=== PATIENT | male | born 1955 | race Caucasian/White ===

== ENCOUNTER → 2020-09-16 13:56 | Outpatient (BNVA) | payer OTHER, SELFPAY | PROVIDERS: PCP Nurse Practitioner Family; Referring Provider Nurse Practitioner Family; Visit Provider Internal Medicine | DX: J44.9 Chronic obstructive pulmonary disease, unspecified (principal); R91.1 Solitary pulmonary nodule; F17.200 Nicotine dependence, unspecified, uncomplicated; Z79.899 Other long term (current) drug therapy | CPT/HCPCS: 99212 ==

== ENCOUNTER → 2020-10-02 13:56 | Outpatient (BNVA) | payer OTHER, SELFPAY | PROVIDERS: PCP Nurse Practitioner Family; Referring Provider Nurse Practitioner Family; Visit Provider Orthopaedic Surgery | DX: M70.61 Trochanteric bursitis, right hip (principal); M70.62 Trochanteric bursitis, left hip | CPT/HCPCS: 20610; 99202; J1100 ==

== ENCOUNTER 2020-10-20 16:17 | Outpatient (REF) | payer OTHER, SELFPAY ==
--- NOTE | 2020-10-20 16:19 | CT_ITS ---
EXAMINATION: CT CHEST SCREENING CLINICAL INFORMATION: Current smoker, followup bilateral pulmonary nodules. COMPARISON: CT chest 07/29/2020 TECHNIQUE: Multidetector volumetric CT imaging of the chest is performed without contrast using low dose technique. Additional 2D coronal and sagittal reformatted images and axial 3D maximum intensity projection (MIP) images are generated on the CT workstation. This CT examination was performed using dose optimization techniques as appropriate, variously including the following: *Automated exposure control *Adjustment of mA and/or kV according to patient size (this includes techniques or standardized protocols for targeted exams where dose is matched to indication/reason for exam; i.e. extremities or head) *Use of iterative reconstruction technique DLP: 45 mGy-cm FINDINGS: LUNGS: Previously seen 8 mm partially cystic and solid lesion left lung apex is smaller and measures 4 mm. There is a 6 mm nodule right upper lobe axial image 14/4. Previously, it measured 7 mm. There is a calcified nodule left lower lobe superior segment image 214/6. No additional pulmonary nodules visualized. Focal atelectatic changes are seen in the right upper lobe anterior segment and lingula. Minimal dependent atelectasis seen in the right lung base. MEDIASTINUM: The thyroid lobes are symmetrical and normal. The central trachea and the bronchi are widely patent. Heart size and the great vessels are normal caliber. There is minimal atherosclerotic calcification of thoracic arch and left coronary artery. No pericardial effusion seen. No abnormal size mediastinal mass or lymph node seen. PLEURA: There is no pleural effusion. No pleural mass or thickening. AXILLA: No lymphadenopathy. UPPER ABDOMEN: Visualized liver, spleen, pancreas, and bilateral adrenal glands are unremarkable. OSSEOUS STRUCTURES: No lytic or sclerotic process seen. There is mild ventral spondylosis mid and lower dorsal spine. CT/CT lung screen follow up IMPRESSION: Improved bilateral pulmonary nodules, as described above. ASSESSMENT: Lung-RADS category 2: Benign. RECOMMENDATION: Low-dose annual CT chest.
== END 2020-10-20 16:18 | disposition home or self-care (01) ==
LOC: HO.CT 16:17
PROVIDERS: Visit Provider Physician Assistant Medical
DX: R91.8 Other nonspecific abnormal finding of lung field (principal); F17.210 Nicotine dependence, cigarettes, uncomplicated
CPT/HCPCS: 71250

== ENCOUNTER 2020-11-21 10:17 | Outpatient (REF) | payer OTHER, SELFPAY ==
[2020-11-21 11:34] LABS: Anion Gap 13 (12-20); Blood Urea Nitrogen 15 mg/dL (9-16); Carbon Dioxide 27 mmol/L (22-29); Chloride 104 mmol/L (96-108); Cholesterol 150 mg/dL; Estimated Glomerular Filt Rate > 60; Glucose Random 98 mg/dL (60-115); HDL Cholesterol 45 mg/dL; LDL Cholesterol Calculated 90 mg/dl; Potassium 4.5 mmol/l (3.3-5.1); Sodium 139 mmol/L (135-145); Triglycerides 78 mg/dL
[2020-11-21 12:00] LABS: TSH reflex Free T4 0.88 mIU/mL (0.32-4.0)
[2020-11-21 12:29] LABS: Prostate Specific Antigen Scr 0.55 ng/mL (<0.05-4.0)
== END 2020-11-21 10:18 | disposition home or self-care (01) ==
LOC: HO.HMGCLDS 10:17
PROVIDERS: PCP Nurse Practitioner Family; Visit Provider Nurse Practitioner Family
DX: R91.1 Solitary pulmonary nodule (principal); F17.210 Nicotine dependence, cigarettes, uncomplicated; Z00.00 Encounter for general adult medical examination without abnormal findings; Z12.5 Encounter for screening for malignant neoplasm of prostate
CPT/HCPCS: 36415; 80048; 80061; 84153; 84443; 99204

== ENCOUNTER → 2021-01-27 13:51 | Outpatient (BNVA) | payer OTHER, SELFPAY | PROVIDERS: PCP Nurse Practitioner Family; Visit Provider Internal Medicine | DX: J44.9 Chronic obstructive pulmonary disease, unspecified (principal); R91.1 Solitary pulmonary nodule; F17.200 Nicotine dependence, unspecified, uncomplicated; Z71.6 Tobacco abuse counseling; Z79.51 Long term (current) use of inhaled steroids | CPT/HCPCS: 99212 ==

== ENCOUNTER → 2021-06-01 14:16 | Outpatient (BNVA) | payer OTHER, SELFPAY | PROVIDERS: PCP Nurse Practitioner Family; Visit Provider Internal Medicine | DX: J44.9 Chronic obstructive pulmonary disease, unspecified (principal); R91.1 Solitary pulmonary nodule; F17.200 Nicotine dependence, unspecified, uncomplicated | CPT/HCPCS: 99212 ==

== ENCOUNTER 2021-06-22 10:16 | Emergency (ER) | payer OTHER, SELFPAY ==
[2021-06-22 10:20] VITALS: BP 134/69; PULSE 72; RESP 18; TEMP 36.9; O2SAT 96; BMI 23.6
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
[2021-06-22] MEDS: Tetracaine HCl/PF 0.5% Oph Sol 4 ML DROPS 3 DROP EYE-LEFT (10:43)
[2021-06-22] MEDS: Fluorescein Sodium STRIP 1 STRIP EYE-LEFT (10:43)
[2021-06-22] MEDS: Diphth,Pertus(ACell),Tet Adult 0.5 ML SYRINGE IM (11:07)
== END 2021-06-22 11:17 | disposition home or self-care (01) ==
PROVIDERS: Emergency Provider Emergency Medicine; PCP Nurse Practitioner Family
DX: T15.02XA Foreign body in cornea, left eye, initial encounter (principal); H57.12 Ocular pain, left eye; J44.9 Chronic obstructive pulmonary disease, unspecified; Y28.9XXA Contact with unspecified sharp object, undetermined intent, initial encounter; Y93.9 Activity, unspecified; Y92.9 Unspecified place or not applicable; Y99.9 Unspecified external cause status; Z79.899 Other long term (current) drug therapy
CPT/HCPCS: 65220; 90471; 90715; 99284

== ENCOUNTER → 2021-09-29 14:15 | Outpatient (BNVA) | payer MEDICARE, SELFPAY | PROVIDERS: PCP Nurse Practitioner Family; Visit Provider Internal Medicine | DX: J44.9 Chronic obstructive pulmonary disease, unspecified (principal); R91.1 Solitary pulmonary nodule; F17.200 Nicotine dependence, unspecified, uncomplicated | CPT/HCPCS: 99212 ==

== ENCOUNTER 2021-10-06 08:43 | Outpatient (REF) | payer MEDICARE, MEDICAID, SELFPAY ==
[2021-10-06 11:51] LABS: Appearance Urine HAZY; Color Urine YELLOW; Glucose Urine UA NEG (NEG); Leukocyte Esterase Urine NEG (NEG); Nitrite Urine NEG (NEG); Urine Blood NEG (NEG); Urine Ketones NEG (NEG); Urine Protein NEG (NEG-TRACE)
[2021-10-06 12:14] LABS: Alanine Aminotransferase 43 U/L (0-40); Albumin Level 4.3 g/dL (3.5-5.0); Alkaline Phosphatase 142 U/L (39-117); Anion Gap 15 (12-20); Aspartate Amino Transferase 23 U/L (5-37); Bilirubin Total 0.2 mg/dL (0.0-1.0); Blood Urea Nitrogen 13 mg/dL (9-16); Calcium 9.3 mg/dL (8.4-10.2); Carbon Dioxide 25 mmol/L (22-29); Chloride 106 mmol/L (96-108); Cholesterol 143 mg/dL; Estimated Glomerular Filt Rate > 60; Glucose Fasting 97 mg/dL (60-99); HDL Cholesterol 36 mg/dL; LDL Cholesterol Calculated 88 mg/dl; Potassium 4.5 mmol/L (3.3-5.1); Sodium 141 mmol/L (135-145); Total Protein 7.1 g/dL (6.5-8.0); Triglycerides 96 mg/dL
[2021-10-06 12:20] LABS: TSH reflex Free T4 0.81 uIU/mL (0.32-4.0)
[2021-10-06 13:03] LABS: Prostate Specific Antigen Scr 24.66 ng/mL (<0.05-4.0)
== END 2021-10-06 08:44 | disposition home or self-care (01) ==
LOC: HO.HMGCLDS 08:43
PROVIDERS: PCP Nurse Practitioner Family; Visit Provider Nurse Practitioner Family
DX: Z12.5 Encounter for screening for malignant neoplasm of prostate (principal); I10 Essential (primary) hypertension
CPT/HCPCS: 36415; 80053; 80061; 81003; 84153; 84443

== ENCOUNTER 2021-10-07 08:35 | Outpatient (REF) | payer MEDICARE, MEDICAID, SELFPAY ==
[2021-10-07 11:43] LABS: Alanine Aminotransferase 33 U/L (0-40); Albumin Level 4.1 g/dL (3.5-5.0); Alkaline Phosphatase 142 U/L (39-117); Aspartate Amino Transferase 17 U/L (5-37); Bilirubin Direct 0.2 mg/dL (0.0-0.5); Bilirubin Total 0.3 mg/dL (0.0-1.0); Gamma Glutamyl Transpeptidase 184 U/L (11-51); Total Protein 6.7 g/dL (6.5-8.0)
[2021-10-08 10:09] LABS: HBc Num1 0.09 S/CO (0.00-0.79); Hepatitis B Core Antibody Nonreactive (Nonreactive); ~HepC Num1 0.07 S/CO (0.00-0.79); ~Hepatitis B Surface Antibody NONREACTIVE (Nonreactive); ~Hepatitis C Antibody Nonreactive (Nonreactive)
[2021-10-08 10:29] LABS: Hepatitis B Surface Antigen Negative (Negative)
[2021-10-08 12:24] LABS: Hepatitis A Antibody IgM 0.14 Index (0-0.79); ~Hepatitis A Antibody IgM Nonreactive (Nonreactive)
[2021-10-12 11:56] LABS: Free Prostate Spec Ag 2.1 ng/mL; Percent Free Prostate Spec Ag NOT CALCULATED % (calc) (>25); Prostate Specific Ag Total 20.8 ng/mL (< OR = 4.0)
== END 2021-10-07 08:36 | disposition home or self-care (01) ==
LOC: HO.HMGCLDS 08:35
PROVIDERS: Absent Provider Physician Assistant Surgical; Visit Provider Nurse Practitioner Family
DX: R74.8 Abnormal levels of other serum enzymes (principal); R97.20 Elevated prostate specific antigen [PSA]; Z12.5 Encounter for screening for malignant neoplasm of prostate
CPT/HCPCS: 36415; 80076; 82977; 84154; 86704; 86706; 86709; 86803; 87340

== ENCOUNTER 2021-10-15 16:21 | Outpatient (REF) | payer MEDICARE, MEDICAID, SELFPAY ==
--- NOTE | ~2021-10-15 | CT_ITS ---
EXAMINATION: CT CHEST SCREENING CLINICAL INFORMATION: Nicotine dependence, cigarettes. COMPARISON: None. TECHNIQUE: Multidetector volumetric CT imaging of the chest is performed without contrast using low dose technique. Additional 2-D coronal and sagittal reformatted images and axial 3-D maximum intensity projection (MIP) images are generated on the CT workstation. This CT examination was performed using dose optimization techniques as appropriate, variously including the following: *Automated exposure control *Adjustment of mA and/or kV according to patient size (this includes techniques or standardized protocols for targeted exams where dose is matched to indication/reason for exam; i.e. extremities or head) *Use of iterative reconstruction technique DLP: 59 mGy-cm FINDINGS: LUNGS: The lungs are hyperinflated but clear of acute pneumonic process. There is a 3 mm nodule centrally in the right lower lobe adjacent to major fissure axial image 233/6, 3 mm nodule right lower lobe posteriorly image 236/6 and 6 mm nodule left lower lobe axial image 155/6. No additional pulmonary nodules seen. Focal atelectatic changes in the lingula, right lung base. MEDIASTINUM: The thyroid lobes are symmetric and normal. The central trachea and the bronchi are widely patent. Heart size and the great vessels are normal caliber. No pericardial effusion seen. There are trace coronary artery calcifications present. PLEURA: There is no pleural effusion. No pleural mass or thickening. AXILLA: There are small shotty lymph nodes in the axilla. UPPER ABDOMEN: Visualized liver, spleen, pancreas, and adrenal glands are unremarkable. OSSEOUS STRUCTURES: No lytic or sclerotic process seen. There is mild spondylosis of the dorsal spine. CT/CT lung screening IMPRESSION: Hyperinflated lungs without acute process. There are small pulmonary nodules measuring 3 mm and the largest measuring 6 mm in left lower lobe. ASSESSMENT: Lung-RADS category 3: Probably Benign. RECOMMENDATION: Low-dose CT chest in 6 months as per Fleischner guidelines.
== END 2021-10-15 16:22 | disposition home or self-care (01) ==
LOC: HO.CT 16:21
PROVIDERS: PCP Nurse Practitioner Family; Visit Provider Physician Assistant Medical
DX: Z12.2 Encounter for screening for malignant neoplasm of respiratory organs (principal); F17.210 Nicotine dependence, cigarettes, uncomplicated
CPT/HCPCS: 71271

== ENCOUNTER 2021-10-22 08:48 | Outpatient (REF) | payer MEDICARE, MEDICAID, SELFPAY ==
--- NOTE | ~2021-10-22 | US_ITS ---
EXAMINATION: US ABDOMEN COMPLETE CLINICAL INFORMATION: Abnormal levels of other serum enzymes. COMPARISON: Ultrasound abdomen 08/07/2010. TECHNIQUE: Real-time imaging of the abdominal viscera. FINDINGS: PANCREAS: Normal. ABDOMINAL AORTA: There are mild atherosclerotic changes of the abdominal aorta without aneurysmal dilatation. INFERIOR VENA CAVA: Visualized portions are normal. LIVER: The liver is normal in size. The liver contour is normal. There is slight increased liver echogenicity. No focal hepatic lesion. There is no intrahepatic biliary duct dilatation seen. GALLBLADDER: There is echogenic floating debris. The gallbladder is physiologically distended without evidence of stones, sludge, polyps, wall thickening or pericholecystic fluid. COMMON BILE DUCT: Normal in caliber measuring 0.2 cm in diameter. RIGHT KIDNEY: Normal. No hydronephrosis. No renal calculi or focal parenchymal lesions. The kidney measures 10.0 cm in maximum dimension. LEFT KIDNEY: Normal. No hydronephrosis. No renal calculi or focal parenchymal lesions. The kidney measures 10.7 cm in maximum dimension. SPLEEN: Normal. The spleen measures 10.1 cm in maximum dimension. FREE FLUID: None. US/US abdomen complete IMPRESSION: Mild hepatic steatosis without focal lesion or intrahepatic ductal dilatation. Floating echogenic debris but no echogenic stones, sludge or wall thickening. The rest of the abdominal ultrasound is unremarkable.
== END 2021-10-22 08:49 | disposition home or self-care (01) ==
LOC: HO.HMGCX 08:48
PROVIDERS: PCP Nurse Practitioner Family; Visit Provider Nurse Practitioner Family
DX: R74.8 Abnormal levels of other serum enzymes (principal)
CPT/HCPCS: 76700

== ENCOUNTER 2021-12-18 15:40 | Inpatient (IN) | payer MEDICARE, MEDICAID, SELFPAY ==
[2021-12-18] VITALS (8 sets, daily range): BP systolic 138–199; BP diastolic 72–88; PULSE 66–94; RESP 16–24; TEMP 36.6–37.2; O2SAT 92–99; BMI 23.6
--- NOTE | ~2021-12-18 | XR_ITS ---
EXAMINATION: XR CHEST CLINICAL INFORMATION: Dyspnea COMPARISON: Multiple previous chest imaging studies with the chest CT of 10/15/2021 and chest x-ray of 01/04/2018 TECHNIQUE: 2 views of the chest were obtained. FINDINGS: The lungs are hyperinflated. No focal consolidation, pleural effusions, pulmonary edema or pneumothorax are noted. The lungs essentially appear clear. Cardiomediastinal silhouette is stable and normal. Multiple right rib healed fractures are again noted. Multilevel degenerative changes in the spine. Visualized upper abdomen is unremarkable. XR/XR chest 2V IMPRESSION: Hyperinflated lungs. No acute pulmonary process.
--- NOTE | ~2021-12-18 | CT_ITS ---
EXAMINATION: CT CHEST WITHOUT CONTRAST CLINICAL INFORMATION: Cough, shortness of breath COMPARISON: Chest x-ray 12/18/2021. CT lung screening study 10/15/2021 TECHNIQUE: Multidetector volumetric CT imaging of the chest was done. Axial MIP volume rendering provided. Sagittal and coronal reformatted images were obtained. This CT examination was performed using dose optimization techniques as appropriate, variously including the following: *Automated exposure control *Adjustment of mA and/or kV according to patient size (this includes techniques or standardized protocols for targeted exams where dose is matched to indication/reason for exam; i.e. extremities or head) *Use of iterative reconstruction technique DLP: 201 mGy-cm FINDINGS: LUNGS: There is diffuse mild bronchial wall thickening but no bronchiectasis. Bronchial wall thickening is new since CT of 10/15/2021. There are faint reticular nodular and small alveolar opacities scattered in the right lower lobe which are new since prior 10/15/2021 exam. These may be inflammatory or infectious in etiology. No dense consolidation. There is hyperinflation of lungs. Lung nodules: 1. Stable 6 mm nodule left upper lobe posteriorly axial image 146/554 series 6. 2. Stable 3 mm nodule posterior right upper lobe axial image 226/554 series 6. 3. Stable 4 mm nodule right middle lobe adjacent to the regulo axial image 221/554 series 6. No new lung nodules. MEDIASTINUM: No mediastinal mass or significant lymphadenopathy. Heart size is normal. No pericardial effusion. Moderate volume of coronary artery calcification. No aneurysm of aorta. There are vascular wall calcifications of thoracic aorta. PLEURA: There is no pleural effusion. No pleural mass or thickening. AXILLA: No lymphadenopathy. UPPER ABDOMEN: Unremarkable. OSSEOUS STRUCTURES: Multilevel degenerative spondylosis of dorsal spine. CT/CT chest wo con IMPRESSION: 1. Diffuse mild bronchial wall thickening. Bronchial wall thickening is an CT 10/15/2021 suggesting a mild bronchitis. 2. Faint reticular nodular and small alveolar opacities scattered in the right lower lobe new since prior CT 10/15/2021. These may be inflammatory or infectious in etiology. No dense consolidation. 3. Stable previously noted lung nodules. Largest is 6 mm in left upper lobe As per the Lung-RADS guidelines on the CT chest 10/22/2021 follow-up CAT scan in 6 months recommended. Fleischner guidelines were followed.
--- NOTE | 2021-12-18 16:08 | ED_ITS ---
HPI - SOB/Dyspnea General Chief Complaint: Dyspnea Stated Complaint: diff breathing Time Seen by Provider: 12/18/21 16:08 Source: patient Mode of arrival: ambulatory Limitations: no limitations History of Present Illness HPI Narrative: This is a 66-year-old male past medical history significant for COPD, hypertensi on presenting to the emergency department with 3 days of productive cough of thick sputum, shortness of breath worse with exertion, and chest discomfort all of which are progressively worsening. Patient tells me he has no cardiac history. He tells me that the discomfort is substernal, nonradiating, and intermittent in nature. Patient also mentions to me that he has been sleeping in a recliner at night because he is so short of breath. He tells me that his significant other is also sick with similar symptoms. Patient is vaccinated with Pfizer x3. Denies nausea, vomiting, abdominal pain, weakness, vision changes, headache, dizziness. The patient is a current daily smoker he smokes 1 pack per day. MD elicited complaint: shortness of breath Pertinent past history: COPD Onset (ago): day(s) (3) Timing: constant Severity: moderate Exacerbating factors: nothing Relieving factors: nothing Known history of: COPD Associated symptoms: denies other symptoms Treatment prior to arrival: none Related Data Home Medications Medication Instructions Recorded Confirmed tamsulosin 0.4 mg capsule 0.4 mg PO BEDTIME 08/25/20 12/18/21 atorvastatin 40 mg tablet 40 mg PO BEDTIME 12/18/21 12/18/21 diltiazem HCl 120 mg tablet 120 mg PO DAILY 12/18/21 12/18/21 Previous Rx's Medication Instructions Recorded mometasone (Asmanex Twisthaler) 1 inh INHALATION DAILY #1 ea 03/11/21 cholecalciferol (vitamin D3) 50 50 mcg PO DAILY 90 Days #90 tab 06/01/21 mcg (2,000 unit) tablet ProAir HFA 90 mcg/actuation 2 puff PO Q4-6H PRN #8.5 g NS 09/21/21 aerosol inhaler (albuterol sulfate) omeprazole 20 mg capsule,delayed 20 mg PO DAILY #30 cap 10/05/21 release tiotropium bromide 18 mcg capsule 1 cap INHALATION DAILY 30 Days 12/07/21 #30 with inhalation device (Spiriva inh with HandiHaler) Allergies Allergy/AdvReac Type Severity Reaction Status Date / Time No Known Allergies Allergy Verified 10/05/21 17:10 Review of Systems Verdana 4l Review of Systems: Verdana 4d Verdana 4d Constitutional : No Weight loss, No Fever, No Chills, No Fatigue, No Malaise ENT/Mouth : No sore throat, No Rhinorrhea Eyes: No Eye Pain, No Swelling, No Redness Cardiovascular : No Chest Pain, + SOB, No Dyspnea on Exertion, No OrthopneaOrthopnea, No Edema, No Palpitations Respiratory : No Cough, No Sputum, No Wheezing Gastrointestinal : No Nausea, No Vomiting, No Diarrhea, No Constipation, No abdominal Pain, No Hematochezia, No Melena Genitourinary : No Dysuria, No Urinary Frequency, No Hematuria, Musculoskeletal : No joint pain, No Myalgias, No Joint Swelling Skin : No Skin Lesions, No rash Neuro : No Weakness, No Numbness, No Dizziness, No Headache All other systems reviewed and are negative Yes all other systems are reviewed and are negative PMFSH Past Medical History Attestation statement: The following information was validated with the patient. Source: old records reviewed and nursing notes reviewed Medical History Chronic right hip pain COPD (chronic obstructive pulmonary disease) History of osteomyelitis Nicotine dependence, cigarettes, uncomplicated Onychomycosis Personal history of nicotine dependence Pulmonary nodule Smoker Surgical History History of cataract surgery (~2015) History of femur fracture History of fracture of clavicle (~2010) Status post reconstruction procedure (~1977) Thumb fracture Thumb laceration Family History Family History Father Lung cancer Smoker Mother Myocardial infarction CVD (cardiovascular disease) Maternal Grandfather No problems noted. Maternal Grandmother No problems noted. Paternal Grandfather No problems noted. Paternal Grandmother No problems noted. Brother HTN (hypertension) Sister No problems noted. 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 Oriented X3.? No acute distress.? Head: Normocephalic, atraumatic, no step-offs or deformities Eyes: Pupils equal, round and reactive to light.? ENT: Pharynx normal.? Neck: Normal inspection.? Neck supple.? CVS: Normal heart rate and rhythm.? Pulses normal.? Respiratory: No respiratory distress.? + ronchi throughout, faint crackles in b/l lower lobes. Abdomen: Soft and nontender.? Skin: Skin warm and dry.? Normal skin color.? Normal skin turgor.? Extremities: No lower extremity edema.? No calf ttp. 5/5 strength to bilateral upper and lower extremities Back: No midline tenderness, no C-spine tenderness, full range of motion, no CVA tenderness bilaterally Neuro: Oriented X 3.? No motor deficit.? No sensory deficit. Course Reevaluation(s) Reevaluation #1: Slight leukocytosis, no acute electrolyte abnormalities, troponin slightly elevated will repeat in 3 hours. However, EKG is nonischemic, unlikely that this is ACS however will verify. Patient's history and physical examination not consistent with pulmonary embolism negative Delma sign bilaterally patient's vital signs are stable, no tachypnea or hypoxia. Patient is noted to be COVID negative. Time: 18:20 Reevaluation #2: Patient telling me symptoms have been worsening. His cough has been more persistent. O2 sat 92% on RA. Slight improvement after duoneb. Decadron ordered and morphine. Dimer negative no need for CTA unlikle PE. Time: 19:07 Reevaluation #3: Patient just informed me his girlfriend is here in the emergency department tested positive for RSV at this time I will obtain a flu/COVID/RSV swab. Time: 20:06 Additional Reevaluation(s): 2115 CT with bronchial wall thickening concerning for bronchitis patient 96% on 2L feeling better after decadrona and morphine and guaifenesin and codeine. FLU/COVID/RSV pending Will be admited to Dr. Sanford. MDM - SOB/Dyspnea MDM Narrative Medical decision making narrative: 1610 66 m pmhx HTN, COPD presents w/ complaints of SOB w/ a/c chest discomfort and productive cough of thick sputum X3 days. Daily smoker 1 ppd. PE significant for some crackles in b/l lower lobes and roncherous throughout. Plan labs, lactic, cultures, xray Medical Records Attestation: I reviewed the patient's medical records. Lab Data Attestation: I reviewed the patient's lab results. Result diagrams: 12/18/21 16:40 12/18/21 16:40 Labs: Lab Results 12/18/21 12/18/21 12/18/21 Range/Units 15:52 16:40 16:40 WBC 12.1 H (4.8-10.8) X10*3/uL RBC 5.06 (4.60-5.80) X10*6/uL Hgb 16.2 (14.0-18.0) g/dl Hct 45.9 (42.0-52.0) % MCV 90.7 (80.0-98.0) fL MCH 32.0 (27.0-33.0) pg MCHC 35.3 (31.0-36.0) g/dl RDW 13.7 (11.0-16.0) % Plt Count 212 (160-400) X10*3/uL MPV 8.7 L (9.4-12.4) fL Immature Gran % (Auto) 0.3 (0.0-0.4) % Neut % (Auto) 76.7 H (45-73) % Lymph % (Auto) 12.3 L (20-40) % Treasure % (Auto) 10.4 (2-11) % Eos % (Auto) 0.1 (0-4) % Baso % (Auto) 0.2 (0-2) % Lymph # (Auto) 1.5 (1.2-4.9) X10*3/uL Treasure # (Auto) 1.3 H (0.1-1.2) X10*3/uL Eos # (Auto) 0.0 (0.0-0.4) X10*3/uL Baso # (Auto) 0.0 (0.0-0.2) X10*3/uL Abs Immat Gran (auto) 0.04 H (0.00-0.03) X10*3/uL Absolute Neuts (auto) 9.3 H (2.0-8.3) x10*3/uL Absolute Nucleated RBC 0.000 (0.0-0.012) X10*3/uL Nucleated RBC % (auto) 0.0 (0.0-0.2) /100WBC D-Dimer High Sensitivty NG/ML Sodium 136 (135-145) mmol/L Potassium 4.4 (3.3-5.1) mmol/L Chloride 102 (96-108) mmol/L Carbon Dioxide 24 (22-29) mmol/L Anion Gap 14 (12-20) BUN 20 H (9-16) mg/dL Creatinine 1.09 (0.5-1.4) mg/dL Estim Creat Clear Calc 69.7 Estimated GFR > 60 Random Glucose 122 H (60-115) mg/dL Lactic Acid (0.5-2.0) mmol/L Calcium 9.8 (8.4-10.2) mg/dL Magnesium 1.8 (1.6-2.6) mg/dL Total Bilirubin 0.7 (0.0-1.0) mg/dL AST 21 (5-37) U/L ALT 18 (0-40) U/L Alkaline Phosphatase 94 D (39-117) U/L Troponin I High Sens (<3.5-35.0) ng/L B-Natriuretic Peptide (<100) pg/mL Total Protein 7.4 (6.5-8.0) g/dL Albumin 4.5 (3.5-5.0) g/dL Urine Color Urine Appearance Urine pH (5.0-8.0) Ur Specific [place] (1.005-1.025) Urine Protein (NEG-TRACE) MG/DL Urine Glucose (UA) (NEG) MG/DL Urine Ketones (NEG) MG/DL Urine Blood (NEG) Urine Nitrite (NEG) Ur Leukocyte Esterase (NEG) Urine RBC (0) /HPF Urine WBC (0-4) /HPF Ur Squamous Epith Cells /LPF Calcium Oxalate Crystal /LPF Urine Bacteria /LPF Granular Casts /LPF Urine Mucus /LPF COVID-19 (ANDREW) Negative (Negative) COVID-19 Clin Com See Note 12/18/21 12/18/21 12/18/21 Range/Units 16:40 16:40 17:41 WBC (4.8-10.8) X10*3/uL RBC (4.60-5.80) X10*6/uL Hgb (14.0-18.0) g/dl Hct (42.0-52.0) % MCV (80.0-98.0) fL MCH (27.0-33.0) pg MCHC (31.0-36.0) g/dl RDW (11.0-16.0) % Plt Count (160-400) X10*3/uL MPV (9.4-12.4) fL Immature Gran % (Auto) (0.0-0.4) % Neut % (Auto) (45-73) % Lymph % (Auto) (20-40) % Treasure % (Auto) (2-11) % Eos % (Auto) (0-4) % Baso % (Auto) (0-2) % Lymph # (Auto) (1.2-4.9) X10*3/uL Treasure # (Auto) (0.1-1.2) X10*3/uL Eos # (Auto) (0.0-0.4) X10*3/uL Baso # (Auto) (0.0-0.2) X10*3/uL Abs Immat Gran (auto) (0.00-0.03) X10*3/uL Absolute Neuts (auto) (2.0-8.3) x10*3/uL Absolute Nucleated RBC (0.0-0.012) X10*3/uL Nucleated RBC % (auto) (0.0-0.2) /100WBC D-Dimer High Sensitivty NG/ML Sodium (135-145) mmol/L Potassium (3.3-5.1) mmol/L Chloride (96-108) mmol/L Carbon Dioxide (22-29) mmol/L Anion Gap (12-20) BUN (9-16) mg/dL Creatinine (0.5-1.4) mg/dL Estim Creat Clear Calc Estimated GFR Random Glucose (60-115) mg/dL Lactic Acid 1.6 (0.5-2.0) mmol/L Calcium (8.4-10.2) mg/dL Magnesium (1.6-2.6) mg/dL Total Bilirubin (0.0-1.0) mg/dL AST (5-37) U/L ALT (0-40) U/L Alkaline Phosphatase (39-117) U/L Troponin I High Sens 12.1 (<3.5-35.0) ng/L B-Natriuretic Peptide < 10 (<100) pg/mL Total Protein (6.5-8.0) g/dL Albumin (3.5-5.0) g/dL Urine Color DK YELLOW Urine Appearance CLEAR Urine pH 5.5 (5.0-8.0) Ur Specific [place] >= 1.030 H (1.005-1.025) Urine Protein 2+ H (NEG-TRACE) MG/DL Urine Glucose (UA) NEG (NEG) MG/DL Urine Ketones 5 (NEG) MG/DL Urine Blood NEG (NEG) Urine Nitrite NEG (NEG) Ur Leukocyte Esterase NEG (NEG) Urine RBC 0-2 (0) /HPF Urine WBC 0 (0-4) /HPF Ur Squamous Epith Cells TRACE /LPF Calcium Oxalate Crystal TRACE /LPF Urine Bacteria NONE /LPF Granular Casts 0-2 /LPF Urine Mucus 4+ /LPF COVID-19 (ANDREW) (Negative) COVID-19 Clin Com 12/18/21 Range/Units 17:49 WBC (4.8-10.8) X10*3/uL RBC (4.60-5.80) X10*6/uL Hgb (14.0-18.0) g/dl Hct (42.0-52.0) % MCV (80.0-98.0) fL MCH (27.0-33.0) pg MCHC (31.0-36.0) g/dl RDW (11.0-16.0) % Plt Count (160-400) X10*3/uL MPV (9.4-12.4) fL Immature Gran % (Auto) (0.0-0.4) % Neut % (Auto) (45-73) % Lymph % (Auto) (20-40) % Treasure % (Auto) (2-11) % Eos % (Auto) (0-4) % Baso % (Auto) (0-2) % Lymph # (Auto) (1.2-4.9) X10*3/uL Treasure # (Auto) (0.1-1.2) X10*3/uL Eos # (Auto) (0.0-0.4) X10*3/uL Baso # (Auto) (0.0-0.2) X10*3/uL Abs Immat Gran (auto) (0.00-0.03) X10*3/uL Absolute Neuts (auto) (2.0-8.3) x10*3/uL Absolute Nucleated RBC (0.0-0.012) X10*3/uL Nucleated RBC % (auto) (0.0-0.2) /100WBC D-Dimer High Sensitivty 187 NG/ML Sodium (135-145) mmol/L Potassium (3.3-5.1) mmol/L Chloride (96-108) mmol/L Carbon Dioxide (22-29) mmol/L Anion Gap (12-20) BUN (9-16) mg/dL Creatinine (0.5-1.4) mg/dL Estim Creat Clear Calc Estimated GFR Random Glucose (60-115) mg/dL Lactic Acid (0.5-2.0) mmol/L Calcium (8.4-10.2) mg/dL Magnesium (1.6-2.6) mg/dL Total Bilirubin (0.0-1.0) mg/dL AST (5-37) U/L ALT (0-40) U/L Alkaline Phosphatase (39-117) U/L Troponin I High Sens (<3.5-35.0) ng/L B-Natriuretic Peptide (<100) pg/mL Total Protein (6.5-8.0) g/dL Albumin (3.5-5.0) g/dL Urine Color Urine Appearance Urine pH (5.0-8.0) Ur Specific [place] (1.005-1.025) Urine Protein (NEG-TRACE) MG/DL Urine Glucose (UA) (NEG) MG/DL Urine Ketones (NEG) MG/DL Urine Blood (NEG) Urine Nitrite (NEG) Ur Leukocyte Esterase (NEG) Urine RBC (0) /HPF Urine WBC (0-4) /HPF Ur Squamous Epith Cells /LPF Calcium Oxalate Crystal /LPF Urine Bacteria /LPF Granular Casts /LPF Urine Mucus /LPF COVID-19 (ANDREW) (Negative) COVID-19 Clin Com Imaging Data CT scan - chest: Attestation: I personally reviewed and interpreted this imaging study as follows: Radiologist's impression: CT/CT chest wo con IMPRESSION: ? 1. Diffuse mild bronchial wall thickening. Bronchial wall thickening is an CT 10/15/2021 suggesting a mild bronchitis. 2. Faint reticular nodular and small alveolar opacities scattered in the right lower lobe new since prior CT 10/15/2021. These may be inflammatory or infectious in etiology. No dense consolidation. 3. Stable previously noted lung nodules. Largest is 6 mm in left upper lobe As per the Lung-RADS guidelines on the CT chest 10/22/2021 follow-up CAT scan in 6 months recommended.? ? Fleischner guidelines were followed. Chest x-ray: Attestation: I personally reviewed and interpreted this imaging study as follows: Radiologist's impression: FINDINGS: The lungs are hyperinflated. No focal consolidation, pleural effusions, pulmonary edema or pneumothorax are noted. The lungs essentially appear clear. Cardiomediastinal silhouette is stable and normal. Multiple right rib healed fractures are again noted. Multilevel degenerative changes in the spine. Visualized upper abdomen is unremarkable. XR/XR chest 2V IMPRESSION: Hyperinflated lungs. No acute pulmonary process. ECG Data Attestation: I personally reviewed and interpreted this ECG as follows: ECG interpretation date: 12/18/21 ECG interpretation time: 16:47 Prior ECG tracings: available for review Interpretation: Ventricular rate of 85, DE normal, QRS normal QT/QTC normal. EKG shows normal sinus rhythm, no ST elevations or inversions concerning for ischemia. No significant changes when compared to EKG from January 04, 2018. Critical Care Time Critical Care Time Critical Care Time: No Discharge Plan Discharge Clinical Impression: COPD exacerbation, Bronchitis Patient Disposition: Admitted As Inpatient
[2021-12-18 16:34] LABS: COVID-19 Test Negative (Negative)
--- NOTE | 2021-12-18 16:34 | ECG_ITS ---
Test Reason : SHORTNESS OF BREATH Blood Pressure : / mmHG Vent. Rate : 085 BPM Atrial Rate : 085 BPM P-R Int : 144 ms QRS Dur : 076 ms QT Int : 336 ms P-R-T Axes : 081 072 055 degrees QTc Int : 399 ms Normal sinus rhythm Septal infarct (cited on or before 18-DEC-2021) Abnormal ECG When compared with ECG of 04-JAN-2018 16:58, Premature atrial complexes are no longer Present Referred By: Buddy Bernabe Electronically Signed By:SHADI ISLAS
[2021-12-18 16:47] LABS: Basophils Percent Auto 0.2 % (0-2); Eosinophils Percent Auto 0.1 % (0-4); Hematocrit 45.9 % (42.0-52.0); Hemoglobin 16.2 g/dl (14.0-18.0); Imm Gran Abs Auto 0.04 X10*3/uL (0.00-0.03); Imm Gran Pct Auto 0.3 % (0.0-0.4); Lymphocytes Absolute Auto 1.5 X10*3/uL (1.2-4.9); Lymphocytes Percent Auto 12.3 % (20-40); MANUAL DIFF FLAG NO; Mean Corpuscular HGB Conc 35.3 g/dl (31.0-36.0); Mean Corpuscular Volume 90.7 fL (80.0-98.0); Mean Platelet Volume 8.7 fL (9.4-12.4); Monocytes Absolute Auto 1.3 X10*3/uL (0.1-1.2); Monocytes Percent Auto 10.4 % (2-11); Neutrophils Absolute Auto 9.3 x10*3/uL (2.0-8.3); Neutrophils Percent Auto 76.7 % (45-73); Platelet Count 212 X10*3/uL (160-400); Red Blood Count 5.06 X10*6/uL (4.60-5.80); Red Cell Distribution Width 13.7 % (11.0-16.0); White Blood Count 12.1 X10*3/uL (4.8-10.8)
[2021-12-18 17:02] LABS: Lactic Acid 1.6 mmol/L (0.5-2.0)
[2021-12-18 17:07] LABS: Alanine Aminotransferase 18 U/L (0-40); Albumin Level 4.5 g/dL (3.5-5.0); Alkaline Phosphatase 94 U/L (39-117); Anion Gap 14 (12-20); Aspartate Amino Transferase 21 U/L (5-37); Bilirubin Total 0.7 mg/dL (0.0-1.0); Blood Urea Nitrogen 20 mg/dL (9-16); Calcium 9.8 mg/dL (8.4-10.2); Carbon Dioxide 24 mmol/L (22-29); Chloride 102 mmol/L (96-108); Creatinine Clr Calc Pharmacy 69.7; Estimated Glomerular Filt Rate > 60; Glucose Random 122 mg/dL (60-115); Magnesium 1.8 mg/dL (1.6-2.6); Potassium 4.4 mmol/L (3.3-5.1); Sodium 136 mmol/L (135-145); Total Protein 7.4 g/dL (6.5-8.0)
[2021-12-18 17:14] LABS: B Type Natriuretic Peptide < 10 pg/mL (<100); Troponin-I High Sensitivity 12.1 ng/L (<3.5-35.0)
[2021-12-18] MEDS: Acetaminophen 325 MG TABLET 650 MG PO (17:19)
[2021-12-18] MEDS: cefTRIAXone sodium 1 GM in 0.9 % Sodium Chloride 50 ML IV (17:47)
[2021-12-18] MEDS: Albuterol/Iprat 2.5/0.5MG 3 ML AMPUL.NEB INHALE (17:51)
[2021-12-18 17:54] LABS: Appearance Urine CLEAR; Color Urine DK YELLOW; Glucose Urine UA NEG (NEG); Leukocyte Esterase Urine NEG (NEG); Nitrite Urine NEG (NEG); PH 5.5 (5.0-8.0); Specific Gravity - Urine >= 1.030 (1.005-1.025); UACC Culture Trigger NO; Urine Blood NEG (NEG); Urine Ketones 5 MG/DL (NEG); Urine Protein 2+ MG/DL (NEG-TRACE)
[2021-12-18] MEDS: 0.9 % Sodium Chloride 1,000 ML 999 ML IV (18:01)
[2021-12-18 18:03] LABS: Calcium Oxalate Crystals Urine TRACE /LPF; Granular Casts Urine 0-2 /LPF; Mucus Urine 4+ /LPF; RBC Urine 0-2 /HPF (0); Squamous Epithelial Cell Urine TRACE /LPF; WBC Urine 0 /HPF (0-4)
[2021-12-18 18:05] LABS: D Dimer High Sensitivity 187 NG/ML
--- NOTE | 2021-12-18 19:43 | P.HPHOSP_ITS ---
History of Present Illness Date of Service: 12/18/21 Chief Complaint: SOB 66-year-old male with a past medical history of hypertension, Hyperlipidemia, BPH, GERD, COPD, tobacco dependence, chronic hip pain, history of osteomyelitis, pulmonary nodule present to the hospital with a chief complaint of shortness of breath for 3 days. patient reported that her the past 3 days he has been having cough and shortness of breath. Mentions that he has been producing thick sputum. Also complains of posttussive chest discomfort. Denies any nausea vomiting or diarrhea. Denies any recent travel or sick contacts. Mentions that as the symptoms were worsening decided to come to the ER for further evaluation. Denies any numbness tingling or focal weakness. Denies any urinary symptoms. Patient reports he has been in contact with his girlfriend who has tested positive for RSV. Review of all other systems is negative except mentioned above ER course: Per ER team patient on presentation noted to be in mild respiratory distress, tachypneic, noted bilateral wheezing, concern for COPD exacerbation, mildly hypoxic to 91%; placed on supplemental oxygen. Given nebulizations and steroids. D-dimer was negative. COVID-19 was negative. Admitted to the hospital with impression of COPD exacerbation PMFSH Medical History Chronic right hip pain COPD (chronic obstructive pulmonary disease) History of osteomyelitis Nicotine dependence, cigarettes, uncomplicated Onychomycosis Personal history of nicotine dependence Pulmonary nodule Smoker Family History Father Lung cancer Smoker Mother Myocardial infarction CVD (cardiovascular disease) Maternal Grandfather No problems noted. Maternal Grandmother No problems noted. Paternal Grandfather No problems noted. Paternal Grandmother No problems noted. Brother HTN (hypertension) Sister No problems noted. 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 Allergies Allergy/AdvReac Type Severity Reaction Status Date / Time No Known Allergies Allergy Verified 10/05/21 17:10 Active Medications: Current Medications Acetaminophen (Acetaminophen 325 Mg Tablet) 650 mg PO Q6H PRN PRN Reason: Pain, Mild (Pain Scale 1-3) Azithromycin (Azithromycin 500 Mg Tablet) 500 mg PO Q24H SCOTT Enoxaparin Sodium (Enoxaparin Sodium 40 Mg/0.4 Ml Syringe) 40 mg SUBCUT Q24H SCOTT Melatonin (Melatonin 3 Mg Tablet) 6 mg PO BEDTIME PRN PRN Reason: Insomnia Morphine Sulfate (Morphine Sulfate 4 Mg/Ml Cartridge) 1 mg IVPUSH Q4H PRN; Protocol PRN Reason: Pain, SOB Senna (Sennosides 8.6 Mg Tablet) 17.2 mg PO BEDTIME PRN PRN Reason: Constipation Sodium Chloride (0.9 % Sodium Chloride Flush 3 Ml Syringe) 3 ml IVFLUSH QSHIFT SCOTT Home Medications Medication Instructions Recorded Confirmed Last Taken Type tamsulosin 0.4 mg 0.4 mg PO 08/25/20 12/18/21 12/17/21 History capsule BEDTIME atorvastatin 40 40 mg PO BEDTIME 12/18/21 12/18/21 12/17/21 History mg tablet diltiazem HCl 120 120 mg PO DAILY 12/18/21 12/18/21 12/18/21 History mg tablet Physical Exam Verdana 4l Vital Signs and Narrative: Verdana 4d Verdana 4d Vital Signs: Verdana 4d Verdana 4Bd Last Vital Signs Verdana 4d Cement Rubber New 4d Cement Rubber New 4d Temp 98.3 F 12/18/21 18:18 Cement Rubber New 4d Pulse 90 12/18/21 19:25 Cement Rubber New 4d Resp 21 H 12/18/21 18:18 BP 138/72 12/18/21 18:18 Pulse Ox 92 12/18/21 19:25 BMI result Body Mass Index 23.6 Gen: Appears be in no acute distress. Upon supplemental oxygen. Speaking in full sentences. HEENT: NCAT, Moist mucosa. Pulmonary: Bilateral wheezing noted CVS: Normal S1-S2 Abdomen: BS+, Soft, Nontender Extremities: Warm well perfused Neuro: Alert and awake. Results Labs CBC and Chem 7: 02/22 16:40 12/18/21 16:40 Labs: Laboratory Results - last 24 hr 12/18/21 12/18/21 12/18/21 15:52 16:40 16:40 MCV 90.7 MCH 32.0 MCHC 35.3 RDW 13.7 Plt Count 212 MPV 8.7 L Immature Gran % (Auto) 0.3 Neut % (Auto) 76.7 H Lymph % (Auto) 12.3 L [place] % (Auto) 10.4 Eos % (Auto) 0.1 Baso % (Auto) 0.2 Lymph # (Auto) 1.5 Edgar # (Auto) 1.3 H Eos # (Auto) 0.0 Baso # (Auto) 0.0 Abs Immat Gran (auto) 0.04 H Absolute Neuts (auto) 9.3 H Absolute Nucleated RBC 0.000 Nucleated RBC % (auto) 0.0 D-Dimer High Sensitivty Anion Gap 14 Estim Creat Clear Calc 69.7 Estimated GFR > 60 Random Glucose 122 H Lactic Acid Calcium 9.8 Magnesium 1.8 Total Bilirubin 0.7 AST 21 ALT 18 Alkaline Phosphatase 94 D B-Natriuretic Peptide Total Protein 7.4 Albumin 4.5 Urine Color Urine Appearance Urine pH Ur Specific [place] Urine Protein Urine Glucose (UA) Urine Ketones Urine Blood Urine Nitrite Ur Leukocyte Esterase Urine RBC Urine WBC Ur Squamous Epith Cells Calcium Oxalate Crystal Urine Bacteria Granular Casts Urine Mucus COVID-19 (ANDREW) Negative COVID-19 Clin Com See Note 12/18/21 12/18/21 12/18/21 16:40 16:40 17:41 MCV MCH MCHC RDW Plt Count MPV Immature Gran % (Auto) Neut % (Auto) Lymph % (Auto) Edgar % (Auto) Eos % (Auto) Baso % (Auto) Lymph # (Auto) Edgar # (Auto) Eos # (Auto) Baso # (Auto) Abs Immat Gran (auto) Absolute Neuts (auto) Absolute Nucleated RBC Nucleated RBC % (auto) D-Dimer High Sensitivty Anion Gap Estim Creat Clear Calc Estimated GFR Random Glucose Lactic Acid 1.6 Calcium Magnesium Total Bilirubin AST ALT Alkaline Phosphatase B-Natriuretic Peptide < 10 Total Protein Albumin Urine Color DK YELLOW Urine Appearance CLEAR Urine pH 5.5 Ur Specific [place] >= 1.030 H Urine Protein 2+ H Urine Glucose (UA) NEG Urine Ketones 5 Urine Blood NEG Urine Nitrite NEG Ur Leukocyte Esterase NEG Urine RBC 0-2 Urine WBC 0 Ur Squamous Epith Cells TRACE Calcium Oxalate Crystal TRACE Urine Bacteria NONE Granular Casts 0-2 Urine Mucus 4+ COVID-19 (ANDREW) COVID-19 Clin Com 12/18/21 17:49 MCV MCH MCHC RDW Plt Count MPV Immature Gran % (Auto) Neut % (Auto) Lymph % (Auto) [place] % (Auto) Eos % (Auto) Baso % (Auto) Lymph # (Auto) [place] # (Auto) Eos # (Auto) Baso # (Auto) Abs Immat Gran (auto) Absolute Neuts (auto) Absolute Nucleated RBC Nucleated RBC % (auto) D-Dimer High Sensitivty 187 Anion Gap Estim Creat Clear Calc Estimated GFR Random Glucose Lactic Acid Calcium Magnesium Total Bilirubin AST ALT Alkaline Phosphatase B-Natriuretic Peptide Total Protein Albumin Urine Color Urine Appearance Urine pH Ur Specific [place] Urine Protein Urine Glucose (UA) Urine Ketones Urine Blood Urine Nitrite Ur Leukocyte Esterase Urine RBC Urine WBC Ur Squamous Epith Cells Calcium Oxalate Crystal Urine Bacteria Granular Casts Urine Mucus COVID-19 (ANDREW) COVID-19 Clin Com Imaging Radiologist's Impressions: Impressions Chest X-Ray 12/18/21 16:17 IMPRESSION: Hyperinflated lungs. No acute pulmonary process. Assessment and Plan (1) COPD exacerbation: Status: Acute (2) HTN (hypertension): Status: Acute Plan 66-year-old male with a past medical history of hypertension, Hyperlipidemia, BPH, GERD, COPD, tobacco dependence, chronic hip pain, history of osteomyelitis, pulmonary nodule present to the hospital with a chief complaint of shortness of breath for 3 days; noted to be in acute COPD exacerbation. Admitted for further management. Acute COPD exacerbation: Supplemental oxygen p.r.n. with goal oxygen saturation 93% Continue DuoNebs standing and p.r.n. Continue Solu-Medrol 40 mg IV q.i.d. Azithromycin Cough suppressants COVID-19 negative. D-dimer negative. RSV positive: Patient has sick contact with his girlfriend who is admitted to the hospital currently. Supportive care. hypertension /hyperlipidemia: Continue home medications. DVT prophylaxis: Lovenox Code status: Full code Quality Stroke Does the patient have a stroke diagnosis?: No VTE Prior VTE?: No VTE Risk Level:: Medical - moderate - high VTE Device Contraindication: Treatment Not Indicated VTE Drug Contraindication: N/A - Med Ordered
[2021-12-18] MEDS: Azithromycin 500 MG TABLET PO (20:05)
[2021-12-18] MEDS: Famotidine 20 MG TABLET PO (20:05)
[2021-12-18] MEDS: dexAMETHasone sod phosphate 10 MG/ML VIAL IVPUSH (20:05)
[2021-12-18] MEDS: Morphine Sulfate 4 MG/ML CARTRIDGE IVPUSH (20:05)
[2021-12-18] MEDS: guaiFEN/Codeine SF 200/20/10ML 10 ML LIQUID 5 ML PO (20:05)
[2021-12-18 20:07] LABS: Troponin-I High Sensitivity 13.3 ng/L (<3.5-35.0)
--- NOTE | 2021-12-18 20:33 | PHA.MEDREC ---
Pharmacy Consult ? Medication Reconciliation Pharmacy has completed the medication reconciliation.
[2021-12-18 21:09] LABS: Influenza A PCR NEGATIVE (Negative); Influenza B PCR NEGATIVE (Negative); Resp Syncy Virus RNA Qual PCR POSITIVE (Negative); SARS COV2 PCR INHOUSE NEGATIVE (Negative)
[2021-12-18] MEDS: Enoxaparin Sodium 40 MG/0.4 ML SYRINGE SUBCUT (23:15)
[2021-12-18] MEDS: 0.9 % Sodium Chloride Flush 3 ML SYRINGE IVFLUSH (23:16)
[2021-12-19] VITALS (12 sets, daily range): BP systolic 128–160; BP diastolic 62–86; PULSE 62–98; RESP 12–22; TEMP 36.2–36.9; O2SAT 94–100
--- NOTE | 2021-12-19 01:42 | PC.NURSE ---
PT woke up from sleep with returned cough and reports of chest tightness. PT requesting breathing treatment and reporting difficulty breathing. RT contacted to provide nebulizer treatment.
[2021-12-19] MEDS: Benzonatate 100 MG CAPSULE PO ×3 (01:58→20:54)
[2021-12-19] MEDS: methylPREDNISolone Sod Succ 40 MG/ML VIAL IVPUSH ×4 (01:58→20:54)
[2021-12-19] MEDS: Morphine Sulfate 4 MG/ML CARTRIDGE 1 MG IVPUSH (03:03)
--- NOTE | 2021-12-19 03:04 | PC.NURSE ---
pt mediated for pain per Jan. Notified ALVERTO massey . Will continue to monitor.
[2021-12-19 06:51] LABS: MANUAL DIFF FLAG NO
[2021-12-19 06:55] LABS: Basophils Percent Auto 0.2 % (0-2); Hematocrit 42.6 % (42.0-52.0); Hemoglobin 14.6 g/dl (14.0-18.0); Imm Gran Abs Auto 0.02 X10*3/uL (0.00-0.03); Imm Gran Pct Auto 0.3 % (0.0-0.4); Lymphocytes Absolute Auto 0.7 X10*3/uL (1.2-4.9); Lymphocytes Percent Auto 11.2 % (20-40); Mean Corpuscular HGB Conc 34.3 g/dl (31.0-36.0); Mean Corpuscular Hemoglobin 31.7 pg (27.0-33.0); Mean Corpuscular Volume 92.6 fL (80.0-98.0); Monocytes Absolute Auto 0.1 X10*3/uL (0.1-1.2); Monocytes Percent Auto 1.3 % (2-11); Neutrophils Absolute Auto 5.2 x10*3/uL (2.0-8.3); Platelet Count 198 X10*3/uL (160-400); Red Cell Distribution Width 13.7 % (11.0-16.0)
[2021-12-19 07:09] LABS: Anion Gap 15 (12-20); Blood Urea Nitrogen 18 mg/dL (9-16); Carbon Dioxide 24 mmol/L (22-29); Chloride 103 mmol/L (96-108); Creatinine Clr Calc Pharmacy 88.4; Estimated Glomerular Filt Rate > 60; Glucose Random 172 mg/dL (60-115); Potassium 4.5 mmol/L (3.3-5.1); Sodium 137 mmol/L (135-145)
[2021-12-19] MEDS: dilTIAZem HCL 60 MG TABLET 120 MG PO (08:32)
[2021-12-19] MEDS: Cholecalciferol (Vitamin D3) 25 MCG TABLET 50 MCG PO (08:32)
[2021-12-19] MEDS: Famotidine 20 MG TABLET PO ×2 (08:33→20:53)
[2021-12-19] MEDS: Omeprazole 20 MG CAPSULE.DR PO (08:33)
[2021-12-19] MEDS: Albuterol/Iprat 2.5/0.5MG 3 ML AMPUL.NEB INHALE ×4 (09:00→20:33)
--- NOTE | 2021-12-19 09:26 | P.PNIM_ITS ---
Subjective Subjective Date of Service: 12/19/21 Interval History: c/o cough, chest congestion and shortness of breath, complaining of chest pain with coughing denies fever chills no nausea no vomiting tolerating diet get coughing episodes with deep breathing. Physical Exam Verdana 4l Vital Signs: Verdana 4d Verdana 4d Vital Signs: Verdana 4d Verdana 4Bd Last Vital Signs Verdana 4d Hot [place] Man New 4d Hot [place] Man New 4d Temp 97.7 F 12/19/21 08:03 Hot [place] Man New 4d Pulse 73 12/19/21 08:03 Hot [place] Man New 4d Resp 18 12/19/21 08:03 BP 160/80 H 12/19/21 08:03 Pulse Ox 98 12/19/21 08:03 BMI result Body Mass Index 23.6 Const: Other: General awake alert ,coughing, in no acute distress. Neck supple no JVD. CVS regular rate rhythm, Respiratory lungs bilateral rhonchi,no respiratory distress, Gastrointestinal abdomen soft, nontender, bowel sounds audible, Extremities no edema. Neuro nonfocal Skin no rash psych appropriate affect Objective Data Active Medications Acetaminophen (Acetaminophen 325 Mg Tablet) 650 mg PO Q6H PRN PRN Reason: Pain, Mild (Pain Scale 1-3) Albuterol Sulfate (Albuterol Sulfate (0.083%) 2.5 Mg/3 Ml Vial.Neb) 2.5 mg INHALE Q2H PRN PRN Reason: Shortness of Breath/Wheezing Albuterol/Ipratropium (Albuterol/Iprat 2.5/0.5mg 3 Ml Ampul.Neb) 3 ml INHALE RQ4H WHILE AWAKE [facility] Last Admin: 12/19/21 09:00 Dose: 3 ml Documented by: EL Atorvastatin Calcium (Atorvastatin Calcium 40 Mg Tablet) 40 mg PO BEDTIME [facility] Azithromycin (Azithromycin 500 Mg Tablet) 500 mg PO Q24H [facility] Last Admin: 12/18/21 20:05 Dose: 500 mg Documented by: TANA Benzonatate (Benzonatate 100 Mg Capsule) 100 mg PO TID PRN PRN Reason: Cough Last Admin: 12/19/21 08:33 Dose: 100 mg Documented by: MARITZA Diltiazem HCl (Diltiazem Hcl 60 Mg Tablet) 120 mg PO DAILY [facility]; Protocol Last Admin: 12/19/21 08:32 Dose: 120 mg Documented by: MARITZA Enoxaparin Sodium (Enoxaparin Sodium 40 Mg/0.4 Ml Syringe) 40 mg SUBCUT Q24H [facility] Last Admin: 12/18/21 23:15 Dose: 40 mg Documented by: TANA Famotidine (Famotidine 20 Mg Tablet) 20 mg PO BID [facility] Last Admin: 12/19/21 08:33 Dose: 20 mg Documented by: MARITZA Melatonin (Melatonin 3 Mg Tablet) 6 mg PO BEDTIME PRN PRN Reason: Insomnia Methylprednisolone Sodium Succinate (Methylprednisolone Sod Succ 40 Mg/Ml Vial) 40 mg IVPUSH Q6H [facility] Last Admin: 12/19/21 08:32 Dose: 40 mg Documented by: MARITZA Morphine Sulfate (Morphine Sulfate 4 Mg/Ml Cartridge) 1 mg IVPUSH Q4H PRN; Protocol PRN Reason: Pain, SOB Last Admin: 12/19/21 03:03 Dose: 1 mg Documented by: NELSON Omeprazole (Omeprazole 20 Mg Capsule.Dr) 20 mg PO DAILY [facility] Last Admin: 12/19/21 08:33 Dose: 20 mg Documented by: MARITZA Senna (Sennosides 8.6 Mg Tablet) 17.2 mg PO BEDTIME PRN PRN Reason: Constipation Sodium Chloride (0.9 % Sodium Chloride Flush 3 Ml Syringe) 3 ml IVFLUSH QSHIFT [facility] Last Admin: 12/19/21 08:33 Dose: Not Given Documented by: MARITZA Non-Admin Reason: Previously Administered Tamsulosin HCl (Tamsulosin Hcl 0.4 Mg Capsule) 0.4 mg PO BEDTIME [facility] Tiotropium Peck (Tiotropium [place] 18 Mcg Cap.W.Dev) 1 puff INHALE DAILY [facility] Last Admin: 12/19/21 09:00 Dose: Not Given Documented by: EL Non-Admin Reason: Med Not Available Vitamin D (Cholecalciferol (Vitamin D3) 25 Mcg Tablet) 50 mcg PO DAILY [facility] Last Admin: 12/19/21 08:32 Dose: 50 mcg Documented by: MARITZA Labs CBC & Chem 7: 12/19/21 06:37 12/19/21 06:37 Labs: Laboratory Results - last 24 hr 0212/18/21 12/18/21 15:52 16:40 16:40 MCV 90.7 MCH 32.0 MCHC 35.3 RDW 13.7 Plt Count 212 MPV 8.7 L Immature Gran % (Auto) 0.3 Neut % (Auto) 76.7 H Lymph % (Auto) 12.3 L [place] % (Auto) 10.4 Eos % (Auto) 0.1 Baso % (Auto) 0.2 Lymph # (Auto) 1.5 [place] # (Auto) 1.3 H Eos # (Auto) 0.0 Baso # (Auto) 0.0 Abs Immat Gran (auto) 0.04 H Absolute Neuts (auto) 9.3 H Absolute Nucleated RBC 0.000 Nucleated RBC % (auto) 0.0 D-Dimer High Sensitivty Anion Gap 14 Estim Creat Clear Calc 69.7 Estimated GFR > 60 Random Glucose 122 H Lactic Acid Calcium 9.8 Magnesium 1.8 Total Bilirubin 0.7 AST 21 ALT 18 Alkaline Phosphatase 94 D B-Natriuretic Peptide Total Protein 7.4 Albumin 4.5 Urine Color Urine Appearance Urine pH Ur Specific [place] Urine Protein Urine Glucose (UA) Urine Ketones Urine Blood Urine Nitrite Ur Leukocyte Esterase Urine RBC Urine WBC Ur Squamous Epith Cells Calcium Oxalate Crystal Urine Bacteria Granular Casts Urine Mucus COVID-19 (ANDREW) Negative COVID-19 Clin Com See Note Influenza Type A (PCR) Influenza Type B (PCR) RSV RNA Qual (PCR) SARS-CoV-2 RNA (RT-PCR) 12/18/21 12/18/21 12/18/21 16:40 16:40 17:41 MCV MCH MCHC RDW Plt Count MPV Immature Gran % (Auto) Neut % (Auto) Lymph % (Auto) [place] % (Auto) Eos % (Auto) Baso % (Auto) Lymph # (Auto) [place] # (Auto) Eos # (Auto) Baso # (Auto) Abs Immat Gran (auto) Absolute Neuts (auto) Absolute Nucleated RBC Nucleated RBC % (auto) D-Dimer High Sensitivty Anion Gap Estim Creat Clear Calc Estimated GFR Random Glucose Lactic Acid 1.6 Calcium Magnesium Total Bilirubin AST ALT Alkaline Phosphatase B-Natriuretic Peptide < 10 Total Protein Albumin Urine Color DK YELLOW Urine Appearance CLEAR Urine pH 5.5 Ur Specific [place] >= 1.030 H Urine Protein 2+ H Urine Glucose (UA) NEG Urine Ketones 5 Urine Blood NEG Urine Nitrite NEG Ur Leukocyte Esterase NEG Urine RBC 0-2 Urine WBC 0 Ur Squamous Epith Cells TRACE Calcium Oxalate Crystal TRACE Urine Bacteria NONE Granular Casts 0-2 Urine Mucus 4+ COVID-19 (ANDREW) COVID-19 Clin Com Influenza Type A (PCR) Influenza Type B (PCR) RSV RNA Qual (PCR) SARS-CoV-2 RNA (RT-PCR) 12/18/21 12/18/21 12/19/21 17:49 20:26 06:37 MCV 92.6 MCH 31.7 MCHC 34.3 RDW 13.7 Plt Count 198 MPV 9.0 L Immature Gran % (Auto) 0.3 Neut % (Auto) 87.0 H Lymph % (Auto) 11.2 L [place] % (Auto) 1.3 L Eos % (Auto) 0.0 Baso % (Auto) 0.2 Lymph # (Auto) 0.7 L [place] # (Auto) 0.1 Eos # (Auto) 0.0 Baso # (Auto) 0.0 Abs Immat Gran (auto) 0.02 Absolute Neuts (auto) 5.2 Absolute Nucleated RBC 0.000 Nucleated RBC % (auto) 0.0 D-Dimer High Sensitivty 187 Anion Gap Estim Creat Clear Calc Estimated GFR Random Glucose Lactic Acid Calcium Magnesium Total Bilirubin AST ALT Alkaline Phosphatase B-Natriuretic Peptide Total Protein Albumin Urine Color Urine Appearance Urine pH Ur Specific [place] Urine Protein Urine Glucose (UA) Urine Ketones Urine Blood Urine Nitrite Ur Leukocyte Esterase Urine RBC Urine WBC Ur Squamous Epith Cells Calcium Oxalate Crystal Urine Bacteria Granular Casts Urine Mucus COVID-19 (ANDREW) COVID-19 Clin Com Influenza Type A (PCR) NEGATIVE Influenza Type B (PCR) NEGATIVE RSV RNA Qual (PCR) POSITIVE A SARS-CoV-2 RNA (RT-PCR) NEGATIVE 12/19/21 06:37 MCV MCH MCHC RDW Plt Count MPV Immature Gran % (Auto) Neut % (Auto) Lymph % (Auto) [place] % (Auto) Eos % (Auto) Baso % (Auto) Lymph # (Auto) [place] # (Auto) Eos # (Auto) Baso # (Auto) Abs Immat Gran (auto) Absolute Neuts (auto) Absolute Nucleated RBC Nucleated RBC % (auto) D-Dimer High Sensitivty Anion Gap 15 Estim Creat Clear Calc 88.4 Estimated GFR > 60 Random Glucose 172 H D Lactic Acid Calcium 9.0 D Magnesium Total Bilirubin AST ALT Alkaline Phosphatase B-Natriuretic Peptide Total Protein Albumin Urine Color Urine Appearance Urine pH Ur Specific [place] Urine Protein Urine Glucose (UA) Urine Ketones Urine Blood Urine Nitrite Ur Leukocyte Esterase Urine RBC Urine WBC Ur Squamous Epith Cells Calcium Oxalate Crystal Urine Bacteria Granular Casts Urine Mucus COVID-19 (ANDREW) COVID-19 Clin Com Influenza Type A (PCR) Influenza Type B (PCR) RSV RNA Qual (PCR) SARS-CoV-2 RNA (RT-PCR) Assessment and Plan (1) Respiratory syncytial virus (RSV): Status: Acute (2) COPD exacerbation: Status: Acute (3) HTN (hypertension): Status: Acute Plan 66-year-old male with a past medical history of hypertension,? Hyperlipidemia, BPH, GERD, COPD, tobacco dependence, chronic hip pain, history of osteomyelitis, pulmonary nodule present to the hospital with a chief complaint of shortness of breath for 3 days; noted to be in acute COPD exacerbation.? Admitted for further management.? Acute COPD exacerbation due to respiratory sensitive all wires persistent shortness of breath cough and rhonchi: Continue Solu-Medrol 40 mg IV q.i.d., continue IV azithromycin day 1 COVID-19 negative.? D-dimer negative. continue Pepcid for GI prophylaxis tobacco use disorder strongly recommended to abstain from smoking pulmonary nodule seen on chest CT recommend 6 months follow-up hypertension elevated blood pressure continue Cardizem follow BP closely hyperlipidemia: Continue lipitor DVT prophylaxis:? Lovenox Code status: Full code Quality Stroke Does the patient have a stroke diagnosis?: No VTE Prior VTE?: No VTE Risk Level:: Medical - moderate - high VTE Device Contraindication: Treatment Not Indicated VTE Drug Contraindication: N/A - Med Ordered
[2021-12-19] MEDS: guaiFENesin DM 200/20/10 ML 10 ML SYRUP PO ×3 (10:33→20:54)
[2021-12-19] MEDS: oxyCODONE HCl Immed Release 5 MG TABLET PO ×2 (10:33→20:53)
[2021-12-19] MEDS: 0.9 % Sodium Chloride Flush 3 ML SYRINGE IVFLUSH (16:05)
--- NOTE | 2021-12-19 19:09 | PC.NURSE ---
pt transferred to overflow at this time
--- NOTE | 2021-12-19 19:52 | PC.NURSE ---
Pt arrived from main ED at shift change. Pt in NAD, vitals as charted, resps non-labored on O2. Awaiting inpatient bed assignment
[2021-12-19] MEDS: Melatonin 3 MG TABLET 6 MG PO (20:51)
[2021-12-19] MEDS: Atorvastatin Calcium 40 MG TABLET PO (20:53)
[2021-12-19] MEDS: Tamsulosin HCL 0.4 MG CAPSULE PO (20:53)
[2021-12-19] MEDS: Azithromycin 500 MG TABLET PO (20:53)
[2021-12-19] MEDS: Enoxaparin Sodium 40 MG/0.4 ML SYRINGE SUBCUT (20:54)
[2021-12-20] VITALS (9 sets, daily range): BP systolic 116–175; BP diastolic 61–78; PULSE 65–87; RESP 16–29; TEMP 36; O2SAT 93–98
[2021-12-20] MEDS: methylPREDNISolone Sod Succ 40 MG/ML VIAL IVPUSH ×4 (02:57→21:01)
[2021-12-20] MEDS: guaiFENesin DM 200/20/10 ML 10 ML SYRUP PO ×4 (02:57→21:10)
[2021-12-20] MEDS: Albuterol/Iprat 2.5/0.5MG 3 ML AMPUL.NEB INHALE ×4 (08:47→20:31)
[2021-12-20] MEDS: dilTIAZem HCL 60 MG TABLET 120 MG PO (09:00)
[2021-12-20] MEDS: Omeprazole 20 MG CAPSULE.DR PO (09:00)
[2021-12-20] MEDS: Cholecalciferol (Vitamin D3) 25 MCG TABLET 50 MCG PO (09:00)
[2021-12-20] MEDS: Famotidine 20 MG TABLET PO ×2 (09:00→21:02)
[2021-12-20] MEDS: 0.9 % Sodium Chloride Flush 3 ML SYRINGE IVFLUSH ×2 (09:01→15:19)
[2021-12-20] MEDS: oxyCODONE HCl Immed Release 5 MG TABLET PO ×2 (09:04→21:11)
--- NOTE | 2021-12-20 11:10 | P.PNIM_ITS ---
Subjective Subjective Date of Service: 12/20/21 Interval History: complaining of chest tightness, persistent shortness of breath, and cough, denies fever chills no lightheadedness, no dizziness, no other acute issues overnight. Review of Systems Review of Systems: Yes all other systems are reviewed and are negative Physical Exam Verdana 4l Vital Signs: Verdana 4d Verdana 4d Vital Signs: Verdana 4d Verdana 4Bd Last Vital Signs Verdana 4d Metall[employer] Or Materials Technician New 4d Metallurgical Or Materials Technician New 4d Temp 97.2 F 12/19/21 19:32 Metallurgical Or Materials Technician New 4d Pulse 87 12/20/21 08:48 Metallurgical Or Materials Technician New 4d Resp 18 12/20/21 08:48 BP 137/72 12/20/21 03:02 Pulse Ox 97 12/20/21 06:43 BMI result Body Mass Index 23.6 Const: Other: General awake aler t ,coughing, in no acute distress.? Neck? supple no JV D. CVS? regular ra te rhythm, Respira tory lungs? bilate ral rhonchi,no res piratory distress, Gastrointestinal abdomen soft, nont michelle, bowel sound s audible, Extremi ties no? edema. Ne uro nonfocal Skin no rash psych appr opriate affect Objective Data Active Medications Acetaminophen (Acetaminophen 325 Mg Tablet) 650 mg PO Q6H PRN PRN Reason: Pain, Mild (Pain Scale 1-3) Albuterol Sulfate (Albuterol Sulfate (0.083%) 2.5 Mg/3 Ml Vial.Neb) 2.5 mg INHALE Q2H PRN PRN Reason: Shortness of Breath/Wheezing Albuterol/Ipratropium (Albuterol/Iprat 2.5/0.5mg 3 Ml Ampul.Neb) 3 ml INHALE RQ4H WHILE AWAKE [facility] Last Admin: 12/20/21 08:47 Dose: 3 ml Documented by: EL Atorvastatin Calcium (Atorvastatin Calcium 40 Mg Tablet) 40 mg PO BEDTIME [facility] Last Admin: 12/19/21 20:53 Dose: 40 mg Documented by: TODD Azithromycin (Azithromycin 500 Mg Tablet) 500 mg PO Q24H [facility] Last Admin: 12/19/21 20:53 Dose: 500 mg Documented by: TODD Benzonatate (Benzonatate 100 Mg Capsule) 100 mg PO TID PRN PRN Reason: Cough Last Admin: 12/19/21 20:54 Dose: 100 mg Documented by: TODD Diltiazem HCl (Diltiazem Hcl 60 Mg Tablet) 120 mg PO DAILY [facility]; Protocol Last Admin: 12/20/21 09:00 Dose: 120 mg Documented by: MARITZA Enoxaparin Sodium (Enoxaparin Sodium 40 Mg/0.4 Ml Syringe) 40 mg SUBCUT Q24H [facility] Last Admin: 12/19/21 20:54 Dose: 40 mg Documented by: TODD Famotidine (Famotidine 20 Mg Tablet) 20 mg PO BID [facility] Last Admin: 12/20/21 09:00 Dose: 20 mg Documented by: MARITZA Guaifenesin/Dextromethorphan (Guaifenesin Dm 200/20/10 Ml 10 Ml Syrup) 10 ml PO Q6H [facility] Last Admin: 12/20/21 09:00 Dose: 10 ml Documented by: MARITZA Melatonin (Melatonin 3 Mg Tablet) 6 mg PO BEDTIME PRN PRN Reason: Insomnia Last Admin: 12/19/21 20:51 Dose: 6 mg Documented by: TODD Methylprednisolone Sodium Succinate (Methylprednisolone Sod Succ 40 Mg/Ml Vial) 40 mg IVPUSH Q6H [facility] Last Admin: 12/20/21 09:00 Dose: 40 mg Documented by: MARITZA Morphine Sulfate (Morphine Sulfate 2 Mg/Ml Cartridge) 1 mg IVPUSH Q4H PRN; Protocol PRN Reason: Pain, SOB Omeprazole (Omeprazole 20 Mg Capsule.Dr) 20 mg PO DAILY [facility] Last Admin: 12/20/21 09:00 Dose: 20 mg Documented by: MARITZA Oxycodone HCl (Oxycodone Hcl Immed Release 5 Mg Tablet) 5 mg PO Q6H PRN PRN Reason: Pain, Severe (Pain Scale 7-10) Last Admin: 12/20/21 09:04 Dose: 5 mg Documented by: MARITZA Senna (Sennosides 8.6 Mg Tablet) 17.2 mg PO BEDTIME PRN PRN Reason: Constipation Sodium Chloride (0.9 % Sodium Chloride Flush 3 Ml Syringe) 3 ml IVFLUSH QSHIFT [facility] Last Admin: 12/20/21 09:01 Dose: 3 ml Documented by: MARITZA Tamsulosin HCl (Tamsulosin Hcl 0.4 Mg Capsule) 0.4 mg PO BEDTIME [facility] Last Admin: 12/19/21 20:53 Dose: 0.4 mg Documented by: TODD Tiotropium [place] (Tiotropium [place] 18 Mcg Cap.W.Dev) 1 puff INHALE DAILY [facility] Last Admin: 12/19/21 12:18 Dose: 1 puff Documented by: Vitamin D (Cholecalciferol (Vitamin D3) 25 Mcg Tablet) 50 mcg PO DAILY [facility] Last Admin: 12/20/21 09:00 Dose: 50 mcg Documented by: MARITZA Labs CBC & Chem 7: 12/19/21 06:37 12/19/21 06:37 Microbiology Microbiology Results: Microbiology 12/18/21 16:41 Blood Culture - Preliminary Blood - Venous No growth after 24 hours. 12/18/21 16:40 Blood Culture - Preliminary Blood - Venous No growth after 24 hours. Assessment and Plan (1) Respiratory syncytial virus (RSV): Status: Acute (2) COPD exacerbation: Status: Acute (3) HTN (hypertension): Status: Acute Plan 66-year-old male with a past medical history of hypertension,? Hyperlipidemia, BPH, GERD, COPD, tobacco dependence, chronic hip pain, history of osteomyelitis, pulmonary nodule present to the hospital with a chief complaint of shortness of breath for 3 days; noted to be in acute COPD exacerbation.? Admitted for further management.? Acute COPD exacerbation due to RSV persistent shortness of breath, chest tightness, cough and rhonchi: Continue Solu-Medrol 40 mg IV q.i.d., continue azithromycin day 2 schedule cough medication COVID-19 negative.? D-dimer negative. continue Pepcid for GI prophylaxis tobacco use disorder strongly recommended to abstain from smoking pulmonary nodule seen on chest CT recommend 6 months follow-up hypertension blood pressure stable,continue Cardizem follow BP closely hyperlipidemia: Continue lipitor DVT prophylaxis:? Lovenox Code status: Full code Quality Stroke Does the patient have a stroke diagnosis?: No VTE Prior VTE?: No VTE Risk Level:: Medical - moderate - high VTE Device Contraindication: Treatment Not Indicated VTE Drug Contraindication: N/A - Med Ordered
--- NOTE | 2021-12-20 21:00 | PC.NURSE ---
Assumed care of pt Pt resting on stretcher NAD Pt medicated per JAN Pt tolerated well Will continue to monitor
[2021-12-20] MEDS: Benzonatate 100 MG CAPSULE PO (21:01)
[2021-12-20] MEDS: Azithromycin 500 MG TABLET PO (21:01)
[2021-12-20] MEDS: Melatonin 3 MG TABLET 6 MG PO (21:01)
[2021-12-20] MEDS: Tamsulosin HCL 0.4 MG CAPSULE PO (21:01)
[2021-12-20] MEDS: Atorvastatin Calcium 40 MG TABLET PO (21:01)
[2021-12-20] MEDS: Enoxaparin Sodium 40 MG/0.4 ML SYRINGE SUBCUT (21:11)
[2021-12-21] VITALS (10 sets, daily range): BP systolic 133–148; BP diastolic 66–95; PULSE 68–101; RESP 13–20; TEMP 36.3–37.1; O2SAT 92–97; BMI 22.6
[2021-12-21] MEDS: 0.9 % Sodium Chloride Flush 3 ML SYRINGE IVFLUSH ×2 (02:48→21:22)
[2021-12-21] MEDS: methylPREDNISolone Sod Succ 40 MG/ML VIAL IVPUSH ×4 (02:48→20:04)
--- NOTE | 2021-12-21 06:10 | PC.NURSE ---
Pt tolerating room air with O2 sat at 94-96% Will continue to monitor
[2021-12-21] MEDS: Albuterol/Iprat 2.5/0.5MG 3 ML AMPUL.NEB INHALE ×4 (08:49→21:52)
[2021-12-21] MEDS: guaiFENesin DM 200/20/10 ML 10 ML SYRUP PO ×3 (09:55→20:03)
[2021-12-21] MEDS: Famotidine 20 MG TABLET PO ×2 (09:55→20:03)
[2021-12-21] MEDS: Omeprazole 20 MG CAPSULE.DR PO (09:55)
[2021-12-21] MEDS: Cholecalciferol (Vitamin D3) 25 MCG TABLET 50 MCG PO (09:55)
[2021-12-21] MEDS: dilTIAZem HCL 60 MG TABLET 120 MG PO (09:55)
--- NOTE | 2021-12-21 10:05 | PC.NURSE ---
[facility]: Pt AOX4 and offers mild c/o mid reproducible CP tavon with coughing. NSR noted and lungs diminished and exp wheeze noted. Pt abd soft and non-tender. Pt remains offer O2 at this time and O2 saturation mid to low 90's.
[2021-12-21] MEDS: oxyCODONE HCl Immed Release 5 MG TABLET PO (10:11)
--- NOTE | 2021-12-21 10:29 | P.PNIM_ITS ---
Subjective Subjective Date of Service: 12/21/21 Interval History: complaining of persistent cough, shortness of breath, denies fever chills,tachycardia with coughing, no other acute events overnight. Chest pain with coughing. Review of Systems Review of Systems: Yes all other systems are reviewed and are negative Physical Exam Verdana 4l Vital Signs: Verdana 4d Verdana 4d Vital Signs: Verdana 4d Verdana 4Bd Last Vital Signs Verdana 4d Database Reporting Consultant New 4d Database Reporting Consultant New 4d Temp 97.4 F 12/21/21 08:23 Database Reporting Consultant New 4d Pulse 101 H 12/21/21 08:52 Database Reporting Consultant New 4d Resp 14 12/21/21 08:52 BP 148/70 H 12/21/21 08:23 Pulse Ox 95 12/21/21 08:23 BMI result Body Mass Index 23.6 Const: Other: General awake alert ,coughing, in no acute distress.? Neck? supple no JVD. CVS? regular rate rhythm, Respiratory lungs? bilateral rhonchi,no respiratory distress, Gastrointestinal abdomen soft, nontender, bowel sounds audible, Extremities no? edema. Neuro nonfocal Skin no rash psych appropriate affect Objective Data Active Medications Acetaminophen (Acetaminophen 325 Mg Tablet) 650 mg PO Q6H PRN PRN Reason: Pain, Mild (Pain Scale 1-3) Albuterol Sulfate (Albuterol Sulfate (0.083%) 2.5 Mg/3 Ml Vial.Neb) 2.5 mg INHALE Q2H PRN PRN Reason: Shortness of Breath/Wheezing Albuterol/Ipratropium (Albuterol/Iprat 2.5/0.5mg 3 Ml Ampul.Neb) 3 ml INHALE RQ4H WHILE AWAKE [facility] Last Admin: 12/21/21 08:49 Dose: 3 ml Documented by: LYNN Atorvastatin Calcium (Atorvastatin Calcium 40 Mg Tablet) 40 mg PO BEDTIME [facility] Last Admin: 12/20/21 21:01 Dose: 40 mg Documented by: PADILLA Azithromycin (Azithromycin 500 Mg Tablet) 500 mg PO Q24H [facility] Last Admin: 12/20/21 21:01 Dose: 500 mg Documented by: PADILLA Benzonatate (Benzonatate 100 Mg Capsule) 100 mg PO TID PRN PRN Reason: Cough Last Admin: 12/20/21 21:01 Dose: 100 mg Documented by: PADILLA Diltiazem HCl (Diltiazem Hcl 60 Mg Tablet) 120 mg PO DAILY [facility]; Protocol Last Admin: 12/21/21 09:55 Dose: 120 mg Documented by: PAULINA Enoxaparin Sodium (Enoxaparin Sodium 40 Mg/0.4 Ml Syringe) 40 mg SUBCUT Q24H [facility] Last Admin: 12/20/21 21:11 Dose: 40 mg Documented by: PADILLA Famotidine (Famotidine 20 Mg Tablet) 20 mg PO BID [facility] Last Admin: 12/21/21 09:55 Dose: 20 mg Documented by: PAULINA Guaifenesin/Dextromethorphan (Guaifenesin Dm 200/20/10 Ml 10 Ml Syrup) 10 ml PO Q6H [facility] Last Admin: 12/21/21 09:55 Dose: 10 ml Documented by: PAULINA Melatonin (Melatonin 3 Mg Tablet) 6 mg PO BEDTIME PRN PRN Reason: Insomnia Last Admin: 12/20/21 21:01 Dose: 6 mg Documented by: PADILLA Methylprednisolone Sodium Succinate (Methylprednisolone Sod Succ 40 Mg/Ml Vial) 40 mg IVPUSH Q6H [facility] Last Admin: 12/21/21 09:55 Dose: 40 mg Documented by: PAULINA Morphine Sulfate (Morphine Sulfate 2 Mg/Ml Cartridge) 1 mg IVPUSH Q4H PRN; Protocol PRN Reason: Pain, SOB Omeprazole (Omeprazole 20 Mg Capsule.Dr) 20 mg PO DAILY [facility] Last Admin: 12/21/21 09:55 Dose: 20 mg Documented by: PAULINA Oxycodone HCl (Oxycodone Hcl Immed Release 5 Mg Tablet) 5 mg PO Q6H PRN PRN Reason: Pain, Severe (Pain Scale 7-10) Last Admin: 12/21/21 10:11 Dose: 5 mg Documented by: PAULINA Senna (Sennosides 8.6 Mg Tablet) 17.2 mg PO BEDTIME PRN PRN Reason: Constipation Sodium Chloride (0.9 % Sodium Chloride Flush 3 Ml Syringe) 3 ml IVFLUSH QSHIFT [facility] Last Admin: 12/21/21 08:44 Dose: Not Given Documented by: PAULIAN Non-Admin Reason: Med Not Available Tamsulosin HCl (Tamsulosin Hcl 0.4 Mg Capsule) 0.4 mg PO BEDTIME [facility] Last Admin: 12/20/21 21:01 Dose: 0.4 mg Documented by: PADILLA Tiotropium [place] (Tiotropium [place] 18 Mcg Cap.W.Dev) 1 puff INHALE DAILY [facility] Last Admin: 12/21/21 08:49 Dose: 1 puff Documented by: LYNN Vitamin D (Cholecalciferol (Vitamin D3) 25 Mcg Tablet) 50 mcg PO DAILY [facility] Last Admin: 12/21/21 09:55 Dose: 50 mcg Documented by: PAULINA Labs CBC & Chem 7: 12/19/21 06:37 12/19/21 06:37 Microbiology Microbiology Results: Microbiology 12/18/21 16:41 Blood Culture - Preliminary Blood - Venous No growth after 48 hours. 12/18/21 16:40 Blood Culture - Preliminary Blood - Venous No growth after 48 hours. Assessment and Plan (1) Respiratory syncytial virus (RSV): Status: Acute (2) COPD exacerbation: Status: Acute (3) HTN (hypertension): Status: Acute Plan 66-year-old male with a past medical history of hypertension,? Hyperlipidemia, BPH, GERD, COPD, tobacco dependence, chronic hip pain, history of osteomyelitis, pulmonary nodule present to the hospital with a chief complaint of shortness of breath for 3 days; noted to be in acute COPD exacerbation.? Admitted for further management.? Acute COPD exacerbation due to RSV persistent shortness of breath, chest tightness, cough and rhonchi: Continue Solu-Medrol 40 mg IV q.i.d., continue azithromycin day 3/5 schedule cough medication,analgesics COVID-19 negative.? D-dimer negative. continue Pepcid for GI prophylaxis spoke with respiratory therapist will add Accupella tobacco use disorder strongly recommended to abstain from smoking will add Nicorette gums as needed pulmonary nodule seen on chest CT recommend 6 months follow-up hypertension blood pressure stable,continue Cardizem follow BP closely hyperlipidemia: Continue lipitor DVT prophylaxis:? Lovenox Code status: Full code Quality Stroke Does the patient have a stroke diagnosis?: No VTE Prior VTE?: No VTE Risk Level:: Medical - moderate - high VTE Device Contraindication: Treatment Not Indicated VTE Drug Contraindication: N/A - Med Ordered
--- NOTE | 2021-12-21 12:21 | MHC.CM.PN ---
PT ADMITTED WITH RSV. CM ATTEMPTED TO CONTACT PT VIA T/C ([phone]). VM PICKED UP, MESSAGE LEFT REQUESTING RETURN CALL AND EXPLAINING PTS MEDICARE RIGHTS. CM ALSO ATTEMPTED TO CONTACT PTS SIGNIFICANT OTHER/PRIMARY CONTACT, [place] ([phone]) A VM MESSAGE WAS ALSO LEFT FOR HER. PER EMR, PT LIVES WITH HIS S/O AND IS INDEPENDENT WITH SELF CARE PT DOES NOT HAVE A HCP ON FILE PCP IS KATHE BETTS. CURRENT DC PLAN IS HOME WITH NO SERVICES TRANSPORTATION UNKNOWN AT THIS TIME
--- NOTE | 2021-12-21 16:27 | PC.NURSE ---
As discussed with MD Lopes, pt moved from bed to chair today with mild complaints of pleuretic CP due to coughing. Pt tolerating chair throughout the day.
--- NOTE | 2021-12-21 19:57 | PC.NURSE ---
report given to IMC. pt to IMC in stretcher with monitor with pct. Pt left ED in NAD at this time.
[2021-12-21] MEDS: Tamsulosin HCL 0.4 MG CAPSULE PO (20:03)
[2021-12-21] MEDS: Azithromycin 500 MG TABLET PO (20:03)
[2021-12-21] MEDS: Atorvastatin Calcium 40 MG TABLET PO (20:03)
[2021-12-21] MEDS: Morphine Sulfate 2 MG/ML CARTRIDGE 1 MG IVPUSH (20:12)
[2021-12-21] MEDS: Enoxaparin Sodium 40 MG/0.4 ML SYRINGE SUBCUT (21:21)
[2021-12-22] VITALS (9 sets, daily range): BP systolic 133–163; BP diastolic 63–87; PULSE 73–97; RESP 15–22; TEMP 36.6–37; O2SAT 92–98
[2021-12-22] MEDS: methylPREDNISolone Sod Succ 40 MG/ML VIAL IVPUSH ×4 (02:50→21:00)
[2021-12-22] MEDS: guaiFENesin DM 200/20/10 ML 10 ML SYRUP PO ×4 (02:50→21:00)
[2021-12-22] MEDS: Albuterol/Iprat 2.5/0.5MG 3 ML AMPUL.NEB INHALE ×3 (07:50→20:43)
[2021-12-22] MEDS: 0.9 % Sodium Chloride Flush 3 ML SYRINGE IVFLUSH ×2 (08:14→14:58)
[2021-12-22] MEDS: dilTIAZem HCL 60 MG TABLET 120 MG PO (08:14)
[2021-12-22] MEDS: Cholecalciferol (Vitamin D3) 25 MCG TABLET 50 MCG PO (08:15)
[2021-12-22] MEDS: Famotidine 20 MG TABLET PO ×2 (08:15→21:00)
[2021-12-22] MEDS: Omeprazole 20 MG CAPSULE.DR PO (08:16)
[2021-12-22] MEDS: oxyCODONE HCl Immed Release 5 MG TABLET PO ×2 (08:22→21:00)
--- NOTE | 2021-12-22 10:00 | MHC.CM.PN ---
met with pt who lives with s/o pt requesting to be seen by financial services needs assist with ss/medicare
--- NOTE | 2021-12-22 11:48 | P.PNIM_ITS ---
Subjective Subjective Date of Service: 12/22/21 Interval History: feeling better this morning, less coughing episode, improved chest tightness, able to bring up some phlegm, no other acute issues overnight. Review of Systems Review of Systems: Yes all other systems are reviewed and are negative Physical Exam Vital Signs: Vital Signs: Last Vital Signs Temp 98.1 F 12/22/21 11:16 Pulse 76 12/22/21 11:31 Resp 18 12/22/21 11:31 BP 134/63 12/22/21 11:16 Pulse Ox 92 12/22/21 11:16 BMI result Body Mass Index 22.6 Const: Other: General awake alert ,in no acute distress.? Neck? supple no JVD. CVS? regular rate rhythm, Respiratory lungs? persistent bilateral rhonchi,no respiratory distress, Gastrointestinal abdomen soft, nontender, bowel sounds audible, Extremities no? edema. Neuro nonfocal Skin no rash psych appropriate affect Objective Data Active Medications Acetaminophen (Acetaminophen 325 Mg Tablet) 650 mg PO Q6H PRN PRN Reason: Pain, Mild (Pain Scale 1-3) Albuterol Sulfate (Albuterol Sulfate (0.083%) 2.5 Mg/3 Ml Vial.Neb) 2.5 mg INHALE Q2H PRN PRN Reason: Shortness of Breath/Wheezing Albuterol/Ipratropium (Albuterol/Iprat 2.5/0.5mg 3 Ml Ampul.Neb) 3 ml INHALE RQ4H WHILE AWAKE [facility] Last Admin: 12/22/21 11:31 Dose: 3 ml Documented by: EL Atorvastatin Calcium (Atorvastatin Calcium 40 Mg Tablet) 40 mg PO BEDTIME [facility] Last Admin: 12/21/21 20:03 Dose: 40 mg Documented by: ALDA Azithromycin (Azithromycin 500 Mg Tablet) 500 mg PO Q24H [facility] Last Admin: 12/21/21 20:03 Dose: 500 mg Documented by: ALDA Benzonatate (Benzonatate 100 Mg Capsule) 100 mg PO TID PRN PRN Reason: Cough Last Admin: 12/20/21 21:01 Dose: 100 mg Documented by: PADILLA Diltiazem HCl (Diltiazem Hcl 60 Mg Tablet) 120 mg PO DAILY [facility]; Protocol Last Admin: 12/22/21 08:14 Dose: 120 mg Documented by: KAVON Enoxaparin Sodium (Enoxaparin Sodium 40 Mg/0.4 Ml Syringe) 40 mg SUBCUT Q24H [facility] Last Admin: 12/21/21 21:21 Dose: 40 mg Documented by: MARY Famotidine (Famotidine 20 Mg Tablet) 20 mg PO BID [facility] Last Admin: 12/22/21 08:15 Dose: 20 mg Documented by: KAVON Guaifenesin/Dextromethorphan (Guaifenesin Dm 200/20/10 Ml 10 Ml Syrup) 10 ml PO Q6H [facility] Last Admin: 12/22/21 08:16 Dose: 10 ml Documented by: KAVON Melatonin (Melatonin 3 Mg Tablet) 6 mg PO BEDTIME PRN PRN Reason: Insomnia Last Admin: 12/20/21 21:01 Dose: 6 mg Documented by: PADILLA Methylprednisolone Sodium Succinate (Methylprednisolone Sod Succ 40 Mg/Ml Vial) 40 mg IVPUSH Q6H [facility] Last Admin: 12/22/21 08:16 Dose: 40 mg Documented by: KAVON Morphine Sulfate (Morphine Sulfate 2 Mg/Ml Cartridge) 1 mg IVPUSH Q4H PRN; Protocol PRN Reason: Pain, SOB Last Admin: 12/21/21 20:12 Dose: 1 mg Documented by: ALDA Omeprazole (Omeprazole 20 Mg Capsule.) 20 mg PO DAILY [facility] Last Admin: 12/22/21 08:16 Dose: 20 mg Documented by: KAVON Oxycodone HCl (Oxycodone Hcl Immed Release 5 Mg Tablet) 5 mg PO Q6H PRN PRN Reason: Pain, Severe (Pain Scale 7-10) Last Admin: 12/22/21 08:22 Dose: 5 mg Documented by: KAVON Senna (Sennosides 8.6 Mg Tablet) 17.2 mg PO BEDTIME PRN PRN Reason: Constipation Sodium Chloride (0.9 % Sodium Chloride Flush 3 Ml Syringe) 3 ml IVFLUSH QSHIFT [facility] Last Admin: 12/22/21 08:14 Dose: 3 ml Documented by: KAVON Tamsulosin HCl (Tamsulosin Hcl 0.4 Mg Capsule) 0.4 mg PO BEDTIME [facility] Last Admin: 12/21/21 20:03 Dose: 0.4 mg Documented by: ALDA Tiotropium [place] (Tiotropium [place] 18 Mcg Cap.W.Dev) 1 puff INHALE DAILY [facility] Last Admin: 12/22/21 07:51 Dose: 1 puff Documented by: EL Vitamin D (Cholecalciferol (Vitamin D3) 25 Mcg Tablet) 50 mcg PO DAILY [facility] Last Admin: 12/22/21 08:15 Dose: 50 mcg Documented by: KAVON Labs CBC & Chem 7: 12/19/21 06:37 12/19/21 06:37 Assessment and Plan (1) Respiratory syncytial virus (RSV): Status: Acute (2) COPD exacerbation: Status: Acute (3) HTN (hypertension): Status: Acute Plan 66-year-old male with a past medical history of hypertension,? Hyperlipidemia, BPH, GERD, COPD, tobacco dependence, chronic hip pain, history of osteomyelitis, pulmonary nodule present to the hospital with a chief complaint of shortness of breath for 3 days; noted to be in acute COPD exacerbation.? Admitted for further management.? Acute COPD exacerbation due to RSV slowly improving,less shortness of breath,and cough Continue Solu-Medrol 40 mg IV q.i.d., continue azithromycin day 4/5 cont. schedule cough medication,analgesics COVID-19 negative.? D-dimer negative. continue Pepcid for GI prophylaxis encourage oob to chair and add IS tobacco use disorder strongly recommended to abstain from smoking,on Nicorette gums as needed pulmonary nodule seen on chest CT recommend 6 months follow-up, to be arranged by PCP hypertension blood pressure stable,continue Cardizem follow BP closely hyperlipidemia: Continue lipitor DVT prophylaxis:? Lovenox Code status: Full code Quality Stroke Does the patient have a stroke diagnosis?: No VTE Prior VTE?: No VTE Risk Level:: Medical - moderate - high VTE Device Contraindication: Treatment Not Indicated VTE Drug Contraindication: N/A - Med Ordered
[2021-12-22] MEDS: Enoxaparin Sodium 40 MG/0.4 ML SYRINGE SUBCUT (20:59)
[2021-12-22] MEDS: Atorvastatin Calcium 40 MG TABLET PO (21:00)
[2021-12-22] MEDS: Tamsulosin HCL 0.4 MG CAPSULE PO (21:00)
[2021-12-22] MEDS: Azithromycin 500 MG TABLET PO (21:00)
[2021-12-23] VITALS (11 sets, daily range): BP systolic 129–171; BP diastolic 75–86; PULSE 74–114; RESP 18–20; TEMP 36.6–36.9; O2SAT 91–95
[2021-12-23] MEDS: guaiFENesin DM 200/20/10 ML 10 ML SYRUP PO ×4 (03:04→21:31)
[2021-12-23] MEDS: methylPREDNISolone Sod Succ 40 MG/ML VIAL IVPUSH ×2 (03:04→08:06)
[2021-12-23] MEDS: Morphine Sulfate 2 MG/ML CARTRIDGE 1 MG IVPUSH ×2 (03:12→08:29)
[2021-12-23] MEDS: Albuterol/Iprat 2.5/0.5MG 3 ML AMPUL.NEB INHALE ×4 (07:37→19:32)
[2021-12-23] MEDS: dilTIAZem HCL 60 MG TABLET 120 MG PO (08:06)
[2021-12-23] MEDS: 0.9 % Sodium Chloride Flush 3 ML SYRINGE IVFLUSH ×3 (08:06→19:38)
[2021-12-23] MEDS: Cholecalciferol (Vitamin D3) 25 MCG TABLET 50 MCG PO (08:07)
[2021-12-23] MEDS: Famotidine 20 MG TABLET PO ×2 (08:07→19:40)
[2021-12-23] MEDS: Omeprazole 20 MG CAPSULE.DR PO (08:07)
--- NOTE | 2021-12-23 12:29 | P.PNIM_ITS ---
Subjective Subjective Date of Service: 12/23/21 Interval History: complaining of persistent shortness of breath and cough, unable to bring up phlegm, no fevers, no chills, oxygenation remains stable. Noted to have few high blood pressure readings, complain of chest pain only with coughing otherwise no chest discomfort, no palpitations. Review of Systems Review of Systems: Yes all other systems are reviewed and are negative Physical Exam Vital Signs: Vital Signs: Last Vital Signs Temp 98.2 F 12/23/21 11:24 Pulse 90 12/23/21 11:24 Resp 20 12/23/21 11:24 BP 171/78 H 12/23/21 11:24 Pulse Ox 93 12/23/21 11:24 BMI result Body Mass Index 22.6 Const: Other: General awake alert ,in no acute distress.? Neck? supple no JVD. CVS? regular rate rhythm, Respiratory lungs bilateral rhonchi, Coarse breath sound,no respiratory distress, Gastrointestinal abdomen soft, nontender, bowel sounds audible, Extremities no? edema. Neuro nonfocal Skin no rash psych appropriate affect Objective Data Active Medications Acetaminophen (Acetaminophen 325 Mg Tablet) 650 mg PO Q6H PRN PRN Reason: Pain, Mild (Pain Scale 1-3) Albuterol Sulfate (Albuterol Sulfate (0.083%) 2.5 Mg/3 Ml Vial.Neb) 2.5 mg INHALE Q2H PRN PRN Reason: Shortness of Breath/Wheezing Albuterol/Ipratropium (Albuterol/Iprat 2.5/0.5mg 3 Ml Ampul.Neb) 3 ml INHALE RQ4H WHILE AWAKE [facility] Last Admin: 12/23/21 11:03 Dose: 3 ml Documented by: JEANETH Atorvastatin Calcium (Atorvastatin Calcium 40 Mg Tablet) 40 mg PO BEDTIME [facility] Last Admin: 12/22/21 21:00 Dose: 40 mg Documented by: ARIAN Azithromycin (Azithromycin 500 Mg Tablet) 500 mg PO Q24H [facility] Last Admin: 12/22/21 21:00 Dose: 500 mg Documented by: ARIAN Benzonatate (Benzonatate 100 Mg Capsule) 100 mg PO TID PRN PRN Reason: Cough Last Admin: 12/20/21 21:01 Dose: 100 mg Documented by: PADILLA Diltiazem HCl (Diltiazem Hcl 60 Mg Tablet) 120 mg PO DAILY [facility]; Protocol Last Admin: 12/23/21 08:06 Dose: 120 mg Documented by: ELSA Enoxaparin Sodium (Enoxaparin Sodium 40 Mg/0.4 Ml Syringe) 40 mg SUBCUT Q24H [facility] Last Admin: 12/22/21 20:59 Dose: 40 mg Documented by: ARIAN Famotidine (Famotidine 20 Mg Tablet) 20 mg PO BID [facility] Last Admin: 12/23/21 08:07 Dose: 20 mg Documented by: ELSA Guaifenesin/Dextromethorphan (Guaifenesin Dm 200/20/10 Ml 10 Ml Syrup) 10 ml PO Q6H [facility] Last Admin: 12/23/21 08:06 Dose: 10 ml Documented by: ELSA Melatonin (Melatonin 3 Mg Tablet) 6 mg PO BEDTIME PRN PRN Reason: Insomnia Last Admin: 12/20/21 21:01 Dose: 6 mg Documented by: PADILLA Methylprednisolone Sodium Succinate (Methylprednisolone Sod Succ 40 Mg/Ml Vial) 40 mg IVPUSH Q6H [facility] Last Admin: 12/23/21 08:06 Dose: 40 mg Documented by: ELSA Morphine Sulfate (Morphine Sulfate 2 Mg/Ml Cartridge) 1 mg IVPUSH Q4H PRN; Protocol PRN Reason: Pain, SOB Last Admin: 12/23/21 08:29 Dose: 1 mg Documented by: ELSA Omeprazole (Omeprazole 20 Mg Capsule.Dr) 20 mg PO DAILY [facility] Last Admin: 12/23/21 08:07 Dose: 20 mg Documented by: ELSA Oxycodone HCl (Oxycodone Hcl Immed Release 5 Mg Tablet) 5 mg PO Q6H PRN PRN Reason: Pain, Severe (Pain Scale 7-10) Last Admin: 12/22/21 21:00 Dose: 5 mg Documented by: ARIAN Senna (Sennosides 8.6 Mg Tablet) 17.2 mg PO BEDTIME PRN PRN Reason: Constipation Sodium Chloride (0.9 % Sodium Chloride Flush 3 Ml Syringe) 3 ml IVFLUSH QSHIFT [facility] Last Admin: 12/23/21 08:06 Dose: 3 ml Documented by: ELSA Tamsulosin HCl (Tamsulosin Hcl 0.4 Mg Capsule) 0.4 mg PO BEDTIME [facility] Last Admin: 12/22/21 21:00 Dose: 0.4 mg Documented by: ARIAN Tiotropium [place] (Tiotropium [place] 18 Mcg Cap.W.Dev) 1 puff INHALE DAILY [facility] Last Admin: 12/23/21 07:37 Dose: 1 puff Documented by: CHRISRICErik Vitamin D (Cholecalciferol (Vitamin D3) 25 Mcg Tablet) 50 mcg PO DAILY [facility] Last Admin: 12/23/21 08:07 Dose: 50 mcg Documented by: ELSA Labs CBC & Chem 7: 12/19/21 06:37 12/19/21 06:37 Assessment and Plan (1) Respiratory syncytial virus (RSV): Status: Acute (2) COPD exacerbation: Status: Acute (3) HTN (hypertension): Status: Acute Plan 66-year-old male with a past medical history of hypertension,? Hyperlipidemia, BPH, GERD, COPD, tobacco dependence, chronic hip pain, history of osteomyelitis, pulmonary nodule present to the hospital with a chief complaint of shortness of breath for 3 days; noted to be in acute COPD exacerbation.? Admitted for further management.? Acute COPD exacerbation due to RSV no hypoxia,slowly improving,less shortness of breath,and cough DC iv Solu-Medrol 40 mg q.i.d., transition to by mouth prednisone 20 mg b.i.d., continue azithromycin day 5 cont. schedule cough medication,analgesics COVID-19 negative.? D-dimer negative. continue Pepcid for GI prophylaxis encourage oob to chair and IS , recommend to ambulate will DC IV morphine and oxycodone tobacco use disorder strongly recommended to abstain from smoking,on Nicorette gums as needed pulmonary nodule seen on chest CT recommend 6 months follow-up, to be arranged by PCP hypertension few high blood pressure readings, question related to anxiety,continue Cardizem follow BP closely hyperlipidemia: Continue lipitor DVT prophylaxis:? Lovenox Code status: Full code Quality Stroke Does the patient have a stroke diagnosis?: No VTE Prior VTE?: No VTE Risk Level:: Medical - moderate - high VTE Device Contraindication: Treatment Not Indicated VTE Drug Contraindication: N/A - Med Ordered
[2021-12-23] MEDS: Albuterol Sulfate (0.083%) 2.5 MG/3 ML VIAL.NEB INHALE (15:26)
[2021-12-23] MEDS: predniSONE 20 MG TABLET PO (17:15)
[2021-12-23] MEDS: Azithromycin 500 MG TABLET PO (19:41)
[2021-12-23] MEDS: Tamsulosin HCL 0.4 MG CAPSULE PO (19:41)
[2021-12-23] MEDS: Atorvastatin Calcium 40 MG TABLET PO (19:41)
[2021-12-23] MEDS: Enoxaparin Sodium 40 MG/0.4 ML SYRINGE SUBCUT (21:31)
[2021-12-24 03:26] VITALS: BP 161/80; PULSE 79; RESP 19; TEMP 37.1; O2SAT 96
[2021-12-24] MEDS: guaiFENesin DM 200/20/10 ML 10 ML SYRUP PO ×2 (03:52→08:13)
[2021-12-24 07:25] VITALS: BP 162/88; PULSE 69; RESP 18; TEMP 36.8; O2SAT 94
[2021-12-24] MEDS: Albuterol/Iprat 2.5/0.5MG 3 ML AMPUL.NEB INHALE ×2 (07:35→11:10)
[2021-12-24 07:38] VITALS: PULSE 81; RESP 16; O2SAT 97
[2021-12-24] MEDS: predniSONE 20 MG TABLET PO (08:13)
[2021-12-24] MEDS: Cholecalciferol (Vitamin D3) 25 MCG TABLET 50 MCG PO (08:13)
[2021-12-24] MEDS: Omeprazole 20 MG CAPSULE.DR PO (08:13)
[2021-12-24] MEDS: 0.9 % Sodium Chloride Flush 3 ML SYRINGE IVFLUSH (08:13)
[2021-12-24] MEDS: dilTIAZem HCL 60 MG TABLET 120 MG PO (08:13)
[2021-12-24] MEDS: Famotidine 20 MG TABLET PO (08:13)
[2021-12-24 11:12] VITALS: PULSE 83; RESP 16; O2SAT 96
[2021-12-24 11:15] VITALS: BP 138/68; PULSE 83; RESP 18; TEMP 37.1; O2SAT 99
--- NOTE | 2021-12-24 11:48 | P.DS_ITS ---
DS: Providers Provider Date of Service: 12/24/21 Date of admission: 12/18/21 19:39 Primary care physician: Mata Pan [facility] DS: Diagnosis Discharge Diagnosis (1) Respiratory syncytial virus (RSV): Status: Acute (2) COPD exacerbation: Status: Acute (3) HTN (hypertension): Status: Acute DS: Summary Hospital Course Hospital Course: Chief Complaint: SOB 66-year-old male with a past medical history of hypertension,? Hyperlipidemia, BPH, GERD, COPD, tobacco dependence, chronic hip pain, history of osteomyelitis, pulmonary nodule present to the hospital with a chief complaint of shortness of breath for 3 days. ?patient reported that her the past 3 days he has been having cough and shortness of breath.? Mentions that he has been producing thick sputum.? Also complains of posttussive chest discomfort.? Denies any nausea vomiting or diarrhea.? Denies any recent travel or sick contacts.? Mentions that as the symptoms were worsening decided to come to the ER for further evaluation.? Denies any numbness tingling or focal weakness.? Denies any urinary symptoms.? ? Patient reports he has been in contact with his girlfriend who has tested positive for RSV. Review of all other systems is negative except mentioned above ER course: Per ER team patient on? presentation noted to be in mild respiratory distress, tachypneic, noted bilateral wheezing, concern for COPD exacerbation, mildly hypoxic to 91%; placed on supplemental oxygen.? Given nebulizations and steroids.? D-dimer was negative.? COVID-19 was negative.? Admitted to the hospital with impression of? COPD exacerbation 66-year-old male with a past medical history of hypertension,? Hyperlipidemia, BPH, GERD, COPD, tobacco dependence, chronic hip pain, history of osteomyelitis, pulmonary nodule present to the hospital with a chief complaint of shortness of breath for 3 days; noted to be in acute COPD exacerbation due to RSV, patient treated with IV steroids, updraft treatment, cough medication and azithromycin, patient responded well to above treatment did not require oxygen, patient is doing significantly better good air movement,does have persistent intermittent cough, will discharge him home today on by mouth prednisone, updraft treatment and cough medication have reassured patient that he will gradually improve and might have persistent Keflex for next few weeks, his COVID-19 and D-dimer test was negative, patient girlfriend also positive for RSV. tobacco use disorder strongly recommended to abstain from smoking . Patient has history pulmonary nodule seen on chest CT recommend 6 months follow-up, to be arranged by PCP hypertension?few high blood pressure readings, question related to anxiety, recommend to continue current dose of Cardizem with close outpatient BP monitoring. hyperlipidemia: Continue lipitor Time Spent with Patient Time attestation: Total time spent providing and/or coordinating discharge services: Discharge coordination time: Greater than 30 minutes Quality: Stroke Does the patient have a stroke diagnosis?: No Physical Exam Vital Signs: Vital Signs: Last Vital Signs Temp 98.7 F 12/24/21 11:15 Pulse 83 12/24/21 11:15 Resp 18 12/24/21 11:15 BP 138/68 12/24/21 11:15 Pulse Ox 99 12/24/21 11:15 BMI result Body Mass Index 22.6 Const: Other: General awake aler t ,in no acute dis tress.? Neck? supp le no JVD. CVS? re gular rate rhythm, Respiratory lungs Coarse breath marycruz nd,no respiratory distress, no wheez e Gastrointestinal abdomen soft, non tender, bowel soun ds audible, Extrem ities no? edema. N euro nonfocal Skin no rash psych osvaldo ropriate affect Discharge Plan Discharge Patient Disposition: Home, Self-Care Discharge Diagnosis: acute COPD exacerbation due to respiratory syncytial virus tobacco use disorder pulmonary nodule Referrals: Mata Pan, [employer] [Primary Care Provider] - 2 days Discharge Medications: New ipratropium-albuterol 0.5 mg-3 mg(2.5 mg base)/3 mL Solution For Nebulization 3 ml inhalation QID Qty: 100 0RF prednisone 20 mg tablet 20 mg PO DAILY Qty: 7 0RF Robitussin Cough-Chest Zenon DM 5-100 mg/5 mL liquid 10 ml PO Q4-8H PRN (Reason: cough) Qty: 237 0RF Continued Asmanex Twisthaler 220 mcg/ actuation (120) aerosol powdr breath activated 1 inh inhalation DAILY Qty: 1 3RF cholecalciferol (vitamin D3) 50 mcg (2,000 unit) tablet 50 mcg PO DAILY 90 Days Qty: 90 2RF albuterol sulfate [ProAir HFA] 90 mcg/actuation HFA aerosol inhaler 2 puff PO Q4-6H PRN (Reason: for wheezing) Qty: 8.5 2RF omeprazole 20 mg capsule,delayed release(DR/EC) 20 mg PO DAILY Qty: 30 5RF Spiriva with HandiHaler 18 mcg capsule, w/inhalation device 1 cap inhalation DAILY 30 Days Qty: 30 5RF Rx Instructions: puncture 1 cap using device; one dose = 2 inhalations diltiazem HCl 120 mg tablet 120 mg PO DAILY 0RF atorvastatin 40 mg tablet 40 mg PO BEDTIME 0RF tamsulosin 0.4 mg capsule 0.4 mg PO BEDTIME 0RF Discharge Orders: Discharge Order (Routine); Ordered 12/24/21 Ordered By: Eliazbeth Lopes Diet: advance to usual diet Activity on Discharge: As tolerated Stand Alone Forms: Patient Portal Discharge page, Work/School Release Care Plan Goals: pulmonary nodule need follow-up CT chest in 6 months/ COPD exacerbation due to respiratory syncytial virus take prednisone for 7 more days and use DuoNeb inhalers 4 times a day, take cough medication as needed use incentive spirometry , continue activity as tolerated Health Concerns: tobacco use disorder/ COPD Plan of Treatment: outpatient follow-up with PCP in 1 week, arrange for chest CT scan in 6 months with PCP follow-up on pulmonary nodule. Assessment: per discharge summary Patient Instructions: Chronic Bronchitis (ED)
--- NOTE | 2021-12-24 13:21 | MHC.CM.PN ---
PT WILL DC HOME TODAY WITH NO SERVICES PT EXPRESSED CONCERN THAT HIS S/O, WHO IS ALSO INPATIENT, HAS HIS HOUSE KEYS. CM CONFIRMED HIS S/O WILL ALSO BE DISCHARGED TODAY THIS PT WILL TRANSPORT THEM BOTH
== END 2021-12-24 15:45 | disposition home or self-care (01) | DRG 192 ==
LOC: HO.ED 17:35 → HO.EDOVER 19:56 → HO.IMC 12-21 18:39
PROVIDERS: Physician Assistant; Admitting Provider Hospitalist; Emergency Provider Emergency Medicine Emergency Medical Services; PCP Nurse Practitioner Family; Visit Provider Hospitalist
DX: J44.1 Chronic obstructive pulmonary disease with (acute) exacerbation (principal); I10 Essential (primary) hypertension; B97.4 Respiratory syncytial virus as the cause of diseases classified elsewhere; E78.5 Hyperlipidemia, unspecified; R91.8 Other nonspecific abnormal finding of lung field; N40.0 Benign prostatic hyperplasia without lower urinary tract symptoms; G89.29 Other chronic pain; F17.210 Nicotine dependence, cigarettes, uncomplicated; Z71.6 Tobacco abuse counseling; Z20.822 Contact with and (suspected) exposure to COVID-19; Z79.899 Other long term (current) drug therapy
CPT/HCPCS: 0241U; 36415; 71046; 71250; 80048; 80053; 81001; 83605; 83735; 83880; 84484; 85025; 85379; 87040; 87635; 93005; 94640; 96365; 96375; 99285; J0696; J1100; J1650; J2270; J2920

== ENCOUNTER → 2022-02-02 14:32 | Outpatient (BNVA) | payer MEDICARE, MEDICAID, SELFPAY | PROVIDERS: PCP Nurse Practitioner Family; Visit Provider Internal Medicine | DX: J44.9 Chronic obstructive pulmonary disease, unspecified (principal); R91.1 Solitary pulmonary nodule; F17.210 Nicotine dependence, cigarettes, uncomplicated | CPT/HCPCS: 99212 ==

== ENCOUNTER 2022-05-10 08:25 | Outpatient (REF) | payer MEDICARE, MEDICAID, SELFPAY ==
[2022-05-10 11:46] LABS: Appearance Urine CLEAR; Color Urine YELLOW; Glucose Urine UA NEG (NEG); Leukocyte Esterase Urine NEG (NEG); Nitrite Urine NEG (NEG); Urine Blood NEG (NEG); Urine Ketones NEG (NEG); Urine Protein NEG (NEG-TRACE)
[2022-05-10 12:24] LABS: Alanine Aminotransferase 24 U/L (0-40); Albumin Level 4.2 g/dL (3.5-5.0); Alkaline Phosphatase 86 U/L (39-117); Anion Gap 12 (12-20); Aspartate Amino Transferase 26 U/L (5-37); Bilirubin Total 0.4 mg/dL (0.0-1.0); Blood Urea Nitrogen 20 mg/dL (9-16); Carbon Dioxide 25 mmol/L (22-29); Chloride 107 mmol/L (96-108); Cholesterol 151 mg/dL; Estimated Glomerular Filt Rate > 60; Glucose Fasting 101 mg/dL (60-99); HDL Cholesterol 49 mg/dL; LDL Cholesterol Calculated 90 mg/dl; Potassium 4.6 mmol/L (3.3-5.1); Sodium 139 mmol/L (135-145); Total Protein 6.5 g/dL (6.5-8.0); Triglycerides 61 mg/dL
[2022-05-10 12:27] LABS: TSH reflex Free T4 0.84 uIU/mL (0.32-4.0)
== END 2022-05-10 08:26 | disposition home or self-care (01) ==
LOC: HO.HMGCLDS 08:25
PROVIDERS: Visit Provider Nurse Practitioner Family
DX: Z00.00 Encounter for general adult medical examination without abnormal findings (principal); J44.9 Chronic obstructive pulmonary disease, unspecified; F17.200 Nicotine dependence, unspecified, uncomplicated
CPT/HCPCS: 36415; 80053; 80061; 81003; 84443

== ENCOUNTER 2022-06-03 12:55 | Outpatient (REF) | payer MEDICARE, MEDICAID, SELFPAY ==
--- NOTE | ~2022-06-03 | CT_ITS ---
EXAMINATION: CT CHEST SCREENING CLINICAL INFORMATION: Current smoker. COMPARISON: CT chest 12/18/2021. TECHNIQUE: Multidetector volumetric CT imaging of the chest is performed without contrast using low dose technique. Additional 2D coronal and sagittal reformatted images and axial 3D maximum intensity projection (MIP) images are generated on the CT workstation. This CT examination was performed using dose optimization techniques as appropriate, variously including the following: *Automated exposure control *Adjustment of mA and/or kV according to patient size (this includes techniques or standardized protocols for targeted exams where dose is matched to indication/reason for exam; i.e. extremities or head) *Use of iterative reconstruction technique DLP: 174 mGy-cm FINDINGS: LUNGS: There is centrilobular emphysema without acute pneumonic process. Again visualized is a 6 mm nodule left upper lobe axial image 135/6, 4 mm pulmonary nodule right upper lobe centrally adjacent and posterior to the right hilum axial image 211/6, 4 mm nodule right upper lobe posteriorly axial image 218/6. Mild atelectatic changes are seen in the right middle lobe anteriorly. No additional nodules seen. There is mild bronchial wall thickening as well in both lower lobes. MEDIASTINUM: The thyroid lobes are symmetric and normal. The central trachea appears widely patent. No debris seen within the bronchi or the trachea. Heart size and the great vessels are normal caliber. No pericardial effusion. No abnormal sized mediastinal lymph nodes. PLEURA: There is no pleural effusion. No pleural mass or thickening. AXILLA: No lymphadenopathy. UPPER ABDOMEN: Visualized liver, spleen and pancreas are unremarkable. OSSEOUS STRUCTURES: No lytic or sclerotic process seen. There is mild ventral spondylosis. CT/CT lung screen follow up IMPRESSION: Diffuse centrilobular emphysema without acute process. Multiple bilateral pulmonary nodules are stable. No new pulmonary nodules seen. No abnormal lymphadenopathy. ASSESSMENT: Lung-RADS category 2: Benign RECOMMENDATION: Low-dose annual CT chest.
== END 2022-06-03 12:56 | disposition home or self-care (01) ==
LOC: HO.CT 12:55
PROVIDERS: PCP Nurse Practitioner Family; Visit Provider Physician Assistant Medical
DX: J44.9 Chronic obstructive pulmonary disease, unspecified (principal); R63.4 Abnormal weight loss; R63.0 Anorexia; Z72.0 Tobacco use
CPT/HCPCS: 71250

== ENCOUNTER → 2022-06-07 14:06 | Outpatient (BNVA) | payer MEDICARE, MEDICAID, SELFPAY | PROVIDERS: PCP Nurse Practitioner Family; Visit Provider Internal Medicine | DX: J44.9 Chronic obstructive pulmonary disease, unspecified (principal); R91.1 Solitary pulmonary nodule; F17.210 Nicotine dependence, cigarettes, uncomplicated | CPT/HCPCS: 99212 ==

== ENCOUNTER → 2022-06-11 09:56 | Outpatient (BNVA) | payer MEDICARE, MEDICAID, SELFPAY | PROVIDERS: PCP Nurse Practitioner Family; Visit Provider Surgery | DX: R91.1 Solitary pulmonary nodule (principal); F17.200 Nicotine dependence, unspecified, uncomplicated | CPT/HCPCS: 99212 ==

== ENCOUNTER 2022-08-26 14:28 | Outpatient (REF) | payer MEDICARE, MEDICAID, SELFPAY ==
[2022-08-26 16:52] LABS: MANUAL DIFF FLAG NO
[2022-08-26 16:57] LABS: Basophils Absolute Auto 0.1 X10*3/uL (0.0-0.2); Basophils Percent Auto 0.5 % (0-2); Eosinophils Absolute Auto 0.1 X10*3/uL (0.0-0.4); Eosinophils Percent Auto 1.2 % (0-4); Hematocrit 41.7 % (42.0-52.0); Hemoglobin 14.2 g/dl (14.0-18.0); Imm Gran Abs Auto 0.05 X10*3/uL (0.00-0.03); Imm Gran Pct Auto 0.5 % (0.0-0.4); Lymphocytes Absolute Auto 3.4 X10*3/uL (1.2-4.9); Lymphocytes Percent Auto 32.2 % (20-40); Mean Corpuscular HGB Conc 34.1 g/dl (31.0-36.0); Mean Corpuscular Hemoglobin 31.8 pg (27.0-33.0); Mean Corpuscular Volume 93.5 fL (80.0-98.0); Mean Platelet Volume 9.3 fL (9.4-12.4); Monocytes Absolute Auto 0.7 X10*3/uL (0.1-1.2); Monocytes Percent Auto 6.8 % (2-11); Neutrophils Absolute Auto 6.2 x10*3/uL (2.0-8.3); Neutrophils Percent Auto 58.8 % (45-73); Platelet Count 252 X10*3/uL (160-400); Red Blood Count 4.46 X10*6/uL (4.60-5.80); White Blood Count 10.5 X10*3/uL (4.8-10.8)
[2022-08-26 17:02] LABS: Appearance Urine Clear; Color Urine Dark Yellow; Glucose Urine UA Negative (Negative); Leukocyte Esterase Urine Trace (Negative); Nitrite Urine Negative (Negative); PH 5.5 (5.0-9.0); Specific Gravity - Urine 1.025 (1.005-1.025); UMIC TRIGGER UACC YES; Urine Blood Negative (Negative); Urine Ketones Trace mg/dL (Negative); Urine Protein Negative (Neg-Trace)
[2022-08-26 17:04] LABS: D Dimer High Sensitivity 181 NG/ML
[2022-08-26 17:07] LABS: Bacteria Urine None Seen (None Seen); Hyaline Casts Urine 0-2 /LPF (0-2); RBC Urine 0-2 /HPF (0-2); Squamous Epithelial Cell Urine 0-2 /HPF (0-2); WBC Urine 0-5 /HPF (0-5)
[2022-08-26 17:45] LABS: Alanine Aminotransferase 17 U/L (0-40); Albumin Level 4.2 g/dL (3.5-5.0); Alkaline Phosphatase 86 U/L (39-117); Anion Gap 16 (12-20); Aspartate Amino Transferase 19 U/L (5-37); Bilirubin Total 0.3 mg/dL (0.0-1.0); Blood Urea Nitrogen 13 mg/dL (9-16); Calcium 9.5 mg/dL (8.4-10.2); Carbon Dioxide 23 mmol/L (22-29); Chloride 106 mmol/L (96-108); Estimated Glomerular Filt Rate > 60; Glucose Random 76 mg/dL (60-115); Potassium 4.3 mmol/L (3.3-5.1); Sodium 141 mmol/L (135-145); Total Protein 6.5 g/dL (6.5-8.0)
[2022-08-26 18:07] LABS: TSH reflex Free T4 1.05 uIU/mL (0.32-4.0)
== END 2022-08-26 14:29 | disposition home or self-care (01) ==
LOC: HO.HMGCLDS 14:28
PROVIDERS: PCP Nurse Practitioner Family; Visit Provider Nurse Practitioner Family
DX: M79.669 Pain in unspecified lower leg (principal)
CPT/HCPCS: 36415; 80053; 81001; 81003; 84443; 85025; 85379

== ENCOUNTER → 2022-09-23 15:02 | Outpatient (BNVA) | payer MEDICARE, MEDICAID, SELFPAY | PROVIDERS: PCP Nurse Practitioner Family; Visit Provider Internal Medicine | DX: J44.9 Chronic obstructive pulmonary disease, unspecified (principal); R91.1 Solitary pulmonary nodule; F17.210 Nicotine dependence, cigarettes, uncomplicated | CPT/HCPCS: 99212 ==

== ENCOUNTER 2022-11-26 07:50 | Outpatient (REF) | payer MEDICARE, MEDICAID, SELFPAY ==
[2022-11-26 11:27] LABS: Appearance Urine Clear; Color Urine Yellow; Glucose Urine UA Negative (Negative); Leukocyte Esterase Urine Negative (Negative); Nitrite Urine Negative (Negative); PH 6.5 (5.0-9.0); Specific Gravity - Urine >= 1.030 (1.005-1.025); Urine Blood Negative (Negative); Urine Ketones Negative (Negative); Urine Protein Negative (Neg-Trace)
== END 2022-11-26 07:51 | disposition home or self-care (01) ==
LOC: HO.HMGCLDS 07:50
PROVIDERS: PCP Nurse Practitioner Family; Visit Provider Nurse Practitioner Family
DX: M79.669 Pain in unspecified lower leg (principal)
CPT/HCPCS: 81003

== ENCOUNTER → 2023-03-22 14:54 | Outpatient (BNVA) | payer MEDICARE, MEDICAID, SELFPAY | PROVIDERS: PCP Nurse Practitioner Family; Visit Provider Internal Medicine | DX: J44.9 Chronic obstructive pulmonary disease, unspecified (principal); R91.1 Solitary pulmonary nodule; F17.210 Nicotine dependence, cigarettes, uncomplicated | CPT/HCPCS: 99212 ==

== ENCOUNTER 2023-06-13 14:49 | Outpatient (AMB) | payer MEDICARE, SELFPAY ==
[2023-06-13 15:00] VITALS: BP 118/60; PULSE 63; O2SAT 98; BMI 21.6
--- NOTE | 2023-06-13 15:00 | A.OFFPC_ITS ---
Vital Signs 06/13/23 15:00 Height 5 ft 10 in Weight 150 lb 6 oz BMI 21.6 BP 118/60 Blood Pressure Location Rt brachial Position Sitting Pulse 63 Pulse Source Pulse Oximeter Pulse Oximetry (%) 98 Oxygen Delivery Method Room Air Intake Visit Reasons: Annual Physical Allergies No Known Allergies Allergy (Verified 06/13/23 15:04) Medication List - Last Reconciled 06/13/23 by WM Kingston-BC albuterol sulfate 90 mcg/actuation (Ventolin HFA) 2 puffs PO Q4-6H PRN aspirin (Adult Aspirin Regimen) 81 mg PO DAILY atorvastatin 40 mg PO BEDTIME 90 days cholecalciferol (vitamin D3) 50 mcg PO DAILY 90 days diltiazem HCl 120 mg PO DAILY 30 days ipratropium-albuterol 0.5 mg-3 mg(2.5 mg base)/3 mL 3 mL inhalation QID nebulizers (Sidestream misc) As directed omeprazole 20 mg PO DAILY Pulmicort Flexhaler 180 mcg/actuation (budesonide) 1 inh PO DAILY NS simethicone (Gas Relief (simethicone)) 80 mg PO BID-TID PRN 30 days tamsulosin 0.4 mg PO BEDTIME tiotropium bromide (Spiriva with HandiHaler) 1 cap inhalation DAILY Tobacco use date assessed: 06/13/23 Fall risk assessment: No Falls in past year Last assessed Fall Risk: 06/13/23 Dental Screening Dental Screen Date: 06/13/23 Did you have a dental visit in the last 12 months?: No Did you have a dental problem in the last 6 months where you did not have access to dental care?: No Was dental information given to patient?: Patient declined HPI Annual Physical HPI Details Pt is here for a PE. Will order labs. Pt has not had a colon screen. Will order cologuard (not interested with colonoscopy). Due for PSA, will order. Denies nocturia, reports intermittent dribbling and weak stream. Pt follows up with urology. Pt has yearly low-dose lung CTs. PFSH Medical History Chronic right hip pain COPD (chronic obstructive pulmonary disease) History of osteomyelitis HTN (hypertension) Nicotine dependence, cigarettes, uncomplicated Onychomycosis Personal history of nicotine dependence Pulmonary nodule Smoker Surgical History History of cataract surgery (~2015) History of femur fracture History of fracture of clavicle (~2010) Status post reconstruction procedure (~1977) Thumb fracture Thumb laceration Family History Father Lung cancer Smoker Mother Myocardial infarction CVD (cardiovascular disease) Maternal Grandfather No problems noted. Maternal Grandmother No problems noted. Paternal Grandfather No problems noted. Paternal Grandmother No problems noted. Brother HTN (hypertension) Sister No problems noted. 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 Jose Gauthier, Barbi Rubio, Cristofer Agudelo and colleagues, with an educational sujatha from [employer]. Review of Systems Const Denies chills and Denies fever(s) Eyes Denies blurry vision ENT Denies vertigo, Denies dizziness and Denies sore throat Card Denies chest pain at rest, Denies chest pain with activity, Denies diaphoresis, Denies dyspnea and Denies dyspnea on exertion Resp Denies cough, Denies dyspnea, Denies dyspnea on exertion and Denies wheezing GI Denies abdominal pain, Denies melena, Denies hematochezia, Denies constipation, Denies diarrhea and Denies loose stools Denies hematuria Musc Denies numbness and Denies tingling Skin/Breast Denies lesions Neuro Denies vertigo, Denies dizziness, Denies numbness and Denies tingling Psych Denies anxiety, Denies depression, Denies homicidal ideation, Denies suicidal ideation and Denies other (substance abuse) Aller/Immun Denies wheezing Physical exam (Primary Care) Vital Signs: Last Vital Signs Pulse 63 07/31/23 15:00 BP 118/60 06/13/23 15:00 Pulse Ox 98 06/13/23 15:00 Oxygen Delivery Method Room Air 06/13/23 15:00 BMI result Body Mass Index 21.6 Tobacco/Smoking Status: Tobacco use Status Tobacco use date assessed 06/13/23 06/13/23 15:05 Patient Tobacco Use Status Current everyday Tobacco 06/13/23 15:05 Tobacco use type Cigarette 06/13/23 15:05 e-Cigarette/Vaping Use Never Used 06/13/23 15:05 Thrive Assessment: Date of Thrive Assessment Date Thrive assessed 12/01/22 06/13/23 15:05 Const General: cooperative Nutritional Appearance: well nourished Orientation/consciousness: patient oriented x3 HENMT Head: Yes normal to inspection, Yes normocephalic and Yes atraumatic Ears: TM's normal bilaterally Eyes General: appearance normal, both eyes and all related structures Alignment and Position: alignment normal and position normal Neck Neck: Yes normal visual inspection and Yes no lymphadenopathy Thyroid: Thyroid normal Resp Other: lungs slightly coarse bilat, faint wheezes Effort & Inspection: normal respiratory effort Cardio Rate: regular rate Rhythm: regular rhythm Heart sounds: S1 normal heart sound present, S2 normal heart sound present and no murmurs GI Palpation (GI): Soft to palpation and nontender Auscultation: normal bowel sounds Male General Exam: Yes normal external exam Penis: normal penis Scrotum: scrotum normal, testes descended bilaterally and no inguinal hernias Testes: no testicular mass Skin Rashes: no rashes Neuro General: patient oriented x3, moves all extremities, no focal motor deficits and deep tendon reflexes 2+ bilaterally Romberg Test: Negative Psych Appearance: grossly normal Mental Status: mental status grossly normal Speech and movement: Normal speech and movement present Affect: normal affect Attitude: cooperative Thought process: Normal thought process present Thought content: Normal thought content present Insight: Good insight present (Psych) Judgement: Good judgement present (Psych) Assessment and Plan Assessment & Plan (1) Physical exam: Code(s): Z00.00 - Encounter for general adult medical examination without abnormal findings Plan: Labs ordered (2) Screening PSA (prostate specific antigen): Code(s): Z12.5 - Encounter for screening for malignant neoplasm of prostate Plan: PSA ordered Plan The patient agreed to the use of a medical customer service representative for this encounter. Scribed for KIM Quintanilla by Minerva Victor medical customer service representative, on 06/13/2023 at 15:20 EST. Orders: Orders Comprehensive [place]. Panel Fast Today Z00.00 - Encounter for general adult medical examination without abnormal findings Lipid Panel Today Z00.00 - Encounter for general adult medical examination without abnormal findings TSH reflex Free T4 Today Z00.00 - Encounter for general adult medical examinat ion without abnormal findings Complete Blood Count Auto Diff Today Z00.00 - Encounter for general adult medical examination without abnormal findings UA CC w/rflx Micro + Cult Today Z00.00 - Encounter for general adult medical examination without abnormal findings Prostate Specific Antigen Scr Today Z12.5 - Encounter for screening for malignant neoplasm of prostate Referrals Cologuard Test Z12.11 - Encounter for screening for malignant neoplasm of colon, Z12.12 - Encounter for screening for malignant neoplasm of rectum Coding Level of Care Code Est Pt Prev Care >65y(19756) Diagnoses Physical exam Z00.00 Screening PSA (prostate specific antigen) Z12.5
== END 2023-06-13 16:11 | disposition home or self-care (01) ==
PROVIDERS: Visit Provider Nurse Practitioner Family
DX: Z00.00 Encounter for general adult medical examination without abnormal findings (principal); Z12.5 Encounter for screening for malignant neoplasm of prostate
CPT/HCPCS: 99397

== ENCOUNTER 2023-06-14 07:36 | Outpatient (REF) | payer MEDICARE, MEDICAID, SELFPAY ==
[2023-06-14 11:28] LABS: MANUAL DIFF FLAG NO
[2023-06-14 11:39] LABS: Basophils Absolute Auto 0.1 X10*3/uL (0.0-0.2); Basophils Percent Auto 0.6 % (0-2); Eosinophils Absolute Auto 0.2 X10*3/uL (0.0-0.4); Hematocrit 43.3 % (42.0-52.0); Hemoglobin 14.6 g/dl (14.0-18.0); Imm Gran Abs Auto 0.05 X10*3/uL (0.00-0.03); Imm Gran Pct Auto 0.6 % (0.0-0.4); Lymphocytes Percent Auto 36.9 % (20-40); Mean Corpuscular HGB Conc 33.7 g/dl (31.0-36.0); Mean Corpuscular Hemoglobin 31.8 pg (27.0-33.0); Mean Corpuscular Volume 94.3 fL (80.0-98.0); Mean Platelet Volume 9.2 fL (9.4-12.4); Monocytes Absolute Auto 0.7 X10*3/uL (0.1-1.2); Monocytes Percent Auto 8.3 % (2-11); Neutrophils Absolute Auto 4.1 x10*3/uL (2.0-8.3); Neutrophils Percent Auto 51.6 % (45-73); Platelet Count 223 X10*3/uL (160-400); Red Blood Count 4.59 X10*6/uL (4.60-5.80)
[2023-06-14 11:53] LABS: Appearance Urine Clear; Color Urine Yellow; Glucose Urine UA Negative (Negative); Leukocyte Esterase Urine Negative (Negative); Nitrite Urine Negative (Negative); Urine Blood Negative (Negative); Urine Ketones Negative (Negative); Urine Protein Negative (Neg-Trace)
[2023-06-14 12:13] LABS: Prostate Specific Antigen Scr 0.51 ng/mL (<0.05-4.0)
[2023-06-14 12:34] LABS: Alanine Aminotransferase 24 U/L (0-40); Albumin Level 3.8 g/dL (3.5-5.0); Alkaline Phosphatase 82 U/L (39-117); Anion Gap 13 (12-20); Aspartate Amino Transferase 27 U/L (5-37); Bilirubin Total 0.3 mg/dL (0.0-1.0); Blood Urea Nitrogen 13 mg/dL (9-16); Calcium 9.7 mg/dL (8.4-10.2); Carbon Dioxide 24 mmol/L (22-29); Chloride 108 mmol/L (96-108); Cholesterol 137 mg/dL; Estimated Glomerular Filt Rate > 60; Glucose Fasting 98 mg/dL (60-99); HDL Cholesterol 44 mg/dL; LDL Cholesterol Calculated 80 mg/dl; Potassium 4.4 mmol/L (3.3-5.1); Sodium 141 mmol/L (135-145); TSH reflex Free T4 1.45 uIU/mL (0.32-4.0); Total Protein 6.2 g/dL (6.5-8.0); Triglycerides 67 mg/dL
== END 2023-06-14 07:37 | disposition home or self-care (01) ==
LOC: HO.HMGCLDS 07:36
PROVIDERS: PCP Nurse Practitioner Family; Visit Provider Nurse Practitioner Family
DX: Z00.00 Encounter for general adult medical examination without abnormal findings (principal); Z12.5 Encounter for screening for malignant neoplasm of prostate; J44.9 Chronic obstructive pulmonary disease, unspecified; F17.200 Nicotine dependence, unspecified, uncomplicated; R74.8 Abnormal levels of other serum enzymes
CPT/HCPCS: 36415; 80053; 80061; 81003; 84153; 84443; 85025

== ENCOUNTER 2023-09-27 15:03 | Outpatient (AMB) | payer MEDICARE, MEDICAID, SELFPAY ==
[2023-09-27 15:09] VITALS: BP 140/52; PULSE 78; O2SAT 98; BMI 22.0
--- NOTE | 2023-09-27 15:09 | A.OFFVIS_ITS ---
Intake Vital Signs 09/27/23 15:09 Height 5 ft 10 in Weight 153 lb BMI 22.0 BP 140/52 H Blood Pressure Location Lt brachial Position Sitting Pulse 78 Pulse Source Pulse Oximeter Pulse Oximetry (%) 98 Oxygen Delivery Method Room Air Intake Visit Reasons: COPD Intake Note: pt is here for follow up and states he feels that sometimes he has some more co ngestion, other than that he feels ok. Afternoon Babysitter Required: No Allergies No Known Allergies Allergy (Verified 09/27/23 15:47) Medication List - Last Reconciled 09/27/23 by Melanie Castellanos MD albuterol sulfate 90 mcg/actuation (Ventolin HFA) 2 puffs PO Q4-6H PRN aspirin (Adult Aspirin Regimen) 81 mg PO DAILY atorvastatin 40 mg PO BEDTIME 90 days cholecalciferol (vitamin D3) 50 mcg PO DAILY 90 days cilostazol 50 mg PO BID diltiazem HCl 120 mg PO DAILY 30 days ipratropium-albuterol 0.5 mg-3 mg(2.5 mg base)/3 mL 3 mL inhalation QID nebulizers (Sidestream misc) As directed omeprazole 20 mg PO DAILY Pulmicort Flexhaler 180 mcg/actuation (budesonide) 1 inh PO DAILY NS simethicone (Gas Relief (simethicone)) 80 mg PO BID-TID PRN 30 days tamsulosin 0.4 mg PO BEDTIME tiotropium bromide (Spiriva with HandiHaler) 1 cap inhalation DAILY Do you need a note to return to daycare/school/sports/work: No HPI COPD HPI Details 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 HE IS HERE FOR 6 MONTHS FOLLOW-UP. NORMALLY HAS BEEN DOING WELL AND STABLE, BUT IN THE LAST 1 WEEK HE FEELS MORE CONGESTED WITH INCREASED COUGH, AFTER HIS DAUGHTER AT HOME HAD SOME RESPIRATORY INFECTION. HE DENIES BRINGING UP ANY YELLOW PHLEGM AND DOES NOT HAVE ANY FEVER OR CHILLS. HE HAS NEEDED TO USE ALBUTEROL SOMEWHAT MORE OFTEN. [facility] Medical History Personal history of nicotine dependence History of osteomyelitis HTN (hypertension) Pulmonary nodule COPD (chronic obstructive pulmonary disease) Smoker Onychomycosis Chronic right hip pain Nicotine dependence, cigarettes, uncomplicated Surgical History History of cataract surgery (~2015) History of fracture of clavicle (~2010) Thumb laceration Thumb fracture History of femur fracture Status post reconstruction procedure (~1977) Family History Father Lung cancer Smoker Mother Myocardial infarction CVD (cardiovascular disease) Maternal Grandfather No problems noted. Maternal Grandmother No problems noted. Paternal Grandfather No problems noted. Paternal Grandmother No problems noted. Brother HTN (hypertension) Sister No problems noted. 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 Cognitive needs: No Hearing needs: No Vision needs: Yes Review of Systems Const All systems reviewed & are unremarkable except as noted in HPI and below Eyes Reports no additional complaints ENT Reports no additional complaints Card Denies chest pain, Denies irregular heart rhythm and Denies leg edema Resp Reports as per HPI GI Reports no additional complaints Reports no additional complaints Musc Reports myalgias (mild) Skin/Breast Reports system reviewed and no additional complaints, except as documented Neuro Reports no additional complaints Psych Reports no additional complaints Physical Exam Vital Signs: Last Vital Signs Pulse 78 09/27/23 15:09 BP 140/52 H 09/27/23 15:09 Pulse Ox 98 09/27/23 15:09 Oxygen Delivery Method Room Air 09/27/23 15:09 BMI result Body Mass Index 22.0 Const General: comfortable, no acute distress, alert and awake Orientation/consciousness: patient oriented x3 HEENT Head: Yes normal to inspection General nose exam: No nasal polyps present and No nasal discharge present Face and sinus: Yes sinuses nontender Mouth: oropharynx normal Throat: Yes posterior oropharynx normal Eyes General: appearance normal, both eyes and all related structures Neck Neck: Yes normal visual inspection, Yes no lymphadenopathy, Yes trachea midline and Yes no JVD Thyroid: Thyroid normal Chest Chest palpation & inspection: normal inspection of the chest, normal palpation of entire chest wall and no tenderness Resp Other: Percussion note is resonant, breath sounds distant with prolonged expiratory phase. HE has inspiratory crepitations over the right lower lobe area. No wheezes are heard. Cardio Palpation: normal PMI Rate: regular rate Rhythm: regular rhythm Heart sounds: no gallops and no murmurs GI Palpation (GI): Soft to palpation, nontender, No hepatosplenomegaly present and no masses Auscultation: normal bowel sounds Back/Spine/Pelvis Thoracic/Lumbar Spine: thoracic and lumbar spine normal to inspection and thoraco-lumbar ROM limited Skin General skin exam: no rashes or lesions noted and dry skin Neuro General: patient oriented x3 and no focal motor deficits Cranial nerves: Yes CN's II-XII intact bilaterally Extrem General: Yes normal to inspection, Yes no clubbing, cyanosis or edema and Yes no calf tenderness Psych Appearance: grossly normal Speech and movement: Normal speech and movement present Assessment & Plan Assessment & Plan (1) Smoker: Comment: CONTINUES TO SMOKE , 10 CIGARETTES A DAY . AGAIN COUNSELED THAT HE SHOULD QUIT SMOKING COMPLETELY. HE SAYS HE WILL TRY TO CUT DOWN , BUT HE IS NOT COMMITTED TO QUIT SMOKING COMPLETELY. Code(s): F17.200 - Nicotine dependence, unspecified, uncomplicated (2) COPD (chronic obstructive pulmonary disease): Comment: HE HAS MODERATELY ADVANCED CHRONIC OBSTRUCTIVE PULMONARY DISEASE WHICH IS REMAINING RELATIVELY STABLE WITH HIS CURRENT TREATMENT. TX: IPRATROPIUM-ALBUTEROL 0.5 MG-2.5 MG IN 3 ML Q I.D. PULMICORT FLEXHALER 180 MCG 1 INHALATION DAILY. SPIRIVA HANDIHALER 1 INHALATION DAILY VENTOLIN HFA 2 PUFFS Q 6 HOURS P.R.N. HE HAS CHEST CONGESTION , AND SOME CREPS OVER RT L.L. I WILL TREAT HIM WITH A COURSE OF Z-[place]OR[place] Code(s): J44.9 - Chronic obstructive pulmonary disease, unspecified (3) Pulmonary nodule: Comment: HE HAD A SEMI SOLID PULMONARY NODULE 4 X 8 MM IN LEFT UPPER LOBE. ON SHORT TERM REPEAT CT SCAN , IT DID DECREASE IN SIZE , SO HE IS NOW BACK ON YEARLY SCREENING . LAST CT . ON 06/03/22 , STABLE . Code(s): R91.1 - Solitary pulmonary nodule Coding Level of Care Code Est Pt Level 3 (80921) Diagnoses Smoker F17.200 COPD (chronic obstructive pulmonary disease) J44.9 Pulmonary nodule R91.1
== END 2023-09-27 15:51 | disposition home or self-care (01) ==
PROVIDERS: PCP Nurse Practitioner Family; Visit Provider Internal Medicine
DX: F17.200 Nicotine dependence, unspecified, uncomplicated (principal); J44.9 Chronic obstructive pulmonary disease, unspecified; R91.1 Solitary pulmonary nodule
CPT/HCPCS: 99213

== ENCOUNTER → 2023-09-27 15:03 | Outpatient (BNVA) | payer MEDICARE, MEDICAID, SELFPAY | PROVIDERS: PCP Nurse Practitioner Family; Visit Provider Internal Medicine | DX: J44.9 Chronic obstructive pulmonary disease, unspecified (principal); R91.1 Solitary pulmonary nodule; F17.210 Nicotine dependence, cigarettes, uncomplicated | CPT/HCPCS: 99212 ==

== ENCOUNTER 2023-11-03 16:25 | Outpatient (REF) | payer MEDICARE, MEDICAID, SELFPAY | END 2023-11-03 16:26 | disposition home or self-care (01) | LOC: HO.CT 16:25 | PROVIDERS: PCP Nurse Practitioner Family; Visit Provider Physician Assistant Medical | DX: Z12.2 Encounter for screening for malignant neoplasm of respiratory organs (principal); F17.210 Nicotine dependence, cigarettes, uncomplicated | CPT/HCPCS: 71271 ==

== ENCOUNTER 2023-11-23 13:27 | Outpatient (AMB) | payer MEDICARE, MEDICAID, SELFPAY ==
--- NOTE | 2023-11-23 13:37 | MHC.OFFWIV ---
Intake Vital Signs 11/23/23 13:39 Height 5 ft 10 in Weight 156 lb BMI 22.4 BP 146/78 H Blood Pressure Location Lt brachial Position Sitting Pulse 112 H Pulse Source Pulse Oximeter Temp 99.6 F Pulse Oximetry (%) 96 Oxygen Delivery Method Room Air Intake Visit Reasons: EP chills congestion cough masked in lobby Intake Note: Pt is here c/o body chills, congestion, fever and a bad cough started yesterday. Patient Tobacco Use Status: Current everyday Tobacco user Allergies No Known Allergies Allergy (Verified 09/27/23 15:47) HPI HPI Comments History of Present Illness Details Patient is a 68yo M with hx of tobacco use, COPD who presents with cough/fever He said yesterday he had an episode of dizziness (no room spinning) which was accompanied by sweats and chest discomfort Said chest discomfort lasted a few minutes and resolved on its own. No sharp pain and it has not occurred since. Occurred around 530pm He instantly got the chills and layed down which helped He was able to eat dinner last night but went to bed early. woke up this am feeling tired with intermittent dizziness/fever/congestion/L ear fullness No recurrent chest discomfort + chronic cough due to smoking and denies any worsening SOB from baseline He said fever of 101 at home but denies taking medicine for it + body aches and fatigue PFSH Medical History Personal history of nicotine dependence History of osteomyelitis HTN (hypertension) Pulmonary nodule COPD (chronic obstructive pulmonary disease) Smoker Onychomycosis Chronic right hip pain Nicotine dependence, cigarettes, uncomplicated Surgical History History of cataract surgery (~2015) History of fracture of clavicle (~2010) Thumb laceration Thumb fracture History of femur fracture Status post reconstruction procedure (~1977) Family History Father Lung cancer Smoker Mother Myocardial infarction CVD (cardiovascular disease) Maternal Grandfather No problems noted. Maternal Grandmother No problems noted. Paternal Grandfather No problems noted. Paternal Grandmother No problems noted. Brother HTN (hypertension) Sister No problems noted. 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 Cognitive needs: No Hearing needs: No Vision needs: Yes Review of Systems Const Reports body aches, Reports chills, Reports fatigue and Reports fever(s) Eyes Denies blurry vision and Denies change in vision ENT Reports dizziness, Reports otalgia (fullness L ear), Reports nasal congestion, Denies neck pain, Denies nose pain, Denies sinus pain and Denies sinus pressure Card Reports chest pain (one episode at 530pm yesterday), Denies syncope, Denies lightheadedness and Reports dyspnea (chronic; has not had to use nebulizer) Resp Reports cough (chronic) and Reports dyspnea (chronic; has not had to use nebulizer) GI Denies abdominal pain, Denies diarrhea, Denies nausea and Denies vomiting Musc Reports myalgias, Denies neck pain and Denies numbness Neuro Reports dizziness, Denies syncope, Denies lack of coordination, Denies focal weakness, Denies numbness and Denies paresthesias Endo Reports fatigue Physical Exam Vital Signs: Last Vital Signs Temp 99.6 F 11/23/23 13:39 Pulse 112 H 11/23/23 13:39 BP 146/78 H 11/23/23 13:39 Pulse Ox 96 11/23/23 13:39 Oxygen Delivery Method Room Air 11/23/23 13:39 BMI result Body Mass Index 22.4 General: Non-toxic, NAD. Speaking full sentences. Skin: Warm dry throughout Eye: EOMI, PERRL HENT: Airway patent. Uvula midline. No pharyngeal erythema or edema. No MARKETING PROPOSAL SPECIALIST. Slight cerumen in L canal but able to visualize TM. R canal clear. TMs slight erythematous without bulging. No TM perforation or hemotympanum noted. Respiratory: Rhonchi which cleared with cough. Now, CTA bilaterally. No wheezes, rales or rhonchi Cardiac: slight tahcycardia. No murmur MSK: Full ROM extremities. Neurology: A/O. No aphasia or facial droop. Gait without abnormality Psych: Good mood and affect Assessment & Plan Assessment & Plan (1) Chest pain: Code(s): R07.9 - Chest pain, unspecified Qualifiers: Chest pain type: unspecified Qualified Code(s): R07.9 - Chest pain, unspecified Plan: Patient seen and evaluated. Due to one episode of CP yesterday, will obtained EKG EKG: sinus tachycardia. No STEMI. Reviewed with attending Pt's symptoms today are congestion, body aches, fatigue fever, cough all consistent with viral URI Ordered and obtained a rsv/flu and covid swab and sent to lab Discussed in depth with patient that he needs to monitor symptoms. if he has any onset of dyspnea or CP he is to report immediately to the ED for evaluation and management. he is aware of plan and has no additional concerns at this time. Patient gave verbal understanding and had no additional questions or concerns at time of discharge All questions answered (2) Fever: Code(s): R50.9 - Fever, unspecified Qualifiers: Fever type: unspecified Qualified Code(s): R50.9 - Fever, unspecified Plan: He has low grade fever in office 400mg po ibuprofen given. Discussed alternating tylenol and motrin ever 4 hours Rest, increase fluids Will obtain COVID BINAX now; negative Lungs CTA No abdominal pain complaint Orders: Orders AMB EKG-In Office Today R07.9 - Chest pain, unspecified BinaxNOW Covid-19 Ag Today R50.9 - Fever, unspecified SARS-CoV2/FLU/RSV Today R50.9 - Fever, unspecified Coding Level of Care Code Est Pt Level 4 (35552) Diagnoses Chest pain, unspecified type R07.9 Chest pain type: unspecified Fever, unspecified fever cause R50.9 Fever type: unspecified
[2023-11-23 13:39] VITALS: BP 146/78; PULSE 112; TEMP 37.6; O2SAT 96; BMI 22.4
== END 2023-11-23 15:35 | disposition home or self-care (01) ==
PROVIDERS: PCP Nurse Practitioner Family; Visit Provider Physician Assistant
DX: R07.9 Chest pain, unspecified (principal); R50.9 Fever, unspecified
CPT/HCPCS: 93000; 99214

== ENCOUNTER 2023-11-23 14:22 | Outpatient (REF) | payer MEDICARE, MEDICAID, SELFPAY ==
[2023-11-23 14:59] LABS: Binax Internal Control QC Valid; Binax Now Covid-19 Ag Negative (Negative); Binax Performed by: PAULP
[2023-11-23 17:04] LABS: Influenza A PCR NEGATIVE (Negative); Influenza B PCR NEGATIVE (Negative); Resp Syncy Virus RNA Qual PCR NEGATIVE (Negative); SARS COV2 PCR INHOUSE POSITIVE (Negative)
== END 2023-11-23 14:23 | disposition home or self-care (01) ==
LOC: HO.HMGCLDS 14:22
PROVIDERS: Visit Provider Physician Assistant
DX: R50.9 Fever, unspecified (principal); Z11.52 Encounter for screening for COVID-19
CPT/HCPCS: 0241U; 87811

== ENCOUNTER 2023-12-20 10:28 | Outpatient (AMB) | payer MEDICARE, MEDICAID, SELFPAY ==
[2023-12-20 10:55] VITALS: BP 142/78; PULSE 73; O2SAT 97; BMI 21.8
--- NOTE | 2023-12-20 10:55 | MHC.PC.OV ---
Vital Signs 12/20/23 10:55 12/20/23 11:23 Height 5 ft 10 in Weight 152 lb 4 oz BMI 21.8 BP 142/78 H 142/76 H Blood Pressure Location Lt brachial Lt brachial Position Sitting Sitting Pulse 73 Pulse Source Pulse Oximeter Pulse Oximetry (%) 97 Oxygen Delivery Method Room Air Intake Visit Reasons: 6 month fu Allergies No Known Allergies Allergy (Verified 12/20/23 12:40) Medication List - Last Reconciled 12/20/23 by BEATA KingstonP- albuterol sulfate 90 mcg/actuation (Ventolin HFA) 2 puffs PO Q4-6H PRN aspirin (Adult Aspirin Regimen) 81 mg PO DAILY atorvastatin 40 mg PO BEDTIME 90 days cholecalciferol (vitamin D3) 50 mcg PO DAILY 90 days cilostazol 50 mg PO BID diltiazem HCl 120 mg PO DAILY 30 days doxycycline hyclate 100 mg PO BID 10 days ipratropium-albuterol 0.5 mg-3 mg(2.5 mg base)/3 mL 3 mL inhalation QID 30 days losartan 25 mg PO DAILY nebulizers (Sidestream misc) As directed omeprazole 20 mg PO DAILY Pulmicort Flexhaler 180 mcg/actuation (budesonide) 1 inh PO DAILY NS simethicone (Gas Relief (simethicone)) 80 mg PO BID-TID PRN 30 days tamsulosin 0.4 mg PO BEDTIME tiotropium bromide (Spiriva with HandiHaler) 1 cap inhalation DAILY Tobacco use date assessed: 12/20/23 Fall risk assessment: No Falls in past year Last assessed Fall Risk: 12/20/23 Dental Screening Dental Screen Date: 12/20/23 Did you have a dental visit in the last 12 months?: No Did you have a dental problem in the last 6 months where you did not have access to dental care?: No Was dental information given to patient?: No HPI 6 month fu HPI Details HTN: Blood pressure is managed with diltiazem 120mg. Blood pressure is elevated today. Will start losartan 25mg. Will have pt monitor his blood pressure at home and drop off readings. Denies chest pain, shortness of breath, headache, dizziness, and blurred vision. Will order labs. Pt is a smoker, educated on the dangers of smoking. [facility] Medical History (Updated 12/20/23 @ 11:23 by Mata Pan, [facility]) Personal history of nicotine dependence History of osteomyelitis HTN (hypertension) Pulmonary nodule COPD (chronic obstructive pulmonary disease) Smoker Onychomycosis Chronic right hip pain Nicotine dependence, cigarettes, uncomplicated Surgical History History of cataract surgery (~2015) Status post reconstruction procedure (~1977) History of fracture of clavicle (~2010) Thumb laceration Thumb fracture History of femur fracture Family History Father Lung cancer Smoker Mother Myocardial infarction CVD (cardiovascular disease) Maternal Grandfather No problems noted. Maternal Grandmother No problems noted. Paternal Grandfather No problems noted. Paternal Grandmother No problems noted. Brother HTN (hypertension) Sister No problems noted. 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 Jose Gauthier, Barbi Rubio, Cristofer Agudelo and colleagues, with an educational sujatha from [employer]. Review of Systems Const Reports as per HPI Physical exam (Primary Care) Vital Signs: Last Vital Signs Pulse 73 12/20/23 10:55 BP 142/76 H 12/20/23 11:23 Pulse Ox 97 12/20/23 10:55 Oxygen Delivery Method Room Air 12/20/23 10:55 BMI result Body Mass Index 21.8 Tobacco/Smoking Status: Tobacco use Status Tobacco use date assessed 12/20/23 12/20/23 11:01 Patient Tobacco Use Status Current everyday Tobacco 12/20/23 10:55 Tobacco use type Cigarette 12/20/23 10:55 e-Cigarette/Vaping Use Never Used 12/20/23 10:55 Thrive Assessment: Date of Thrive Assessment Date Thrive assessed 12/01/22 12/20/23 10:55 Const General: cooperative Orientation/consciousness: patient oriented x3 Resp Other: lungs with coarse wheezes throughout Effort & Inspection: normal respiratory effort Cardio Rate: regular rate Rhythm: regular rhythm Heart sounds: S1 normal heart sound present and S2 normal heart sound present Neuro General: patient oriented x3 Psych Appearance: grossly normal Mental Status: mental status grossly normal Speech and movement: Normal speech and movement present Affect: normal affect Attitude: cooperative Thought process: Normal thought process present Thought content: Normal thought content present Insight: Good insight present (Psych) Judgement: Good judgement present (Psych) Assessment and Plan Assessment & Plan (1) HTN (hypertension): Code(s): I10 - Essential (primary) hypertension Plan: starting losartan, pt will drop off values in the near future Plan The patient agreed to the use of a medical insurance coding specialist for this encounter. Scribed for KIM Quintanilla by Minerva Victor medical insurance coding specialist, on 12/20/2023 at 11:10 EST. Orders: Orders Complete Blood Count Auto Diff Today I10 - Essential (primary) hypertension TSH reflex Free T4 Today I10 - Essential (primary) hypertension Comprehensive Mccormick. Panel Fast Today I10 - Essential (primary) hypertension UA CC w/rflx Micro + Cult Today I10 - Essential (primary) hypertension Lipid Panel Today I10 - Essential (primary) hypertension Medications: New losartan 25 mg PO DAILY 90 tabs 0RF Coding Level of Care Code Est Pt Level 3 (20137) Diagnoses HTN (hypertension) I10
[2023-12-20 11:23] VITALS: BP 142/76
== END 2023-12-20 11:43 | disposition home or self-care (01) ==
PROVIDERS: PCP Nurse Practitioner Family; Visit Provider Nurse Practitioner Family
DX: I10 Essential (primary) hypertension (principal)
CPT/HCPCS: 99213

== ENCOUNTER 2024-01-17 09:10 | Outpatient (REF) | payer MEDICARE, MEDICAID, SELFPAY ==
[2024-01-17 11:38] LABS: MANUAL DIFF FLAG NO
[2024-01-17 11:39] LABS: Appearance Urine Clear; Color Urine Yellow; Glucose Urine UA Negative (Negative); Leukocyte Esterase Urine Negative (Negative); Nitrite Urine Negative (Negative); PH 7.5 (5.0-9.0); Specific Gravity - Urine 1.015 (1.005-1.025); Urine Blood Negative (Negative); Urine Ketones Negative (Negative); Urine Protein Negative (Neg-Trace)
[2024-01-17 11:45] LABS: Basophils Absolute Auto 0.1 X10*3/uL (0.0-0.2); Basophils Percent Auto 0.6 % (0-2); Eosinophils Absolute Auto 0.2 X10*3/uL (0.0-0.4); Eosinophils Percent Auto 2.8 % (0-4); Hematocrit 44.3 % (42.0-52.0); Hemoglobin 15.1 g/dl (14.0-18.0); Imm Gran Abs Auto 0.03 X10*3/uL (0.00-0.03); Imm Gran Pct Auto 0.4 % (0.0-0.4); Lymphocytes Absolute Auto 3.1 X10*3/uL (1.2-4.9); Mean Corpuscular HGB Conc 34.1 g/dl (31.0-36.0); Mean Corpuscular Hemoglobin 31.7 pg (27.0-33.0); Mean Corpuscular Volume 92.9 fL (80.0-98.0); Mean Platelet Volume 8.9 fL (9.4-12.4); Monocytes Absolute Auto 0.6 X10*3/uL (0.1-1.2); Monocytes Percent Auto 7.4 % (2-11); Neutrophils Absolute Auto 4.1 x10*3/uL (2.0-8.3); Neutrophils Percent Auto 50.8 % (45-73); Platelet Count 277 X10*3/uL (160-400); Red Blood Count 4.77 X10*6/uL (4.60-5.80); Red Cell Distribution Width 14.6 % (11.0-16.0); White Blood Count 8.1 X10*3/uL (4.8-10.8)
[2024-01-17 12:11] LABS: Alanine Aminotransferase 19 U/L (0-40); Albumin Level 3.9 g/dL (3.5-5.0); Alkaline Phosphatase 101 U/L (39-117); Anion Gap 10 (12-20); Aspartate Amino Transferase 22 U/L (5-37); Bilirubin Total 0.5 mg/dL (0.0-1.0); Blood Urea Nitrogen 11 mg/dL (9-16); Calcium 9.3 mg/dL (8.4-10.2); Carbon Dioxide 27 mmol/L (22-29); Chloride 107 mmol/L (96-108); Cholesterol 131 mg/dL (<200); Estimated Glomerular Filt Rate > 60; Glucose Fasting 90 mg/dL (60-99); HDL Cholesterol 49 mg/dL (>40); LDL Cholesterol Calculated 74 mg/dL (<100); Potassium 3.9 mmol/L (3.3-5.1); Sodium 140 mmol/L (135-145); Total Protein 6.9 g/dL (6.5-8.0); Triglycerides 40 mg/dL (<150)
[2024-01-17 12:29] LABS: TSH reflex Free T4 1.15 uIU/mL (0.32-4.0)
== END 2024-01-17 09:11 | disposition home or self-care (01) ==
LOC: HO.HMGCLDS 09:10
PROVIDERS: PCP Nurse Practitioner Family; Visit Provider Nurse Practitioner Family
DX: I10 Essential (primary) hypertension (principal)
CPT/HCPCS: 36415; 80053; 80061; 81003; 84443; 85025

== ENCOUNTER 2024-03-26 13:56 | Outpatient (AMB) | payer MEDICARE, MEDICAID, SELFPAY ==
[2024-03-26 14:11] VITALS: BP 112/58; PULSE 74; O2SAT 97; BMI 22.8
--- NOTE | 2024-03-26 14:11 | A.OFFVIS_ITS ---
Vital Signs 03/26/24 14:11 Height 5 ft 10 in Weight 158 lb 11.725 oz BMI 22.8 BP 112/58 L Blood Pressure Location Lt brachial Position Sitting Pulse 74 Pulse Source Pulse Oximeter Pulse Oximetry (%) 97 Oxygen Delivery Method Room Air Intake Visit Reasons: COPD Intake Note: pt is here for follow up and states he is feeling good today, he has quit smoking x 4 weeks!! 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 Allergies No Known Allergies Allergy (Verified 03/26/24 14:30) Medication List - Last Reconciled 03/26/24 by Melanie Castellanos MD albuterol sulfate 90 mcg/actuation (Ventolin HFA) 2 puffs PO Q4-6H PRN aspirin (Adult Aspirin Regimen) 81 mg PO DAILY atorvastatin 40 mg PO BEDTIME 90 days cholecalciferol (vitamin D3) 50 mcg PO DAILY 90 days cilostazol 50 mg PO BID diltiazem HCl 120 mg PO DAILY 30 days ipratropium-albuterol 0.5 mg-3 mg(2.5 mg base)/3 mL 3 mL inhalation QID 30 days losartan 25 mg PO DAILY nebulizers (Sidestream misc) As directed omeprazole 20 mg PO DAILY Pulmicort Flexhaler 180 mcg/actuation (budesonide) 1 inh PO DAILY NS simethicone (Gas Relief (simethicone)) 80 mg PO BID-TID PRN 30 days tamsulosin 0.4 mg PO BEDTIME tiotropium bromide (Spiriva with HandiHaler) 1 cap inhalation DAILY varenicline (Chantix Continuing Month Box) 1 mg PO BID Do you need a note to return to daycare/school/sports/work: No HPI HPI COPD: Details: Mr. Lima, has finally quit smoking since 1 month ago. He is on Chantix 0.5 mg b.i.d.. Still has some intermittent cough But breathing is better than before He is trying his best not to go back to smoking. He does end up using ProAir once in a while. And also has the DuoNeb updrafts at home but does not need to use it too much his main regimen is Spiriva HandiHaler once a day and Pulmicort 180 1 inhalation daily [facility] Medical History Personal history of nicotine dependence History of osteomyelitis HTN (hypertension) Pulmonary nodule COPD (chronic obstructive pulmonary disease) Smoker Onychomycosis Chronic right hip pain Nicotine dependence, cigarettes, uncomplicated Surgical History History of cataract surgery (~2015) Status post reconstruction procedure (~1977) History of fracture of clavicle (~2010) Thumb laceration Thumb fracture History of femur fracture Family History Father Lung cancer Smoker Mother Myocardial infarction CVD (cardiovascular disease) Maternal Grandfather No problems noted. Maternal Grandmother No problems noted. Paternal Grandfather No problems noted. Paternal Grandmother No problems noted. Brother HTN (hypertension) Sister No problems noted. 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 Cognitive needs: No Hearing needs: No Vision needs: Yes Review of Systems Const All systems reviewed & are unremarkable except as noted in HPI and below Eyes Reports no additional complaints ENT Reports no additional complaints Card Denies chest pain, Denies irregular heart rhythm and Denies leg edema Resp Reports as per HPI GI Reports no additional complaints Reports no additional complaints Musc Reports myalgias (mild) Skin/Breast Reports system reviewed and no additional complaints, except as documented Neuro Reports no additional complaints Psych Reports no additional complaints Physical Exam Vital Signs: Last Vital Signs Pulse 74 03/26/24 14:11 BP 112/58 L 03/26/24 14:11 Pulse Ox 97 03/26/24 14:11 Oxygen Delivery Method Room Air 03/26/24 14:11 BMI result Body Mass Index 22.8 Const General: comfortable, no acute distress, alert and awake Orientation/consciousness: patient oriented x3 HEENT Head: Yes normal to inspection General nose exam: No nasal polyps present and No nasal discharge present Face and sinus: Yes sinuses nontender Mouth: oropharynx normal Throat: Yes posterior oropharynx normal Eyes General: appearance normal, both eyes and all related structures Neck Neck: Yes normal visual inspection, Yes no lymphadenopathy, Yes trachea midline and Yes no JVD Thyroid: Thyroid normal Chest Chest palpation & inspection: normal inspection of the chest, normal palpation of entire chest wall and no tenderness Resp Other: Percussion note is resonant, breath sounds distant with prolonged expiratory phase. HE has inspiratory crepitations over the right lower lobe area. No wheezes are heard. Cardio Palpation: normal PMI Rate: regular rate Rhythm: regular rhythm Heart sounds: no gallops and no murmurs GI Palpation (GI): Soft to palpation, nontender, No hepatosplenomegaly present and no masses Auscultation: normal bowel sounds Back/Spine/Pelvis Thoracic/Lumbar Spine: thoracic and lumbar spine normal to inspection and thoraco-lumbar ROM limited Skin General skin exam: no rashes or lesions noted and dry skin Neuro General: patient oriented x3 and no focal motor deficits Cranial nerves: Yes CN's II-XII intact bilaterally Extrem General: Yes normal to inspection, Yes no clubbing, cyanosis or edema and Yes no calf tenderness Psych Appearance: grossly normal Speech and movement: Normal speech and movement present Assessment & Plan Assessment & Plan (1) Smoker: Comment: HE HAS LIFELONG HISTORY OF SMOKING, FINALLY HAS QUIT SINCE 1 MONTH AGO. HE IS ON CHANTIX 1 MG B.I.D.. Code(s): F17.200 - Nicotine dependence, unspecified, uncomplicated Category: Social Hx Plan: ADVISED TO CONTINUE USING CHANTIX 1 MG B.I.D.. MAY ALSO USE NICOTINE GUM IF HE HAS TO. COMMENDED FOR HAVING QUIT SMOKING. (2) COPD (chronic obstructive pulmonary disease): Comment: HE HAS MODERATELY ADVANCED CHRONIC OBSTRUCTIVE PULMONARY DISEASE WHICH IS REMAINING RELATIVELY STABLE WITH HIS CURRENT TREATMENT. Code(s): J44.9 - Chronic obstructive pulmonary disease, unspecified Category: Medical Plan: TX: IPRATROPIUM-ALBUTEROL 0.5 MG-2.5 MG IN 3 ML Q I.D. PULMICORT FLEXHALER 180 MCG 1 INHALATION DAILY. SPIRIVA HANDIHALER 1 INHALATION DAILY PROAIR HFA 2 PUFFS Q 6 HOURS P.R.N. (3) Pulmonary nodule: Comment: HE HAD A SEMI SOLID PULMONARY NODULE 4 X 8 MM IN LEFT UPPER LOBE. WHICH HAD DECREASED IN SIZE ON A FOLLOW-UP CT SCAN, LAST CT SCAN ON 11/03/2023, BENIGN CATEGORY 2 Code(s): R91.1 - Solitary pulmonary nodule Category: Medical Plan: RECOMMENDED TO STAY IN ANNUAL LUNG SCREENING PROGRAM Coding Level of Care Code Est Pt Level 3 (29790) Diagnoses Smoker F17.200 COPD (chronic obstructive pulmonary disease) J44.9 Pulmonary nodule R91.1
== END 2024-03-26 14:41 | disposition home or self-care (01) ==
PROVIDERS: PCP Nurse Practitioner Family; Visit Provider Internal Medicine
DX: F17.200 Nicotine dependence, unspecified, uncomplicated (principal); J44.9 Chronic obstructive pulmonary disease, unspecified; R91.1 Solitary pulmonary nodule
CPT/HCPCS: 99213

== ENCOUNTER → 2024-03-26 13:56 | Outpatient (BNVA) | payer MEDICARE, MEDICAID, SELFPAY | PROVIDERS: PCP Nurse Practitioner Family; Visit Provider Internal Medicine | DX: J44.9 Chronic obstructive pulmonary disease, unspecified (principal); R91.1 Solitary pulmonary nodule; F17.210 Nicotine dependence, cigarettes, uncomplicated | CPT/HCPCS: 99212 ==

== ENCOUNTER 2024-04-03 10:08 | Outpatient (AMB) | payer MEDICARE, MEDICAID, SELFPAY ==
--- NOTE | 2024-04-03 10:14 | A.OFFPC_ITS ---
Vital Signs 04/03/24 10:17 Height 51 ft Weight 157 lb BMI 0.3 BP 126/70 Blood Pressure Location Rt brachial Position Sitting Pulse 71 Pulse Source Pulse Oximeter Pulse Oximetry (%) 96 Oxygen Delivery Method Room Air Intake Visit Reasons: 3-4 month fu Intake Note: Patient here for HTN f/u. Allergies No Known Allergies Allergy (Verified 04/03/24 10:23) Medication List - Last Reconciled 04/03/24 by KIM Kingston albuterol sulfate 90 mcg/actuation (Ventolin HFA) 2 puffs PO Q4-6H PRN aspirin (Adult Aspirin Regimen) 81 mg PO DAILY atorvastatin 40 mg PO BEDTIME 90 days cholecalciferol (vitamin D3) 50 mcg PO DAILY 90 days cilostazol 50 mg PO BID diltiazem HCl 120 mg PO DAILY 30 days ipratropium-albuterol 0.5 mg-3 mg(2.5 mg base)/3 mL 3 mL inhalation QID 30 days losartan 25 mg PO DAILY nebulizers (Sidestream misc) As directed omeprazole 20 mg PO DAILY Pulmicort Flexhaler 180 mcg/actuation (budesonide) 1 inh PO DAILY NS simethicone (Gas Relief (simethicone)) 80 mg PO BID-TID PRN 30 days tamsulosin 0.4 mg PO BEDTIME tiotropium bromide (Spiriva with HandiHaler) 1 cap inhalation DAILY varenicline (Chantix Continuing Month Box) 1 mg PO BID Tobacco use date assessed: 12/20/23 Fall risk assessment: No Falls in past year Last assessed Fall Risk: 04/03/24 Dental Screening Dental Screen Date: 12/20/23 HPI 3-4 month fu HPI Details HTN: Blood pressure is stable, managed with diltiazem 120mg and losartan 25mg. Denies chest pain, shortness of breath, headache, dizziness, and blurred vision. Due for PSA in the near future, will order. Robbi dribbling with urination, weak stream, and frequent nocturia. Pt is following up with vascular, cardiology, pulmonology, urology, and podiatry. Pt quit smoking approximately 1 month ago. [facility] Medical History Personal history of nicotine dependence History of osteomyelitis HTN (hypertension) Pulmonary nodule COPD (chronic obstructive pulmonary disease) Smoker Onychomycosis Chronic right hip pain Nicotine dependence, cigarettes, uncomplicated Surgical History History of cataract surgery (~2015) Status post reconstruction procedure (~1977) History of fracture of clavicle (~2010) Thumb laceration Thumb fracture History of femur fracture Family History Father Lung cancer Smoker Mother Myocardial infarction CVD (cardiovascular disease) Maternal Grandfather No problems noted. Maternal Grandmother No problems noted. Paternal Grandfather No problems noted. Paternal Grandmother No problems noted. Brother HTN (hypertension) Sister No problems noted. 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 1. Little interest or pleasure in doing things: not at all 2. Feeling down, depressed, or hopeless: not at all 3. Trouble falling or staying asleep, or sleeping too much: not at all 4. Feeling tired or having little energy: not at all 5. Poor appetite or overeating: not at all 6. Feeling bad about yourself - or that you are a failure or have let yourself or your family down: not at all 7. Trouble concentrating on things, such as reading the newspaper or watching television: not at all 8. Moving or speaking so slowly that other people could have noticed. Or the opposite - being so fidgety or restless that you have been moving around a lot more than usual: not at all 9. Thoughts that you would be better off or of hurting yourself in some way: not at all Total score: 0 Depression Screening Interpretation: Negative Depression Screening Done: Yes [id number] - PHQ-9 Billing: Yes Source: Developed by Drs. Jose Gauthier, Barbi Rubio, Cristofer Agudelo and colleagues, with an educational sujatha from [employer]. Thrive Questionnaire Date Thrive assessed: 12/01/22 AUDIT C Alcohol Use Questionnaire (AUDIT-C) 1. How often do you have a drink containing alcohol?: Never 3. How often do you have six or more drinks on one occasion?: Never Total Score: 0 Score Reviewed/Action Taken: No GLADYS-7 AMB Questionnaire GLADYS-7 Date GLADYS - 7 assessed: 04/03/24 Feeling nervous, anxious, or on edge: 0 = Not at all Not being able to stop or control worryin = Not at all Worrying too much about different things: 0 = Not at all Trouble relaxin = Not at all Being so restless that it is hard to sit still: 0 = Not at all Becoming easily annoyed or irritable: 0 = Not at all Feeling afraid as if something awful might happen: 0 = Not at all Total GLADYS-7 score (0-4 normal; 5-9 mild; 10-14 moderate; 15-21 severe): 0 Source: Developed by Drs. Jose Gauthier, Barbi Rubio, Cristofer Agudelo and colleagues, with an educational sujatha from [employer]. Review of Systems Const Reports as per HPI Physical exam (Primary Care) Vital Signs: Last Vital Signs Pulse 71 04/03/24 10:17 BP 126/70 04/03/24 10:17 Pulse Ox 96 04/03/24 10:17 Oxygen Delivery Method Room Air 04/03/24 10:17 BMI result Body Mass Index 0.3 Tobacco/Smoking Status: Tobacco use Status Tobacco use date assessed 12/20/23 04/03/24 10:16 Patient Tobacco Use Status Former Tobacco user 04/03/24 10:16 Tobacco use type Cigarette 04/03/24 10:16 e-Cigarette/Vaping Use Never Used 04/03/24 10:16 PHQ-9: PHQ-9 Score PHQ-9: Total score 0 04/03/24 10:54 Depression Screening Interpretation: Negative Thrive Assessment: Date of Thrive Assessment Date Thrive assessed 12/01/22 04/03/24 10:16 Const General: cooperative Orientation/consciousness: patient oriented x3 Resp Other: lungs with coarse wheezes Effort & Inspection: normal respiratory effort Cardio Rate: regular rate Rhythm: regular rhythm Heart sounds: S1 normal heart sound present and S2 normal heart sound present Neuro General: patient oriented x3 Psych Appearance: grossly normal Mental Status: mental status grossly normal Speech and movement: Normal speech and movement present Affect: normal affect Attitude: cooperative Thought process: Normal thought process present Thought content: Normal thought content present Insight: Good insight present (Psych) Judgement: Good judgement present (Psych) Assessment and Plan Assessment & Plan (1) Screening PSA (prostate specific antigen): Code(s): Z12.5 - Encounter for screening for malignant neoplasm of prostate (2) HTN (hypertension): Code(s): I10 - Essential (primary) hypertension Plan: stable Plan The patient agreed to the use of a emergency medical services coordinator for this encounter. Scribed for KIM Quintanilla by Minerva Victor emergency medical services coordinator, on 04/03/2024 at 10:25 EST. Orders: Orders Prostate Specific Antigen Scr Today Z12.5 - Encounter for screening for malignant neoplasm of prostate AMB EKG-In Office Today I10 - Essential (primary) hypertension Coding Level of Care Code Est Pt Level 3 (54479) Diagnoses Screening PSA (prostate specific antigen) Z12.5 HTN (hypertension) I10
[2024-04-03 10:17] VITALS: BP 126/70; PULSE 71; O2SAT 96
== END 2024-04-03 11:07 | disposition home or self-care (01) ==
PROVIDERS: PCP Nurse Practitioner Family; Visit Provider Nurse Practitioner Family
DX: I10 Essential (primary) hypertension (principal); Z12.5 Encounter for screening for malignant neoplasm of prostate
CPT/HCPCS: 99213

== ENCOUNTER 2024-04-16 08:51 | Outpatient (REF) | payer MEDICARE, MEDICAID, SELFPAY ==
[2024-04-16 11:07] LABS: Prostate Specific Antigen Scr 0.58 ng/mL (<0.05-4.0)
== END 2024-04-16 08:52 | disposition home or self-care (01) ==
LOC: HO.HMGCLDS 08:51
PROVIDERS: PCP Nurse Practitioner Family; Visit Provider Nurse Practitioner Family
DX: Z12.5 Encounter for screening for malignant neoplasm of prostate (principal)
CPT/HCPCS: 36415; 84153

== ENCOUNTER 2024-04-30 12:42 | Outpatient (REF) | payer MEDICARE, MEDICAID, SELFPAY ==
[2024-04-30 16:01] LABS: MANUAL DIFF FLAG NO
[2024-04-30 16:10] LABS: Basophils Absolute Auto 0.1 X10*3/uL (0.0-0.2); Basophils Percent Auto 0.7 % (0-2); Eosinophils Absolute Auto 0.3 X10*3/uL (0.0-0.4); Eosinophils Percent Auto 3.1 % (0-4); Hematocrit 43.3 % (42.0-52.0); Hemoglobin 14.5 g/dl (14.0-18.0); Imm Gran Abs Auto 0.03 X10*3/uL (0.00-0.03); Imm Gran Pct Auto 0.3 % (0.0-0.4); Lymphocytes Absolute Auto 2.8 X10*3/uL (1.2-4.9); Lymphocytes Percent Auto 28.1 % (20-40); Mean Corpuscular HGB Conc 33.5 g/dl (31.0-36.0); Mean Corpuscular Hemoglobin 31.5 pg (27.0-33.0); Mean Corpuscular Volume 93.9 fL (80.0-98.0); Monocytes Absolute Auto 0.7 X10*3/uL (0.1-1.2); Monocytes Percent Auto 6.7 % (2-11); Neutrophils Percent Auto 61.1 % (45-73); Platelet Count 262 X10*3/uL (160-400); Red Blood Count 4.61 X10*6/uL (4.60-5.80); Red Cell Distribution Width 13.9 % (11.0-16.0); White Blood Count 9.8 X10*3/uL (4.8-10.8)
[2024-04-30 16:11] LABS: INTERNATIONAL NORM RATIO 0.8 (0.9-1.1); Prothrombin Time 10.1 SEC (11.1-13.3)
[2024-04-30 16:23] LABS: Anion Gap 12 (12-20); Blood Urea Nitrogen 18 mg/dL (9-16); Calcium 9.2 mg/dL (8.4-10.2); Carbon Dioxide 24 mmol/L (22-29); Chloride 109 mmol/L (96-108); Estimated Glomerular Filt Rate > 60; Glucose Random 93 mg/dL (60-115); Sodium 141 mmol/L (135-145)
== END 2024-04-30 12:43 | disposition home or self-care (01) ==
LOC: HO.HMGCLDS 12:42
PROVIDERS: PCP Nurse Practitioner Family; Visit Provider Internal Medicine Cardiovascular Disease
DX: I70.8 Atherosclerosis of other arteries (principal)
CPT/HCPCS: 36415; 80048; 85025; 85610

== ENCOUNTER 2024-07-31 10:56 | Outpatient (AMB) | payer MEDICARE, MEDICAID, SELFPAY ==
--- NOTE | 2024-07-31 10:57 | MHC.OFFVIS ---
Vital Signs 07/31/24 10:58 Height 5 ft 10 in Weight 152 lb BMI 21.8 BP 132/66 Blood Pressure Location Lt brachial Position Sitting Respiration 16 Pulse 103 H Pulse Source Pulse Oximeter Pulse Oximetry (%) 97 Oxygen Delivery Method Room Air Intake Visit Reasons: COPD Allergies No Known Allergies Allergy (Verified 07/31/24 11:11) Medication List - Last Reconciled 07/31/24 by Melanie Castellanos MD albuterol sulfate 90 mcg/actuation (Ventolin HFA) 2 puffs PO Q4-6H PRN aspirin (Adult Aspirin Regimen) 81 mg PO DAILY atorvastatin 40 mg PO BEDTIME 90 days cholecalciferol (vitamin D3) 50 mcg PO DAILY 90 days cilostazol 50 mg PO BID diltiazem HCl 120 mg PO DAILY ipratropium-albuterol 0.5 mg-3 mg(2.5 mg base)/3 mL 3 mL inhalation QID 30 days losartan 25 mg PO DAILY nebulizers (Sidestream misc) As directed omeprazole 20 mg PO DAILY Pulmicort Flexhaler 180 mcg/actuation (budesonide) 1 inh PO DAILY NS simethicone (Gas Relief (simethicone)) 80 mg PO BID-TID PRN 30 days tamsulosin 0.4 mg PO BEDTIME tiotropium bromide (Spiriva with HandiHaler) 1 cap inhalation DAILY varenicline (Chantix Continuing Month Box) 1 mg PO BID Do you need a note to return to daycare/school/sports/work: No HPI HPI COPD: Details: This 68 years old gentleman a lifelong smoker with advanced chronic obstructive pulmonary disease, comes for follow-up after 4 months. On his last visit he stated that he had quit smoking, with the use of Chantix and nicotine gums. It did not last for too long. And he went back to smoking about half pack a day. At the same time he quit using Chantix. Now he has slightly increased cough mostly nonproductive. He gets short of breath if he walks fast or climbs stairs, He denies any acute attacks of wheezing. He wants to quit smoking gain and would like to have Chantix. [facility] Medical History Claudication Occlusion of right femoral artery PVD (peripheral vascular disease) with claudication Personal history of nicotine dependence History of osteomyelitis HTN (hypertension) Pulmonary nodule COPD (chronic obstructive pulmonary disease) Smoker Onychomycosis Chronic right hip pain Nicotine dependence, cigarettes, uncomplicated Surgical History History of cataract surgery (~2015) Status post reconstruction procedure (~1977) History of fracture of clavicle (~2010) Thumb laceration Thumb fracture History of femur fracture Family History Father Lung cancer Smoker Mother Myocardial infarction CVD (cardiovascular disease) Maternal Grandfather No problems noted. Maternal Grandmother No problems noted. Paternal Grandfather No problems noted. Paternal Grandmother No problems noted. Brother HTN (hypertension) Sister No problems noted. 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 Cognitive needs: No Hearing needs: No Vision needs: Yes Review of Systems Const All systems reviewed & are unremarkable except as noted in HPI and below Eyes Reports no additional complaints ENT Reports no additional complaints Card Denies chest pain, Denies irregular heart rhythm and Denies leg edema Resp Reports as per HPI GI Reports no additional complaints Reports no additional complaints Musc Reports myalgias (mild) Skin/Breast Reports system reviewed and no additional complaints, except as documented Neuro Reports no additional complaints Psych Reports no additional complaints Physical Exam Vital Signs: Last Vital Signs Pulse 103 H 07/31/24 10:58 Resp 16 07/31/24 10:58 BP 132/66 07/31/24 10:58 Pulse Ox 97 07/31/24 10:58 Oxygen Delivery Method Room Air 07/31/24 10:58 BMI result Body Mass Index 21.8 Const General: comfortable, no acute distress, alert and awake Orientation/consciousness: patient oriented x3 HEENT Head: Yes normal to inspection General nose exam: No nasal polyps present and No nasal discharge present Face and sinus: Yes sinuses nontender Mouth: oropharynx normal Throat: Yes posterior oropharynx normal Eyes General: appearance normal, both eyes and all related structures Neck Neck: Yes normal visual inspection, Yes no lymphadenopathy, Yes trachea midline and Yes no JVD Thyroid: Thyroid normal Chest Chest palpation & inspection: normal inspection of the chest, normal palpation of entire chest wall and no tenderness Resp Other: Percussion note is resonant, breath sounds distant with prolonged expiratory phase. HE has inspiratory crepitations over the right lower lobe area. No wheezes are heard. Cardio Palpation: normal PMI Rate: regular rate Rhythm: regular rhythm Heart sounds: no gallops and no murmurs GI Palpation (GI): Soft to palpation, nontender, No hepatosplenomegaly present and no masses Auscultation: normal bowel sounds Back/Spine/Pelvis Thoracic/Lumbar Spine: thoracic and lumbar spine normal to inspection and thoraco-lumbar ROM limited Skin General skin exam: no rashes or lesions noted and dry skin Neuro General: patient oriented x3 and no focal motor deficits Cranial nerves: Yes CN's II-XII intact bilaterally Extrem General: Yes normal to inspection, Yes no clubbing, cyanosis or edema and Yes no calf tenderness Psych Appearance: grossly normal Speech and movement: Normal speech and movement present Assessment & Plan Assessment & Plan (1) COPD (chronic obstructive pulmonary disease): Comment: HE HAS MODERATELY ADVANCED CHRONIC OBSTRUCTIVE PULMONARY DISEASE WHICH IS REMAINING RELATIVELY STABLE WITH HIS CURRENT TREATMENT. Luckily he has had no acute exacerbation. Code(s): J44.9 - Chronic obstructive pulmonary disease, unspecified Category: Medical Plan: Pulmicort Flexhaler 180 mcg/actuation daily Spiriva HandiHaler 1 inhalation daily Ipratropium-albuterol solution in the nebulizer q.i.d.. Ventolin HFA 2 puffs Q 4-6 hours p.r.n. when outdoors. (2) Smoker: Comment: HE HAS LIFELONG HISTORY OF SMOKING, HAD QUIT ONLY BRIEFLY AND UNFORTUNATELY WENT BACK TO SMOKING. NOW SMOKING HALF PACK OF CIGARETTES A DAY, WANTS TO QUIT AND WOULD LIKE TO START USING CHANTIX AGAIN. Code(s): F17.200 - Nicotine dependence, unspecified, uncomplicated Category: Social Hx Plan: HAD A LONG TALK AND TOLD HIM THE RISKS OF CONTINUED SMOKING IN FACE OF ADVANCED COPD AND PERIPHERAL VASCULAR DISEASE. CHANTIX 1 MG B.I.D. IS PRESCRIBED (3) Pulmonary nodule: Comment: HE HAD A SEMI SOLID PULMONARY NODULE 4 X 8 MM IN LEFT UPPER LOBE. WHICH HAD DECREASED IN SIZE ON A FOLLOW-UP CT SCAN, LAST CT SCAN ON 11/03/2023, BENIGN CATEGORY 2 Code(s): R91.1 - Solitary pulmonary nodule Category: Medical Plan: ADVISED THAT HE SHOULD CONTINUE IN ANNUAL LUNG SCREENING PROGRAM Medications: Changed From varenicline (Chantix Continuing Month Box) 1 mg PO BID 60 tabs 0RF To varenicline (Chantix Continuing Month Box) 1 mg PO BID 30 days 60 tabs 3RF NICOTINE ADDICTION Coding Level of Care Code Est Pt Level 3 (31133) Diagnoses COPD (chronic obstructive pulmonary disease) J44.9 Smoker F17.200 Pulmonary nodule R91.1
[2024-07-31 10:58] VITALS: BP 132/66; PULSE 103; RESP 16; O2SAT 97; BMI 21.8
== END 2024-07-31 11:13 | disposition home or self-care (01) ==
PROVIDERS: PCP Nurse Practitioner Family; Visit Provider Internal Medicine
DX: J44.9 Chronic obstructive pulmonary disease, unspecified (principal); F17.200 Nicotine dependence, unspecified, uncomplicated; R91.1 Solitary pulmonary nodule
CPT/HCPCS: 99213

== ENCOUNTER → 2024-07-31 10:56 | Outpatient (BNVA) | payer MEDICARE, MEDICAID, SELFPAY | PROVIDERS: PCP Nurse Practitioner Family; Visit Provider Internal Medicine | DX: J44.9 Chronic obstructive pulmonary disease, unspecified (principal); R91.1 Solitary pulmonary nodule; F17.210 Nicotine dependence, cigarettes, uncomplicated | CPT/HCPCS: 99212 ==

== ENCOUNTER 2024-10-24 14:52 | Outpatient (REF) | payer MEDICARE, MEDICAID, SELFPAY | END 2024-10-24 14:53 | disposition home or self-care (01) | LOC: HO.HMGCX 14:52 | PROVIDERS: PCP Nurse Practitioner Family; Visit Provider Nurse Practitioner Family | DX: R09.89 Other specified symptoms and signs involving the circulatory and respiratory systems (principal); Z00.01 Encounter for general adult medical examination with abnormal findings; H61.22 Impacted cerumen, left ear | CPT/HCPCS: 69209; 71046; 96127; 99397 ==

== ENCOUNTER 2024-10-24 14:52 | Outpatient (AMB) | payer MEDICARE, MEDICAID, SELFPAY ==
[2024-10-24 14:54] VITALS: BP 130/72; PULSE 76; O2SAT 95; BMI 22.7
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
== END 2024-10-24 15:28 | disposition home or self-care (01) ==
PROVIDERS: PCP Nurse Practitioner Family; Visit Provider Nurse Practitioner Family
DX: Z00.00 Encounter for general adult medical examination without abnormal findings (principal); R09.89 Other specified symptoms and signs involving the circulatory and respiratory systems; H61.22 Impacted cerumen, left ear

== ENCOUNTER 2024-11-05 11:47 | Outpatient (REF) | payer MEDICARE, MEDICAID, SELFPAY ==
[2024-11-05 13:52] LABS: Appearance Urine Clear; Color Urine Yellow; Glucose Urine UA Negative (Negative); Leukocyte Esterase Urine Negative (Negative); Nitrite Urine Negative (Negative); PH 6.5 (5.0-9.0); Urine Blood Negative (Negative); Urine Ketones Negative (Negative); Urine Protein Negative (Neg-Trace)
[2024-11-05 14:03] LABS: MANUAL DIFF FLAG NO
[2024-11-05 14:07] LABS: Basophils Percent Auto 0.5 % (0-2); Eosinophils Absolute Auto 0.1 X10*3/uL (0.0-0.4); Eosinophils Percent Auto 1.5 % (0-4); Hematocrit 40.6 % (42.0-52.0); Hemoglobin 13.7 g/dl (14.0-18.0); Imm Gran Abs Auto 0.02 X10*3/uL (0.00-0.03); Imm Gran Pct Auto 0.2 % (0.0-0.4); Lymphocytes Absolute Auto 2.9 X10*3/uL (1.2-4.9); Lymphocytes Percent Auto 32.9 % (20-40); Mean Corpuscular HGB Conc 33.7 g/dl (31.0-36.0); Mean Corpuscular Hemoglobin 30.9 pg (27.0-33.0); Mean Corpuscular Volume 91.4 fL (80.0-98.0); Mean Platelet Volume 8.8 fL (9.4-12.4); Monocytes Absolute Auto 0.6 X10*3/uL (0.1-1.2); Monocytes Percent Auto 7.2 % (2-11); Neutrophils Absolute Auto 5.1 x10*3/uL (2.0-8.3); Neutrophils Percent Auto 57.7 % (45-73); Platelet Count 261 X10*3/uL (160-400); Red Blood Count 4.44 X10*6/uL (4.60-5.80); Red Cell Distribution Width 15.1 % (11.0-16.0); White Blood Count 8.8 X10*3/uL (4.8-10.8)
[2024-11-05 14:51] LABS: Alanine Aminotransferase 22 U/L (0-40); Albumin Level 4.2 g/dL (3.5-5.0); Alkaline Phosphatase 92 U/L (39-117); Aspartate Amino Transferase 25 U/L (5-37); Bilirubin Total 0.4 mg/dL (0.0-1.0); Blood Urea Nitrogen 13 mg/dL (9-16); Calcium 8.9 mg/dL (8.4-10.2); Carbon Dioxide 29 mmol/L (22-29); Chloride 105 mmol/L (96-108); Cholesterol 132 mg/dL (<200); Estimated Glomerular Filt Rate > 60; Glucose Fasting 85 mg/dL (60-99); HDL Cholesterol 53 mg/dL (>40); LDL Cholesterol Calculated 69 mg/dL (<100); Potassium 4.3 mmol/L (3.3-5.1); Sodium 139 mmol/L (135-145); Total Protein 7.1 g/dL (6.5-8.0); Triglycerides 53 mg/dL (<150)
[2024-11-05 15:04] LABS: TSH reflex Free T4 0.67 uIU/mL (0.32-4.0)
[2024-11-05 21:50] LABS: Anion Gap 9 (12-20)
== END 2024-11-05 11:48 | disposition home or self-care (01) ==
LOC: HO.HMGCLDS 11:47
PROVIDERS: PCP Nurse Practitioner Family; Visit Provider Nurse Practitioner Family
DX: Z13.89 Encounter for screening for other disorder (principal)
CPT/HCPCS: 36415; 80053; 80061; 81003; 84443; 85025

== ENCOUNTER 2024-11-05 15:37 | Outpatient (REF) | payer MEDICARE, MEDICAID, SELFPAY | END 2024-11-05 15:38 | disposition home or self-care (01) | LOC: HO.CT 15:37 | PROVIDERS: PCP Nurse Practitioner Family; Visit Provider Physician Assistant Medical | DX: Z12.2 Encounter for screening for malignant neoplasm of respiratory organs (principal); F17.210 Nicotine dependence, cigarettes, uncomplicated | CPT/HCPCS: 71271 ==

== ENCOUNTER → 2024-11-05 15:38 | Outpatient (BNV) | payer MEDICARE, MEDICAID, SELFPAY | PROVIDERS: PCP Nurse Practitioner Family; Visit Provider Radiology Diagnostic Radiology | DX: Z12.2 Encounter for screening for malignant neoplasm of respiratory organs (principal); Z87.891 Personal history of nicotine dependence | CPT/HCPCS: 71271 ==

== ENCOUNTER 2024-11-08 14:48 | Observation (INO) | payer MEDICARE, MEDICAID, SELFPAY ==
[2024-11-08] VITALS (10 sets, daily range): BP systolic 120–178; BP diastolic 75–89; PULSE 78–107; RESP 14–18; TEMP 36.3–37.8; O2SAT 90–95; BMI 22.2
--- NOTE | ~2024-11-08 | XR_ITS ---
EXAMINATION: XR CHEST CLINICAL INFORMATION: shortness of breath COMPARISON: None available. TECHNIQUE: 2 views of the chest were obtained. FINDINGS: The cardiac, hilar, and mediastinal contours are normal. Lungs are diffusely hyperaerated and hyperlucent, consistent with COPD. Flattened hemidiaphragms. There is stable scarring in the right midlung. Lungs otherwise clear. No consolidations, effusions, or pneumothoraces. No acute bony abnormalities. Deformity of the right posterior lateral upper ribs again noted, unchanged. Stable degenerative changes of the spine. XR/XR chest 2V IMPRESSION: 1. COPD. Stable scarring right midlung. 2. Stable deformity upper thoracic ribs. 3. No superimposed active lung disease. Electronically signed by: Mickey Muller MD 11/08/2024 04:16 PM [facility]
--- NOTE | 2024-11-08 15:16 | ED.GENADULT ---
HPI - General Adult General Chief complaint: Dyspnea Stated complaint: COUGH,CHILLSEXERT SOB 95% RA X3D PER EMS Time Seen by Provider: 11/08/24 15:16 Source: patient Mode of arrival: ambulatory Limitations: no limitations History of Present Illness ED Provider: Fantasma HPI narrative: Patient is a 69-year-old male with history of COPD, smoker x 50 yrs, pulmonary nodule, HTN, PVD presenting to the emergency department with complaint of worsening shortness of breath, cough productive of clear/white sputum, and subjective fevers/chills for the past 3 days. Denies chest pain/palpitations. Reports occasional nausea but denies vomiting, diarrhea or constipation. MD complaint: shortness of breath Onset (ago): day(s) Associated symptoms: cough and fever/chills Treatments prior to arrival: none Related Data Home Medications ?Medication ?Instructions ?Recorded ?Confirmed tamsulosin 0.4 mg capsule 0.4 mg PO BEDTIME 08/25/20 10/24/24 aspirin 81 mg tablet,delayed 81 mg PO DAILY 01/07/22 10/24/24 release (Adult Aspirin Regimen) nebulizers (Sidestream misc) #1 ea 09/23/22 10/24/24 cilostazol 50 mg tablet 50 mg PO BID 09/27/23 10/24/24 Previous Rx's ?Medication ?Instructions ?Recorded ipratropium 0.5 mg-albuterol 3 mg 3 ml inhalation QID 30 days #180 mL 09/29/23 (2.5 mg base)/3 mL nebulization soln Pulmicort Flexhaler 180 1 inh PO DAILY #1 ea 12/27/23 mcg/actuation breath activated (budesonide) cholecalciferol (vitamin D3) 50 50 mcg PO DAILY 90 days #90 tabs 05/07/24 mcg (2,000 unit) tablet losartan 25 mg tablet 25 mg PO DAILY #90 tabs 06/12/24 tiotropium bromide 18 mcg capsule 1 cap inhalation DAILY #30 caps 06/20/24 with inhalation device (Spiriva with HandiHaler) diltiazem HCl 120 mg tablet 120 mg PO DAILY #90 tabs 07/23/24 varenicline 1 mg tablet (Chantix 1 mg PO BID NICOTINE ADDICTION 30 07/31/24 Continuing Month Box) days #60 tabs atorvastatin 40 mg tablet 40 mg PO BEDTIME 90 days #90 tabs 08/16/24 albuterol sulfate 90 mcg/actuation 2 puff PO Q4-6H PRN for wheezing 08/28/24 aerosol inhaler (Ventolin HFA) #18 grams simethicone 80 mg chewable tablet 80 mg PO BID-TID PRN abdominal 08/31/24 (Gas Relief (simethicone)) distention 30 days #90 tabs omeprazole 20 mg capsule,delayed 20 mg PO DAILY #90 caps 09/18/24 release Allergies Allergy/AdvReac Type Severity Reaction Status Date / Time No Known Allergies Allergy Verified 11/08/24 15:14 Review of Systems Review of Systems: As per HPI Yes all other systems are reviewed and are negative Constitutional: Constitutional: Reports as per HPI PMFSH Past Medical History Medical History Claudication Occlusion of right femoral artery PVD (peripheral vascular disease) with claudication History of osteomyelitis HTN (hypertension) Pulmonary nodule COPD (chronic obstructive pulmonary disease) Onychomycosis Chronic right hip pain Nicotine dependence, cigarettes, uncomplicated Surgical History History of cataract surgery (~2015) Status post reconstruction procedure (~1977) History of fracture of clavicle (~2010) Thumb laceration Thumb fracture History of femur fracture Family History Family History Father Lung cancer Smoker Mother Myocardial infarction CVD (cardiovascular disease) Maternal Grandfather No problems noted. Maternal Grandmother No problems noted. Paternal Grandfather No problems noted. Paternal Grandmother No problems noted. Brother HTN (hypertension) Sister No problems noted. 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 Blood pressure normal. Heart rate normal. Respiratory rate normal. Temperature elevated. Oxygen saturation normal. Const General: cooperative and no acute distress Orientation/consciousness: oriented to person, oriented to place, oriented to time and patient oriented x3 Limitations: no limitations HENHI Head: Yes normocephalic and Yes atraumatic Ears: external ears normal General nose exam: Normal external nose present Face and sinus: Yes face symmetric Mouth: oropharynx normal and moist mucous membranes Throat: Yes uvula midline Eyes Pupils: Equal, round and reactive pupils present Neck Neck: Yes normal visual inspection and Yes supple Resp Effort & Inspection: normal respiratory effort and able to speak in complete sentences Auscultation: rhonchi lower bilaterally Cardio Rate: regular rate Rhythm: regular rhythm Heart sounds: S1 normal heart sound present and S2 normal heart sound present GI Palpation (GI): Soft to palpation and nontender Auscultation: normoactive bowel sounds General: Yes no CVA tenderness Back/Spine/Pelvis Back: no CVA tenderness Skin General skin exam: elasticity normal and turgor normal Neuro General: oriented to person, oriented to place, oriented to time, patient oriented x3, moves all extremities, no focal motor deficits and CN's II-XI intact bilaterally Cranial nerves: Yes Equal, round and reactive pupils present Cognition (Neuro): normal cognition Extrem General: Yes full ROM, Yes no pedal edema and Yes no calf tenderness Psych Mental Status: mental status grossly normal Affect: normal affect Thought process: Normal thought process present Medical Decision Making Medical Decision Making MDM Narrative: Patient is a 69-year-old male with history of COPD, smoker x 50 yrs, pulmonary nodule, HTN, PVD presenting to the emergency department with complaint of worsening shortness of breath, cough productive of clear/white sputum, and subjective fevers/chills for the past 3 days. On exam patient is awake, A+Ox3, VS WNL, afebrile, normal neurological exam without focal deficits, physical exam findings as above. Given reported symptoms and physical exam findings, initial differential includes but is not limited to viral illness, bronchitis, pneumonia, COPD exacerbation. Labs notable for no leukocytosis or left shift, no significant electrolyte abnormalities, normal lactic. X-ray notable for COPD, no active disease. My interpretation is in agreement with the radiologist's interpretation. Viral serology negative. Patient noted to drop in the low 90's and become tachycardic on ambulation trial. Admission for COPD exacerbation accepted by Dr. Le. Differential Diagnosis Differential Diagnoses: The differential diagnosis associated with the presentation includes As per [facility] Admission/Observation Consideration of admission/observation: Escalation of care including admission/observation considered Patient would have been admitted to the hospital had their work up had any findings where hospital admission was appropriate and their clinical presentation warranted hospital admission. Lab Data [facility] Lab Attestation statement: I reviewed the patient's lab results. As per [facility] 11/08/24 16:25 11/08/24 16:25 Labs: Lab Results 11/08/24 Range/Units 16:25 WBC 9.3 (4.8-10.8) X10*3/uL RBC 4.78 (4.60-5.80) X10*6/uL Hgb 14.8 (14.0-18.0) g/dl Hct 42.9 (42.0-52.0) % MCV 89.7 (80.0-98.0) fL MCH 31.0 (27.0-33.0) pg MCHC 34.5 (31.0-36.0) g/dl RDW 15.1 (11.0-16.0) % Plt Count 248 (160-400) X10*3/uL MPV 8.5 L (9.4-12.4) fL Immature Gran % (Auto) 0.3 (0.0-0.4) % Neut % (Auto) 68.9 (45-73) % Lymph % (Auto) 19.2 L (20-40) % [place] % (Auto) 10.4 (2-11) % Eos % (Auto) 0.4 (0-4) % Baso % (Auto) 0.8 (0-2) % Lymph # (Auto) 1.8 (1.2-4.9) X10*3/uL [place] # (Auto) 1.0 (0.1-1.2) X10*3/uL Eos # (Auto) 0.0 (0.0-0.4) X10*3/uL Baso # (Auto) 0.1 (0.0-0.2) X10*3/uL Abs Immat Gran (auto) 0.03 (0.00-0.03) X10*3/uL Absolute Neuts (auto) 6.4 (2.0-8.3) x10*3/uL Absolute Nucleated RBC 0.000 (0.0-0.012) X10*3/uL Nucleated RBC % (auto) 0.0 (0.0-0.2) /100WBC Sodium 138 (135-145) mmol/L Potassium 4.0 (3.3-5.1) mmol/L Chloride 106 (96-108) mmol/L Carbon Dioxide 26 (22-29) mmol/L Anion Gap 10 L (12-20) BUN 15 (9-16) mg/dL Creatinine 0.96 (0.5-1.4) mg/dL Estim Creat Clear Calc 73.2 Estimated GFR > 60 Random Glucose 96 (60-115) mg/dL Lactic Acid 1.4 (0.5-2.0) mmol/L Calcium 9.4 (8.4-10.2) mg/dL Total Bilirubin 0.5 (0.0-1.0) mg/dL AST 24 (5-37) U/L ALT 15 (0-40) U/L Alkaline Phosphatase 102 (39-117) U/L Total Protein 7.3 (6.5-8.0) g/dL Albumin 4.2 (3.5-5.0) g/dL Influenza Type A (PCR) NEGATIVE (Negative) Influenza Type B (PCR) NEGATIVE (Negative) RSV RNA Qual (PCR) NEGATIVE (Negative) SARS-CoV-2 RNA (RT-PCR) NEGATIVE (Negative) Independent Interpretation I performed an independent interpretation of an: Plain X-Ray Interpretation: No evidence of pneumonia on chest x-ray. Radiology Impression Discussion of test interpretation with radiology: I have reviewed the radiologist's reading. Radiologist Impression: XR/XR chest 2V IMPRESSION: 1. COPD. Stable scarring right midlung. 2. Stable deformity upper thoracic ribs. 3. No superimposed active lung disease. External Record Review External record reviewed: Inpatient record, Office record and Outpatient record Prescription Management I considered prescription management with: Antibiotic and Other Discharge Plan Discharge Prescriptions: No Action ipratropium-albuterol 0.5 mg-3 mg(2.5 mg base)/3 mL solution for nebulization 3 ml inhalation QID 30 Days Qty: 180 4RF Pulmicort Flexhaler 180 mcg/actuation aerosol powdr breath activated 1 inh PO DAILY Qty: 1 2RF cholecalciferol (vitamin D3) 50 mcg (2,000 unit) tablet 50 mcg PO DAILY 90 Days Qty: 90 1RF losartan 25 mg tablet 25 mg PO DAILY Qty: 90 1RF Spiriva with HandiHaler 18 mcg capsule, w/inhalation device 1 cap inhalation DAILY Qty: 30 5RF diltiazem HCl 120 mg tablet 120 mg PO DAILY Qty: 90 1RF atorvastatin 40 mg tablet 40 mg PO BEDTIME 90 Days Qty: 90 1RF albuterol sulfate [Ventolin HFA] 90 mcg/actuation HFA aerosol inhaler 2 puff PO Q4-6H PRN (Reason: for wheezing) Qty: 18 0RF simethicone [Gas Relief (simethicone)] 80 mg tablet,chewable 80 mg PO BID-TID PRN (Reason: abdominal distention) 30 Days Qty: 90 5RF omeprazole 20 mg capsule,delayed release(DR/EC) 20 mg PO DAILY Qty: 90 1RF tamsulosin 0.4 mg capsule 0.4 mg PO BEDTIME aspirin [Adult Aspirin Regimen] 81 mg tablet,delayed release (DR/EC) 81 mg PO DAILY (DME) nebulizers [Sidestream] Misc See Rx Instructions .ROUTE DIRECTED Qty: 1 Rx Instructions: As directed cilostazol 50 mg tablet 50 mg PO BID varenicline [Chantix Continuing Month Box] 1 mg tablet 1 mg PO BID 30 Days Qty: 60 3RF Print Language: [place]an
[2024-11-08 16:30] LABS: MANUAL DIFF FLAG NO
[2024-11-08 16:40] LABS: Hematocrit 42.9 % (42.0-52.0); Hemoglobin 14.8 g/dl (14.0-18.0); Mean Corpuscular HGB Conc 34.5 g/dl (31.0-36.0); Mean Corpuscular Volume 89.7 fL (80.0-98.0); Red Blood Count 4.78 X10*6/uL (4.60-5.80); White Blood Count 9.3 X10*3/uL (4.8-10.8)
[2024-11-08 16:41] LABS: Basophils Absolute Auto 0.1 X10*3/uL (0.0-0.2); Basophils Percent Auto 0.8 % (0-2); Eosinophils Percent Auto 0.4 % (0-4); Imm Gran Abs Auto 0.03 X10*3/uL (0.00-0.03); Imm Gran Pct Auto 0.3 % (0.0-0.4); Lymphocytes Absolute Auto 1.8 X10*3/uL (1.2-4.9); Lymphocytes Percent Auto 19.2 % (20-40); Mean Platelet Volume 8.5 fL (9.4-12.4); Monocytes Percent Auto 10.4 % (2-11); Neutrophils Absolute Auto 6.4 x10*3/uL (2.0-8.3); Neutrophils Percent Auto 68.9 % (45-73); Platelet Count 248 X10*3/uL (160-400); Red Cell Distribution Width 15.1 % (11.0-16.0)
[2024-11-08 16:46] LABS: Alanine Aminotransferase 15 U/L (0-40); Albumin Level 4.2 g/dL (3.5-5.0); Alkaline Phosphatase 102 U/L (39-117); Anion Gap 10 (12-20); Aspartate Amino Transferase 24 U/L (5-37); Bilirubin Total 0.5 mg/dL (0.0-1.0); Blood Urea Nitrogen 15 mg/dL (9-16); Calcium 9.4 mg/dL (8.4-10.2); Carbon Dioxide 26 mmol/L (22-29); Chloride 106 mmol/L (96-108); Creatinine Clr Calc Pharmacy 73.2; Estimated Glomerular Filt Rate > 60; Glucose Random 96 mg/dL (60-115); Lactic Acid 1.4 mmol/L (0.5-2.0); Sodium 138 mmol/L (135-145); Total Protein 7.3 g/dL (6.5-8.0)
[2024-11-08 17:25] LABS: Influenza A PCR NEGATIVE (Negative); Influenza B PCR NEGATIVE (Negative); Resp Syncy Virus RNA Qual PCR NEGATIVE (Negative); SARS COV2 PCR INHOUSE NEGATIVE (Negative)
--- NOTE | 2024-11-08 19:54 | PC.NURSE ---
pt asleep in hallway, fully dressed.
--- NOTE | 2024-11-08 20:23 | MHC.EDTECH ---
Walked patient in hallway O2 90 on RA and HR 107
[2024-11-08] MEDS: methylPREDNISolone Sod Succ 125 MG/2 ML VIAL 60 MG IVPUSH (21:21)
[2024-11-08] MEDS: cefTRIAXone sodium 1 GM VIAL IVPUSH (21:21)
--- NOTE | 2024-11-08 22:11 | P.HPHOSP_ITS ---
History of Present Illness Date of Service: 11/08/24 Chief Complaint: Wheezing, Dyspnea A 69 years old male with PMH of COPD, HTN, ex smoker among others who presents to the hospital with worsening SOB and wheezing for 3 days [employer]. The patient reports feeling worsening dyspnea with short distances, cough, shoulders and back pain along with increase wheezes that has not been responding to his home inhalers for the last 3 days. No chest pain, palpitations, nausea, vomiting, diarrhea or urinary symptoms. In ED CXR did not show any infiltrates. Was noted to drop O2 to 90% on RA and having bilateral wheezing. Admitted for treatment and monitoring. Review of Systems 2 Review of Systems: No fever, chills or weakness No chest pain, palpitation having shortness of breath, coughing and dyspnea No abdominal pain, nausea or vomiting No urinary symptoms No any rash or wounds PMFSH Medical History Claudication Occlusion of right femoral artery PVD (peripheral vascular disease) with claudication History of osteomyelitis HTN (hypertension) Pulmonary nodule COPD (chronic obstructive pulmonary disease) Onychomycosis Chronic right hip pain Nicotine dependence, cigarettes, uncomplicated Family History Father Lung cancer Smoker Mother Myocardial infarction CVD (cardiovascular disease) Maternal Grandfather No problems noted. Maternal Grandmother No problems noted. Paternal Grandfather No problems noted. Paternal Grandmother No problems noted. Brother HTN (hypertension) Sister No problems noted. Surgical History History of cataract surgery (~2015) Status post reconstruction procedure (~1977) History of fracture of clavicle (~2010) Thumb laceration Thumb fracture History of femur fracture Social History Household Members: Significant Other Housing: Other Alcohol intake: never Patient Tobacco Use Status: Former Tobacco user Tobacco use type: Cigarette Cigarettes Per Day: 10 Smoked in Last 30 Days: Yes e-Cigarette/Vaping Use: Never Used Second Hand Smoke Exposure: Yes Use of substances other than those prescribed or required for medical reasons: No Substance Use Type: Marijuana Advance Directives: No Advance Directives Information Provided: Yes Current occupational status: employed 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 Cognitive needs: No Hearing needs: No Vision needs: Yes Meds Allergies Allergy/AdvReac Type Severity Reaction Status Date / Time No Known Allergies Allergy Verified 11/08/24 15:14 Home Medications ?Medication ?Instructions ?Recorded ?Confirmed ?Last Taken ?Type tamsulosin 0.4 mg capsule 0.4 mg PO BEDTIME 08/25/20 11/08/24 11/07/24 History aspirin 81 mg tablet,delayed 81 mg PO DAILY 01/07/22 11/08/24 11/07/24 History release (Adult Aspirin Regimen) nebulizers (Sidestream misc) #1 ea 09/23/22 10/24/24 11/07/24 History cilostazol 100 mg tablet 100 mg PO BID 11/08/24 11/08/24 11/07/24 History clopidogrel 75 mg tablet 75 mg PO DAILY 11/08/24 11/08/24 11/07/24 History omeprazole 20 mg capsule,delayed 20 mg PO DAILY@0630 11/08/24 11/08/24 11/07/24 History release simethicone 80 mg chewable tablet 80 mg PO TID PRN Abdominal 11/08/24 11/08/24 Unknown History (Gas Relief (simethicone)) Distention Physical Exam 2 Vital Signs and Narrative: Vital Signs: Last Vital Signs Temp 97.4 F 11/08/24 17:58 Pulse 98 11/08/24 20:00 Resp 18 11/08/24 20:00 BP 178/89 H 11/08/24 20:00 Pulse Ox 93 11/08/24 20:00 O2 Del Method Room Air 11/08/24 20:00 BMI result Body Mass Index 22.2 Const: Other: Constitutional : Awake, interactive, not in distress Neck : Normal inspection, Supple Cardiovascular : RRR, no JVP, no lower extremity edema Respiratory : decreased bilateral air entry, no crackles, bilateral expiratory wheezes Gastrointestinal: soft, lax, Normal bowel sounds, Non tender Skin : Warm, Dry Neurological : Alert & oriented x3, No focal deficit Results Labs 11/08/24 16:25 11/08/24 16:25 Labs: Laboratory Results - last 24 hr 11/08/24 16:25 MCV 89.7 MCH 31.0 MCHC 34.5 RDW 15.1 Plt Count 248 MPV 8.5 L Immature Gran % (Auto) 0.3 Neut % (Auto) 68.9 Lymph % (Auto) 19.2 L [place] % (Auto) 10.4 Eos % (Auto) 0.4 Baso % (Auto) 0.8 Lymph # (Auto) 1.8 [place] # (Auto) 1.0 Eos # (Auto) 0.0 Baso # (Auto) 0.1 Abs Immat Gran (auto) 0.03 Absolute Neuts (auto) 6.4 Absolute Nucleated RBC 0.000 Nucleated RBC % (auto) 0.0 Anion Gap 10 L Estim Creat Clear Calc 73.2 Estimated GFR > 60 Random Glucose 96 Lactic Acid 1.4 Calcium 9.4 Total Bilirubin 0.5 AST 24 ALT 15 Alkaline Phosphatase 102 Total Protein 7.3 Albumin 4.2 Influenza Type A (PCR) NEGATIVE Influenza Type B (PCR) NEGATIVE RSV RNA Qual (PCR) NEGATIVE SARS-CoV-2 RNA (RT-PCR) NEGATIVE Imaging Radiologist's Impressions: Impressions Chest X-Ray 11/08/24 15:45 IMPRESSION: 1. COPD. Stable scarring right midlung. 2. Stable deformity upper thoracic ribs. 3. No superimposed active lung disease. Electronically signed by: Mickey Muller MD 11/08/2024 04:16 PM [facility] Assessment and Plan (1) COPD exacerbation: Status: Resolved Plan A 69 years old male with PMH of COPD, HTN, ex smoker among others who presents to the hospital with worsening SOB and wheezing for 3 days [employer]. COPD exacerbation Steroids Nebulizers ATC and PRN Home inhalers wean O2 as tolerated HTN continue Losartan CAD? Plavix, Cardizem , Statin BPH Tamsulosin DVT PPx Lovenox Quality Stroke Does the patient have a stroke diagnosis?: No VTE Prior VTE?: No VTE Risk Level:: Medical - moderate - high VTE Device Contraindication: Treatment Not Indicated VTE Drug Contraindication: N/A - Med Ordered
--- NOTE | 2024-11-08 22:16 | PHA.MEDREC ---
Pharmacy Consult ? Medication Reconciliation Pharmacy has completed the medication reconciliation. Spoke with patient in ED who confirmed meds
[2024-11-08] MEDS: Albuterol Sulfate 90 MCG 8 GM INHALER 2 PUFF INHALE (22:52)
[2024-11-08] MEDS: guaiFENesin DM 600/30 1 TAB TAB.ER.12H PO (23:06)
[2024-11-08] MEDS: Enoxaparin Sodium 40 MG/0.4 ML SYRINGE SUBCUT (23:06)
[2024-11-09] VITALS (10 sets, daily range): BP systolic 127–156; BP diastolic 61–82; PULSE 73–101; RESP 16–18; TEMP 36.6–37.2; O2SAT 92–96
[2024-11-09] MEDS: Atorvastatin Calcium 40 MG TABLET PO ×2 (01:13→20:22)
[2024-11-09] MEDS: Tamsulosin HCL 0.4 MG CAPSULE PO ×2 (01:13→20:22)
[2024-11-09] MEDS: cilostazoL 100 MG TABLET PO ×3 (01:14→20:22)
--- NOTE | 2024-11-09 01:33 | PC.NURSE ---
Patient states did not take bedtime pills yesterday and would like to take them. Meds given just now as unscheduled.
[2024-11-09] MEDS: Benzonatate 100 MG CAPSULE PO ×2 (05:35→18:21)
[2024-11-09] MEDS: Pantoprazole Sodium 20 MG TABLET.DR PO (05:35)
[2024-11-09 06:39] LABS: Anion Gap 15 (12-20); Blood Urea Nitrogen 16 mg/dL (9-16); Calcium 9.3 mg/dL (8.4-10.2); Carbon Dioxide 23 mmol/L (22-29); Chloride 103 mmol/L (96-108); Estimated Glomerular Filt Rate > 60; Glucose Random 149 mg/dL (60-115); Potassium 3.9 mmol/L (3.3-5.1); Sodium 137 mmol/L (135-145)
[2024-11-09 07:05] LABS: Hematocrit 43.4 % (42.0-52.0); Mean Corpuscular HGB Conc 34.6 g/dl (31.0-36.0); Mean Corpuscular Volume 89.7 fL (80.0-98.0); Mean Platelet Volume 9.1 fL (9.4-12.4); Platelet Count 253 X10*3/uL (160-400); Red Blood Count 4.84 X10*6/uL (4.60-5.80); White Blood Count 10.6 X10*3/uL (4.8-10.8)
[2024-11-09] MEDS: Albuterol/Iprat 2.5/0.5MG 3 ML AMPUL.NEB INHALE ×3 (07:32→21:29)
[2024-11-09] MEDS: 0.9 % Sodium Chloride Flush 3 ML SYRINGE IVFLUSH ×3 (07:57→20:23)
[2024-11-09] MEDS: methylPREDNISolone Sod Succ 40 MG/ML VIAL IVPUSH ×2 (07:58→20:23)
[2024-11-09] MEDS: guaiFENesin DM 600/30 1 TAB TAB.ER.12H PO ×2 (07:58→20:22)
[2024-11-09] MEDS: Losartan Potassium 25 MG TABLET PO (07:58)
[2024-11-09] MEDS: Clopidogrel Bisulfate 75 MG TABLET PO (07:58)
[2024-11-09] MEDS: Cholecalciferol (Vitamin D3) 25 MCG TABLET 50 MCG PO (07:58)
[2024-11-09] MEDS: dilTIAZem HCL 60 MG TABLET 120 MG PO (08:53)
--- NOTE | 2024-11-09 09:55 | MHC.CM.PN ---
PT LIVES WITH GIRLFRIEND HAD NO PREVIOUS SERVICES HAS OWN [facility] N/S
[2024-11-09] MEDS: Budesonide 180 MCG AER.POW.BA 1 PUFF INHALE (11:50)
[2024-11-09] MEDS: Tiotropium Bromide 2.5 mcg 1 PUFF/2.5 MCG MIST.INHAL INHALE (11:50)
--- NOTE | 2024-11-09 11:58 | P.PNIM_ITS ---
Subjective Subjective Date of Service: 11/09/24 Interval History: Seen and examined this morning Follow-up for COPD exacerbation Breathing starting to feel little bit better but still short of breath with movement and with significant coughing Review of Systems Review of Systems: Yes all other systems are reviewed and are negative Constitutional Constitutional: Denies chills and Denies fever(s) Cardiovascular Cardiovascular: Denies chest pain Physical Exam 2 Vital Signs: Vital Signs: Last Vital Signs Temp 98.4 F 11/09/24 07:05 Pulse 73 11/09/24 11:53 Resp 16 11/09/24 11:53 BP 139/76 11/09/24 07:05 Pulse Ox 94 11/09/24 07:05 O2 Del Method Room Air 11/09/24 07:05 BMI result Body Mass Index 22.2 Const: General: cooperative, no acute distress, alert and awake Nutritional Appearance: average body habitus Orientation/consciousness: patient oriented x3 Resp: Other: b/l wheezing/rhonchi Effort & Inspection: normal respiratory effort, able to speak in complete sentences, no respiratory distress and no use of accessory muscles Cardio: Rate: regular rate GI: Inspection: No distended Palpation (GI): Soft to palpation Neuro: General: patient oriented x3, moves all extremities and CN's II-XI intact bilaterally Extrem: General: Yes no pedal edema Objective Data Active Medications Acetaminophen (Acetaminophen 325 Mg Tablet) 650 mg PO Q6H PRN PRN Reason: Pain, Mild 1-3,fever,headache Albuterol Sulfate (Albuterol Sulfate (0.083%) 2.5 Mg/3 Ml Vial.Neb) 2.5 mg INHALE Q4H PRN PRN Reason: Shortness of Breath/Wheezing Albuterol/Ipratropium (Albuterol/Iprat 2.5/0.5mg 3 Ml Ampul.Neb) 3 ml INHALE RQ4H WHILE AWAKE [facility] Last Admin: 11/09/24 11:42 Dose: Not Given Documented By: PEPE Non-Admin Reason: Patient Refused Atorvastatin Calcium (Atorvastatin Calcium 40 Mg Tablet) 40 mg PO BEDTIME [facility] Last Admin: 11/09/24 01:13 Dose: 40 mg Documented By: MINNIE Benzonatate (Benzonatate 100 Mg Capsule) 100 mg PO TID PRN PRN Reason: Cough Last Admin: 11/09/24 05:35 Dose: 100 mg Documented By: PANFILO Budesonide (Budesonide 180 Mcg Aer.Pow.Ba) 1 puff INHALE DAILY [facility] Last Admin: 11/09/24 11:50 Dose: 1 puff Documented By: PEPE Calcium Carbonate (Calcium Carbonate 750 Mg Tab.Chew) 750 mg PO Q4H PRN PRN Reason: Heartburn Cilostazol (Cilostazol 100 Mg Tablet) 100 mg PO BID [facility] Last Admin: 11/09/24 07:58 Dose: 100 mg Documented By: GEE Clopidogrel Bisulfate (Clopidogrel Bisulfate 75 Mg Tablet) 75 mg PO DAILY [facility] Last Admin: 11/09/24 07:58 Dose: 75 mg Documented By: GEE Diltiazem HCl (Diltiazem Hcl 60 Mg Tablet) 120 mg PO DAILY [facility]; Protocol Last Admin: 11/09/24 08:53 Dose: 120 mg Documented By: GEE Enoxaparin Sodium (Enoxaparin Sodium 40 Mg/0.4 Ml Syringe) 40 mg SUBCUT Q24H [facility] Last Admin: 11/08/24 23:06 Dose: 40 mg Documented By: RAFI Guaifenesin/Dextromethorphan (Guaifenesin Dm 600/30 1 Tab Tab.Er.12h) 1 tab PO BID [facility] Last Admin: 11/09/24 07:58 Dose: 1 tab Documented By: GEE Losartan Potassium (Losartan Potassium 25 Mg Tablet) 25 mg PO DAILY [facility]; Protocol Last Admin: 11/09/24 07:58 Dose: 25 mg Documented By: GEE Magnesium Hydroxide (Milk Of Magnesia 30 Ml Oral.Susp) 30 ml PO DAILY PRN PRN Reason: Constipation Melatonin (Melatonin 3 Mg Tablet) 6 mg PO BEDTIME PRN PRN Reason: Insomnia Methylprednisolone Sodium Succinate (Methylprednisolone Sod Succ 40 Mg/Ml Vial) 40 mg IVPUSH Q12H [facility] Last Admin: 11/09/24 07:58 Dose: 40 mg Documented By: GEE Ondansetron HCl (Ondansetron Hcl 4 Mg/2 Ml Vial) 4 mg IVPUSH Q8H PRN PRN Reason: Nausea and Vomiting Pantoprazole Sodium (Pantoprazole Sodium 20 Mg Tablet.) 20 mg PO DAILY@0630 [facility] Last Admin: 11/09/24 05:35 Dose: 20 mg Documented By: GASPERQC Simethicone (Simethicone 80 Mg Tab.Chew) 80 mg PO TID PRN PRN Reason: Abdominal Distention Sodium Chloride (0.9 % Sodium Chloride Flush 3 Ml Syringe) 3 ml IVFLUSH QSHIFT [facility] Last Admin: 11/09/24 07:57 Dose: 3 ml Documented By: GEE Tamsulosin HCl (Tamsulosin Hcl 0.4 Mg Capsule) 0.4 mg PO BEDTIME [facility] Last Admin: 11/09/24 01:13 Dose: 0.4 mg Documented By: MINNIE Tiotropium [place] (Tiotropium [place] 2.5 Mcg 1 Puff/2.5 Mcg Mist.Inhal) 1 puff INHALE DAILY [facility] Last Admin: 11/09/24 11:50 Dose: 1 puff Documented By: PEPE Vitamin D (Cholecalciferol (Vitamin D3) 25 Mcg Tablet) 50 mcg PO DAILY [facility] Last Admin: 11/09/24 07:58 Dose: 50 mcg Documented By: GEE Labs 11/09/24 05:27 11/09/24 05:27 Labs: Laboratory Results - last 24 hr 11/08/24 11/09/24 16:25 05:27 MCV 89.7 89.7 MCH 31.0 31.0 MCHC 34.5 34.6 RDW 15.1 15.0 Plt Count 248 253 MPV 8.5 L 9.1 L Immature Gran % (Auto) 0.3 Neut % (Auto) 68.9 Lymph % (Auto) 19.2 L [place] % (Auto) 10.4 Eos % (Auto) 0.4 Baso % (Auto) 0.8 Lymph # (Auto) 1.8 [place] # (Auto) 1.0 Eos # (Auto) 0.0 Baso # (Auto) 0.1 Abs Immat Gran (auto) 0.03 Absolute Neuts (auto) 6.4 Absolute Nucleated RBC 0.000 0.000 Nucleated RBC % (auto) 0.0 0.0 Anion Gap 10 L 15 Estim Creat Clear Calc 73.2 71.0 Estimated GFR > 60 > 60 Random Glucose 96 149 H Lactic Acid 1.4 Calcium 9.4 9.3 Total Bilirubin 0.5 AST 24 ALT 15 Alkaline Phosphatase 102 Total Protein 7.3 Albumin 4.2 Influenza Type A (PCR) NEGATIVE Influenza Type B (PCR) NEGATIVE RSV RNA Qual (PCR) NEGATIVE SARS-CoV-2 RNA (RT-PCR) NEGATIVE Assessment and Plan (1) COPD exacerbation: Status: Resolved (2) COPD exacerbation: Status: Acute Plan This is a 69 year old male with PMH of COPD, HTN, ex smoker among others who presents to the hospital with worsening SOB and wheezing for 3 days [employer] admitted for COPD exacerbation acute COPD exacerbation Continue systemic Steroids Nebulizers scheduled and PRN continue pulmicort, hold spiriva blood cultures pending HTN continue Losartan, cardizem PVD Plavix, Statin, pletal BPH Tamsulosin Tobacco dependence Smoking cessation advised DVT PPx- Lovenox Quality Stroke Does the patient have a stroke diagnosis?: No VTE Prior VTE?: No VTE Risk Level:: Medical - moderate - high VTE Device Contraindication: Treatment Not Indicated VTE Drug Contraindication: N/A - Med Ordered
[2024-11-09] MEDS: Loperamide HCl 2 MG CAPSULE PO (12:36)
[2024-11-09 14:23] LABS: CDiff Gene PCR NEGATIVE (Negative)
--- NOTE | 2024-11-09 16:26 | PC.NURSE ---
Pt reported at least 3 episodes of diarrhea this morning. Stool sample obtained and sent to lab. Imodium ordered and given with good effect
[2024-11-09] MEDS: Acetaminophen 325 MG TABLET 650 MG PO (19:38)
[2024-11-09] MEDS: Enoxaparin Sodium 40 MG/0.4 ML SYRINGE SUBCUT (22:11)
[2024-11-09] MEDS: oxyCODONE HCl Immed Release 5 MG TABLET PO (23:05)
[2024-11-10] VITALS (10 sets, daily range): BP systolic 115–159; BP diastolic 62–75; PULSE 86–119; RESP 16–18; TEMP 36.1–36.8; O2SAT 92–95
[2024-11-10] MEDS: Pantoprazole Sodium 20 MG TABLET.DR PO (06:21)
[2024-11-10] MEDS: Albuterol/Iprat 2.5/0.5MG 3 ML AMPUL.NEB INHALE ×3 (07:40→15:13)
[2024-11-10] MEDS: Budesonide 180 MCG AER.POW.BA 1 PUFF INHALE (07:40)
[2024-11-10] MEDS: Losartan Potassium 25 MG TABLET PO (07:59)
[2024-11-10] MEDS: dilTIAZem HCL 60 MG TABLET 120 MG PO (07:59)
[2024-11-10] MEDS: Clopidogrel Bisulfate 75 MG TABLET PO (07:59)
[2024-11-10] MEDS: Cholecalciferol (Vitamin D3) 25 MCG TABLET 50 MCG PO (07:59)
[2024-11-10] MEDS: guaiFENesin DM 600/30 1 TAB TAB.ER.12H PO (07:59)
[2024-11-10] MEDS: cilostazoL 100 MG TABLET PO ×2 (07:59→21:35)
[2024-11-10] MEDS: methylPREDNISolone Sod Succ 40 MG/ML VIAL IVPUSH ×2 (08:00→21:35)
[2024-11-10] MEDS: 0.9 % Sodium Chloride Flush 3 ML SYRINGE IVFLUSH ×3 (08:00→21:35)
[2024-11-10] MEDS: Benzonatate 100 MG CAPSULE PO (10:07)
[2024-11-10] MEDS: guaiFENesin DM 200/20/10 ML 10 ML SYRUP PO (12:23)
--- NOTE | 2024-11-10 14:02 | HO.PM.IMPN ---
Subjective Subjective Date of Service: 11/10/24 Interval History: seen and examined this morning follow up for COPD exacerbation No overnight events Breathing slowly improving, ongoing cough Review of Systems Review of Systems: Yes all other systems are reviewed and are negative Constitutional Constitutional: Denies chills and Denies fever(s) Cardiovascular Cardiovascular: Denies chest pain, Denies palpitations and Reports dyspnea on exertion Respiratory Respiratory: Reports cough and Reports dyspnea on exertion Endocrine Endocrine: Denies palpitations Physical Exam Vital Signs: Vital Signs: Last Vital Signs Temp 97.6 F 11/10/24 12:00 Pulse 98 11/10/24 12:00 Resp 18 11/10/24 12:00 BP 142/69 H 11/10/24 12:00 Pulse Ox 92 11/10/24 12:00 O2 Del Method Room Air 11/10/24 12:00 BMI result Body Mass Index 22.2 Const: General: cooperative, no acute distress, alert and awake Nutritional Appearance: average body habitus Orientation/consciousness: patient oriented x3 Resp: Other: b/l wheezing/rhonchi - improving air entry Effort & Inspection: normal respiratory effort, able to speak in complete sentences, no respiratory distress and no use of accessory muscles Cardio: Rate: regular rate GI: Inspection: No distended Palpation (GI): Soft to palpation Neuro: General: patient oriented x3, moves all extremities and CN's II-XI intact bilaterally Extrem: General: Yes no pedal edema Objective Data Active Medications Acetaminophen (Acetaminophen 325 Mg Tablet) 650 mg PO Q6H PRN PRN Reason: Pain, Mild 1-3,fever,headache Last Admin: 11/09/24 19:38 Dose: 650 mg Documented By: PONCE Albuterol Sulfate (Albuterol Sulfate (0.083%) 2.5 Mg/3 Ml Vial.Neb) 2.5 mg INHALE Q4H PRN PRN Reason: Shortness of Breath/Wheezing Albuterol/Ipratropium (Albuterol/Iprat 2.5/0.5mg 3 Ml Ampul.Neb) 3 ml INHALE RQ4H WHILE AWAKE [facility] Last Admin: 11/10/24 11:42 Dose: 3 ml Documented By: PEPE Atorvastatin Calcium (Atorvastatin Calcium 40 Mg Tablet) 40 mg PO BEDTIME [facility] Last Admin: 11/09/24 20:22 Dose: 40 mg Documented By: PONCE Benzonatate (Benzonatate 100 Mg Capsule) 100 mg PO TID PRN PRN Reason: Cough Last Admin: 11/10/24 10:07 Dose: 100 mg Documented By: ASHLEY Budesonide (Budesonide 180 Mcg Aer.Pow.Ba) 1 puff INHALE DAILY [facility] Last Admin: 11/10/24 07:40 Dose: 1 puff Documented By: PEPE Calcium Carbonate (Calcium Carbonate 750 Mg Tab.Chew) 750 mg PO Q4H PRN PRN Reason: Heartburn Cilostazol (Cilostazol 100 Mg Tablet) 100 mg PO BID [facility] Last Admin: 11/10/24 07:59 Dose: 100 mg Documented By: ASHLEY Clopidogrel Bisulfate (Clopidogrel Bisulfate 75 Mg Tablet) 75 mg PO DAILY [facility] Last Admin: 11/10/24 07:59 Dose: 75 mg Documented By: ASHLEY Diltiazem HCl (Diltiazem Hcl 60 Mg Tablet) 120 mg PO DAILY [facility]; Protocol Last Admin: 11/10/24 07:59 Dose: 120 mg Documented By: ASHLEY Enoxaparin Sodium (Enoxaparin Sodium 40 Mg/0.4 Ml Syringe) 40 mg SUBCUT Q24H [facility] Last Admin: 11/09/24 22:11 Dose: 40 mg Documented By: PONCE Guaifenesin/Dextromethorphan (Guaifenesin Dm 200/20/10 Ml 10 Ml Syrup) 10 ml PO Q6H PRN PRN Reason: Cough Last Admin: 11/10/24 12:23 Dose: 10 ml Documented By: ASHLEY Loperamide HCl (Loperamide Hcl 2 Mg Capsule) 2 mg PO Q6H PRN PRN Reason: Diarrhea Last Admin: 11/09/24 12:36 Dose: 2 mg Documented By: ASHLEY Losartan Potassium (Losartan Potassium 25 Mg Tablet) 25 mg PO DAILY [facility]; Protocol Last Admin: 11/10/24 07:59 Dose: 25 mg Documented By: ASHLEY Magnesium Hydroxide (Milk Of Magnesia 30 Ml Oral.Susp) 30 ml PO DAILY PRN PRN Reason: Constipation Melatonin (Melatonin 3 Mg Tablet) 6 mg PO BEDTIME PRN PRN Reason: Insomnia Methylprednisolone Sodium Succinate (Methylprednisolone Sod Succ 40 Mg/Ml Vial) 40 mg IVPUSH Q12H [facility] Last Admin: 11/10/24 08:00 Dose: 40 mg Documented By: ASHLEY Ondansetron HCl (Ondansetron Hcl 4 Mg/2 Ml Vial) 4 mg IVPUSH Q8H PRN PRN Reason: Nausea and Vomiting Pantoprazole Sodium (Pantoprazole Sodium 20 Mg Tablet.Dr) 20 mg PO DAILY@0630 [facility] Last Admin: 11/10/24 06:21 Dose: 20 mg Documented By: PONCE Simethicone (Simethicone 80 Mg Tab.Chew) 80 mg PO TID PRN PRN Reason: Abdominal Distention Sodium Chloride (0.9 % Sodium Chloride Flush 3 Ml Syringe) 3 ml IVFLUSH QSHIFT [facility] Last Admin: 11/10/24 08:00 Dose: 3 ml Documented By: ASHLEY Tamsulosin HCl (Tamsulosin Hcl 0.4 Mg Capsule) 0.4 mg PO BEDTIME [facility] Last Admin: 11/09/24 20:22 Dose: 0.4 mg Documented By: PONCE Vitamin D (Cholecalciferol (Vitamin D3) 25 Mcg Tablet) 50 mcg PO DAILY [facility] Last Admin: 11/10/24 07:59 Dose: 50 mcg Documented By: ASHLEY Labs 11/09/24 05:27 11/09/24 05:27 Labs: Laboratory Results - last 24 hr 11/09/24 12:34 C. difficile Tox B Gene NEGATIVE Microbiology Microbiology Results: Microbiology 11/08/24 16:52 Blood Culture - Preliminary Blood - Venous No growth after 24 hours. 11/08/24 16:25 Blood Culture - Preliminary Blood - Venous No growth after 24 hours. Assessment and Plan (1) COPD exacerbation: Status: Acute Plan This is a 69 year old male with PMH of COPD, HTN, ex smoker among others who presents to the hospital with worsening SOB and wheezing for 3 days [employer] admitted for COPD exacerbation acute COPD exacerbation COVID, RSV, influenza negative Continue systemic Steroids Nebulizers scheduled and PRN continue pulmicort, hold spiriva blood cultures negative to date HTN continue Losartan, cardizem PVD Plavix, Statin, pletal BPH Tamsulosin Tobacco dependence Smoking cessation advised DVT PPx- Lovenox Quality Stroke Does the patient have a stroke diagnosis?: No VTE Prior VTE?: No VTE Risk Level:: Medical - moderate - high VTE Device Contraindication: Treatment Not Indicated VTE Drug Contraindication: N/A - Med Ordered
[2024-11-10] MEDS: oxyCODONE HCl Immed Release 5 MG TABLET PO (15:28)
--- NOTE | 2024-11-10 18:37 | PC.NURSE ---
1500- Pt c/o rib pain from coughing stating a 05/23. Patricia Miller notified. ! dose oxycodone ordered and given with good effect. Lidocaine patch ordered but pt declined stating the pain is all over and not in just one place
[2024-11-10] MEDS: Tamsulosin HCL 0.4 MG CAPSULE PO (21:35)
[2024-11-10] MEDS: Atorvastatin Calcium 40 MG TABLET PO (21:35)
[2024-11-10] MEDS: Enoxaparin Sodium 40 MG/0.4 ML SYRINGE SUBCUT (21:36)
[2024-11-11 04:00] VITALS: BP 142/60; PULSE 104; RESP 18; TEMP 36.6; O2SAT 92
[2024-11-11] MEDS: Pantoprazole Sodium 20 MG TABLET.DR PO (06:12)
[2024-11-11 07:25] VITALS: BP 146/72; PULSE 108; RESP 18; TEMP 36.1; O2SAT 92
[2024-11-11] MEDS: Albuterol/Iprat 2.5/0.5MG 3 ML AMPUL.NEB INHALE ×2 (07:37→11:39)
[2024-11-11] MEDS: Budesonide 180 MCG AER.POW.BA 1 PUFF INHALE (07:37)
[2024-11-11 07:39] VITALS: PULSE 85; RESP 18; O2SAT 89
[2024-11-11 08:25] VITALS: BP 144/72; PULSE 88
[2024-11-11] MEDS: cilostazoL 100 MG TABLET PO (08:25)
[2024-11-11] MEDS: guaiFENesin DM 200/20/10 ML 10 ML SYRUP PO (08:25)
[2024-11-11] MEDS: dilTIAZem HCL 60 MG TABLET 120 MG PO (08:25)
[2024-11-11] MEDS: Cholecalciferol (Vitamin D3) 25 MCG TABLET 50 MCG PO (08:25)
[2024-11-11] MEDS: Clopidogrel Bisulfate 75 MG TABLET PO (08:25)
[2024-11-11] MEDS: 0.9 % Sodium Chloride Flush 3 ML SYRINGE IVFLUSH (08:26)
[2024-11-11] MEDS: Losartan Potassium 25 MG TABLET PO (08:26)
[2024-11-11] MEDS: methylPREDNISolone Sod Succ 40 MG/ML VIAL IVPUSH (08:26)
--- NOTE | 2024-11-11 10:10 | P.DS_ITS ---
DS: Providers Provider Date of Service: 11/11/24 Date of admission: 11/08/24 22:09 Date of discharge: 11/11/24 Primary care physician: Mata Pan [facility] Attending physician on discharge: Ladi Le Discharging clinician: Patricia Miller DS: Diagnosis Discharge Diagnosis (1) COPD exacerbation: Status: Acute DS: Summary Hospital Course Hospital Course: From H&P on the day of admission A 69 years old male with PMH of COPD, HTN, ex smoker among others who presents to the hospital with worsening SOB and wheezing for 3 days [employer]. The patient reports feeling worsening dyspnea with short distances, cough, shoulders and back pain along with increase wheezes that has not been responding to his home inhalers for the last 3 days. No chest pain, palpitations, nausea, vomiting, diarrhea or urinary symptoms. In ED CXR did not show any infiltrates. Was noted to drop O2 to 90% on RA and having bilateral wheezing. Admitted for treatment and monitoring. acute COPD exacerbation COVID, RSV, influenza negative. Shortness of breath improved slowly with treatment including systemic Steroids and nebulizer treatments. blood cultures negative to date. cxr with no evidence of pneumonia. Time Attestation Discharge Coordination Time (in mins): 36 Quality: Safe Use of Opioids Does Pt have an Active Cancer Diagnosis on the Problem List?: No Quality: Stroke Does the patient have a stroke diagnosis?: No Physical Exam Vital Signs: Vital Signs: Last Vital Signs Temp 96.9 F 11/11/24 07:25 Pulse 88 11/11/24 08:25 Resp 18 11/11/24 07:39 BP 144/72 H 11/11/24 08:25 Pulse Ox 92 11/11/24 07:25 O2 Del Method Room Air 11/11/24 07:25 BMI result Body Mass Index 22.2 Const: General: cooperative, no acute distress, alert and awake Nutritional Appearance: average body habitus Orientation/consciousness: patient oriented x3 Resp: Effort & Inspection: normal respiratory effort, able to speak in complete sentences, no respiratory distress and no use of accessory muscles Cardio: Rate: regular rate GI: Inspection: No distended Palpation (GI): Soft to palpation Neuro: General: patient oriented x3, moves all extremities and CN's II-XI intact bilaterally Extrem: General: Yes no pedal edema DS: Data Data Completed and Pending Labs on day of discharge: Preliminary micro results at discharge 11/08/24 16:52 Blood Culture - Preliminary Blood - Venous No growth after 48 hours. 11/08/24 16:25 Blood Culture - Preliminary Blood - Venous No growth after 48 hours. Discharge Plan Discharge Patient Disposition: Home, Self-Care Discharge Diagnosis: acute copd exacerbation Referrals: Mata Pan FNP-BC [Primary Care Provider] - 1 Week Discharge Medications: New prednisone 10 mg tablet See Taper PO DIRECTED Qty: 30 0RF Taper: Prednisone 40 mg daily for 3 Days and 0 Hour 30 mg daily for 3 Days and 0 Hour 20 mg daily for 3 Days and 0 Hour 10 mg daily for 3 Days and 0 Hour Rx Instructions: see taper instructions benzonatate 100 mg Capsule 100 mg PO TID PRN (Reason: Cough) Qty: 20 0RF Continued Pulmicort Flexhaler 180 mcg/actuation aerosol powdr breath activated 1 inh PO DAILY Qty: 1 2RF cholecalciferol (vitamin D3) 50 mcg (2,000 unit) tablet 50 mcg PO DAILY 90 Days Qty: 90 1RF losartan 25 mg tablet 25 mg PO DAILY Qty: 90 1RF Spiriva with HandiHaler 18 mcg capsule, w/inhalation device 1 cap inhalation DAILY Qty: 30 5RF diltiazem HCl 120 mg tablet 120 mg PO DAILY Qty: 90 1RF atorvastatin 40 mg tablet 40 mg PO BEDTIME 90 Days Qty: 90 1RF albuterol sulfate [Ventolin HFA] 90 mcg/actuation HFA aerosol inhaler 2 puff PO Q4-6H PRN (Reason: for wheezing) Qty: 18 0RF cilostazol 100 mg tablet 100 mg PO BID clopidogrel 75 mg tablet 75 mg PO DAILY omeprazole 20 mg capsule,delayed release(DR/EC) 20 mg PO DAILY@0630 simethicone [Gas Relief (simethicone)] 80 mg tablet,chewable 80 mg PO TID PRN (Reason: Abdominal Distention) tamsulosin 0.4 mg capsule 0.4 mg PO BEDTIME aspirin [Adult Aspirin Regimen] 81 mg tablet,delayed release (DR/EC) 81 mg PO DAILY varenicline [Chantix Continuing Month Box] 1 mg tablet 1 mg PO BID 30 Days Qty: 60 3RF No Action (DME) nebulizers [Sidestream] Misc See Rx Instructions .ROUTE DIRECTED Qty: 1 Rx Instructions: As directed Discharge Orders: Discharge Order (Routine); Ordered 11/11/24 Ordered By: Patricia Miller Activity on Discharge: As tolerated Stand Alone Forms: Patient Portal Discharge page Print Language: Luxembourgish Care Plan Goals: see below Health Concerns: acute exacerbation of COPD Plan of Treatment: Complete course of steroids as prescribed Call to schedule follow-up appointment with PCP, counter helper Recommend to avoid smoking Assessment: See discharge summary
[2024-11-11 11:41] VITALS: PULSE 90; RESP 17; O2SAT 93
[2024-11-11 12:00] VITALS: BP 127/61; PULSE 95; RESP 18; TEMP 36.7; O2SAT 92
--- NOTE | 2024-11-11 14:03 | HE.CSO ---
PT DISCHARGED HOME TODAY WITH NO SERVICES VIA PRIVATE TRANSPORT
== END 2024-11-11 13:02 | disposition home or self-care (01) ==
LOC: HO.ED 20:58 → HO.EDOVER 22:21 → HO.S3 23:38
PROVIDERS: Registered Nurse Emergency; Admitting Provider Student in an Organized Health Care Education/Training Program; Emergency Provider Emergency Medicine; PCP Nurse Practitioner Family; Visit Provider Physician Assistant Medical
DX: J44.1 Chronic obstructive pulmonary disease with (acute) exacerbation (principal); R06.02 Shortness of breath; I10 Essential (primary) hypertension; R91.1 Solitary pulmonary nodule; F17.200 Nicotine dependence, unspecified, uncomplicated; I73.9 Peripheral vascular disease, unspecified; N40.0 Benign prostatic hyperplasia without lower urinary tract symptoms; Z03.818 Encounter for observation for suspected exposure to other biological agents ruled out; Z79.899 Other long term (current) drug therapy
CPT/HCPCS: 0241U; 36415; 71046; 80048; 80053; 83605; 85025; 85027; 87040; 87493; 94640; 96372; 96374; 96375; 96376; 99221; 99285; J0696; J1650; J2919

== ENCOUNTER → 2024-11-08 15:17 | Outpatient (BNV) | payer MEDICARE, MEDICAID, SELFPAY | PROVIDERS: Emergency Provider Emergency Medicine; PCP Nurse Practitioner Family; Visit Provider Radiology Diagnostic Radiology | DX: R06.02 Shortness of breath (principal) | CPT/HCPCS: 71046 ==

== ENCOUNTER → 2024-11-08 22:09 | Outpatient (BNV) | payer MEDICARE, MEDICAID, SELFPAY | PROVIDERS: Admitting Provider Student in an Organized Health Care Education/Training Program; Emergency Provider Emergency Medicine; PCP Nurse Practitioner Family; Visit Provider Student in an Organized Health Care Education/Training Program | DX: J44.1 Chronic obstructive pulmonary disease with (acute) exacerbation (principal) | CPT/HCPCS: 99222; 99232 ==

== ENCOUNTER 2024-12-04 10:53 | Outpatient (AMB) | payer MEDICARE, MEDICAID, SELFPAY ==
--- NOTE | 2024-12-04 11:04 | MHC.OFFVIS ---
Vital Signs 12/04/24 11:05 Height 5 ft 10 in Weight 158 lb 11.725 oz BMI 22.8 BP 142/58 H Blood Pressure Location Rt brachial Position Sitting Pulse 71 Pulse Source Pulse Oximeter Pulse Oximetry (%) 96 Oxygen Delivery Method Room Air Intake Visit Reasons: COPD Intake Note: pt is here for follow up and was in around [place] for breathing issues, and today he has a lot of phelgm, some production but at times very hard to get out. Separator Operator Required: No Allergies No Known Allergies Allergy (Verified 12/04/24 11:13) Medication List - Last Reconciled 12/04/24 by Melanie Castellanos MD albuterol sulfate 90 mcg/actuation (Ventolin HFA) 2 puffs PO Q4-6H PRN aspirin (Adult Aspirin Regimen) 81 mg PO DAILY atorvastatin 40 mg PO BEDTIME 90 days benzonatate 100 mg PO TID PRN cholecalciferol (vitamin D3) 50 mcg PO DAILY 90 days cilostazol 100 mg PO BID clopidogrel 75 mg PO DAILY diltiazem HCl 120 mg PO DAILY losartan 25 mg PO DAILY nebulizers (Sidestream misc) As directed omeprazole 20 mg PO DAILY@0630 Pulmicort Flexhaler 180 mcg/actuation (budesonide) 1 inh PO DAILY NS simethicone (Gas Relief (simethicone)) 80 mg PO TID PRN tamsulosin 0.4 mg PO BEDTIME tiotropium bromide (Spiriva with HandiHaler) 1 cap inhalation DAILY varenicline (Chantix Continuing Month Box) 1 mg PO BID 30 days Do you need a note to return to daycare/school/sports/work: No HPI HPI COPD: Details: Jose is 69 years old gentleman with history of smoking, and advanced chronic obstructive pulmonary disease. He was sick around the [place] time and ended up being in the hospital for 3 days. .He was smoking before that . He had his annual CT scan of the chest before that admission and also a chest x-ray on admission which did not show any pneumonia. He was treated with a course of azithromycin and also tapering dose of prednisone. Since his admission almost 1 month ago he has not smoked. However he continues to feel congested with frequent cough and has hard time to expectorates. Currently he is using Chantix tablets twice a day and seems to be motivated not go back to smoking. FOR[facility]LY [facility], LAT[facility] Medical History (Updated 12/04/24 @ 11:32 by Melanie Castellanos MD) COPD (chronic obstructive pulmonary disease) Claudication Occlusion of right femoral artery PVD (peripheral vascular disease) with claudication History of osteomyelitis HTN (hypertension) Pulmonary nodule Onychomycosis Chronic right hip pain Nicotine dependence, cigarettes, uncomplicated Surgical History History of cataract surgery (~2015) Status post reconstruction procedure (~1977) History of fracture of clavicle (~2010) Thumb laceration Thumb fracture History of femur fracture Family History Father Lung cancer Smoker Mother Myocardial infarction CVD (cardiovascular disease) Maternal Grandfather No problems noted. Maternal Grandmother No problems noted. Paternal Grandfather No problems noted. Paternal Grandmother No problems noted. Brother HTN (hypertension) Sister No problems noted. 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 needs: No Hearing needs: No Vision needs: Yes Review of Systems Const All systems reviewed & are unremarkable except as noted in HPI and below Eyes Reports no additional complaints ENT Reports no additional complaints Card Denies chest pain, Denies irregular heart rhythm and Denies leg edema Resp Reports as per HPI GI Reports no additional complaints Reports no additional complaints Musc Reports myalgias (mild) Skin/Breast Reports system reviewed and no additional complaints, except as documented Neuro Reports no additional complaints Psych Reports no additional complaints Physical Exam Const General: comfortable, no acute distress, alert and awake Orientation/consciousness: patient oriented x3 HEENT Head: Yes normal to inspection General nose exam: No nasal polyps present and No nasal discharge present Face and sinus: Yes sinuses nontender Mouth: oropharynx normal Throat: Yes posterior oropharynx normal Eyes General: appearance normal, both eyes and all related structures Neck Neck: Yes normal visual inspection, Yes no lymphadenopathy, Yes trachea midline and Yes no JVD Thyroid: Thyroid normal Chest Chest palpation & inspection: normal inspection of the chest, normal palpation of entire chest wall and no tenderness Resp Other: Percussion note is resonant, breath sounds distant with prolonged expiratory phase. HE has scattered inspiratory crepitations over lower lobes . Cardio Palpation: normal PMI Rate: regular rate Rhythm: regular rhythm Heart sounds: no gallops and no murmurs GI Palpation (GI): Soft to palpation, nontender, No hepatosplenomegaly present and no masses Auscultation: normal bowel sounds Back/Spine/Pelvis Thoracic/Lumbar Spine: thoracic and lumbar spine normal to inspection and thoraco-lumbar ROM limited Skin General skin exam: no rashes or lesions noted and dry skin Neuro General: patient oriented x3 and no focal motor deficits Cranial nerves: Yes CN's II-XII intact bilaterally Extrem General: Yes normal to inspection, Yes no clubbing, cyanosis or edema and Yes no calf tenderness Psych Appearance: grossly normal Speech and movement: Normal speech and movement present Results Reviewed Results Reviewed: Course of his recent hospitalization at [facility] is reviewed. Assessment & Plan Assessment & Plan (1) Pulmonary nodule: Comment: HE HAD A SEMI SOLID PULMONARY NODULE 4 X 8 MM IN LEFT UPPER LOBE. WHICH HAD DECREASED IN SIZE ON A FOLLOW-UP CT SCAN, CT SCAN ON 11/03/2023, BENIGN CATEGORY [address] scan on 11/05 not read yet , I do not see any new change. Code(s): R91.1 - Solitary pulmonary nodule Category: Medical Plan: Continue to have annual lung screening, with LDCT (2) Nicotine dependence, cigarettes, uncomplicated: Comment: (Active smoker, x 50yrs, currently 1/4ppd, +fam hx lung ca) . He quit temporarily and went back to smoking. Now since his admission to the hospital 1 month ago he has quit smoking. He continues to be on Chantix. Code(s): F17.210 - Nicotine dependence, cigarettes, uncomplicated Category: Medical Plan: Talked to him in detail and advise that he should not go back to smoking at all. Seems to be well motivated at this time. (3) COPD (chronic obstructive pulmonary disease): Comment: HE HAS MODERATELY ADVANCED CHRONIC OBSTRUCTIVE PULMONARY DISEASE . RECENTLY TREATED FOR AN ACUTE EXACERBATION ABOUT 4 WEEKS AGO. CONTINUES TO HAVE FREQUENT COUGH AND FEELS CONGESTED MOST OF THE TIME. Code(s): J44.9 - Chronic obstructive pulmonary disease, unspecified Category: Medical Plan: I A.M. RE ARRANGING HIS MAINTENANCE REGIMEN FOLLOWS DC PULMICORT AND ALSO DC SPIRIVA HANDIHALER. USE NEBULIZER WITH FOLLOWING SOLUTIONS: BUDESONIDE 0.5 MG B.I.D. IPRATROPIUM-ALBUTEROL SOLUTION IN THE NEBULIZER Q 6 HOURS WHILE AWAKE ( T.I.D. ) ALBUTEROL HFA 2 PUFFS Q 6 HOURS P.R.N. WHEN OUTDOORS. CONTINUE CHANTIX 1 MG B.I.D. WILL RECHECK HIM IN 1 MONTH Medications: New ipratropium-albuterol 0.5 mg-3 mg(2.5 mg base)/3 mL 3 mL inhalation QID 30 days 360 mL 3RF COPD/BRONCHITIS budesonide 0.5 mg (2 mL) inhalation BID 120 mL 3RF COPD/BRONCHITIS Coding Level of Care Code Est Pt Level 3 (84070) Diagnoses Pulmonary nodule R91.1 Nicotine dependence, cigarettes, uncomplicated F17.210 COPD (chronic obstructive pulmonary disease) J44.9
[2024-12-04 11:05] VITALS: BP 142/58; PULSE 71; O2SAT 96; BMI 22.8
== END 2024-12-04 11:24 | disposition home or self-care (01) ==
PROVIDERS: PCP Nurse Practitioner Family; Visit Provider Internal Medicine
DX: R91.1 Solitary pulmonary nodule (principal); F17.210 Nicotine dependence, cigarettes, uncomplicated; J44.9 Chronic obstructive pulmonary disease, unspecified
CPT/HCPCS: 99213

== ENCOUNTER → 2024-12-04 10:53 | Outpatient (BNVA) | payer MEDICARE, MEDICAID, SELFPAY | PROVIDERS: PCP Nurse Practitioner Family; Visit Provider Internal Medicine | DX: J44.9 Chronic obstructive pulmonary disease, unspecified (principal); R91.1 Solitary pulmonary nodule; F17.210 Nicotine dependence, cigarettes, uncomplicated | CPT/HCPCS: 99212 ==

== ENCOUNTER 2024-12-14 09:11 | Outpatient (AMB) | payer MEDICARE, MEDICAID, SELFPAY ==
[2024-12-14 09:13] VITALS: BP 142/70; PULSE 84; TEMP 36.6; O2SAT 93; BMI 22.7
--- NOTE | 2024-12-14 09:13 | MHC.OFFWIV ---
Intake Vital Signs 12/14/24 09:13 Height 5 ft 10 in Weight 158 lb BMI 22.7 BP 142/70 H Blood Pressure Location Rt brachial Position Sitting Pulse 84 Pulse Source Pulse Oximeter Temp 97.8 F Temp Source Oral Pulse Oximetry (%) 93 Oxygen Delivery Method Room Air Intake Visit Reasons: EP LT wrist/hand pain Intake Note: pt is here for left wrist and hand pain, pain for a week, denies any injury or changes to cause the pain Patient Tobacco Use Status: Former Tobacco user Allergies No Known Allergies Allergy (Verified 12/14/24 09:13) Do you need a note to return to daycare/school/sports/work: No HPI HPI Comments History of Present Illness Details 69 y/o male patient who presents to the walk in clinic with c/o left wrist pain x 1 week. Denies any injury or trauma. [facility] Medical History (Updated 12/14/24 @ 09:50 by Samina Oro NP) Osteoarthritis of wrist COPD (chronic obstructive pulmonary disease) Claudication Occlusion of right femoral artery PVD (peripheral vascular disease) with claudication History of osteomyelitis HTN (hypertension) Pulmonary nodule Onychomycosis Chronic right hip pain Nicotine dependence, cigarettes, uncomplicated Surgical History History of cataract surgery (~2015) Status post reconstruction procedure (~1977) History of fracture of clavicle (~2010) Thumb laceration Thumb fracture History of femur fracture Family History Father Lung cancer Smoker Mother Myocardial infarction CVD (cardiovascular disease) Maternal Grandfather No problems noted. Maternal Grandmother No problems noted. Paternal Grandfather No problems noted. Paternal Grandmother No problems noted. Brother HTN (hypertension) Sister No problems noted. 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 needs: No Hearing needs: No Vision needs: Yes Review of Systems Const All systems reviewed & are unremarkable except as noted in HPI and below Physical Exam Vital Signs: Last Vital Signs Temp 97.8 F 12/14/24 09:13 Pulse 84 12/14/24 09:13 BP 142/70 H 12/14/24 09:13 Pulse Ox 93 12/14/24 09:13 Oxygen Delivery Method Room Air 12/14/24 09:13 BMI result Body Mass Index 22.7 Const General: cooperative, no acute distress and poor hygiene Orientation/consciousness: patient oriented x3 Neuro General: patient oriented x3, gait normal and moves all extremities Extrem Left upper extremity: hand Details: normal to inspection, normal capillary refill, neuromotor exam normal, neurosensory exam normal, vascular exam, normal ROM of fingers and no swelling; no abrasions, no ecchymosis and no crepitus Psych Speech and movement: Normal speech and movement present Assessment & Plan Assessment & Plan (1) Osteoarthritis of wrist: Code(s): M19.039 - Primary osteoarthritis, unspecified wrist Qualifiers: Laterality: left Osteoarthritis type: primary Qualified Code(s): M19.032 - Primary osteoarthritis, left wrist Plan: Ordered Xray Declined NSAIDs and Acetaminophen because they do not work. Declined PT Provided wrist/hand Brace. Orders: Orders XR hand wrist LT Today M19.032 - Primary osteoarthritis, left wrist Coding Level of Care Code Est Pt Level 4 (89274) Diagnoses Primary osteoarthritis of left wrist M19.032 Laterality: left Osteoarthritis type: primary Time Spent (min) 20
== END 2024-12-14 10:16 | disposition home or self-care (01) ==
PROVIDERS: PCP Nurse Practitioner Family; Visit Provider Nurse Practitioner Family
DX: M19.032 Primary osteoarthritis, left wrist (principal)

== ENCOUNTER 2024-12-14 09:11 | Outpatient (REF) | payer MEDICARE, MEDICAID, SELFPAY ==
--- NOTE | ~2024-12-14 | XR_ITS ---
EXAMINATION: XR HAND/WRIST, LEFT CLINICAL INFORMATION: M19.032 - Primary osteoarthritis, left wrist COMPARISON: March 10, 2015 TECHNIQUE: PA, lateral, and oblique views of the left hand and wrist. FINDINGS: Subchondral cyst formation and sclerosis of the articular surface of the first carpometacarpal joint. Joint space narrowing at the radiocarpal joint. Well-corticated calcification in the region of the styloid process of the ulna. No acute cortical disruption or malalignment. XR/XR hand wrist LT IMPRESSION: Osteoarthrosis involving mostly the first carpometacarpal joint and to a lesser extent radiocarpal joint. Electronically signed by: Severino Oliveros MD 12/14/2024 10:10 AM CARL[facility]
== END 2024-12-14 09:12 | disposition home or self-care (01) ==
LOC: HO.HMGCX 09:11
PROVIDERS: PCP Nurse Practitioner Family; Visit Provider Nurse Practitioner Family
DX: M19.032 Primary osteoarthritis, left wrist (principal)
CPT/HCPCS: 73110; 73130; 99212

== ENCOUNTER → 2024-12-14 09:53 | Outpatient (BNV) | payer MEDICARE, MEDICAID, SELFPAY | PROVIDERS: PCP Nurse Practitioner Family; Visit Provider Radiology Diagnostic Radiology | DX: M19.032 Primary osteoarthritis, left wrist (principal) | CPT/HCPCS: 73110; 73130 ==

== ENCOUNTER 2024-12-24 09:05 | Outpatient (REF) | payer MEDICARE, MEDICAID, SELFPAY ==
[2024-12-24 09:58] LABS: MANUAL DIFF FLAG NO
[2024-12-24 10:08] LABS: Basophils Percent Auto 0.3 % (0-2); Eosinophils Absolute Auto 0.1 X10*3/uL (0.0-0.4); Eosinophils Percent Auto 1.2 % (0-4); Hematocrit 37.6 % (42.0-52.0); Hemoglobin 12.7 g/dl (14.0-18.0); Imm Gran Abs Auto 0.03 X10*3/uL (0.00-0.03); Imm Gran Pct Auto 0.3 % (0.0-0.4); Immature Retic Fraction 4.9 % (2.3-13.4); Lymphocytes Absolute Auto 2.7 X10*3/uL (1.2-4.9); Lymphocytes Percent Auto 29.1 % (20-40); Mean Corpuscular HGB Conc 33.8 g/dl (31.0-36.0); Mean Corpuscular Hemoglobin 31.1 pg (27.0-33.0); Mean Corpuscular Volume 91.9 fL (80.0-98.0); Monocytes Absolute Auto 0.7 X10*3/uL (0.1-1.2); Monocytes Percent Auto 7.9 % (2-11); Neutrophils Absolute Auto 5.7 x10*3/uL (2.0-8.3); Neutrophils Percent Auto 61.2 % (45-73); Platelet Count 229 X10*3/uL (160-400); Red Blood Count 4.09 X10*6/uL (4.60-5.80); Red Cell Distribution Width 14.6 % (11.0-16.0); Retic HGB Equivalent 32.2 pg (30.0-35.0); Reticulocyte Percent 1.2 % (0.5-1.8); Reticulocytes Absolute 0.049 X10*6/uL (0.026-0.095); White Blood Count 9.4 X10*3/uL (4.8-10.8)
[2024-12-24 10:36] LABS: Iron 87 mcg/dL (45-160); Lactate Dehydrogenase 213 U/L (118-273); Percent Iron Saturation 36 % (15-50); Total Iron Binding Capacity 240 mcg/dL (228-428); Unsaturated Iron Binding 153 ug/dL
[2024-12-24 10:52] LABS: Ferritin 113 ng/mL (20-250)
[2024-12-24 11:12] LABS: Folate 8.1 ng/mL (> or = 4.0); Vitamin B12 320 pg/mL (200-900)
== END 2024-12-24 09:06 | disposition home or self-care (01) ==
LOC: HO.HMGCLDS 09:05
PROVIDERS: PCP Nurse Practitioner Family; Visit Provider Nurse Practitioner Family
DX: D64.9 Anemia, unspecified (principal)
CPT/HCPCS: 36415; 82607; 82728; 82746; 83540; 83615; 85025; 85045

== ENCOUNTER 2025-01-07 11:03 | Outpatient (AMB) | payer MEDICARE, MEDICAID, SELFPAY ==
[2025-01-07 11:24] VITALS: BP 140/58; PULSE 105; O2SAT 97; BMI 22.5
--- NOTE | 2025-01-07 11:24 | A.OFFVIS_ITS ---
Vital Signs 01/07/25 11:24 Height 5 ft 10 in Weight 156 lb 8.451 oz BMI 22.5 BP 140/58 H Blood Pressure Location Lt brachial Position Sitting Pulse 105 H Pulse Source Pulse Oximeter Pulse Oximetry (%) 97 Oxygen Delivery Method Room Air Intake Visit Reasons: COPD Intake Note: pt is here for follow up some wheezing but better than last visit. Dishing Machine Operator Required: No Allergies No Known Allergies Allergy (Verified 01/07/25 13:13) Medication List - Last Reconciled 01/07/25 by Melanie Castellanos MD albuterol sulfate 90 mcg/actuation (Ventolin HFA) 2 puffs PO Q4-6H PRN aspirin (Adult Aspirin Regimen) 81 mg PO DAILY atorvastatin 40 mg PO BEDTIME 90 days budesonide 0.5 mg (2 mL) inhalation BID cholecalciferol (vitamin D3) 50 mcg PO DAILY 90 days cilostazol 100 mg PO BID clopidogrel 75 mg PO DAILY diltiazem HCl 120 mg PO DAILY ipratropium-albuterol 0.5 mg-3 mg(2.5 mg base)/3 mL 3 mL inhalation QID 30 days losartan 25 mg PO DAILY nebulizers (Sidestream misc) As directed pantoprazole 40 mg PO DAILY Pulmicort Flexhaler 180 mcg/actuation (budesonide) 1 inh PO DAILY NS simethicone (Gas Relief (simethicone)) 80 mg PO TID PRN tamsulosin 0.4 mg PO BEDTIME tiotropium bromide (Spiriva with HandiHaler) 1 cap inhalation DAILY varenicline tartrate (Chantix Continuing Month Box) 1 mg PO BID 30 days Do you need a note to return to daycare/school/sports/work: No HPI HPI COPD: Details: This 69 years old gentleman is here for follow-up after 2 months. He claims that he is feeling somewhat better but still has frequent cough and some wheezing. He is using Chantix without any side effects and the smoking is down to about 3 cigarettes a day. Has some confusion about the medications, which will be cleared. He is still working full-time. FORMERLY [facility] Medical History Osteoarthritis of wrist COPD (chronic obstructive pulmonary disease) Claudication Occlusion of right femoral artery PVD (peripheral vascular disease) with claudication History of osteomyelitis HTN (hypertension) Pulmonary nodule Onychomycosis Chronic right hip pain Nicotine dependence, cigarettes, uncomplicated Surgical History History of cataract surgery (~2015) Status post reconstruction procedure (~1977) History of fracture of clavicle (~2010) Thumb laceration Thumb fracture History of femur fracture Family History Father Lung cancer Smoker Mother Myocardial infarction CVD (cardiovascular disease) Maternal Grandfather No problems noted. Maternal Grandmother No problems noted. Paternal Grandfather No problems noted. Paternal Grandmother No problems noted. Brother HTN (hypertension) Sister No problems noted. 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 needs: No Hearing needs: No Vision needs: Yes Review of Systems Const All systems reviewed & are unremarkable except as noted in HPI and below Eyes Reports no additional complaints ENT Reports no additional complaints Card Denies chest pain, Denies irregular heart rhythm and Denies leg edema Resp Reports as per HPI GI Reports no additional complaints Reports no additional complaints Musc Reports myalgias (mild) Skin/Breast Reports system reviewed and no additional complaints, except as documented Neuro Reports no additional complaints Psych Reports no additional complaints Physical Exam Vital Signs: Last Vital Signs Pulse 105 H 01/07/25 11:24 BP 140/58 H 01/07/25 11:24 Pulse Ox 97 01/07/25 11:24 Oxygen Delivery Method Room Air 01/07/25 11:24 BMI result Body Mass Index 22.5 Const General: comfortable, no acute distress, alert and awake Orientation/consciousness: patient oriented x3 HEENT Head: Yes normal to inspection General nose exam: No nasal polyps present and No nasal discharge present Face and sinus: Yes sinuses nontender Mouth: oropharynx normal Throat: Yes posterior oropharynx normal Eyes General: appearance normal, both eyes and all related structures Neck Neck: Yes normal visual inspection, Yes no lymphadenopathy, Yes trachea midline and Yes no JVD Thyroid: Thyroid normal Chest Chest palpation & inspection: normal inspection of the chest, normal palpation of entire chest wall and no tenderness Resp Other: Percussion note is resonant, breath sounds distant with prolonged expiratory phase. No wheezes crepitations or rhonchi are heard today. Cardio Palpation: normal PMI Rate: regular rate Rhythm: regular rhythm Heart sounds: no gallops and no murmurs GI Palpation (GI): Soft to palpation, nontender, No hepatosplenomegaly present and no masses Auscultation: normal bowel sounds Back/Spine/Pelvis Thoracic/Lumbar Spine: thoracic and lumbar spine normal to inspection and thoraco-lumbar ROM limited Skin General skin exam: no rashes or lesions noted and dry skin Neuro General: patient oriented x3 and no focal motor deficits Cranial nerves: Yes CN's II-XII intact bilaterally Extrem General: Yes normal to inspection, Yes no clubbing, cyanosis or edema and Yes no calf tenderness Psych Appearance: grossly normal Speech and movement: Normal speech and movement present Assessment & Plan Assessment & Plan (1) COPD (chronic obstructive pulmonary disease): Comment: HE HAS MODERATELY ADVANCED CHRONIC OBSTRUCTIVE PULMONARY DISEASE . HAS RECOVERED FROM HIS RECENT EXACERBATION, AT PRESENT HE IS BACK TO HIS BASELINE. STILL CONTINUES TO HAVE FREQUENT COUGH AND FEELS CONGESTED MOST OF THE TIME. Code(s): J44.9 - Chronic obstructive pulmonary disease, unspecified Category: Medical Plan: THE LIST OF MEDS IS CLARIFIED BELOW. OK TO USE SPIRIVA HANDIHALER ONCE A DAY CONTINUE TO USE CHANTIX 1 MG B.I.D. USE IPRATROPIUM-ALBUTEROL SOLUTION IN THE NEBULIZER AT LEAST TWICE A DAY., MORNING AND EVENING ADD BUDESONIDE 0.5 MG SOLUTION IN THE NEBULIZER B.I.D.. ALBUTEROL HFA 2 PUFFS Q 6 HOURS P.R.N., WHEN OUTDOORS. DOES NOT HAVE TO USE PULMICORT (2) Pulmonary nodule: Comment: HE HAD A SEMI SOLID PULMONARY NODULE 4 X 8 MM IN LEFT UPPER LOBE. WHICH HAD DECREASED IN SIZE ON A FOLLOW-UP CT SCAN, CT SCAN ON 11/03/2023, BENIGN CATEGORY [address] scan on 11/05 IS READ FOLLOWS : ASSESSMENT: 1. Lung-RADS Category 2: Benign appearance or behavior of nodules. 2. Lung-RADS Category S: None RECOMMENDATION: Low-dose annual CT chest Code(s): R91.1 - Solitary pulmonary nodule Category: Medical Plan: WILL CONTINUE ANNUAL LUNG SCREENING PROGRAM (3) Nicotine dependence, cigarettes, uncomplicated: Comment: (Active smoker, x 50yrs, currently 1/4ppd, +fam hx lung ca) . He quit temporarily and went back to smoking. Now since his admission to the hospital 1 month ago he has quit smoking. He continues to be on Chantix.1 MG BID Code(s): F17.210 - Nicotine dependence, cigarettes, uncomplicated Category: Medical Plan: CONTINUE USING CHANTIX 1 MG B.I.D. AND AGAIN STRESSED THAT HE SHOULD QUIT SMOKING COMPLETELY Coding Level of Care Code Est Pt Level 3 (33175) Diagnoses COPD (chronic obstructive pulmonary disease) J44.9 Pulmonary nodule R91.1 Nicotine dependence, cigarettes, uncomplicated F17.210
== END 2025-01-07 11:50 | disposition home or self-care (01) ==
PROVIDERS: PCP Nurse Practitioner Family; Visit Provider Internal Medicine
DX: J44.9 Chronic obstructive pulmonary disease, unspecified (principal); R91.1 Solitary pulmonary nodule; F17.210 Nicotine dependence, cigarettes, uncomplicated
CPT/HCPCS: 99213

== ENCOUNTER → 2025-01-07 11:03 | Outpatient (BNVA) | payer MEDICARE, MEDICAID, SELFPAY | PROVIDERS: PCP Nurse Practitioner Family; Visit Provider Internal Medicine | DX: D64.9 Anemia, unspecified (principal); J44.9 Chronic obstructive pulmonary disease, unspecified; R91.1 Solitary pulmonary nodule; F17.210 Nicotine dependence, cigarettes, uncomplicated | CPT/HCPCS: 96127; 99212 ==

== ENCOUNTER 2025-01-07 15:09 | Outpatient (AMB) | payer MEDICARE, MEDICAID, SELFPAY ==
[2025-01-07 15:24] VITALS: BP 130/62; PULSE 81; RESP 15; TEMP 36.6; O2SAT 98; BMI 22.4
--- NOTE | 2025-01-07 15:24 | A.OFFPC_ITS ---
Vital Signs 01/07/25 15:24 Height 5 ft 10 in Weight 156 lb 3 oz BMI 22.4 BP 130/62 Blood Pressure Location Rt brachial Position Sitting Respiration 15 Pulse 81 Pulse Source Pulse Oximeter Temp 97.8 F Temp Source Oral Pulse Oximetry (%) 98 Oxygen Delivery Method Room Air Intake Visit Reasons: 3m follow up reschedule ok per Intake Note: Pt is here today for 3 month follow up. Allergies No Known Allergies Allergy (Verified 01/07/25 15:25) Tobacco use date assessed: 01/07/25 Fall risk assessment: No Falls in past year Last assessed Fall Risk: 01/07/25 Dental Screening Dental Screen Date: 01/07/25 Did you have a dental visit in the last 12 months?: Yes Did you have a dental problem in the last 6 months where you did not have access to dental care?: No Was dental information given to patient?: Patient has dentist HPI 3m follow up reschedule ok per HPI Details History of Present Illness The patient is a 28-year-old female presenting with increased anxiety. She has reported a recent escalation in her anxiety levels, though the specific duration is not mentioned. The increased anxiety appears to be a recent development without any noted specific inciting events. The patient denies experiencing chest pain, shortness of breath, or hematemesis. There is no indication of any previous psychiatric diagnoses or treatments in the conversation, and the conversation does not discuss any specific prior interventions for anxiety. The patient denies any suicidal or homicidal ideation. Hx of b12 def and iron def, will check labs Health Maintenance Social History - The conversation did not provide speci fic details about the patient's social determinants of health. Review of Systems - Psychiatric: Reports increased anxiety . Denies suicidal or homicidal thoughts. - Cardiovascular: Denies chest pain. - Respiratory: Denies shortness of breat h. - Gastrointestinal: Denies vomiting, hem atemesis. Physical Exam General: Cooperative, healthy appearing, comfortable, no acute distress and well developed Orientation: Patient oriented x3 Limitations: No limitations Head: Normal to inspection Ears: Hearing grossly normal bilaterally Nose: Normal external nose present Face and sinus: Normal facial exam Eyes: Appearance normal, both eyes and all related structures Neck: Normal visual inspection and Yes full ROM Respiratory: Normal respiratory effort and able to speak in complete sentences. Clear to auscultation bilaterally Cardiovascular: Regular rate and rhythm. Normal S1 and S2 GI: Normal to inspection. Soft to palpation and nontender Skin: No rashes or lesions noted Neuro: Patient oriented x3 Extremities: Normal to inspection Results Plan - Initiate treatment for generalized anx iety disorder, starting with medication management to address increased anxiety symptoms. - The patient will be monitored for resp onse to pharmacotherapy and advised to contact if symptoms do not improve. - Arrange for laboratory testing to [facility] in the near future. Discussion Notes During the visit, I discussed the management and treatment of the patient's increased anxiety. Initiation of medication as a primary treatment option was agreed upon, emphasizing the importance of contacting me if the new regimen does not alleviate her symptoms. Laboratory workup is also planned to ensure comprehensive management. The patient denied any acute distress symptoms, including chest pain or shortness of breath, and affirmed no current suicidal ideation. No immediate procedural risks were discussed during this visit, but the patient was advised to follow up for labs soon. Patient Instructions - Begin the prescribed daily medication for anxiety as directed. - Monitor your symptoms, and contact me if you notice no improvement or have concerns. - Expect a follow-up lab workup in the n ear future. - Seek immediate care if any new symptom s arise, such as chest pain or severe shortness of breath. [facility] Medical History Osteoarthritis of wrist COPD (chronic obstructive pulmonary disease) Claudication Occlusion of right femoral artery PVD (peripheral vascular disease) with claudication History of osteomyelitis HTN (hypertension) Pulmonary nodule Onychomycosis Chronic right hip pain Nicotine dependence, cigarettes, uncomplicated Surgical History History of cataract surgery (~2015) Status post reconstruction procedure (~1977) History of fracture of clavicle (~2010) Thumb laceration Thumb fracture History of femur fracture Family History Father Lung cancer Smoker Mother Myocardial infarction CVD (cardiovascular disease) Maternal Grandfather No problems noted. Maternal Grandmother No problems noted. Paternal Grandfather No problems noted. Paternal Grandmother No problems noted. Brother HTN (hypertension) Sister No problems noted. 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 1. Little interest or pleasure in doing things: not at all 2. Feeling down, depressed, or hopeless: not at all 3. Trouble falling or staying asleep, or sleeping too much: not at all 4. Feeling tired or having little energy: not at all 5. Poor appetite or overeating: not at all 6. Feeling bad about yourself - or that you are a failure or have let yourself or your family down: not at all 7. Trouble concentrating on things, such as reading the newspaper or watching television: not at all 8. Moving or speaking so slowly that other people could have noticed. Or the opposite - being so fidgety or restless that you have been moving around a lot more than usual: not at all 9. Thoughts that you would be better off or of hurting yourself in some way: not at all Total score: 0 Depression Screening Interpretation: Negative Depression Screening Done: Yes 24222 - PHQ-9 Billing: Yes Source: Developed by Drs. Jose Gauthier, Barbi Rubio, Cristofer Agudelo and colleagues, with an educational sujatha from [employer]. Thrive Questionnaire Date Thrive assessed: 01/07/25 I am a: Patient What is your living situation today?: I have a steady place to live Within the past 12 months, did the food you bought not last and you didn't have the money to get more?: Never true Within the past 12 months, did you worry whether your food would run out before you got money to buy more?: Never true Do you have trouble paying for medicines?: No Do you have trouble getting transportation to medical appointments?: No Do you have trouble paying your heating and electricity bill?: No Do you have trouble taking care of your child, family member or friend?: No Do you have trouble with day-to-day activities such as bathing, preparing meals, shopping, managing finances, etc.?: No Are you currently unemployed and looking for a job?: No Are you interested in more education?: No Please select the resources that you would like help with: None Currently or been in a relationship where the following occur: No concerns reported THRIVE Score: 0 AUDIT C Alcohol Use Questionnaire (AUDIT-C) 1. How often do you have a drink containing alcohol?: Never 3. How often do you have six or more drinks on one occasion?: Never Total Score: 0 Score Reviewed/Action Taken: Yes GLADYS-7 AMB Questionnaire GLADYS-7 Date GLADYS - 7 assessed: 01/07/25 Feeling nervous, anxious, or on edge: 0 = Not at all Not being able to stop or control worryin = Not at all Worrying too much about different things: 0 = Not at all Trouble relaxin = Not at all Being so restless that it is hard to sit still: 0 = Not at all Becoming easily annoyed or irritable: 0 = Not at all Feeling afraid as if something awful might happen: 0 = Not at all Total GLADYS-7 score (0-4 normal; 5-9 mild; 10-14 moderate; 15-21 severe): 0 Source: Developed by Drs. Jose Gauthier, Barbi Rubio, Cristofer Agudelo and colleagues, with an educational sujatha from [employer]. GLADYS-7 Assessment Billing GLADYS-7 Assessment Tool: GLADYS-7 Assessment 70642 Physical exam (Primary Care) Vital Signs: Last Vital Signs Temp 97.8 F 01/07/25 15:24 Pulse 81 01/07/25 15:24 Resp 15 01/07/25 15:24 BP 130/62 01/07/25 15:24 Pulse Ox 98 01/07/25 15:24 Oxygen Delivery Method Room Air 01/07/25 15:24 BMI result Body Mass Index 22.4 Tobacco/Smoking Status: Tobacco use Status Tobacco use date assessed 01/07/25 01/07/25 15:25 Patient Tobacco Use Status Former Tobacco user 01/07/25 15:25 Tobacco use type Cigarette 01/07/25 15:25 e-Cigarette/Vaping Use Never Used 01/07/25 15:25 PHQ-9: PHQ-9 Score PHQ-9: Total score 0 01/07/25 15:34 Depression Screening Interpretation: Negative Thrive Assessment: Date of Thrive Assessment Date Thrive assessed 01/07/25 01/07/25 15:34 Currently or been in a relationship where the following occur: No concerns reported Coding Level of Care Code Est Pt Level 3 (37902) Diagnoses Anemia D64.9 Additional Codes GLADYS-7 Assessment Billing - GLADYS-7 Assessment Tool: GLADYS-7 Assessment 34508 ([id number]) PHQ-9 - 31412 - PHQ-9 Billing: Yes ([id number]) Assessment & Plan Assessment & Plan (1) Anemia: Code(s): D64.9 - Anemia, unspecified Category: Medical Plan .
== END 2025-01-07 15:48 | disposition home or self-care (01) ==
PROVIDERS: PCP Nurse Practitioner Family; Visit Provider Nurse Practitioner Family
DX: D64.9 Anemia, unspecified (principal)

== ENCOUNTER 2025-03-11 11:11 | Outpatient (AMB) | payer MEDICARE, MEDICAID, SELFPAY ==
[2025-03-11 11:22] VITALS: BP 122/42; PULSE 114; O2SAT 94; BMI 22.0
--- NOTE | 2025-03-11 11:22 | A.OFFVIS_ITS ---
Vital Signs 03/11/25 11:22 Height 5 ft 10 in Weight 153 lb 3.54 oz BMI 22.0 BP 122/42 L Blood Pressure Location Lt brachial Position Sitting Pulse 114 H Pulse Source Pulse Oximeter Pulse Oximetry (%) 94 Oxygen Delivery Method Room Air Intake Visit Reasons: COPD Intake Note: pt it here for follow up and still has phelgm that stays with him,using nebulizer medication now but is still struggling with phlegm General Internal Medicine Doctor Required: No Allergies No Known Allergies Allergy (Verified 03/11/25 11:37) Medication List - Last Reconciled 03/11/25 by Melanie Castellanos MD albuterol sulfate 90 mcg/actuation (Ventolin HFA) 2 puffs PO Q4-6H PRN aspirin (Adult Aspirin Regimen) 81 mg PO DAILY atorvastatin 40 mg PO BEDTIME 90 days budesonide 180 mcg/actuation (Pulmicort Flexhaler) 1 inh PO DAILY budesonide 0.5 mg (2 mL) inhalation BID cholecalciferol (vitamin D3) 50 mcg PO DAILY 90 days cilostazol 100 mg PO BID clopidogrel 75 mg PO DAILY diltiazem HCl 120 mg PO DAILY ipratropium-albuterol 0.5 mg-3 mg(2.5 mg base)/3 mL 3 mL inhalation QID 30 days losartan 25 mg PO DAILY nebulizers (Sidestream misc) As directed simethicone (Gas Relief (simethicone)) 80 mg PO TID PRN tamsulosin 0.4 mg PO BEDTIME tiotropium bromide (Spiriva with HandiHaler) 1 cap inhalation DAILY Do you need a note to return to daycare/school/sports/work: No HPI HPI COPD: Details: WAS COMES AFTER 4 MONTHS FOR FOLLOW-UP. NOW FOR THE PAST 4 MONTHS HE HAS NOT SMOKED. BREATHING IS RELATIVELY STABLE EXCEPT FOR THE FACT THAT HE STILL HAS URGE TO CLEAR MUCUS. HE DOES ADMIT THAT SINCE HE IS USING THE NEBULIZER IT IS EASY TO CLEAR THE MUCUS. DOES GET SHORT OF BREATH ON MINIMAL WALKING. [facility] Medical History Osteoarthritis of wrist COPD (chronic obstructive pulmonary disease) Claudication Occlusion of right femoral artery PVD (peripheral vascular disease) with claudication History of osteomyelitis HTN (hypertension) Pulmonary nodule Onychomycosis Chronic right hip pain Nicotine dependence, cigarettes, uncomplicated Surgical History History of cataract surgery (~2015) Status post reconstruction procedure (~1977) History of fracture of clavicle (~2010) Thumb laceration Thumb fracture History of femur fracture Family History Father Lung cancer Smoker Mother Myocardial infarction CVD (cardiovascular disease) Maternal Grandfather No problems noted. Maternal Grandmother No problems noted. Paternal Grandfather No problems noted. Paternal Grandmother No problems noted. Brother HTN (hypertension) Sister No problems noted. 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 needs: No Hearing needs: No Vision needs: Yes Review of Systems Const All systems reviewed & are unremarkable except as noted in HPI and below Eyes Reports no additional complaints ENT Reports no additional complaints Card Denies chest pain, Denies irregular heart rhythm and Denies leg edema Resp Reports as per HPI GI Reports no additional complaints Reports no additional complaints Musc Reports myalgias (mild) Skin/Breast Reports system reviewed and no additional complaints, except as documented Neuro Reports no additional complaints Psych Reports no additional complaints Physical Exam Vital Signs: Last Vital Signs Pulse 114 H 03/11/25 11:22 BP 122/42 L 03/11/25 11:22 Pulse Ox 94 03/11/25 11:22 Oxygen Delivery Method Room Air 03/11/25 11:22 BMI result Body Mass Index 22.0 Const General: comfortable, no acute distress, alert and awake Orientation/consciousness: patient oriented x3 HEENT Head: Yes normal to inspection General nose exam: No nasal polyps present and No nasal discharge present Face and sinus: Yes sinuses nontender Mouth: oropharynx normal Throat: Yes posterior oropharynx normal Eyes General: appearance normal, both eyes and all related structures Neck Neck: Yes normal visual inspection, Yes no lymphadenopathy, Yes trachea midline and Yes no JVD Thyroid: Thyroid normal Chest Chest palpation & inspection: normal inspection of the chest, normal palpation of entire chest wall and no tenderness Resp Other: Percussion note is resonant, breath sounds distant with prolonged expiratory phase. No wheezes crepitations or rhonchi are heard today. Cardio Palpation: normal PMI Rate: regular rate Rhythm: regular rhythm Heart sounds: no gallops and no murmurs GI Palpation (GI): Soft to palpation, nontender, No hepatosplenomegaly present and no masses Auscultation: normal bowel sounds Back/Spine/Pelvis Thoracic/Lumbar Spine: thoracic and lumbar spine normal to inspection and thoraco-lumbar ROM limited Skin General skin exam: no rashes or lesions noted and dry skin Neuro General: patient oriented x3 and no focal motor deficits Cranial nerves: Yes CN's II-XII intact bilaterally Extrem General: Yes normal to inspection, Yes no clubbing, cyanosis or edema and Yes no calf tenderness Psych Appearance: grossly normal Speech and movement: Normal speech and movement present Assessment & Plan Assessment & Plan (1) Nicotine dependence, cigarettes, uncomplicated: Comment: (Active smoker, x 50yrs, currently 1/4ppd, +fam hx lung ca) . He quit temporar scott and went back to smoking. Since his admission to the hospital 1 month ago he has quit smoking. Now it is 4 months since he quit smoking. He continues to be on Chantix.1 MG BID Code(s): F17.210 - Nicotine dependence, cigarettes, uncomplicated Category: Medical Plan: Commended for having quit smoking completely. Stressed that he can not go back to smoking. Explained that he needs to have annual lung CT scan to scan for lung cancer. (2) COPD (chronic obstructive pulmonary disease): Comment: HE HAS MODERATELY ADVANCED CHRONIC OBSTRUCTIVE PULMONARY DISEASE . AT PRESENT IT SEEMS TO BE STABLE. MAIN ISSUE IS FREQUENT COUGH AND INABILITY TO CLEAR THE MUCUS. Code(s): J44.9 - Chronic obstructive pulmonary disease, unspecified Category: Medical Plan: THE CURRENT TREATMENT REGIMEN IS EXPLAINED TO HIM. IPRATROPIUM-ALBUTEROL SOLUTION IN THE NEBULIZER Q 6 HOURS WHILE AWAKE ( USE AT LEAST 3 TIMES A DAY) ADD BUDESONIDE 0.5 MG SOLUTION IN THE NEBULIZER B.I.D. WITH THIS HE DOES NOT NEED TO USE PULMICORT INHALER. (3) Pulmonary nodule: Comment: HE HAD A SEMI SOLID PULMONARY NODULE 4 X 8 MM IN LEFT UPPER LOBE. WHICH HAD DECREASED IN SIZE ON A FOLLOW-UP CT SCAN, CT SCAN ON 11/03/2023, BENIGN CATEGORY [address] scan on 11/05/24 IS READ FOLLOWS : ASSESSMENT: 1. Lung-RADS Category 2: Benign appearance or behavior of nodules. 2. Lung-RADS Category S: None Code(s): R91.1 - Solitary pulmonary nodule Category: Medical Plan: RECOMMENDED THAT HE SHOULD CONTINUE HAVING ANNUAL LUNG SCREENING WITH LD CT. Coding Level of Care Code Est Pt Level 3 (30934) Diagnoses Nicotine dependence, cigarettes, uncomplicated F17.210 COPD (chronic obstructive pulmonary disease) J44.9 Pulmonary nodule R91.1
== END 2025-03-11 11:37 | disposition home or self-care (01) ==
LOC: HO.HPS 11:12
PROVIDERS: PCP Nurse Practitioner Family; Visit Provider Internal Medicine
DX: F17.210 Nicotine dependence, cigarettes, uncomplicated (principal); J44.9 Chronic obstructive pulmonary disease, unspecified; R91.1 Solitary pulmonary nodule
CPT/HCPCS: 99213

== ENCOUNTER → 2025-03-11 11:11 | Outpatient (BNVA) | payer MEDICARE, MEDICAID, SELFPAY | PROVIDERS: PCP Nurse Practitioner Family; Visit Provider Internal Medicine | DX: J44.9 Chronic obstructive pulmonary disease, unspecified (principal); R91.1 Solitary pulmonary nodule; F17.210 Nicotine dependence, cigarettes, uncomplicated | CPT/HCPCS: 99212 ==

== ENCOUNTER 2025-04-24 13:45 | Outpatient (AMB) | payer MEDICARE, MEDICAID, SELFPAY ==
[2025-04-24 13:51] VITALS: BP 130/60; PULSE 84; TEMP 36.6; O2SAT 93; BMI 22.7
--- NOTE | 2025-04-24 13:51 | A.OFFPC_ITS ---
Vital Signs 04/24/25 13:51 Height 5 ft 10 in Weight 158 lb BMI 22.7 BP 130/60 Blood Pressure Location Rt brachial Position Sitting Pulse 84 Pulse Source Pulse Oximeter Temp 97.8 F Temp Source Oral Pulse Oximetry (%) 93 Oxygen Delivery Method Room Air Intake Visit Reasons: 6m follow up [place] Required: No Accompanied by: Self / Same As Patient Allergies No Known Allergies Allergy (Verified 04/24/25 13:51) Tobacco use date assessed: 01/07/25 Fall risk assessment: No Falls in past year Last assessed Fall Risk: 04/24/25 Dental Screening Dental Screen Date: 01/07/25 HPI 6m follow up HPI Details Chief Complaint Patient is here for a six-month follow-up appointment. History of Present Illness The patient is a 69-year-old male presenting for a follow-up visit. He is under ongoing care with a ladle repairer and glass worker. During this encounter, a carotid bruit was noted, specifically in the right carotid artery, warranting further investigation. He experienced no symptoms such as dizziness, chest pain, or increased shortness of breath. His longstanding conditions include hyperlipidemia, which necessitates regular lipid panels, and stable hypertension. He also has a history of prostate health issues that are managed by a urologist. His blood pressure has remained well controlled. Prostate- specific antigen (PSA) testing is not part of the current evaluation due to ongoing specialist care focusing on prostate health. Social History Health Maintenance - Carotid ultrasound ordered for further evaluation of the identified right carotid bruit. - Lipid panel to be ordered to monitor h yperlipidemia. Review of Systems - Cardiovascular: Denies dizziness, ches t pain. - Respiratory: Denies increased shortnes s of breath. Physical Exam General: Cooperative, healthy appearing, comfortable, no acute distress and well developed Orientation: Patient oriented x3 Limitations: No limitations Head: Normal to inspection Ears: Hearing grossly normal bilaterally Nose: Normal external nose present Face and sinus: Normal facial exam Eyes: Appearance normal, both eyes and all related structures Neck: Normal visual inspection and Yes full ROM Respiratory: Normal respiratory effort, coarse with faint wheezing, moving air bilat Cardiovascular: Regular rate and rhythm. Normal S1 and S2. Carotid bruits noted in the right carotid GI: Normal to inspection. Soft to palpation and nontender Skin: No rashes or lesions noted Neuro: Patient oriented x3 Extremities: Normal to inspection Results Plan Considering the noted carotid bruit, a carotid ultrasound will be performed to identify any potential vascular abnormalities. Blood pressure management remains a priority, and ongoing checks ensure stability. A lipid panel will be done to monitor hyperlipidemia closely, and the patient's medication regimen will be adjusted if needed. While the intervention for prostate health through PSA testing is not required at this time due to existing urologic care, continued coordination with other specialists is crucial for comprehensive care. Discussion Notes During the consultation, I discussed with the patient the clinical significance of the carotid bruit and the necessity for a carotid ultrasound. The importance of controlling hyperlipidemia and hypertension was emphasized in reducing cardiovascular risk. I explained the rationale for deferring PSA testing due to his specialist appointments in urology and the stable nature of his hypertension and lipid profile. Follow-up with appropriate specialists and adherence to prescribed treatments were encouraged. Any concerns about the planned diagnostic studies and interventions were clarified, ensuring the patient?s understanding and consent. Patient Instructions - Schedule a carotid ultrasound to evalu ate the bruit further. - Ensure consistent monitoring of blood pressure and lipid levels. - Follow up with the ladle repairer, pulmo nologist, and urologist as due. - Notify the care team if symptoms like dizziness, increased shortness of breath, or chest pain arise. - Continue with any prescribed medicatio ns unless otherwise advised. [facility] Medical History Osteoarthritis of wrist COPD (chronic obstructive pulmonary disease) Claudication Occlusion of right femoral artery PVD (peripheral vascular disease) with claudication History of osteomyelitis HTN (hypertension) Pulmonary nodule Onychomycosis Chronic right hip pain Nicotine dependence, cigarettes, uncomplicated Surgical History History of cataract surgery (~2015) Status post reconstruction procedure (~1977) History of fracture of clavicle (~2010) Thumb laceration Thumb fracture History of femur fracture Family History Father Lung cancer Smoker Mother Myocardial infarction CVD (cardiovascular disease) Maternal Grandfather No problems noted. Maternal Grandmother No problems noted. Paternal Grandfather No problems noted. Paternal Grandmother No problems noted. Brother HTN (hypertension) Sister No problems noted. 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 1. Little interest or pleasure in doing things: more than half the days 2. Feeling down, depressed, or hopeless: not at all 3. Trouble falling or staying asleep, or sleeping too much: not at all 4. Feeling tired or having little energy: more than half the days 5. Poor appetite or overeating: several days 6. Feeling bad about yourself - or that you are a failure or have let yourself or your family down: not at all 7. Trouble concentrating on things, such as reading the newspaper or watching television: not at all 8. Moving or speaking so slowly that other people could have noticed. Or the opposite - being so fidgety or restless that you have been moving around a lot more than usual: not at all 9. Thoughts that you would be better off or of hurting yourself in some wa y: not at all Total score: 5 Depression Screening Interpretation: Negative Depression Screening Done: Yes 69407 - PHQ-9 Billing: Yes Source: Developed by Drs. Jose Gauthier, Barbi Rubio, Cristofer Agudelo and colleagues, with an educational sujatha from [employer] ([employer]). Thrive Questionnaire Date Thrive assessed: 04/24/25 I am a: Patient What is your living situation today?: I have a steady place to live Within the past 12 months, did the food you bought not last and you didn't have the money to get more?: Never true Within the past 12 months, did you worry whether your food would run out before you got money to buy more?: Never true Do you have trouble paying for medicines?: No Do you have trouble getting transportation to medical appointments?: No Do you have trouble paying your heating and electricity bill?: No Do you have trouble taking care of your child, family member or friend?: No Do you have trouble with day-to-day activities such as bathing, preparing meals, shopping, managing finances, etc.?: No Are you currently unemployed and looking for a job?: No Are you interested in more education?: No Please select the resources that you would like help with: None Currently or been in a relationship where the following occur: No concerns reported THRIVE Score: 0 GLADYS-7 AMB Questionnaire GLADYS-7 Date GLADYS - 7 assessed: 01/07/25 Source: Developed by Drs. Jose Gauthier, Barbi Rubio, Cristofer Agudelo and colleagues, with an educational sujatha from [employer]). Physical exam (Primary Care) Vital Signs: Last Vital Signs Temp 97.8 F 04/24/25 13:51 Pulse 84 04/24/25 13:51 BP 130/60 04/24/25 13:51 Pulse Ox 93 04/24/25 13:51 Oxygen Delivery Method Room Air 04/24/25 13:51 BMI result Body Mass Index 22.7 Tobacco/Smoking Status: Tobacco use Status Tobacco use date assessed 01/07/25 04/24/25 13:52 Patient Tobacco Use Status Former Tobacco user 04/24/25 13:52 Tobacco use type Cigarette 04/24/25 13:52 e-Cigarette/Vaping Use Never Used 04/24/25 13:52 PHQ-9: PHQ-9 Score PHQ-9: Total score 5 04/24/25 13:58 Depression Screening Interpretation: Negative Thrive Assessment: Date of Thrive Assessment Date Thrive assessed 04/24/25 04/24/25 13:52 Currently or been in a relationship where the following occur: No concerns reported Coding Level of Care Code Est Pt Level 3 (24714) Complex EM visit Add On G2211 Diagnoses HTN (hypertension) I10 COPD exacerbation J44.1 Carotid bruit R09.89 Additional Codes PHQ-9 - 78551 - PHQ-9 Billing: Yes ([id number]) Assessment & Plan Assessment & Plan (1) HTN (hypertension): Code(s): I10 - Essential (primary) hypertension Category: Medical (2) COPD exacerbation: Code(s): J44.1 - Chronic obstructive pulmonary disease with (acute) exacerbation Category: Medical (3) Carotid bruit: Code(s): R09.89 - Other specified symptoms and signs involving the circulatory and respiratory systems Category: Medical Plan . Orders: Orders UA CC w/rflx Micro + Cult Today I10 - Essential (primary) hypertension, J44.1 - Chronic obstructive pulmonary disease with (acute) exacerbation Lipid Panel Today I10 - Essential (primary) hypertension, J44.1 - Chronic obstructive pulmonary disease with (acute) exacerbation US carotid duplex BI Today R09.89 - Other specified symptoms and signs involving the circulatory and respiratory systems Complete Blood Count Auto Diff Today I10 - Essential (primary) hypertension, J44.1 - Chronic obstructive pulmonary disease with (acute) exacerbation Comprehensive [place]. Panel Fast Today I10 - Essential (primary) hypertension, J44.1 - Chronic obstructive pulmonary disease with (acute) exacerbation TSH reflex Free T4 Today I10 - Essential (primary) hypertension, J44.1 - Chronic obstructive pulmonary disease with (acute) exacerbation
== END 2025-04-24 14:18 | disposition home or self-care (01) ==
LOC: HO.HMCC 13:46
PROVIDERS: PCP Nurse Practitioner Family; Visit Provider Nurse Practitioner Family
DX: I10 Essential (primary) hypertension (principal); J44.1 Chronic obstructive pulmonary disease with (acute) exacerbation; R09.89 Other specified symptoms and signs involving the circulatory and respiratory systems

== ENCOUNTER → 2025-04-24 13:45 | Outpatient (BNVA) | payer MEDICARE, MEDICAID, SELFPAY | PROVIDERS: PCP Nurse Practitioner Family; Visit Provider Nurse Practitioner Family | DX: I10 Essential (primary) hypertension (principal); J44.1 Chronic obstructive pulmonary disease with (acute) exacerbation; R09.89 Other specified symptoms and signs involving the circulatory and respiratory systems; Z87.891 Personal history of nicotine dependence | CPT/HCPCS: 96127; 99212 ==

== ENCOUNTER 2025-05-21 09:54 | Outpatient (REF) | payer MEDICARE, MEDICAID, SELFPAY ==
[2025-05-21 11:11] LABS: Appearance Urine Clear; Glucose Urine UA Negative (Negative); PH 6.5 (5.0-9.0); Specific Gravity - Urine 1.015 (1.005-1.025)
[2025-05-21 11:12] LABS: MANUAL DIFF FLAG NO
[2025-05-21 11:23] LABS: Hematocrit 37.0 % (42.0-52.0); Hemoglobin 12.6 g/dl (14.0-18.0); Imm Gran Abs Auto 0.02 X10*3/uL (0.00-0.03); Imm Gran Pct Auto 0.2 % (0.0-0.4); Lymphocytes Absolute Auto 2.5 X10*3/uL (1.2-4.9); Mean Corpuscular HGB Conc 34.1 g/dl (31.0-36.0); Mean Corpuscular Hemoglobin 30.7 pg (27.0-33.0); Mean Corpuscular Volume 90.2 fL (80.0-98.0); NRBC Abs Auto 0.000 X10*3/uL (0.0-0.012); NRBC Pct Auto 0.0 /100WBC (0.0-0.2); Platelet Count 248 X10*3/uL (160-400); Red Blood Count 4.10 X10*6/uL (4.60-5.80); White Blood Count 9.2 X10*3/uL (4.8-10.8)
[2025-05-21 11:49] LABS: Alanine Aminotransferase 17 U/L (0-40); Albumin Level 4.0 g/dL (3.5-5.0); Alkaline Phosphatase 82 U/L (39-117); Anion Gap 11 (12-20); Aspartate Amino Transferase 26 U/L (5-37); Blood Urea Nitrogen 12 mg/dL (9-16); Calcium 8.6 mg/dL (8.4-10.2); Carbon Dioxide 26 mmol/L (22-29); Chloride 106 mmol/L (96-108); Cholesterol 127 mg/dL (<200); Estimated Glomerular Filt Rate > 60; HDL Cholesterol 51 mg/dL (>40); Potassium 4.0 mmol/L (3.3-5.1); Sodium 139 mmol/L (135-145); Total Protein 6.5 g/dL (6.5-8.0); Triglycerides 47 mg/dL (<150)
== END 2025-05-21 09:55 | disposition home or self-care (01) ==
LOC: HO.HMGCLDS 09:54
PROVIDERS: PCP Nurse Practitioner Family; Visit Provider Nurse Practitioner Family
DX: J44.1 Chronic obstructive pulmonary disease with (acute) exacerbation (principal); I10 Essential (primary) hypertension
CPT/HCPCS: 36415; 80053; 80061; 81003; 84443; 85025

== ENCOUNTER 2025-05-22 12:39 | Outpatient (AMB) | payer MEDICARE, MEDICAID, SELFPAY ==
--- NOTE | 2025-05-22 12:54 | AM.OFFWIN_ITS ---
Intake Vital Signs 05/22/25 12:55 Height 5 ft 10 in Weight 158 lb BMI 22.7 BP 132/70 Blood Pressure Location Lt brachial Position Sitting Pulse 101 H Pulse Source Pulse Oximeter Temp 97.8 F Temp Source Oral Pulse Oximetry (%) 94 Intake Visit Reasons: EP LT shoulder pain Intake Note: pt is here for ongoing left shoulder pain, no recent injury Patient Tobacco Use Status: Former Tobacco user Allergies No Known Allergies Allergy (Verified 05/22/25 12:55) Medication List - Last Reconciled 05/22/25 by Lyndsey Benton PA-C albuterol sulfate 90 mcg/actuation (Ventolin HFA) 2 puffs PO Q4-6H PRN aspirin (Adult Aspirin Regimen) 81 mg PO DAILY atorvastatin 40 mg PO BEDTIME 90 days budesonide 180 mcg/actuation (Pulmicort Flexhaler) 1 inh PO DAILY budesonide 0.5 mg (2 mL) inhalation BID cholecalciferol (vitamin D3) 50 mcg PO DAILY 90 days cilostazol 100 mg PO BID clopidogrel 75 mg PO DAILY diclofenac sodium 3% 1 appl topical BID diltiazem HCl 120 mg PO DAILY ipratropium-albuterol 0.5 mg-3 mg(2.5 mg base)/3 mL 3 mL inhalation QID 30 days losartan 25 mg PO DAILY naproxen 500 mg PO Q12H PRN 7 days nebulizers (Sidestream misc) As directed pantoprazole 20 mg PO DAILY simethicone (Gas Relief (simethicone)) 80 mg PO TID PRN tamsulosin 0.4 mg PO BEDTIME tiotropium bromide (Spiriva with HandiHaler) 1 cap inhalation DAILY Do you need a note to return to daycare/school/sports/work: No HPI HPI Comments History of Present Illness Details History of Present Illness - The patient is a 69-year-old male pres enting with left shoulder pain. - The shoulder pain has been present sin ce the beginning of the year, lasting several months. - The pain is exacerbated by certain mov ements, such as doing dishes, and has not improved over time. - The patient has not sought any prior t reatment, including medications or physical therapy, for this condition. - There is associated neck pain, but no numbness, tingling, or chest pain reported. - He denies trauma or falls. He denies a rm pain, hand pain, elbow pain. - He is right hand dominant. - He had steriod injections in the past and wants one for his shoulder. - Tylenol and Motrin are not helping his pain. Physical Exam General: Cooperative, healthy appearing, comfortable, no acute distress and well developed Neck: Normal visual inspection and Yes full ROM. No cervical spinous tenderness noted. No step offs noted. Respiratory: Normal respiratory effort and able to speak in complete sentences. Clear to auscultation bilaterally Cardiovascular: Regular rate and rhythm. Normal S1 and S2 Skin: No rashes or lesions noted Neuro: Sensation intact. Extremities: Normal to inspection. FROM of the left shoulder. No click noted. Supination and pronation intact on the left. FROM of the left elbow, wrist. No TTP of the left SCM, clavicle, AC joint, bicipital groove, upper arm. Negative can test. Negative apprehension test. Negative lift off. Hand repairer handtools is intact. Strength is 5/5 on the UE bilaterally. Patient was informed and verbally consented to the use of an ambient scribe for clinic note documentation during this visit. [facility] Medical History Osteoarthritis of wrist COPD (chronic obstructive pulmonary disease) Claudication Occlusion of right femoral artery PVD (peripheral vascular disease) with claudication History of osteomyelitis HTN (hypertension) Pulmonary nodule Onychomycosis Chronic right hip pain Nicotine dependence, cigarettes, uncomplicated Surgical History History of cataract surgery (~2015) Status post reconstruction procedure (~1977) History of fracture of clavicle (~2010) Thumb laceration Thumb fracture History of femur fracture Family History Father Lung cancer Smoker Mother Myocardial infarction CVD (cardiovascular disease) Maternal Grandfather No problems noted. Maternal Grandmother No problems noted. Paternal Grandfather No problems noted. Paternal Grandmother No problems noted. Brother HTN (hypertension) Sister No problems noted. 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 needs: No Hearing needs: No Vision needs: Yes Review of Systems Const All systems reviewed & are unremarkable except as noted in HPI and below Physical Exam Vital Signs: Last Vital Signs Temp 97.8 F 05/22/25 12:55 Pulse 101 H 05/22/25 12:55 BP 132/70 05/22/25 12:55 Pulse Ox 94 05/22/25 12:55 BMI result Body Mass Index 22.7 Results Reviewed Results Reviewed: Reviewed the shoulder x-ray in the office today Assessment & Plan Assessment & Plan (1) Shoulder pain, left: Code(s): M25.512 - Pain in left shoulder Qualifiers: Chronicity: acute Qualified Code(s): M25.512 - Pain in left shoulder Plan Most likely arthritis vs AC separation vs tendonitis vs bursitis Plan - Rest, ice, and elevation - offerered him a sling and he did not want one - Order an X-ray of the shoulder to assess for any structural abnormalities. - Schedule physical therapy to improve shoulder function and alleviate pain. - Prescribe pain medication to manage symptoms. - Referral to the patient's regular doctor, Mata GARCIA, for further management. - May need a referral to ortho for an injection Orders: Orders PT Evaluation and Treatment Today M25.512 - Pain in left shoulder XR shoulder LT min 2V Today M25.512 - Pain in left shoulder Medications: New diclofenac sodium 3% 1 appl topical BID 100 grams 0RF naproxen 500 mg PO Q12H PRN 20 tabs 0RF pain 7 days Coding Level of Care Code Est Pt Level 4 (14202) Diagnoses Acute pain of left shoulder M25.512 Chronicity: acute
[2025-05-22 12:55] VITALS: BP 132/70; PULSE 101; TEMP 36.6; O2SAT 94; BMI 22.7
== END 2025-05-22 13:52 | disposition home or self-care (01) ==
PROVIDERS: PCP Nurse Practitioner Family; Visit Provider Physician Assistant Medical
DX: M25.512 Pain in left shoulder (principal)

== ENCOUNTER 2025-05-22 13:16 | Outpatient (REF) | payer MEDICARE, MEDICAID, SELFPAY ==
--- NOTE | ~2025-05-22 | XR_ITS ---
EXAMINATION: XR SHOULDER, LEFT CLINICAL INFORMATION: M25.512 - Pain in left shoulder COMPARISON: None available. TECHNIQUE: AP external rotation, Grashey, scapular Y, and axillary views of the left shoulder. FINDINGS: Subchondral cyst formation along the articular surface of the acromioclavicular joint and greater tuberosity of the humerus near the supraspinatus tendon insertion. No acute cortical disruption or malalignment. No lytic or blastic lesions. XR/XR shoulder LT min 2V IMPRESSION: Degenerative changes, left shoulder. Electronically signed by: Severino Oliveros MD 05/22/2025 01:34 PM EDT
== END 2025-05-22 13:17 | disposition home or self-care (01) ==
LOC: HO.HMGCX 13:16
PROVIDERS: PCP Nurse Practitioner Family; Visit Provider Physician Assistant Medical
DX: M25.512 Pain in left shoulder (principal); M54.2 Cervicalgia; Z79.82 Long term (current) use of aspirin; Z79.02 Long term (current) use of antithrombotics/antiplatelets; Z79.1 Long term (current) use of non-steroidal anti-inflammatories (NSAID); Z79.899 Other long term (current) drug therapy
CPT/HCPCS: 73030; 99212

== ENCOUNTER → 2025-05-22 13:23 | Outpatient (BNV) | payer MEDICARE, MEDICAID, SELFPAY | PROVIDERS: PCP Nurse Practitioner Family; Visit Provider Radiology Diagnostic Radiology | DX: M19.012 Primary osteoarthritis, left shoulder (principal) | CPT/HCPCS: 73030 ==

== ENCOUNTER 2025-06-19 10:24 | Outpatient (REF) | payer MEDICARE, MEDICAID, SELFPAY ==
--- NOTE | ~2025-06-19 | US_ITS ---
CLINICAL HISTORY: R09.89 - BRUIT US bilateral carotid duplex Comparison: None provided Findings: Moderate to severe calcific atherosclerotic plaques at bilateral carotid bulbs, proximal ICAs and ECAs, causing moderate stenosis, worse on the left. Cardiac arrhythmia noted. Peak systolic velocities: Right CCA: 65.7 cm/s Right ICA: 128 cm/s ICA/CCA ratio: 1.9 Right ECA: 203 cm/s Right vertebral and subclavian artery flow antegrade. Left CCA: 241 cm/s distally, 104 cm/s proximally Left ICA: 139 cm/s ICA/CCA ratio: 0.57 Left ECA: 163 cm/s Left vertebral and subclavian artery flow antegrade. Impression: 1. Atherosclerotic disease, elevated peak systolic velocities of the internal carotid arteries suggestive of moderate stenosis (50-79%). 2. Suspect right ECA and left distal CCA stenosis as well. 3. Cardiac arrhythmia. This document has been electronically signed by: Jeanine Villa MD on 06/19/2025 14:44:02
--- OUTSIDE RECORDS SUMMARY | 2025-06-19 11:02 | XMS_ITS | Clinical Summary ---
Author Organization [facility] Address [address] [place] [phone] Phone Care Team Providers Care Accounting Specialist Name Role Phone Mata Pan NP Primary Care Provider + Allergies No known active allergies Medications atorvastatin (LIPITOR) 40 MG tablet Take 40 mg by mouth nightly at bedtime. 3 Active cholecalcifero l (VITAMIN D3) 2,000 unit tablet Take 1 tablet by mouth every morning. 3 Active dilTIAZem (CARDIZEM) 120 MG immediate release tablet Take 1 tablet by mouth every morning. 3 Active simethicone (MYLICON) 80 mg chewable tablet CHEW AND SWALLOW 1 TABLET BY MOUTH 2 OR 3 TIMES DAILY NEEDED FOR GAS 3 Active tamsulosin (FLOMAX) 0.4 mg Cap take 1 capsule by mouth once daily at bedtime 3 Active PULMICORT FLEXHALER 180 mcg/actuation inhaler 4 Active losartan (COZAAR) 25 MG tablet Take 1 tablet by mouth every morning. 4 Active aspirin 81 MG EC tablet Take 81 mg by mouth daily. Active cilostazol (PLETAL) 100 MG tabletIndicati ons:Medication refill Take 1 tablet (100 mg total) by mouth 2 (two) times a day. 180 tablet 3 5 Active clopidogrel (PLAVIX) 75 mg tablet TAKE 1 TABLET BY MOUTH EVERY DAY 90 tablet 3 5 Active ipratropium-al buteroL (DUONEB) 0.5-3 mg (2.5 mg base)/3 mL nebulizer solution INHALE 1 AMPULE USING A NEBULIZER FOUR TIMES DAILY NEEDED (for COPD) 5 Active pantoprazole (PROTONIX) 20 MG tablet Take 1 tablet by mouth every morning. 5 Active VENTOLIN HFA 90 mcg/actuation inhaler INHALE 2 PUFFS BY MOUTH EVERY 4 TO 6 HOURS NEEDED FOR WHEEZING 3 05/21/20 Discontinu ed(No longer taking) omeprazole (PRILOSEC) 20 MG capsule Take 1 capsule by mouth every morning. 3 05/21/20 Discontinu ed(No longer taking) SPIRIVA WITH HANDIHALER 18 mcg inhalation capsule USE 1 CAPSULE FOR INHALATION ONCE A DAY DO NOT SWALLOW CAPSULE 3 05/21/20 Discontinu ed(No longer taking) varenicline (CHANTIX FLORENCE) 0.5 mg (11)- 1 mg (42) tablet take as directed on package 4 05/21/20 Discontinu ed(No longer taking) Active Problems Problem Noted Date Diagnosed Date PVC's (premature ventricular contractions) 05/21 Assessment & Plan (05/21/2025 12:11 PM EDT): EKG today showing sinus rhythm rate 88 bpm, normal axis, no significant ST or T wave abnormalities, there are frequent PVCs present. He does have notable shortness of breath, also with known COPD, wheezing on exam. Updating echocardiogram Will get 7-day MCT monitor to evaluate PVC burden Shortness of breath 09/14/2023 Assessment & Plan (05/21/2025 12:10 PM EDT): This is been ongoing with his COPD. Additionally he does have frequent PVCs seen on his EKG today. Updating echocardiogram/MCT monitor. Assessment & Plan (04/16/2024 12:38 PM EDT): Getting better since he stopped smoking in February Peripheral arterial disease 09/14/2023 Assessment & Plan (05/21/2025 12:09 PM EDT): This been managed conservatively with Pletal and exercise and smoking sensation. He still has ongoing symptoms of claudication in his right leg. We did discuss possible referral for vascular surgery which he is not interested in at this time. Continue Pletal 100 mg twice daily Continue Plavix 75 mg daily Assessment & Plan (12/11/2024 1:42 PM EST): As mentioned we are going to try conservative management with an exercise program smoking cessation and Pletal Assessment & Plan (05/14/2024 12:37 PM EDT): He has a completely occluded which is a flush occlusion of the SFA on the right with reconstitution at the adductor hiatus he is currently getting Pletal 50 twice a day with some relief we are going to up this to 100 twice a day. Assessment & Plan (04/16/2024 12:37 PM EDT): He has significant symptomatic right lower extremity arterial disease which we will repair percutaneously. Assessment & Plan (09/14/2023 1:11 PM EDT): As mentioned he has an occluded SFA on the right which is moderately symptomatic on Pletal we will check this twice a year Benign essential hypertension 09/14/2023 Assessment & Plan (05/21/2025 12:09 PM EDT): Well-controlled on current medication Assessment & Plan (12/11/2024 1:41 PM EST): Well-controlled to the guidelines. Assessment & Plan (09/14/2023 1:11 PM EDT): Well-controlled at this time Pure hypercholesterolemia 09/14/2023 Assessment & Plan (05/21/2025 12:16 PM EDT): Continue atorvastatin Assessment & Plan (12/11/2024 1:42 PM EST): LDL should be less than 70 mg/dL given the guidelines. Assessment & Plan (05/14/2024 12:37 PM EDT): On high intensity statin therapy LDL should be less than 70 mg/dL. Assessment & Plan (04/16/2024 12:38 PM EDT): He should be on high intensity statin therapy LDL should be less than 70 mg/dL Assessment & Plan (09/14/2023 1:11 PM EDT): LDL should be less than 70 mg/dL by the guidelines Smoker 09/14/2023 Assessment & Plan (12/11/2024 1:42 PM EST): I counseled him at least 10 minutes during my encounter about smoking cessation. Assessment & Plan (05/14/2024 12:36 PM EDT): This patient quit smoking in February of this year Assessment & Plan (04/16/2024 12:38 PM EDT): He is no longer a smoker and quit in February which I congratulated him on Assessment & Plan (09/14/2023 1:12 PM EDT): I strongly counseled this patient at least 10 minutes today on smoking cessation Encounters Date Type Department Care Team Description 06/10/2025 Orders Only [facility] [address], [address] [place] [address] Carina Galindo CNP Peripheral arterial disease (Primary Dx) 06/10/2025 Telephone [facility] [address], [address] [place] [address] Carina Galindo CNP 06/04/2025 11:23 AM EDT - 06/04/2025 11:59 PM EDT Hospital Encounter [facility] [place] [address] Carina Galindo CNP Discharge Disposition: Home or Self Care 05/21/2025 11:30 AM EDT Office Visit [facility] [address], [address] [place] [address] Carina Galindo CNP Benign essential hypertension (Primary Dx); Palpitations; Shortness of breath; Peripheral arterial disease; PVC's (premature ventricular contractions); Pure hypercholesterolemia 05/21/2025 Procedure Pass [facility] [address] [place] [address] 04/04/2025 Refill [facility] [address], [address] [place], [place] [id number] John Cortez, Medication Refill from Last 3 Months Social History Tobacco Use Types Packs/Day Years Used Date Smoking Tobacco: Former Cigarettes Smokeless Tobacco: Never Tobacco Cessation:Counseling Given: Not Answered Alcohol Use Standard Drinks/Week Comments Not Currently 0 (1 standard drink = 0.6 oz pur e alcohol) Education Answer Date Recorded Are you interested in more education? Not on huma e 07/04/2023 Are you concerned about learning? Not on file 07/04/2023 No 07/04/2023 No 07/04/2023 Digital Access Answer Date Recorded No 07/04/2023 No 07/04/2023 Reliable internet access at home? Not on file 07/04/2023 Device with a working camera? Not on file Intimate Partner Violence Answer Date R ecorded Are you denied basic needs s uch as food, clothing, or medical care? No 05/09/2024 In the past 12 months have y ou been in a relationship with a person who hurts, threatens, or tries to control you? No 05/09/2024 Are you denied basic needs s uch as food, clothing, or medical care? No 05/09/2024 In the past 12 months have y ou been in a relationship with a person who hurts, threatens, or tries to control you? No 05/09/2024 Sex and Gender Information Value Date Recorded Sex Assigned at Not on file Legal Sex Male 9:54 PM EDT Gender Identity Not on file Sexual Orientation Not on file Last Filed Vital Signs Vital Sign Reading Time Taken Comments Blood Pressure 120/60 05/21/2025 11:25 AM EDT Pulse 91 05/21/2025 11:25 AM EDT Temperature - - Respiratory Rate 18 05/09/2024 11:00 AM EDT Oxygen Saturation 95% 05/21/2025 11:25 AM EDT Inhaled Oxygen Concentration - - Weight 71.7 kg (158 lb) 05/21/2025 11:25 AM EDT Height 177.8 cm (5' 10 ) 05/21/2025 11:25 AM EDT Body Mass Index 22.67 05/21/2025 11:25 AM EDT Plan of Treatment Upcoming Encounters Date Type Department Care Team (Late st Contact Info) Description 05/21/2025 Procedure [facility] [address] [place] [address] 07/11/2025 2:30 PM EDT Appointment [facility] [address] [place] [address] Carina Galindo, SALES AND MARKETING AGENT [address] [place] [address] [email or web address] 08/19/2025 11:00 AM EDT Office Visit [facility] [address] [place] [address] Dr [address] Floor, [address] [place] [address] Carina Galindo, SALES AND MARKETING AGENT [address] [place] [id number] [email or web address] Health Maintenance Due Date Last Done Comments CREATININE LEVEL 1956 LIPID PANEL 1956 POTASSIUM LEVEL 1956 DEPRESSION SCREENING 1968 SMOKING Hx and SMOKELESS TOBACCO SCREENING 1969 HEPATITIS C SCREENING 1974 COLOGUARD 2001 COLONOSCOPY 2001 COLORECTAL CANCER SCREENING 2001 FIT TEST 2001 FOBT 2001 SIGMOIDOSCOPY 2001 VIRTUAL COLONOSCOPY 2001 COVID-19 VACCINE ( season) 2024 08/13/2022, 12/31/2021, 03/05/2021, Additional history exists BLOOD PRESSURE 11/21/2025 05/21/2025 Adult Td,Tdap Booster 06/22/2031 06/22/2021 , 11/26/2015, 07/14/2010 PNEUMOCOCCAL VACCINES (50+ years) Completed 12/01/2022, 09/13/2016, 05/14/2011 ZOSTER VACCINES Completed 06/25/2023, 12/09/2022 RSV VACCINE Completed 12/20/2023 ABDOMINAL AORTIC ANEURYSM (AAA) SCREENING Completed 04/03/2024 HEPATITIS A VACCINES Aged Out No long er eligible based on patient's age to complete this topic HIB VACCINES Aged Out No longer eligi ble based on patient's age to complete this topic MENINGOCOCCAL VACCINES (ACWY) Aged Out No longer eligible based on patient's age to complete this topic MENINGOCOCCAL VACCINES (B) Aged Out N o longer eligible based on patient's age to complete this topic Medical Devices Not on file Procedures Procedure Name Priority Date/Time Associated Diagnosis Comments US AORTA DUPLEX COMPLETE Routine 04/03/2024 2:08 PM EDT Iliac artery stenosis, bilateral from Last 3 Months or Most Recently Relevant to Health Maintenance Results * US Aorta Duplex Complete (04/03/2024 2:08 PM EDT) Right RAMA 55.00 cm/sec Left RAMA 138.00 cm/sec Anatomical Region Laterality Modality Aorta Ultrasound Narrative 04/05/2024 8:11 AM EDT No evidence of AAA. Right Common iliac artery velocities are within normal limits. External Iliac artery velocities indicate > 50% stenosis mid. Left Common Iliac artery velocities indicate >50% stenosis. Distal External Iliac artery velocities >50% stenosis distally. Right common iliac measures 1.2 cm Left common iliac measures 1.5 cm There is moderate stenosis in the right external iliac, right common femoral artery and occlusion of the right SFA. There is moderate to severe stenosis in the left external iliac artery and moderate to severe stenosis in the proximal left superficial femoral artery. Abdominal Aorta AORTA ; Aorta: Prox: 2 cm; 105cm/sec Mid: 2 cm; 39 cm/sec Distal: 46 cm/sec Right Common Iliac Artery: Prox: 55cm/sec Distal: 88 cm/sec Diameter: 1.1x 1.2cm Right External Iliac Artery: Prox: 127 cm/sec Mid: 244 cm/sec (>50% stenosis) Distal: 174 cm/sec Left Common Iliac Artery: Prox: 138cm/sec Distal: 154 cm/sec Diameter: 1x 1.5cm Left External Iliac Artery: Prox: 96 cm/sec Mid: 159 cm/sec Distal: 307 cm/sec RIGHT COMMON ILIAC ARTERY Findings: normal LEFT COMMON ILIAC ARTERY Findings: stenosis Stenosis: >50% Introductory Comments Techniques used for this study included: color flow Doppler and spectral waveform Doppler. us John Christopher Yango DO IMG US ABDOMEN Final Result from Last 3 Months or Most Recently Relevant to Health Maintenance Insurance MEDICARE PART A & B [employer] MEDICARE PART A & [place] [facility] [place] [facility] [employer] Care Teams Accounting Specialist Relationship Specialty Start Date End Date Mata Pan NP [address] [facility] [place] [address] [email or web address] PCP - General Nurse Practitioner 09/14/23 Additional Source Comments The information contained in this document represents components of the legal health record. It is not the complete legal health record.[facility]
== END 2025-06-19 10:25 | disposition home or self-care (01) ==
LOC: HO.HMGCX 10:24
PROVIDERS: PCP Nurse Practitioner Family; Visit Provider Nurse Practitioner Family
DX: R09.89 Other specified symptoms and signs involving the circulatory and respiratory systems (principal)
CPT/HCPCS: 93880

== ENCOUNTER → 2025-06-19 10:38 | Outpatient (BNV) | payer MEDICARE, MEDICAID, SELFPAY | PROVIDERS: PCP Nurse Practitioner Family; Visit Provider Radiology Diagnostic Radiology | DX: R09.89 Other specified symptoms and signs involving the circulatory and respiratory systems (principal); I25.10 Atherosclerotic heart disease of native coronary artery without angina pectoris; I49.9 Cardiac arrhythmia, unspecified | CPT/HCPCS: 93880 ==

== ENCOUNTER 2025-07-08 10:58 | Outpatient (AMB) | payer MEDICARE, MEDICAID, SELFPAY ==
--- NOTE | 2025-07-08 11:06 | A.OFFVIS_ITS ---
Vital Signs 07/08/25 11:07 Weight 153 lb 3.54 oz BP 126/60 Blood Pressure Location Lt brachial Position Sitting Respiration 20 Pulse 98 Pulse Source Pulse Oximeter Pulse Oximetry (%) 96 Oxygen Delivery Method Room Air Intake Visit Reasons: COPD Jewelry Bearing Maker Required: No Allergies No Known Allergies Allergy (Verified 07/08/25 11:39) Medication List - Last Reconciled 07/08/25 by Melanie Castellanos MD albuterol sulfate 90 mcg/actuation (Ventolin HFA) 2 puffs PO Q4-6H PRN aspirin (Adult Aspirin Regimen) 81 mg PO DAILY atorvastatin 40 mg PO BEDTIME 90 days budesonide 0.5 mg (2 mL) inhalation BID cholecalciferol (vitamin D3) 50 mcg PO DAILY 90 days cilostazol 100 mg PO BID clopidogrel 75 mg PO DAILY diclofenac sodium 3% 1 appl topical BID diltiazem HCl 120 mg PO DAILY ipratropium-albuterol 0.5 mg-3 mg(2.5 mg base)/3 mL 3 mL inhalation QID 30 days losartan 25 mg PO DAILY naproxen 500 mg PO Q12H PRN 7 days nebulizers ([employer] misc) As directed pantoprazole 20 mg PO DAILY simethicone (Gas Relief (simethicone)) 80 mg PO TID PRN tamsulosin 0.4 mg PO BEDTIME tiotropium bromide (Spiriva with HandiHaler) 1 cap inhalation DAILY Do you need a note to return to daycare/school/sports/work: No HPI HPI COPD: Details: This 69 years old gentleman comes after 4 months for his routine follow-up Claims that his breathing has been relatively stable in the last 4 months. Only on hot and humid days he gets little more congested and short of breath. He is using budesonide solution in the nebulizer when using b.i.d., also ipratropium-albuterol solution in the nebulizer and uses 4 times a day. He quit smoking cigarettes but still smokes pot ,four times a day He still has frequent cough his relatively easier for him to expectorates mucus, with the use of nebulizer. [facility] Medical History Osteoarthritis of wrist COPD (chronic obstructive pulmonary disease) Claudication Occlusion of right femoral artery PVD (peripheral vascular disease) with claudication History of osteomyelitis HTN (hypertension) Pulmonary nodule Onychomycosis Chronic right hip pain Nicotine dependence, cigarettes, uncomplicated Surgical History History of cataract surgery (~2015) Status post reconstruction procedure (~1977) History of fracture of clavicle (~2010) Thumb laceration Thumb fracture History of femur fracture Family History Father Lung cancer Smoker Mother Myocardial infarction CVD (cardiovascular disease) Maternal Grandfather No problems noted. Maternal Grandmother No problems noted. Paternal Grandfather No problems noted. Paternal Grandmother No problems noted. Brother HTN (hypertension) Sister No problems noted. 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 needs: No Hearing needs: No Vision needs: Yes Review of Systems Const All systems reviewed & are unremarkable except as noted in HPI and below Eyes Reports no additional complaints ENT Reports no additional complaints Card Denies chest pain, Denies irregular heart rhythm and Denies leg edema Resp Reports as per HPI GI Reports no additional complaints Reports no additional complaints Musc Reports myalgias (mild) Skin/Breast Reports system reviewed and no additional complaints, except as documented Neuro Reports no additional complaints Psych Reports no additional complaints Physical Exam Vital Signs: Last Vital Signs Pulse 98 07/08/25 11:07 Resp 20 07/08/25 11:07 BP 126/60 07/08/25 11:07 Pulse Ox 96 07/08/25 11:07 Oxygen Delivery Method Room Air 07/08/25 11:07 Const General: comfortable, no acute distress, alert and awake Orientation/consciousness: patient oriented x3 HEENT Head: Yes normal to inspection General nose exam: No nasal polyps present and No nasal discharge present Face and sinus: Yes sinuses nontender Mouth: oropharynx normal Throat: Yes posterior oropharynx normal Eyes General: appearance normal, both eyes and all related structures Neck Neck: Yes normal visual inspection, Yes no lymphadenopathy, Yes trachea midline and Yes no JVD Thyroid: Thyroid normal Chest Chest palpation & inspection: normal inspection of the chest, normal palpation of entire chest wall and no tenderness Resp Other: Percussion note is resonant, breath sounds distant with prolonged expiratory phase. No wheezes crepitations or rhonchi are heard today. Cardio Palpation: normal PMI Rate: regular rate Rhythm: regular rhythm Heart sounds: no gallops and no murmurs GI Palpation (GI): Soft to palpation, nontender, No hepatosplenomegaly present and no masses Auscultation: normal bowel sounds Back/Spine/Pelvis Thoracic/Lumbar Spine: thoracic and lumbar spine normal to inspection and tho raco-lumbar ROM limited Skin General skin exam: no rashes or lesions noted and dry skin Neuro General: patient oriented x3 and no focal motor deficits Cranial nerves: Yes CN's II-XII intact bilaterally Extrem General: Yes normal to inspection, Yes no clubbing, cyanosis or edema and Yes no calf tenderness Psych Appearance: grossly normal Speech and movement: Normal speech and movement present Results Reviewed Results Reviewed: LDCT 11/05/24 ASSESSMENT: 1. Lung-RADS Category 2: Benign appearance or behavior of nodules. 2. Lung-RADS Category S: None Assessment & Plan Assessment & Plan (1) COPD (chronic obstructive pulmonary disease): Comment: HE HAS MODERATELY ADVANCED CHRONIC OBSTRUCTIVE PULMONARY DISEASE . AT PRESENT IT SEEMS TO BE STABLE. HIS MAIN SYMPTOM HAS BEEN COUGH AND DIFFICULTY IN EXPECTORATING. THE MUCUS NOW THAT HE USES THE NEBULIZER 4 TIMES A DAY HE FINDS IT EASIER TO BRING UP THE MUCUS. Code(s): J44.9 - Chronic obstructive pulmonary disease, unspecified Category: Medical Plan: CONTINUE USE NEBULIZER WITH IPRATROPIUM-ALBUTEROL SOLUTION Q 6 HOURS WHILE AWAKE ( 4 TIMES A DAY) ADD BUDESONIDE 0.5 MG SOLUTION IN THE NEBULIZER B.I.D.. (2) Pulmonary nodule: Comment: HE HAD A SEMI SOLID PULMONARY NODULE 4 X 8 MM IN LEFT UPPER LOBE. WHICH HAD DECREASED IN SIZE ON A FOLLOW-UP CT SCAN, CT SCAN ON 11/03/2023, BENIGN CATEGORY [address] scan on 11/05/24 IS READ FOLLOWS : ASSESSMENT: 1. Lung-RADS Category 2: Benign appearance or behavior of nodules. 2. Lung-RADS Category S: None Code(s): R91.1 - Solitary pulmonary nodule Category: Medical Plan: I WENT OVER THE FINDINGS IN DETAIL. ADVISED HIM THAT HE NEEDS TO KEEP ON GETTING LDCT OF THE CHEST Q 12 MONTHS (3) Nicotine dependence, cigarettes, uncomplicated: Comment: (Active smoker, x 50yrs, currently 1/4ppd, +fam hx lung ca) . He quit temporarily and went back to smoking. AT PRESENT HE STATES THAT HE IS NOT SMOKING AT LEAST FOR THE LAST 7-8 MONTHS. HE DOES SMOKE POT 3 TO 4 TIMES A DAY. Code(s): F17.210 - Nicotine dependence, cigarettes, uncomplicated Category: Medical Plan: Advise that he needs to keep on having LD CT of the chest once a year Medications: Refilled ipratropium-albuterol 0.5 mg-3 mg(2.5 mg base)/3 mL 3 mL inhalation QID 360 mL 4RF COPD/BRONCHITIS 30 days budesonide 0.5 mg (2 mL) inhalation BID 120 mL 3RF COPD/BRONCHITIS J44.9 - Chronic obstructive pulmonary disease, unspecified Coding Level of Care Code Est Pt Level 3 (06531) Diagnoses COPD (chronic obstructive pulmonary disease) J44.9 Pulmonary nodule R91.1 Nicotine dependence, cigarettes, uncomplicated F17.210
[2025-07-08 11:07] VITALS: BP 126/60; PULSE 98; RESP 20; O2SAT 96
--- OUTSIDE RECORDS SUMMARY | 2025-07-08 12:19 | XMS_ITS | Clinical Summary ---
Author Organization [facility] Address [address] [place] [id number] Phone Care Team Providers Care Forensic Psychologist Name Role Phone Mata Pan NP Primary Care Provider + Allergies No known active allergies Medications atorvastatin (LIPITOR) 40 MG tablet Take 40 mg by mouth nightly at bedtime. 3 Active cholecalciferol (VITAMIN D3) 2,000 unit tablet Take 1 [...] mouth daily. Active cilostazol (PLETAL) 100 MG tabletIndicatio ns:Medication refill Take 1 tablet (100 mg total) by mouth 2 (two) times a day. 180 tablet 3 5 Active clopidogrel (PLAVIX) 75 mg tablet TAKE 1 TABLET BY MOUTH EVERY DAY 90 tablet 3 5 Active ipratropium-alb uteroL (DUONEB) 0.5-3 mg (2.5 mg base)/3 mL nebulizer solution INHALE 1 AMPULE USING A NEBULIZER FOUR TIMES DAILY NEEDED (for COPD) 5 Active pantoprazole (PROTONIX) 20 MG tablet Take 1 tablet by mouth every morning. 5 Active Active Problems Problem Noted Date Diagnosed Date [...] Encounters Date Type Department Care Team Description 06/27/2025 Orders Only [facility] [address], [address] [place] [address] Carina Galindo CNP 06/10/2025 Orders Only [facility] [address], [address] [place] [address] Carina Galindo CNP Peripheral arterial disease (Primary Dx) 06/10/2025 Telephone [facility] [address], [address] [place] [address] Carina Galindo CNP 05/21/2025 11:30 AM EDT Office Visit [facility] [address], [address] [place] [address] Carina Galindo CNP Benign essential hypertension (Primary Dx); Palpitations; Shortness of breath; Peripheral arterial disease; PVC's (premature ventricular contractions); Pure hypercholesterolemia from Last 3 Months Social History Tobacco [...] Info) Description 05/21/2025 Procedure Pass [facility] [place] [address] [place] [address] 07/11/2025 2:30 PM EDT Appointment [facility] [place] [address] Carina Galindo, WIND TURBINE SERVICE TECHNICIAN [address] [place] [phone] 08/19/2025 11:00 AM EDT Office Visit [facility] [address], [address] [place] [address] Carina Galindo, ELIZABETH [address] [place] [id number] [email or web address] Health Maintenance Due Date Last Done Comments [...] Procedure Name Priority Date/Time Associated Diagnosis Comments OUTSIDE MONITOR Routine 06/27/2025 10:05 AM EDT US AORTA DUPLEX COMPLETE Routine 04/03/2024 2:08 PM EDT Iliac artery stenosis, bilateral from Last 3 Months or Most Recently Relevant to Health Maintenance Results * Outside Monitor Report Only (06/27/2025 10:05 AM EDT) Carina Galindo [facility] Final Result * US Aorta Duplex Complete (04/03/2024 2:08 [...] color flow Doppler and spectral waveform Doppler. John Cortez DO IMG US ABDOMEN Final Result from Last 3 Months or Most Recently Relevant to Health Maintenance Insurance MEDIC[facility] PART A & [facility] & B [place] [facility] PART [facility] & [facility] Care Teams Forensic Psychologist Relationship Specialty Start Date End Date Mata Pan NP [address] [place] [address] PCP - General Nurse Practitioner 09/14/23 Additional Source Comments The information contained in this document represents components of the legal health record. It is not the complete legal health record.[facility]
== END 2025-07-08 11:40 | disposition home or self-care (01) ==
LOC: HO.HPS 10:59
PROVIDERS: PCP Nurse Practitioner Family; Visit Provider Internal Medicine
DX: J44.9 Chronic obstructive pulmonary disease, unspecified (principal); R91.1 Solitary pulmonary nodule; F17.210 Nicotine dependence, cigarettes, uncomplicated
CPT/HCPCS: 99213

== ENCOUNTER → 2025-07-08 10:58 | Outpatient (BNVA) | payer MEDICARE, MEDICAID, SELFPAY | PROVIDERS: PCP Nurse Practitioner Family; Visit Provider Internal Medicine | DX: J44.9 Chronic obstructive pulmonary disease, unspecified (principal); R91.1 Solitary pulmonary nodule; F17.210 Nicotine dependence, cigarettes, uncomplicated | CPT/HCPCS: 99212 ==

== ENCOUNTER 2025-08-22 12:55 | Outpatient (AMB) | payer MEDICARE, MEDICAID, SELFPAY ==
[2025-08-22 12:57] VITALS: BP 140/70; PULSE 113; RESP 16; TEMP 36.5; O2SAT 98; BMI 20.7
--- NOTE | 2025-08-22 12:57 | MHC.PC.OV ---
Vital Signs 08/22/25 12:57 Height 5 ft 10 in Weight 144 lb BMI 20.7 BP 140/70 H Blood Pressure Location Lt brachial Position Sitting Respiration 16 Pulse 113 H Pulse Source Pulse Oximeter Temp 97.7 F Temp Source Oral Pulse Oximetry (%) 98 Oxygen Delivery Method Room Air Intake Visit Reasons: ED follow up Clearance Rep Required: No Accompanied by: Self / Same As Patient Allergies No Known Allergies Allergy (Verified 08/22/25 13:03) Tobacco use date assessed: 08/22/25 Dental Screening Dental Screen Date: 01/07/25 HPI HPI Comments History of Present Illness Details Patient is a 69-year-old male with a past medical history of HTN, HLD, PVD and COPD who is here for an ED discharge follow-up. On August 14, he went to the [facility] emergency department complaining of increased sputum production worsening cough and was found to be hypoxic with out pneumonia on his chest x-ray but a concern for a COPD exacerbation. He was negative for Flu, covid and rsv. He was admitted, treated with DuoNebs and p.r.n. albuterol, 500 azithromycin for 3 days. She was additional initially on 4 L nasal cannula but titrated down to room air, he was also given 1 dose of 40 mg IV Lasix as his proBNP was mildly elevated in the 800s. He was discharged on August 17 on his home albuterol/ipratropium inhaler, budesonide and a 12 day prednisone taper. He was evaluated for home oxygen and found not to need it he did not qualify he was counseled on smoking cessation. Today, he states he is still struggling to breathe, he feels like he cannot take a deep breath. He has discontinued Spiriva as per event services manager's advice and is using the Duonebs 4x/day and budesonide BID with his albuterol inhaler as needed. He tells me he has needed it twice in the last 5 days since his discharge. He is on his second day of 30mg prednisone taper. He is coughing a lot and experiences muscle spasms when coughing, he is asking for a medication to help with that. General: Cooperative, healthy appearing, comfortable, no acute distress and well developed Orientation: Patient oriented x3 Limitations: No limitations Head: Normal to inspection Ears: Hearing grossly normal bilaterally Nose: Normal External nose present Face and sinus: Normal facial exam Eyes: Appearance normal, both eyes and all related structures Neck: Normal visual inspection and Yes full ROM Respiratory: Increased respiratory effort, able to speak in complete sentences. no wheezes or rales but slight rhonchi throughout, Cardiac: tachycardic rate and rhythm, Normal S1 and S2, no murmurs, rubs or gallops Skin: No rashes or lesions noted Neuro: Patient oriented x3, gait normal Extremities: Normal to inspection Review of Systems - Respiratory: Reports dyspnea and occasional use of a rescue inhaler. Denies persistent cough or wheezing. - Musculoskeletal: Reports muscle spasms associated with coughing. All systems reviewed and are unremarkable except as noted in HPI [facility] Medical History Osteoarthritis of wrist COPD (chronic obstructive pulmonary disease) Claudication Occlusion of right femoral artery PVD (peripheral vascular disease) with claudication History of osteomyelitis HTN (hypertension) Pulmonary nodule Onychomycosis Chronic right hip pain Nicotine dependence, cigarettes, uncomplicated Surgical History History of cataract surgery (~2015) Status post reconstruction procedure (~1977) History of fracture of clavicle (~2010) Thumb laceration Thumb fracture History of femur fracture Family History Father Lung cancer Smoker Mother Myocardial infarction CVD (cardiovascular disease) Maternal Grandfather No problems noted. Maternal Grandmother No problems noted. Paternal Grandfather No problems noted. Paternal Grandmother No problems noted. Brother HTN (hypertension) Sister No problems noted. 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 Cognitive needs: No Hearing needs: No Vision needs: Yes Questionnaire Thrive Questionnaire Date Thrive assessed: 01/07/25 I am a: Patient What is your living situation today?: I have a steady place to live Within the past 12 months, did the food you bought not last and you didn't have the money to get more?: Never true Within the past 12 months, did you worry whether your food would run out before you got money to buy more?: Never true Do you have trouble paying for medicines?: No Do you have trouble getting transportation to medical appointments?: No Do you have trouble paying your heating and electricity bill?: No Do you have trouble taking care of your child, family member or friend?: No Do you have trouble with day-to-day activities such as bathing, preparing meals, shopping, managing finances, etc.?: No Are you currently unemployed and looking for a job?: No Are you interested in more education?: No Please select the resources that you would like help with: None Currently or been in a relationship where the following occur: No concerns reported THRIVE Score: 0 GLADYS-7 AMB Questionnaire GLADYS-7 Date GLADYS - 7 assessed: 01/07/25 Source: Developed by Drs. Jose Gauthier, Barbi Rubio, Cristofer Agudelo and colleagues, with an educational sujatha from [employer]. Physical exam (Primary Care) Vital Signs: Last Vital Signs Temp 97.7 F 08/22/25 12:57 Pulse 113 H 08/22/25 12:57 Resp 16 08/22/25 12:57 BP 140/70 H 08/22/25 12:57 Pulse Ox 98 08/22/25 12:57 Oxygen Delivery Method Room Air 08/22/25 12:57 BMI result Body Mass Index 20.7 Tobacco/Smoking Status: Tobacco use Status Tobacco use date assessed 08/22/25 08/22/25 13:01 Patient Tobacco Use Status Current someday Tobacco 08/22/25 13:03 Tobacco use type Cigarette 08/22/25 13:01 e-Cigarette/Vaping Use Never Used 08/22/25 13:01 Thrive Assessment: Date of Thrive Assessment Date Thrive assessed 01/07/25 08/22/25 13:01 Currently or been in a relationship where the following occur: No concerns reported Coding Level of Care Code Est Pt Level 5 (24072) Diagnoses Hospital discharge follow-up Z09 COPD exacerbation J44.1 Assessment & Plan Assessment & Plan (1) Hospital discharge follow-up: Code(s): Z09 - Encounter for follow-up examination after completed treatment for conditions other than malignant neoplasm Category: Medical Plan: Assessment and Plan 1. Chronic Obstructive Pulmonary Disease (COPD) exacerbation possibly due to PNA - Continue nebulizer treatments with Duonebs and budesonide. - A chest x-ray and Full viral panel are ordered. CXR had only a right sided linear density which the Rads called stable but I do not see on previous XRs, no acute issues however I will treat for CAP as pt is not getting better since discharge. Sent Augmentin to pharmacy. Sent azithromycin 500mg x 3 days for COPD exacerbation - As pt is dyspneic, tachycardic and smokes, cannot PERC out, will get D dimer to try to rule out PE. Pt has had D-dimers in 2021 which were WNL. He is aware if it is elevated, he needs to go to the ED to get a CTA to rule out PE. - Contacted event services manager to expedite follow-up, he now has an appt on 08/27 2. Muscle spasms - Prescribed muscle relaxant. - Advise avoiding alcohol and operating machinery or a vehicle while on medication. Patient was informed and verbally consented to the use of an ambient scribe for clinic note documentation during this visit. (2) COPD exacerbation: Code(s): J44.1 - Chronic obstructive pulmonary disease with (acute) exacerbation Category: Medical Plan: as above Orders: Orders Resp [place] [facility] [place] Today J06.9 - Acute upper respiratory infection, unspecified D Dimer High Sensitivity Today R06.00 - Dyspnea, unspecified XR chest 2V Today R05.9 - Cough, unspecified Medications: New cyclobenzaprine 5 mg PO Q8H PRN 20 tabs 0RF Muscle Spasm azithromycin 500 mg (2 x 250 mg) PO DAILY 6 tabs 0RF 3 days amoxicillin-pot clavulanate 875-125 mg 1 tab PO Q12H 14 tabs 0RF
== END 2025-08-22 14:34 | disposition home or self-care (01) ==
LOC: HO.HMCC 12:56
PROVIDERS: PCP Nurse Practitioner Family; Visit Provider Physician Assistant
DX: J44.1 Chronic obstructive pulmonary disease with (acute) exacerbation (principal); Z09 Encounter for follow-up examination after completed treatment for conditions other than malignant neoplasm

== ENCOUNTER 2025-08-22 12:55 | Outpatient (REF) | payer MEDICARE, MEDICAID, SELFPAY ==
--- NOTE | ~2025-08-22 | XR_ITS ---
EXAMINATION: XR CHEST CLINICAL INFORMATION: R05.9 - Cough, unspecified COMPARISON: 11/08/2024 TECHNIQUE: 2 views of the chest were obtained. FINDINGS: Again seen is linear density projecting in the region of the minor fissure in the right chest. Mildly coarse lung markings are visible, right greater than left, similar to the prior. Heart size is within normal limits. There is undulating contour of multiple posterior lateral right ribs consistent with healed fractures, unchanged. Flowing osteophytes are present in the thoracic spine and there is minimal disc space narrowing. XR/XR chest 2V IMPRESSION: No acute disease. Stable chronic changes. Electronically signed by: Matheus Kowalski MD 08/22/2025 01:43 PM EDT
[2025-08-22 17:18] LABS: D Dimer High Sensitivity 244 NG/ML
[2025-08-23 09:30] LABS: Chlamydia pneumoniae PCR Not Detected (Not Detect.); Coronavirus 229E PCR Not Detected (Not Detect.); Coronavirus HKU1 PCR Not Detected (Not Detect.); Coronavirus NL63 PCR Not Detected (Not Detect.); Coronavirus OC43 PCR Not Detected (Not Detect.); RSV PCR Not Detected (Not Detect.); Rhino/Enterovirus PCR Detected (Not Detect.); SARS-CoV-2 PCR Not Detected (Not Detect.)
[2025-08-23 09:42] LABS: Influenza A H1 PCR Not Detected (Not Detect.); Influenza A H1-2009 PCR Not Detected (Not Detect.); Influenza A H3 PCR Not Detected (Not Detect.)
== END 2025-08-22 12:56 | disposition home or self-care (01) ==
LOC: HO.HMGCX 12:55
PROVIDERS: PCP Nurse Practitioner Family; Visit Provider Physician Assistant
DX: Z09 Encounter for follow-up examination after completed treatment for conditions other than malignant neoplasm (principal); J44.1 Chronic obstructive pulmonary disease with (acute) exacerbation; R05.9 Cough, unspecified; R06.00 Dyspnea, unspecified; J06.9 Acute upper respiratory infection, unspecified; F17.210 Nicotine dependence, cigarettes, uncomplicated
CPT/HCPCS: 36415; 71046; 85379; 87633; 99212

== ENCOUNTER → 2025-08-22 13:23 | Outpatient (BNV) | payer MEDICARE, MEDICAID, SELFPAY | PROVIDERS: PCP Nurse Practitioner Family; Visit Provider Radiology Diagnostic Radiology | DX: R05.9 Cough, unspecified (principal) | CPT/HCPCS: 71046 ==

== ENCOUNTER 2025-08-27 15:11 | Outpatient (AMB) | payer MEDICARE, MEDICAID, SELFPAY ==
[2025-08-27 15:17] VITALS: BP 122/62; PULSE 105; O2SAT 95; BMI 21.3
--- NOTE | 2025-08-27 15:17 | A.OFFVIS_ITS ---
Vital Signs 08/27/25 15:17 Height 5 ft 10 in Weight 148 lb 12.992 oz BMI 21.3 BP 122/62 Blood Pressure Location Lt brachial Position Sitting Pulse 105 H Pulse Source Pulse Oximeter Pulse Oximetry (%) 95 Oxygen Delivery Method Room Air Intake Visit Reasons: COPD Intake Note: pt is here for follow up was in ER at [facility] for his copd, was given prednisone and 2 antibiotics, felt good for a few days but since Tuesday he feels like it is starting, phelgm he cannot get out, breathing slightly labored. His head feels full Quantitative Research Analyst Required: No Allergies No Known Allergies Allergy (Verified 08/27/25 15:44) Medication List - Last Reconciled 08/27/25 by Melanie Castellanos MD albuterol sulfate 90 mcg/actuation (Ventolin HFA) 2 puffs PO Q4-6H PRN amoxicillin-pot clavulanate 875-125 mg 1 tab PO Q12H aspirin (Adult Aspirin Regimen) 81 mg PO DAILY atorvastatin 40 mg PO BEDTIME 90 days budesonide 0.5 mg (2 mL) inhalation BID cholecalciferol (vitamin D3) 50 mcg PO DAILY 90 days cilostazol 100 mg PO BID clopidogrel 75 mg PO DAILY cyclobenzaprine 5 mg PO Q8H PRN diclofenac sodium 3% 1 appl topical BID diltiazem HCl 120 mg PO DAILY ipratropium-albuterol 0.5 mg-3 mg(2.5 mg base)/3 mL 3 mL inhalation QID 30 days losartan 25 mg PO DAILY naproxen 500 mg PO Q12H PRN 7 days nebulizers (Sidestream misc) As directed pantoprazole 20 mg PO DAILY simethicone (Gas Relief (simethicone)) 80 mg PO TID PRN tamsulosin 0.4 mg PO BEDTIME Do you need a note to return to daycare/school/sports/work: No HPI HPI COPD: Details: This 70 years old gentleman, is a case of advanced chronic obstructive pulmonary disease. He has recently quit smoking. Because of his ongoing cough and difficulty in expectorating , he has been started on updraft treatments of ipratropium and albuterol 4 times a day, along with budesonide 0.5 mg b.i.d. On August 14 he was seen in the emergency room of [facility] and then admitted for a few days for treatment of acute exacerbation of COPD. It is reported that chest x-ray was negative for pneumonia. He received usual treatment for acute exacerbation, and after 3 days in the h ospital discharged home on prednisone taper, and his usual medical regimen. On admission he was hypoxemic but by the time he was discharge he was he did not qualify for oxygen . This gentleman is known to have hypertension, hyperlipidemia, peripheral vascular disease in addition to advanced chronic obstructive pulmonary disease. He has quit smoking himself but his girlfriend who lives with him is a smoker . After discharge from the hospital he was seen by his primary care physician last week. In the hospital he was treated with azithromycin 500 mg daily for 3 days. Then when seen in PCPs office he was prescribed Augmentin which he is completing. Today he comes to see me and his main complaint is that he still feels congested. He still has residual cough. He still is very short of breath on walking around. He denies fever chills or any chest pain. [facility] Medical History Bronchitis Osteoarthritis of wrist COPD (chronic obstructive pulmonary disease) Claudication Occlusion of right femoral artery PVD (peripheral vascular disease) with claudication History of osteomyelitis HTN (hypertension) Pulmonary nodule Onychomycosis Chronic right hip pain Nicotine dependence, cigarettes, uncomplicated Surgical History History of cataract surgery (~2015) Status post reconstruction procedure (~1977) History of fracture of clavicle (~2010) Thumb laceration Thumb fracture History of femur fracture Family History Father Lung cancer Smoker Mother Myocardial infarction CVD (cardiovascular disease) Maternal Grandfather No problems noted. Maternal Grandmother No problems noted. Paternal Grandfather No problems noted. Paternal Grandmother No problems noted. Brother HTN (hypertension) Sister No problems noted. 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 Cognitive needs: No Hearing needs: No Vision needs: Yes Review of Systems Const All systems reviewed & are unremarkable except as noted in HPI and below Eyes Reports no additional complaints ENT Reports no additional complaints Card Denies chest pain, Denies irregular heart rhythm and Denies leg edema Resp Reports as per HPI GI Reports no additional complaints Reports no additional complaints Musc Reports myalgias (mild) Skin/Breast Reports system reviewed and no additional complaints, except as documented Neuro Reports no additional complaints Psych Reports no additional complaints Physical Exam Vital Signs: Last Vital Signs Pulse 105 H 08/27/25 15:17 BP 122/62 08/27/25 15:17 Pulse Ox 95 08/27/25 15:17 Oxygen Delivery Method Room Air 08/27/25 15:17 BMI result Body Mass Index 21.3 Const General: comfortable, no acute distress, alert and awake Orientation/consciousness: patient oriented x3 HEENT Head: Yes normal to inspection General nose exam: No nasal polyps present and No nasal discharge present Face and sinus: Yes sinuses nontender Mouth: oropharynx normal Throat: Yes posterior oropharynx normal Eyes General: appearance normal, both eyes and all related structures Neck Neck: Yes normal visual inspection, Yes no lymphadenopathy, Yes trachea midline and Yes no JVD Thyroid: Thyroid normal Chest Chest palpation & inspection: normal inspection of the chest, normal palpation of entire chest wall and no tenderness Resp Other: Percussion note is resonant, breath sounds distant with prolonged expiratory phase. The breath sounds are somewhat harsh on both sides, especially in the upper parts of the chest. A few expiratory wheezes , no crepitations. Cardio Palpation: normal PMI Rate: regular rate Rhythm: regular rhythm Heart sounds: no gallops and no murmurs GI Palpation (GI): Soft to palpation, nontender, No hepatosplenomegaly present and no masses Auscultation: normal bowel sounds Back/Spine/Pelvis Thoracic/Lumbar Spine: thoracic and lumbar spine normal to inspection and thoraco-lumbar ROM limited Skin General skin exam: no rashes or lesions noted and dry skin Neuro General: patient oriented x3 and no focal motor deficits Cranial nerves: Yes CN's II-XII intact bilaterally Extrem General: Yes normal to inspection, Yes no clubbing, cyanosis or edema and Yes no calf tenderness Psych Appearance: grossly normal Speech and movement: Normal speech and movement present Assessment & Plan Assessment & Plan (1) COPD (chronic obstructive pulmonary disease): Comment: HE HAS MODERATELY ADVANCED CHRONIC OBSTRUCTIVE PULMONARY DISEASE . TREATED AT [facility] FOR ACUTE EXACERBATION. HE HAS COMPLETED COURSE OF HIS PREDNISONE WELL ANTIBIOTICS. STILL HAVING INCREASED COUGH AND SHORTNESS OF BREATH. AT THE TIME OF DISCHARGE FROM [facility] HE DID NOT QUALIFY FOR OXYGEN AT HOME HIS MAIN SYMPTOM IS COUGH AND DIFFICULTY IN EXPECTORATING THE MUCUS NOW THAT HE USES THE NEBULIZER 4 TIMES A DAY HE FINDS IT EASIER TO BRING UP THE MUCUS. Code(s): J44.9 - Chronic obstructive pulmonary disease, unspecified Category: Medical Plan: CONTINUE THE SAME. TREATMENT I WILL ALSO PRESCRIBE GUAIFENESIN-DM 100-10 SYRUP TO USE 2 TSP T.I.D. (2) Nicotine dependence, cigarettes, uncomplicated: Comment: (Active smoker, x 50yrs, currently 1/4ppd, +fam hx lung ca) . He quit temporarily and went back to smoking. AT PRESENT HE STATES THAT HE IS NOT SMOKING AT LEAST FOR THE LAST 7-8 MONTHS. HE DOES SMOKE POT 3 TO 4 TIMES A DAY. HIS GIRLFRIEND WHO LIVES WITH HIM DOES SMOKE . Code(s): F17.210 - Nicotine dependence, cigarettes, uncomplicated Category: Medical Plan: I DISCUSSED WITH HIM AND TOLD HIM THAT HE HAS TO STAY AWAY FROM SMOKING. HE SHOULD ADVISE HIS GIRLFRIEND NOT TO SMOKE IN THE HOUSE . (3) Bronchitis: Comment: PATIENT SEEMS TO HAVE ONGOING BRONCHITIS, I JUST ANOTHER CHEST X-RAY TO MAKE SURE THAT HE DOES NOT HAVE ANY RESIDUAL PNEUMONIA. Code(s): J40 - Bronchitis, not specified as acute or chronic Category: Medical Plan: START ON AZITHROMYCIN 3 DAYS A WEEK GUAIFENESIN-DM 100-10 2 TSP T.I.D. Orders: Orders XR chest 2V Today J40 - Bronchitis, not specified as acute or chronic, J44.9 - Chronic obstructive pulmonary disease, unspecified Medications: New azithromycin 250 mg PO DAILY 10 tabs 4RF COPD 10 days dextromethorphan-guaifenesin 10-100 mg/5 mL (Guaifenesin-DM) 10 mL PO Q4-6H PRN 500 mL 3RF cough 30 days Coding Level of Care Code Est Pt Level 4 (98419) Diagnoses COPD (chronic obstructive pulmonary disease) J44.9 Nicotine dependence, cigarettes, uncomplicated F17.210 Bronchitis J40
--- OUTSIDE RECORDS SUMMARY | 2025-08-27 18:05 | XMS_ITS | Encounter Summary ---
Author Organization [facility] Address [address] [place] [phone] Phone Care Team Providers Care Mill Machinist Name Role Phone Maat Pan SALES WAREHOUSE DRIVER Primary Care Provider + Encounter Details Date Type Department Care Team (Late st Contact Info) Description 05/21/2025 Procedure Pass [facility] [address] [place] [address] Social History Tobacco Use Types Packs/Day Years Used Date Smoking Tobacco: Former Cigarettes Smokeless Tobacco: Never Alcohol Use Standard Drinks/Week Comments Not Currently [...] on file Sexual Orientation Not on file documented as of this encounter Plan of Treatment Upcoming Encounters Date Type Department Care Team (Late st Contact Info) Description 09/02/2025 1:00 PM EDT Office Visit [facility] [address], [address] [place] [address] Carina Galindo, DELIVERY ARCHITECT [address] [place] [address] [email or web address] documented as of this encounter Visit Diagnoses Not on filedocumented in this encounter Care Teams Mill Machinist Relationship Specialty Start Date End Date Mata Pan NP [address] [place] [address] PCP - General Nurse Practitioner 09/14/23 documented as of this encounter Additional Source Comments The information contained in this document represents components of the legal health record. It is not the complete legal health record.[facility]
--- OUTSIDE RECORDS SUMMARY | 2025-08-27 18:05 | XMS_ITS | Encounter Summary ---
Author Organization [facility] Address [address] [place] [id number] Phone Care Team Providers Care Iap Displays Analyst Name Role Phone Mata Pan SLICING MACHINE OPERATOR Primary Care Provider + Encounter Details Date Type Department Care Team (Late st Contact Info) Description 05/09/2024 Procedure Pass [facility] [address] [place] [address] Social History Tobacco Use Types Packs/Day Years [...] Description 09/02/2025 1:00 PM EDT Office Visit [facility] [address] [facility] [address], [address] [place] [address] Carina Galindo, PLASTIC MOLDING OPERATOR [address] [place] [address] [email or web address] documented as of this encounter Visit Diagnoses Not on filedocumented in this encounter Care Teams Iap Displays Analyst Relationship Specialty Start Date End Date Mata Pan NP [address] [facility] [place] [address] PCP - General Nurse Practitioner 09/14/23 documented as of this encounter Additional Source Comments The information contained in this document represents components of the legal health record. It is not the complete legal health record.[facility]
--- OUTSIDE RECORDS SUMMARY | 2025-08-27 18:05 | XMS_ITS | Encounter Summary ---
Author Organization [facility] Address [address] [place] [address] [address] [place] [address] Phone Care Team Providers Care Garment Folder Name Role Phone Mata Pan NP Primary Care Provider + Reason for Referral * - Closed Specialty Diagnoses / Procedures Referred By Contac t Referred To Contact Radiology Diagnoses Iliac artery stenosis, bilateral Procedures US Aorta Duplex Complete John Cortez DO Phone: tel: fax: [email or web address] Referral ID Status Reason Start Date Expiration Date Visits Re quested Visits Authorized [id number] Closed 04/03/2024 04/03/2025 1 1 * - Closed Specialty Diagnoses / Procedures Referred By Contac t Referred To Contact Radiology Diagnoses Shortness of breath Procedures US Lower Extremity Arteries (CHERYL) Physio Complete Bilat John Cortez DO Phone: tel: fax: [email or web address] Referral ID Status Reason Start Date Expiration Date Visits Re quested Visits Authorized [id number] Closed 04/03/2024 04/03/2025 1 1 Encounter Details Date Type Department Care Team (Latest Contact Info) Description 04/03/2024 Ancillary Orders [facility] [address] [place] [address] 3rd Floor, [address] [place] [address] John Cortez, [address] [facility] [address] [place] [phone] [email or web address] Shortness of breath (Primary Dx); Iliac artery stenosis, bilateral Social History Tobacco Use Types Packs/Day Years Used Date Smoking Tobacco: Never Assessed Education Answer Date Recorded Are you interested in more education? Not on huma e 07/04/2023 Are you concerned about learning? Not on file 07/04/2023 No 07/04/2023 No 07/04/2023 Digital Access Answer Date Recorded No 07/04/2023 No 07/04/2023 Reliable internet access at home? Not on file 07/04/2023 Device with a working camera? Not on file Sex and Gender Information Value Date Recorded Sex Assigned at Not on file Legal Sex Male 9:54 PM EDT Gender Identity Not on file Sexual Orientation Not on file documented as of this encounter Plan of Treatment Upcoming Encounters Date Type Department Care Team (Late st Contact Info) Description 09/02/2025 1:00 PM EDT Office Visit [facility] [address] [place] [address] 3rd Floor, [address] [place] [address] Carina Galindo, LEATHER STRIPPING MACHINE OPERATOR [address] [place] [phone] [email or web address] documented as of this encounter Results * US Aorta Duplex Complete (04/03/2024 [...] Doppler and spectral waveform Doppler. us John Cortez DO IMG US ABDOMEN Final Result * US Lower Extremity Arteries (CHERYL) Physio Complete Bilat (04/03/2024 2:08 PM EDT) Arm 110 mmHg Posterior Tibial 80 mmHg Posterior Tibial Index 0.73 Dorsalis Pedis 70 mmHg Dorsalis Pedis Index 0.64 Arm 110 mmHg Posterior Tibial 110 mmHg Posterior Tibial Index 1.00 Dorsalis Pedis 110 mmHg Dorsalis Pedis Index 1.00 Anatomical Region Laterality Modality Ultrasound Narrative 04/05/2024 8:12 AM EDT Right Side: Ankle/Brachial index on the right side is 0.7, previously 0.46. Left Side: Ankle/Brachial index on the left side is 1.0, previously 1.0. Compared to prior exam right CHERYL appears improved. ABIs are moderately reduced on the right and 0.72 ABIs are low normal on the left at 1.0. See duplex for full report. Lower Extremity SDP PVR Right Normal Amplitude, hyperemic waveform. Lower Extremity SDP PVR Left Normal Amplitude; Monophasic waveform us John Cortez DO CV US VASCULAR Final Result documented in this encounter Visit Diagnoses Diagnosis Shortness of breath Iliac artery stenosis, bilateral Atherosclerosis of [place] arteries of the extremities, unspecified Shortness of breath- Primary Iliac artery stenosis, bilateral Atherosclerosis of [place] arteries of the extremities, unspecified documented in this encounter Care Teams Garment Folder Relationship Specialty Start Date End Date Mata Pan NP [address] [facility] [address] PCP - General Nurse Practitioner 09/14/23 documented as of this encounter Additional Source Comments The information contained in this document represents components of the legal health record. It is not the complete legal health record.[facility]
--- OUTSIDE RECORDS SUMMARY | 2025-08-27 18:05 | XMS_ITS | Encounter Summary ---
Author Organization [facility] Address [address] [place] [address] [address] [place] [address] Phone Care Team Providers Care Waiter/Waitress Cocktail Lounge Name Role Phone Mata Pan TAX CREDIT LEASING CONSULTANT Primary Care Provider + Encounter Details Date Type Department Care Team (Late st Contact Info) Description 09/14/2023 Procedure Pass [facility] [place] [address] Social History Tobacco Use Types Packs/Day Years [...] Description 09/02/2025 1:00 PM EDT Office Visit [facility] [address] [facility] 3rd Floor, [address] [place] [address] Carina Galindo, RETREAD MOLD OPERATOR [address] [place] [address] documented as of this encounter Visit Diagnoses Not on filedocumented in this encounter Care Teams Waiter/Waitress Cocktail Lounge Relationship Specialty Start Date End Date Mata Pan NP [facility] [place] [address] PCP - General Nurse Practitioner 09/14/23 documented as of this encounter Additional Source Comments The information contained in this document represents components of the legal health record. It is not the complete legal health record.[facility]
--- OUTSIDE RECORDS SUMMARY | 2025-08-27 18:05 | XMS_ITS | Clinical Summary ---
Author Organization [facility] Address [address] [place] [address] Phone Care Team Providers Care Molding Utility Worker Name Role Phone Mata Pan NP Primary [...] Encounters Date Type Department Care Team Description 07/11/2025 2:23 PM EDT - 07/11/2025 11:59 PM EDT Hospital Encounter Echo [facility] [address] [place] [address] Carina Galindo CNP Discharge Disposition: Home or Self Care 06/27/2025 Orders Only [facility] [address] [facility], [address] [place] [address] Carina Galindo CNP 06/10/2025 Orders Only [facility] [address] Floor, [address] [place] [address] Carina Galindo CNP Peripheral arterial disease (Primary Dx) 06/10/2025 Telephone [facility] [address] Floor, [address] [place] [address] Carina Galindo CNP 05/21/2025 Procedure Pass [facility] [address] [place] [address] from Last 3 Months Social History Tobacco [...] 09/02/2025 1:00 PM EDT Office Visit [facility] [address] [place] [address] 3rd Floor, [address] [place] [address] Carina Galindo, RECEIVABLE CLERK [address] [place] [address] Health Maintenance Due Date Last Done Comments CREATININE LEVEL 1956 LIPID PANEL 1956 POTASSIUM LEVEL 1956 DEPRESSION SCREENING 1968 SMOKING Hx and SMOKELESS TOBACCO SCREENING 1969 HEPATITIS C SCREENING 1974 COLOGUARD 2001 COLONOSCOPY 2001 COLORECTAL CANCER SCREENING 2001 FIT TEST 2001 FOBT 2001 SIGMOIDOSCOPY 2001 VIRTUAL COLONOSCOPY 2001 INFLUENZA VACCINE (#1) 2025 2, 08/25/2020, 08/21/2019, Additional history exists COVID-19 VACCINE ( season) 2025 08/13/2022, 12/31/2021, 03/05/2021, Additional history exists BLOOD [...] Procedure Name Priority Date/Time Associated Diagnosis Comments TTE COMPREHENSIVE Routine 07/11/2025 3:1 0 PM EDT Palpitations Shortness of breath OUTSIDE MONITOR Routine 06/27/2025 10:05 AM EDT US AORTA DUPLEX COMPLETE Routine 04/03/2024 2:08 PM EDT Iliac artery stenosis, bilateral from Last 3 Months or Most Recently Relevant to Health Maintenance Results * TTE COMPREHENSIVE (07/11/2025 3:10 PM EDT) Height 178 cm Weight 72 kg Systolic BP 120 mmHg Diastolic BP 60 mmHg Interventricular Septum Thickness 8 6 - 11 mm Left Ventricle Internal Diameter End Diastole 41 42 - 58 mm Left Ventricle Internal Diameter End Systole 30 <40 mm Left Ventricular Outflow Tract Diameter 19.0 mm Left Ventricular Posterior Wall Thickness 8 6 - 11 mm Left Ventricle Ea Lateral Wave Speed 10.4 cm/s Left Ventricle Ea Septal Wave Speed 9.6 cm/s Ejection Fraction 56 50 - 75 Percent Left Atrium Dimension Anterior-Posterior 31 15 - 40 mm Aortic Valve Mean Gradient 4 mmHg Aortic Valve Time Velocity Integral 248.0 mm Aortic Valve Peak Velocity 1.4 m/s Aortic Valve Peak Gradient 7 mmHg Aortic Arch Diameter 26 mm Aortic Sinus Diameter 31 <40 mm Ascending Aorta Diameter 31 <36 mm Inferior Vena Cava Diameter 29 <21 mm Mitral Valve Deceleration Time 204 ms Left Ventricle A Wave Speed 72.4 cm/s Left Ventricle E Wave Speed 89.3 cm/s Pulmonary Valve Peak Velocity 1.1 m/s Pulmonary Valve Peak Gradient 5 mmHg Right Ventricle Basal Diameter 34 25 - 41 mm Raw LV EF% 46 % MV E/E' Tissue Velocity Lateral 8.59 Relative Wall Thickness 0.39 0.22 - 0.42 MV E/A ratio 1.2 MV E/e' septal 9.30 Left Ventricle E/e' Average 8.9 Aortic Valve Prosthetic Peak Gradient 7 mmHg Aortic Valve Prosthetic Mean Gradient 4 mmHg Aorta Sinus Index by Height 1.74 cm/m Aorta Sinus CSA index by Height 4.24 cm2/m Asc Aorta CSA Index by Height 4.24 cm2/m Pulmonic Valve Prosthetic Peak Gradient 5 mmHg Echo E/Ea 9.30 Body Surface Area 1.89 m2 Right Ventricle TAPSE 27 >=17 mm Right Ventricle Pulse Doppler S Wave 14.5 >=9.5 cm/s Left Ventricle indexed to BSA 51.5 g/m2 Right Atrium Area 14 cm2 Right Atrium Area index 7 cm2/m2 Aortic Valve Sinus Index by BSA 16 mm/m2 Ascending Aorta Index 16 mm/m2 Ascending Aorta Index 16 mm Aortic Sinus Index 16 mm Ascending Aorta Diameter 16 mm Aortic Valve Sinus Index 1 16 20 - 32 mm AO ASC DIAM BSA INDEX 16.40 Left Atrial Volume Index 20 16 - 34 mL/m2 Left Atrial Volume 38 mL Left Atrial Volume Index by Height 21 mL/m Anatomical Region Laterality Modality Heart Ultrasound Narrative 07/12/2025 1:14 PM EDT Images from the original result were not included. Normal LV size and thickness with normal LV systolic function EF 55-60 %. Normal RV size and function. Normal left atrial size. Normal diastolic function. No significant valvular heart disease is seen. Left Ventricle The left ventricle is normal in size. There is normal wall thickness. There is normal left ventricular systolic function. The LV ejection fraction is 56% (calculated via biplane measurement). There are no wall motion abnormalities. LV diastolic function appears within normal limits for age. The E/A ratio is 1.2. The e' septal wave velocity is 9.6 cm/s. The e' lateral wave velocity is 10.4 cm/s. The average E/e' ratio is 8.9. Right Ventricle The right ventricle is normal in size. The RV basal dimension is 34 mm. There is normal right ventricular systolic function. TAPSE is 27 mm. RV S' wave is 14.5 cm/s. Left Atrium The left atrium is normal in size. The left atrial volume is 38 mL. There are normal flow patterns in the pulmonary vein. Right Atrium The right atrium is normal in size. The right atrial area is 14 cm2. The IVC is dilated with reduced inspiratory collapse. This is consistent with elevated RA pressure. The IVC diameter is 29 mm (normal: <= 21 mm). Hepatic veins are normal in size. Mitral Valve There is mitral valve thickening. There is no mitral stenosis. There is trace mitral regurgitation. Tricuspid Valve The tricuspid valve appears normal. There is no tricuspid stenosis. There is trace tricuspid regurgitation. RV systolic pressure could not be estimated due to insufficient TR Doppler envelope. Aortic Valve The aortic valve is tricuspid. There is leaflet thickening without stenosis. The aortic valve peak velocity is 1.4 m/s. The peak and mean aortic valve gradients are 7 mmHg and 4 mmHg respectively. There is no aortic regurgitation. The visualized portions of the thoracic aorta appear normal in size. Pulmonic Valve The pulmonic valve appears normal. Pericardium There is no pericardial effusion. There are no pleural effusions. General Findings The study was technically difficult (4). Study quality explanation: body habitus. Technique(s) used in the evaluation: Multiplane, Color flow Doppler, Spectral Doppler and Epiaortic scan. The predominant rhythm during the study was sinus. Comparison Findings Compared to prior study on 03/19/2024, IAS/IVS The interatrial septum appears normal. There is no evidence of patent foramen ovale (PFO). The interventricular septum appears normal. There is no evidence of a ventricular septal defect. Carnia Galindo RECEIVABLE CLERK CV ECHO ORDERABLES Final Result * Outside Monitor Report Only (06/27/2025 10:05 AM EDT) Danielannelise Cordoba Mateo JOHNSON [facility] Final Result * US Aorta Duplex Complete [...] Maintenance Insurance MEDICARE PART A & B [place] MED[place] [facility] A & [facility] Care Teams Molding Utility Worker Relationship Specialty Start Date End Date Mata Pan NP [address] [place] [address] PCP - General Nurse Practitioner 09/14/23 Additional Source Comments The information contained in this document represents components of the legal health record. It is not the complete legal health record.[facility]
== END 2025-08-27 15:40 | disposition home or self-care (01) ==
LOC: HO.HPS 15:12
PROVIDERS: PCP Nurse Practitioner Family; Visit Provider Internal Medicine
DX: J44.9 Chronic obstructive pulmonary disease, unspecified (principal); F17.210 Nicotine dependence, cigarettes, uncomplicated; J40 Bronchitis, not specified as acute or chronic
CPT/HCPCS: 99214

== ENCOUNTER 2025-08-27 15:11 | Outpatient (REF) | payer MEDICARE, MEDICAID, SELFPAY ==
--- NOTE | ~2025-08-27 | XR_ITS ---
EXAMINATION: XR CHEST CLINICAL INFORMATION: J44.9 - Chronic obstructive pulmonary disease, unspecified COMPARISON: 08/22/2025. TECHNIQUE: 2 views of the chest were obtained. FINDINGS: The cardiac, hilar, and mediastinal contours are normal. Lungs are diffusely hyperaerated and hyperlucent, with flattened hemidiaphragms, consistent with COPD. There is linear scarring in the right midlung. Lungs otherwise clear. There is no pneumothorax or pleural effusion. There is no focal osseous or soft tissue abnormality. There are degenerative changes in the spine. There are old healed rib fractures on the right involving the third through seventh ribs. XR/XR chest 2V IMPRESSION: 1. COPD. 2. No active superimposed disease. Electronically signed by: Mickey Muller MD 08/27/2025 04:24 PM EDT
== END 2025-08-27 15:12 | disposition home or self-care (01) ==
LOC: HO.XRAY 15:11
PROVIDERS: PCP Nurse Practitioner Family; Visit Provider Internal Medicine
DX: J44.89 Other specified chronic obstructive pulmonary disease (principal); F17.210 Nicotine dependence, cigarettes, uncomplicated; Z79.899 Other long term (current) drug therapy; Z79.2 Long term (current) use of antibiotics
CPT/HCPCS: 71046; 99212

== ENCOUNTER → 2025-08-27 15:48 | Outpatient (BNV) | payer MEDICARE, MEDICAID, SELFPAY | PROVIDERS: PCP Nurse Practitioner Family; Visit Provider Radiology Diagnostic Radiology | DX: J44.9 Chronic obstructive pulmonary disease, unspecified (principal) | CPT/HCPCS: 71046 ==

== ENCOUNTER 2025-09-10 13:19 | Outpatient (AMB) | payer MEDICARE, MEDICAID, SELFPAY ==
[2025-09-10 13:22] VITALS: BP 120/58; PULSE 84; O2SAT 97; BMI 20.9
--- NOTE | 2025-09-10 13:22 | MHC.OFFVIS ---
Vital Signs 09/10/25 13:22 Height 5 ft 10 in Weight 145 lb 8.081 oz BMI 20.9 BP 120/58 L Blood Pressure Location Lt brachial Position Sitting Pulse 84 Pulse Source Pulse Oximeter Pulse Oximetry (%) 97 Oxygen Delivery Method Room Air Intake Visit Reasons: COPD Intake Note: pt is here for follow up and states he received his nebulizer but missing one medication(Budesonide), He was doing well until Tuesday when he started with more phlegm, finished antibiotics on Tuesday. Cocoa Bean Cleaner Required: No Semiautomatic Stitcher Operator: Semiautomatic Stitcher Operator offered & declined Allergies No Known Allergies Allergy (Verified 09/10/25 13:41) Medication List - Last Reconciled 09/10/25 by Melanie Castellanos MD albuterol sulfate 90 mcg/actuation (Ventolin HFA) 2 puffs PO Q4-6H PRN aspirin (Adult Aspirin Regimen) 81 mg PO DAILY atorvastatin 40 mg PO BEDTIME 90 days budesonide 0.5 mg (2 mL) inhalation BID cholecalciferol (vitamin D3) 50 mcg PO DAILY 90 days cilostazol 100 mg PO BID clopidogrel 75 mg PO DAILY cyclobenzaprine 5 mg PO Q8H PRN dextromethorphan-guaifenesin 10-100 mg/5 mL (Guaifenesin-DM) 10 mL PO Q4-6H PRN 30 days diclofenac sodium 3% 1 appl topical BID diltiazem HCl 120 mg PO DAILY ipratropium-albuterol 0.5 mg-3 mg(2.5 mg base)/3 mL 3 mL inhalation QID 30 days losartan 25 mg PO DAILY naproxen 500 mg PO Q12H PRN 7 days nebulizers (Sidestream misc) As directed pantoprazole 20 mg PO DAILY simethicone (Gas Relief (simethicone)) 80 mg PO TID PRN tamsulosin 0.4 mg PO BEDTIME Do you need a note to return to daycare/school/sports/work: No HPI HPI COPD: Details: Mr. Lima is here after 2 weeks short-term follow-up. He has been doing well and completed his antibiotic course as well as prednisone over the weekend. He say is his breathing is fair but he started having increased cough with mucus over the weekend as he finished his medications. He has no fever or chills. The cough and moderate amount of the sputum relatively benign. He is also going to be out of budesonide solution. [facility] Medical History Bronchitis Osteoarthritis of wrist COPD (chronic obstructive pulmonary disease) Claudication Occlusion of right femoral artery PVD (peripheral vascular disease) with claudication History of osteomyelitis HTN (hypertension) Pulmonary nodule Onychomycosis Chronic right hip pain Nicotine dependence, cigarettes, uncomplicated Surgical History History of cataract surgery (~2015) Status post reconstruction procedure (~1977) History of fracture of clavicle (~2010) Thumb laceration Thumb fracture History of femur fracture Family History Father Lung cancer Smoker Mother Myocardial infarction CVD (cardiovascular disease) Maternal Grandfather No problems noted. Maternal Grandmother No problems noted. Paternal Grandfather No problems noted. Paternal Grandmother No problems noted. Brother HTN (hypertension) Sister No problems noted. 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 Cognitive needs: No Hearing needs: No Vision needs: Yes Review of Systems Const All systems reviewed & are unremarkable except as noted in HPI and below Eyes Reports no additional complaints ENT Reports no additional complaints Card Denies chest pain, Denies irregular heart rhythm and Denies leg edema Resp Reports as per HPI GI Reports no additional complaints Reports no additional complaints Musc Reports myalgias (mild) Skin/Breast Reports system reviewed and no additional complaints, except as documented Neuro Reports no additional complaints Psych Reports no additional complaints Physical Exam Vital Signs: Last Vital Signs Pulse 84 09/10/25 13:22 BP 120/58 L 09/10/25 13:22 Pulse Ox 97 09/10/25 13:22 Oxygen Delivery Method Room Air 09/10/25 13:22 BMI result Body Mass Index 20.9 Const General: comfortable, no acute distress, alert and awake Orientation/consciousness: patient oriented x3 HEENT Head: Yes normal to inspection General nose exam: No nasal polyps present and No nasal discharge present Face and sinus: Yes sinuses nontender Mouth: oropharynx normal Throat: Yes posterior oropharynx normal Eyes General: appearance normal, both eyes and all related structures Neck Neck: Yes normal visual inspection, Yes no lymphadenopathy, Yes trachea midline and Yes no JVD Thyroid: Thyroid normal Chest Chest palpation & inspection: normal inspection of the chest, normal palpation of entire chest wall and no tenderness Resp Other: Percussion note is resonant, breath sounds distant with prolonged expiratory phase. The breath sounds are somewhat harsh over the rt base .No wheezes . Cardio Palpation: normal PMI Rate: regular rate Rhythm: regular rhythm Heart sounds: no gallops and no murmurs GI Palpation (GI): Soft to palpation, nontender, No hepatosplenomegaly present and no masses Auscultation: normal bowel sounds Back/Spine/Pelvis Thoracic/Lumbar Spine: thoracic and lumbar spine normal to inspection and thoraco-lumbar ROM limited Skin General skin exam: no rashes or lesions noted and dry skin Neuro General: patient oriented x3 and no focal motor deficits Cranial nerves: Yes CN's II-XII intact bilaterally Extrem General: Yes normal to inspection, Yes no clubbing, cyanosis or edema and Yes no calf tenderness Psych Appearance: grossly normal Speech and movement: Normal speech and movement present Assessment & Plan Assessment & Plan (1) COPD (chronic obstructive pulmonary disease): Comment: HE HAS MODERATELY ADVANCED CHRONIC OBSTRUCTIVE PULMONARY DISEASE . TREATED AT [facility] FOR [facility]. HE HAS COMPLETED COURSE OF HIS PREDNISONE WELL ANTIBIOTICS. STILL HAVING INCREASED COUGH AND SHORTNESS OF BREATH. AT THE TIME OF DISCHARGE FROM [facility] HE DID NOT QUALIFY FOR OXYGEN AT HOME HIS MAIN SYMPTOM IS COUGH AND DIFFICULTY IN EXPECTORATING THE MUCUS NOW THAT HE USES THE NEBULIZER 4 TIMES A DAY HE FINDS IT EASIER TO BRING UP THE MUCUS. Code(s): J44.9 - Chronic obstructive pulmonary disease, unspecified Category: Medical Plan: Continue the updrafts of ipratropium-albuterol in the nebulizer q.i.d. Continue budesonide 0.5 mg solution in the nebulizer b.i.d., . Prescription is renewed I will start him on prednisone 5 mg daily for the next few weeks. (2) Bronchitis: Comment: PATIENT SEEMS TO HAVE ONGOING BRONCHITIS, I JUST ORDERED ANOTHER CHEST X-RAY . AND IT WAS NEGATIVE FOR ANY PNEUMONIA. HIS SYMPTOMS OF BRONCHITIS CONTINUE TO VERY FROM MILD TO WORSE DEPENDING UPON HIS SMOKING OF THE CIGARETTES. TO PREVENT ANY ACUTE INFLAMMATORY PROCESS I PUT HIM BACK ON PREDNISONE 5 MG DAILY Code(s): J40 - Bronchitis, not specified as acute or chronic Category: Medical Plan: CONTINUE SAME MEDICATIONS AND ALSO PREDNISONE 5 MG DAILY (3) Nicotine dependence, cigarettes, uncomplicated: Comment: (Active smoker, x 50yrs, currently 1/4ppd, +fam hx lung ca) . He quit temporarily and went back to smoking. UNFORTUNATELY HE IS STILL SMOKING 3-4 CIGARETTES A DAY. HE DOES SMOKE POT 3 TO 4 TIMES A DAY. HIS GIRLFRIEND WHO LIVES WITH HIM DOES SMOKE . Code(s): F17.210 - Nicotine dependence, cigarettes, uncomplicated Category: Medical Plan: I TOLD HIM TO QUIT SMOKING COMPLETELY, OTHERWISE HE WILL CONTINUE TO HAVE INTERMITTENT COUGH WITH EXPECTORATION Medications: New budesonide 0.5 mg (2 mL) inhalation BID 120 mL 2RF copd 30 days prednisone 5 mg PO DAILY 30 tabs 3RF COPD 30 days Coding Level of Care Code Est Pt Level 3 (25085) Diagnoses COPD (chronic obstructive pulmonary disease) J44.9 Bronchitis J40 Nicotine dependence, cigarettes, uncomplicated F17.210
== END 2025-09-10 13:41 | disposition home or self-care (01) ==
LOC: HO.HPS 13:20
PROVIDERS: PCP Nurse Practitioner Family; Visit Provider Internal Medicine
DX: J44.9 Chronic obstructive pulmonary disease, unspecified (principal); J40 Bronchitis, not specified as acute or chronic; F17.210 Nicotine dependence, cigarettes, uncomplicated
CPT/HCPCS: 99213

== ENCOUNTER → 2025-09-10 13:19 | Outpatient (BNVA) | payer MEDICARE, MEDICAID, SELFPAY | PROVIDERS: PCP Nurse Practitioner Family; Visit Provider Internal Medicine | DX: J44.9 Chronic obstructive pulmonary disease, unspecified (principal); J40 Bronchitis, not specified as acute or chronic; F17.210 Nicotine dependence, cigarettes, uncomplicated | CPT/HCPCS: 99212 ==

== ENCOUNTER 2025-10-17 15:10 | Outpatient (AMB) | payer MEDICARE, MEDICAID, SELFPAY ==
--- NOTE | 2025-10-17 15:15 | A.OFFVIS_ITS ---
Vital Signs 10/17/25 15:16 Height 5 ft 10 in Weight 145 lb BMI 20.8 BP 130/70 Blood Pressure Location Lt brachial Position Sitting Pulse 97 Pulse Source Pulse Oximeter Pulse Oximetry (%) 97 Oxygen Delivery Method Room Air Intake Visit Reasons: COPD Intake Note: pt is here for follow up and states he is feeling better. Steel Finisher Required: No Allergies No Known Allergies Allergy (Verified 10/17/25 16:47) Medication List - Last Reconciled 10/17/25 by Melanie Castellanos MD albuterol sulfate 90 mcg/actuation (Ventolin HFA) 2 puffs PO Q4-6H PRN aspirin (Adult Aspirin Regimen) 81 mg PO DAILY atorvastatin 40 mg PO BEDTIME 90 days budesonide 0.5 mg (2 mL) inhalation BID 30 days budesonide 0.5 mg (2 mL) inhalation BID cholecalciferol (vitamin D3) 50 mcg PO DAILY 90 days cilostazol 100 mg PO BID clopidogrel 75 mg PO DAILY cyclobenzaprine 5 mg PO Q8H PRN dextromethorphan-guaifenesin 10-100 mg/5 mL (Guaifenesin-DM) 10 mL PO Q4-6H PRN 30 days diclofenac sodium 3% 1 appl topical BID diltiazem HCl 120 mg PO DAILY ipratropium-albuterol 0.5 mg-3 mg(2.5 mg base)/3 mL 3 mL inhalation QID 30 days losartan 25 mg PO DAILY naproxen 500 mg PO Q12H PRN 7 days nebulizers (Sidestream misc) As directed pantoprazole 20 mg PO DAILY prednisone 5 mg PO DAILY 30 days simethicone (Gas Relief (simethicone)) 80 mg PO TID PRN tamsulosin 0.4 mg PO BEDTIME Do you need a note to return to daycare/school/sports/work: No HPI HPI COPD: Details: MTATHEW IS HERE FOR SHORT-TERM FOLLOW-UP, AFTER SOME CHANGES IN HIS MEDICAL REGIMEN. WITH THE ADDITION OF BUDESONIDE HIS BREATHING HAS IMPROVED. HE IS ALSO ON PREDNISONE 5 MG A DAY, AND COUGH IS BETTER STILL GETS SHORT OF BREATH ON MINIMAL TO MODERATE EXERTION. THE EXPECTORATION IS MUCH LESS THAN BEFORE STILL SMOKES 3-4 CIGARETTES DAILY AND MARIJUANA A FEW TIMES DAILY. [facility] Medical History Bronchitis Osteoarthritis of wrist COPD (chronic obstructive pulmonary disease) Claudication Occlusion of right femoral artery PVD (peripheral vascular disease) with claudication History of osteomyelitis HTN (hypertension) Pulmonary nodule Onychomycosis Chronic right hip pain Nicotine dependence, cigarettes, uncomplicated Surgical History History of cataract surgery (~2015) Status post reconstruction procedure (~1977) History of fracture of clavicle (~2010) Thumb laceration Thumb fracture History of femur fracture Family History Father Lung cancer Smoker Mother Myocardial infarction CVD (cardiovascular disease) Maternal Grandfather No problems noted. Maternal Grandmother No problems noted. Paternal Grandfather No problems noted. Paternal Grandmother No problems noted. Brother HTN (hypertension) Sister No problems noted. 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 Cognitive needs: No Hearing needs: No Vision needs: Yes Review of Systems Const All systems reviewed & are unremarkable except as noted in HPI and below Eyes Reports no additional complaints ENT Reports no additional complaints Card Denies chest pain, Denies irregular heart rhythm and Denies leg edema Resp Reports as per HPI GI Reports no additional complaints Reports no additional complaints Musc Reports myalgias (mild) Skin/Breast Reports system reviewed and no additional complaints, except as documented Neuro Reports no additional complaints Psych Reports no additional complaints Physical Exam Vital Signs: Last Vital Signs Pulse 97 10/17/25 15:16 BP 130/70 10/17/25 15:16 Pulse Ox 97 10/17/25 15:16 Oxygen Delivery Method Room Air 10/17/25 15:16 BMI result Body Mass Index 20.8 Const General: comfortable, no acute distress, alert and awake Orientation/consciousness: patient oriented x3 HEENT Head: Yes normal to inspection General nose exam: No nasal polyps present and No nasal discharge present Face and sinus: Yes sinuses nontender Mouth: oropharynx normal Throat: Yes posterior oropharynx normal Eyes General: appearance normal, both eyes and all related structures Neck Neck: Yes normal visual inspection, Yes no lymphadenopathy, Yes trachea midline and Yes no JVD Thyroid: Thyroid normal Chest Chest palpation & inspection: normal inspection of the chest, normal palpation of entire chest wall and no tenderness Resp Other: Percussion note is resonant, breath sounds distant with prolonged expiratory phase. The breath sounds are somewhat harsh over the rt base . Has a few scattered expiratory wheezes. Cardio Palpation: normal PMI Rate: regular rate Rhythm: regular rhythm Heart sounds: no gallops and no murmurs GI Palpation (GI): Soft to palpation, nontender, No hepatosplenomegaly present and no masses Auscultation: normal bowel sounds Back/Spine/Pelvis Thoracic/Lumbar Spine: thoracic and lumbar spine normal to inspection and thoraco-lumbar ROM limited Skin General skin exam: no rashes or lesions noted and dry skin Neuro General: patient oriented x3 and no focal motor deficits Cranial nerves: Yes CN's II-XII intact bilaterally Extrem General: Yes normal to inspection, Yes no clubbing, cyanosis or edema and Yes no calf tenderness Psych Appearance: grossly normal Speech and movement: Normal speech and movement present Assessment & Plan Assessment & Plan (1) COPD (chronic obstructive pulmonary disease): Comment: HE HAS MODERATELY ADVANCED CHRONIC OBSTRUCTIVE PULMONARY DISEASE . TREATED AT [facility]. HE HAS COMPLETED COURSE OF HIS PREDNISONE WELL ANTIBIOTICS. STILL HAVING INCREASED COUGH AND SHORTNESS OF BREATH. AT THE TIME OF DISCHARGE FROM [facility] HE DID NOT QUALIFY F OR OXYGEN AT HOME HIS MAIN SYMPTOM IS COUGH AND DIFFICULTY IN EXPECTORATING THE MUCUS NOW THAT HE USES THE NEBULIZER 4 TIMES A DAY HE FINDS IT EASIER TO BRING UP THE MUCUS. TODAY HE COMES FOR SHORT-TERM FOLLOW-UP AND CLAIMS THAT HE DOES FEEL BETTER, COUGH IS LESS AND THERE IS NOT MUCH EXPECTORATION. Code(s): J44.9 - Chronic obstructive pulmonary disease, unspecified Category: Medical Plan: ADVISED TO CONTINUE USING IPRATROPIUM-ALBUTEROL SOLUTION IN THE NEBULIZER Q.I.D.M AND VENTOLIN 2 PUFFS Q 4-6 HOURS P.R.N. WHEN OUTDOORS. CONTINUE BUDESONIDE 0.5 MG IN THE NEBULIZER B.I.D. CUT DOWN PREDNISONE 5 MG 2 ALTERNATE DAYS (2) Pulmonary nodule: Comment: HE HAD A SEMI SOLID PULMONARY NODULE 4 X 8 MM IN LEFT UPPER LOBE. WHICH HAD DECREASED IN SIZE ON A FOLLOW-UP CT SCAN, CT SCAN ON 11/03/2023, BENIGN CATEGORY [address] scan on 11/05/24 IS READ FOLLOWS : ASSESSMENT: 1. Lung-RADS Category 2: Benign appearance or behavior of nodules. 2. Lung-RADS Category S: None Code(s): R91.1 - Solitary pulmonary nodule Category: Medical Plan: ADVISED TO CONTINUE ANNUAL LUNG CT SCAN (3) Nicotine dependence, cigarettes, uncomplicated: Comment: (Active smoker, x 50yrs, currently 1/4ppd, +fam hx lung ca) . He quit temporarily and went back to smoking. UNFORTUNATELY HE IS STILL SMOKING 3-4 CIGARETTES A DAY. HE DOES SMOKE POT 3 TO 4 TIMES A DAY. HIS GIRLFRIEND WHO LIVES WITH HIM DOES SMOKE . Code(s): F17.210 - Nicotine dependence, cigarettes, uncomplicated Category: Medical Plan: AGAIN TALKED TO HIM AND ADVISE THAT HE NEEDS TO QUIT COMPLETELY Coding Level of Care Code Est Pt Level 3 (17120) Diagnoses COPD (chronic obstructive pulmonary disease) J44.9 Pulmonary nodule R91.1 Nicotine dependence, cigarettes, uncomplicated F17.210
[2025-10-17 15:16] VITALS: BP 130/70; PULSE 97; O2SAT 97; BMI 20.8
--- OUTSIDE RECORDS SUMMARY | 2025-10-17 21:26 | XMS_ITS | Clinical Summary ---
Author Organization [facility] Address [address] [place] [address] Phone Care Team Providers Care Woods Laborer Name Role Phone Mata Pan SAP PP CONSULTANT Primary Care Provider + Allergies No known [...] tablet by mouth every morning. 5 Active amoxicillin-cla vulanate (AUGMENTIN) 875-125 mg per tablet TAKE 1 TABLET BY MOUTH EVERY TWELVE HOURS UNTIL FINISHED 5 Active cyclobenzaprine (FLEXERIL) 5 MG tablet Take 5 mg by mouth every 8 (eight) hours as needed. 5 Active TUSNEL DIABETIC 10-100 mg/5 mL Liqd daily. 5 Active dilTIAZem (DILACOR XR) 240 mg 24 hr capsule Take 1 capsule (240 mg total) by mouth daily. 90 capsule 3 5 Active Active Problems Problem Noted Date Diagnosed Date PVC's (premature ventricular contractions) 05/21 Assessment & Plan (09/02/2025 1:41 PM EDT): 13.6% PVC burden on MCT monitor. EF is normal and echocardiogram. Increase diltiazem to 240 mg daily, avoiding beta-blockers with his COPD For general cardiology issues such as this he should follow-up with Dr. Guillen in the [place] office going forward who is his established general unload associate. Assessment & Plan (05/21/2025 12:11 PM EDT): [...] Peripheral arterial disease 09/14/2023 Assessment & Plan (09/02/2025 1:38 PM EDT): He is now being followed by [facility] vascular. He should continue following with [facility] vascular. I have asked him to continue following up with Dr. Guillen for general cardiology needs in the [place] office. Dr. Guillen can always refer him back to see Dr. Cortez from the vascular standpoint if needed. I think that any intervention at this point however is going to be done through [facility] vascular as he needs surgery not PCI. Continue Pletal and Plavix Assessment & Plan (05/21/2025 12:09 PM EDT): [...] time Pure hypercholesterolemia 09/14/2023 Assessment & Plan (09/02/2025 1:39 PM EDT): Continue atorvastatin Assessment & Plan (05/21/2025 12:16 PM EDT): [...] Encounters Date Type Department Care Team Description 09/02/2025 1:00 PM EDT Office Visit [facility] [address], [address] [place] [address] Carina Galindo CNP Peripheral arterial disease (Primary Dx); PVC's (premature ventricular contractions); Pure hypercholesterolemia from [...] Sign Reading Time Taken Comments Blood Pressure 136/70 09/02/2025 12:48 PM EDT Pulse 83 09/02/2025 12:48 PM EDT Temperature - - Respiratory Rate 18 05/09/2024 11:00 AM EDT Oxygen Saturation 97% 09/02/2025 12:48 PM EDT Inhaled Oxygen Concentration - - Weight 66 kg (145 lb 9.6 oz) 09/02/2025 12:48 PM EDT Height 177.8 cm (5' 10 ) 09/02/2025 12:48 PM EDT Body Mass Index 20.89 09/02/2025 12:48 PM EDT Plan of Treatment Health Maintenance Due Date Last Done Comments CREATININE LEVEL 1956 LIPID PANEL 1956 POTASSIUM LEVEL 1956 DEPRESSION SCREENING 1968 SMOKING Hx and SMOKELESS TOBACCO SCREENING 1969 HEPATITIS C SCREENING 1974 COLOGUARD 2001 COLONOSCOPY 2001 COLORECTAL CANCER SCREENING 2001 FIT TEST 2001 FOBT 2001 SIGMOIDOSCOPY 2001 VIRTUAL COLONOSCOPY 2001 INFLUENZA VACCINE (#1) 2025 , 08/25/2020, 08/21/2019, Additional history exists COVID-19 VACCINE ( season) 2025 08/13/2022, 12/31/2021, 03/05/2021, Additional history exists BLOOD PRESSURE 03/03/2026 09/02/2025 Adult Td,Tdap Booster 06/22/2031 06/22/2021 , 11/26/2015, [...] Maintenance Insurance [facility] [place]ALTH MEDICARE PART [place] & B [facility] Care Teams Woods Laborer Relationship Specialty Start Date End Date Mata Pan NP [address] [facility] [place] [address] PCP - General Nurse Practitioner 09/14/23 Additional Source Comments The information contained in this document represents components of the legal health record. It is not the complete legal health record.[facility]
--- OUTSIDE RECORDS SUMMARY | 2025-10-17 21:26 | XMS_ITS | Encounter Summary ---
Author Organization [facility] Address [address] [place] [address] Phone Care Team Providers Care Pilot Highway Patrol Name Role Phone Mata Pan NP Primary Care Provider + Encounter Details Date Type Department Care Team (Late st Contact Info) Description 09/14/2023 Procedure Pass [facility] [address] [place] [address] Social History Tobacco Use Types Packs/Day Years [...] as of this encounter Plan of Treatment Not on file documented as of this encounter Visit Diagnoses Not on filedocumented in this encounter Care Teams Pilot Highway Patrol Relationship Specialty Start Date End Date Mata Pan NP [address] [facility] [place] [address] PCP - General Nurse Practitioner 09/14/23 documented as of this encounter Additional Source Comments The information contained in this document represents components of the legal health record. It is not the complete legal health record.[facility]
--- OUTSIDE RECORDS SUMMARY | 2025-10-17 21:26 | XMS_ITS | Encounter Summary ---
Author Organization [facility] Address [address] [place] [address] [address] [place] [address] Phone Care Team Providers Care Laborer Powerhouse Name Role Phone Mata Pan NP Primary Care Provider + Reason for Referral * - Closed Specialty Diagnoses / Procedures Referred By Contac t Referred To Contact Radiology Diagnoses Iliac artery stenosis, bilateral Procedures US Aorta Duplex Complete John Cortez DO Phone: tel: fax: [email or web address] Referral ID Status Reason Start Date Expiration Date Visits Re quested Visits Authorized [id number] Closed 04/03/2024 04/03/2025 1 1 * - Closed Specialty Diagnoses / Procedures Referred By Contac t Referred To Contact Radiology Diagnoses Shortness of breath Procedures US Lower Extremity Arteries (CHERYL) Physio Complete Bilat John Cortez DO Phone: tel: fax: mailto: Referral ID Status Reason Start Date Expiration Date Visits Re quested Visits Authorized [id number] Closed 04/03/2024 04/03/2025 1 1 Encounter Details Date Type Department Care Team (Latest Contact Info) Description 04/03/2024 Ancillary Orders [facility] [address] [place] [address] [address], [address] [place] [address] John Cortez, DO [address] [facility] [address] [place] [address] [email or web address] Shortness of breath (Primary Dx); Iliac [...] on file documented as of this encounter Results * [...] breath Iliac artery stenosis, bilateral Atherosclerosis of [place] arteries of the extremities, unspecified Shortness of breath- Primary Iliac artery stenosis, bilateral Atherosclerosis of qaw[place]angin arteries of the extremities, unspecified documented in this encounter Care Teams Laborer Powerhouse Relationship Specialty Start Date End Date Mata Pan NP [facility] [address] PCP - General Nurse Practitioner 09/14/23 documented as of this encounter Additional Source Comments The information contained in this document represents components of the legal health record. It is not the complete legal health record.[facility]
--- OUTSIDE RECORDS SUMMARY | 2025-10-17 21:27 | XMS_ITS | Encounter Summary ---
Author Organization [facility] Address [address] [place] [phone] Phone Care Team Providers Care Charge Preparation Technician Name Role Phone Mata Pan DOPER Primary Care Provider + Encounter Details Date Type Department Care Team (Late st Contact Info) Description 05/21/2025 Procedure Pass Echo Lab [address] [place] [address] Social History Tobacco Use Types Packs/Day Years [...] on filedocumented in this encounter Care Teams Charge Preparation Technician Relationship Specialty Start Date End Date Mata Pan NP [employer] [facility] [place] [address] PCP - General Nurse Practitioner 09/14/23 documented as of this encounter Additional Source Comments The information contained in this document represents components of the legal health record. It is not the complete legal health record.[facility]
--- OUTSIDE RECORDS SUMMARY | 2025-10-17 21:27 | XMS_ITS | Encounter Summary ---
Author Organization [facility] Address [address] [place] [address] Phone Care Team Providers Care Certified Surgical First Assistant Name Role Phone Mata Pan SERVICE CONSULTANT Primary Care Provider + Encounter Details Date Type Department Care Team (Late st Contact Info) Description 05/09/2024 Procedure Pass [facility] [address] [place] [address] Social History Tobacco Use Types Packs/Day Years [...] on filedocumented in this encounter Care Teams Certified Surgical First Assistant Relationship Specialty Start Date End Date Mata Pan NP [facility] [place] [address] PCP - General Nurse Practitioner 09/14/23 documented as of this encounter Additional Source Comments The information contained in this document represents components of the legal health record. It is not the complete legal health record.[facility]
== END 2025-10-17 15:45 | disposition home or self-care (01) ==
LOC: HO.HPS 15:11
PROVIDERS: PCP Nurse Practitioner Family; Visit Provider Internal Medicine
DX: J44.9 Chronic obstructive pulmonary disease, unspecified (principal); R91.1 Solitary pulmonary nodule; F17.210 Nicotine dependence, cigarettes, uncomplicated
CPT/HCPCS: 99213

== ENCOUNTER → 2025-10-17 15:10 | Outpatient (BNVA) | payer MEDICARE, MEDICAID, SELFPAY | PROVIDERS: PCP Nurse Practitioner Family; Visit Provider Internal Medicine | DX: J44.9 Chronic obstructive pulmonary disease, unspecified (principal); R91.1 Solitary pulmonary nodule; F17.210 Nicotine dependence, cigarettes, uncomplicated; Z80.1 Family history of malignant neoplasm of trachea, bronchus and lung | CPT/HCPCS: 99212 ==

== ENCOUNTER 2025-10-29 14:18 | Outpatient (AMB) | payer MEDICARE, MEDICAID, SELFPAY ==
--- NOTE | 2025-10-29 14:39 | A.OFFVIS_ITS ---
Intake Visit Reasons: FOLDED CLOTH TAPER/PCP referral for PAD (transfer [facility]) Intake Note: New patient presents for PAD, transfer from [facility]. He has had carotid testing in June of 2025 and Arterial testing in April of 2024. No complaints. Accompanied by: Self / Same As Patient Allergies No Known Allergies Allergy (Verified 10/29/25 14:43) HPI HPI FOLDED CLOTH TAPER/PCP referral for PAD (transfer [facility]): Details: The patient is a 70 year old male presenting for evaluation of leg pain with ambulation. He reports developing leg pain after walking for a while, such as when shopping, which is worse in the right leg but sometimes affects the left. He estimates he can walk approximately one block before his right leg cramps up, though he also notes that dyspnea on exertion is often his primary limiting factor. Approximately two years ago, an attempt was made to perform an angioplasty and/or stent procedure, but it was unsuccessful as the practitioners were unable to advance their equipment into the artery. Ankle-Brachial Index (CHERYL) testing performed in April 2024 revealed a result of 0.57 on the right and 1.07 on the left. He has a history of carotid artery stenosis, with a test in 2023 showing 50-79% stenosis bilaterally, which is believed to be on the lower end of that range. The patient has a history of Raynaud's phenomenon for which he takes medication. He is a current smoker, consuming about half a pack of cigarettes per day, reduced from one pack per day previously. He denies a history of diabetes. Current medications include albuterol, aspirin, atorvastatin, gabapentin, naproxen, nifedipine, and simvastatin. He is establishing care at this facility to have his care consolidated in [place] after previously being seen at [facility]. [facility] Medical History Bronchitis Osteoarthritis of wrist COPD (chronic obstructive pulmonary disease) Claudication Occlusion of right femoral artery PVD (peripheral vascular disease) with claudication History of osteomyelitis HTN (hypertension) Pulmonary nodule Onychomycosis Chronic right hip pain Nicotine dependence, cigarettes, uncomplicated Surgical History History of cataract surgery (~2015) Status post reconstruction procedure (~1977) History of fracture of clavicle (~2010) Thumb laceration Thumb fracture History of femur fracture Family History Father Lung cancer Smoker Mother Myocardial infarction CVD (cardiovascular disease) Maternal Grandfather No problems noted. Maternal Grandmother No problems noted. Paternal Grandfather No problems noted. Paternal Grandmother No problems noted. Brother HTN (hypertension) Sister No problems noted. 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 Cognitive needs: No Hearing needs: No Vision needs: Yes Review of Systems Const All systems reviewed & are unremarkable except as noted in HPI and below Reports no additional complaints ENT Reports Normal hearing present Card Denies chest pain, Denies chest pain at rest, Denies chest pain with activity and Denies pedal edema Resp Denies cough GI Denies abdominal pain Musc Denies abnormal gait, Denies muscle cramps and Denies radiating pain into limb Skin/Breast Denies skin ulcer and Denies wounds Neuro Reports Normal hearing present and Denies abnormal gait Psych Reports no additional complaints Physical Exam Const General: cooperative, healthy appearing and comfortable Orientation/consciousness: oriented to person, oriented to place and oriented to time HEENT Head: Yes normal to inspection Neck Neck: Yes normal visual inspection Carotids: no bruits Chest Chest palpation & inspection: normal inspection of the chest Resp Effort & Inspection: normal respiratory effort and able to speak in complete sentences Auscultation: clear to auscultation bilaterally, no crackles, no rales, no rhonchi and no wheezes Cardio Other: Bilateral DP signals Rate: regular rate Rhythm: regular rhythm Heart sounds: S1 normal heart sound present and S2 normal heart sound present Bruits: no carotid bruits GI Inspection: Yes normal to inspection Skin Wounds: no wounds Hair: normal Neuro General: oriented to person, oriented to place and oriented to time Cranial nerves: Yes CN's II-XII intact bilaterally and Yes Normal hearing present Cognition (Neuro): normal cognition Motor exam (neuro): 5/5 motor strength present throughout Extrem Other: venous exam: No significant superficial varicosities or spider telangiectasias, minimal edema General: No clubbing, No cyanosis and No edema Psych Appearance: grossly normal Mental Status: mental status grossly normal Speech and movement: Normal speech and movement present Results Reviewed Results Reviewed: Arterial testing dated 05/15/2024 demonstrates CHERYL on the right of 0.57 and on the left of 1.07. This was done at [facility]. Carotid testing dated 06/19/2025 demonstrates bilateral 50-79% stenosis with peak systolic on the right of 128 and on the left of 139. Suspect this is on the lower end of that range. This was done at . Written reports reviewed for both Assessment & Plan Assessment & Plan (1) PAD (peripheral artery disease): Code(s): I73.9 - Peripheral vascular disease, unspecified Category: Medical Plan: I discussed with the patient that his walking pain is due to blockages in his leg arteries, which are more significant on the right side. I reviewed his prior CHERYL result of 0.57 on the right, explaining that this indicates about half of the normal blood flow. I explained that we will start with a new ultrasound of his legs to get a 'road map' of where the blockages are located. We will have him return for a follow-up appointment after this test is complete to discuss the findings and decide on a treatment plan, which could involve another angiogram or potentially surgery if the blockages are severe. I informed him that his carotid artery blockages appear stable and we will re-check them in about a year. I encouraged him that continuing to walk is beneficial for his condition. (2) Carotid stenosis: Code(s): I65.29 - Occlusion and stenosis of unspecified carotid artery Category: Medical Qualifiers: Laterality: bilateral Qualified Code(s): I65.23 - Occlusion and stenosis of bilateral carotid arteries Plan: We will plan for 1 year surveillance follow-up regarding carotid disease. Risk factor modification discussed including smoking cessation Orders: Orders US arterial duplex LE BI Today I73.9 - Peripheral vascular disease, unspecified Coding Level of Care Code New Pt Level 4 (38212) Diagnoses PAD (peripheral artery disease) I73.9 Bilateral carotid artery stenosis I65.23 Laterality: bilateral
--- OUTSIDE RECORDS SUMMARY | 2025-10-29 18:34 | XMS_ITS | Encounter Summary ---
Author Organization [facility] Address [address] [place] [phone] Phone Care Team Providers Care Hose Operator Name Role Phone Mata Pan CIGAR BINDER Primary Care Provider + Encounter Details Date Type Department Care Team (Late st Contact Info) Description 05/21/2025 Procedure Pass [facility] [address] [place] [address] Social History Tobacco Use Types Packs/Day Years [...] on filedocumented in this encounter Care Teams Hose Operator Relationship Specialty Start Date End Date Mata Pan NP [facility] [place] [id number] PCP - General Nurse Practitioner 09/14/23 documented as of this encounter Additional Source Comments The information contained in this document represents components of the legal health record. It is not the complete legal health record.[facility]
--- OUTSIDE RECORDS SUMMARY | 2025-10-29 18:34 | XMS_ITS | Encounter Summary ---
Author Organization [facility] Address [address] [place] [phone] Phone Care Team Providers Care Continuous Improvement Specialist Name Role Phone Mata Pan ENGINEERING ILLUSTRATOR Primary Care Provider + Encounter Details Date Type Department Care Team (Late st Contact Info) Description 05/09/2024 Procedure Pass [facility] [address] [place] [address] Social History Tobacco Use Types Packs/Day Years [...] on filedocumented in this encounter Care Teams Continuous Improvement Specialist Relationship Specialty Start Date End Date Mata Pan NP [address] [facility] [place] [address] PCP - General Nurse Practitioner 09/14/23 documented as of this encounter Additional Source Comments The information contained in this document represents components of the legal health record. It is not the complete legal health record.[facility]
--- OUTSIDE RECORDS SUMMARY | 2025-10-29 18:34 | XMS_ITS | Encounter Summary ---
Author Organization [facility] Address [address] [place] [phone] Phone Care Team Providers Care Road Design Engineer Name Role Phone Mata Pan NP Primary Care Provider + Reason for Referral * - Closed Specialty Diagnoses / Procedures Referred By Contac t Referred To Contact Radiology Diagnoses Iliac artery stenosis, bilateral Procedures US Aorta Duplex Complete John Cortez DO Phone: tel: fax: mailto:[email or web address] Referral ID Status Reason Start Date Expiration Date Visits Re quested Visits Authorized [id number] Closed 04/03/2024 04/03/2025 1 1 * - Closed Specialty Diagnoses / Procedures Referred By Contac t Referred To Contact Radiology Diagnoses Shortness of breath Procedures US Lower Extremity Arteries (CHERYL) Physio Complete Bilat John Cortez DO Phone: tel: fax: [email or web address] Referral ID Status Reason Start Date Expiration Date Visits Re quested Visits Authorized [id number] Closed 04/03/2024 04/03/2025 1 1 Encounter Details Date Type Department Care Team (Latest Contact Info) Description 04/03/2024 Ancillary Orders [facility] [address] [facility] [address] Floor, [address] [place] [address] Diego John Daniels, DO [address] [facility] [address] [place] [address] [email or web address] Shortness of breath (Primary Dx); Iliac artery [...] John Cortez DO IMG US ABDOMEN Final R esult * US Lower Extremity Arteries (CHERYL) Physio [...] SDP PVR Left Normal Amplitude; Monophasic waveform John Cortez DO CV US VASCULAR Final R esult documented in this encounter Visit Diagnoses Diagnosis Shortness of breath Iliac artery stenosis, bilateral Atherosclerosis of [place] arteries of the extremities, unspecified Shortness of breath- Primary Iliac artery stenosis, bilateral Atherosclerosis of [place] arteries of the extremities, unspecified documented in this encounter Care Teams Road Design Engineer Relationship Specialty Start Date End Date Mata Pan NP [facility] [place] [address] PCP - General Nurse Practitioner 09/14/23 documented as of this encounter Additional Source Comments The information contained in this document represents components of the legal health record. It is not the complete legal health record.[facility]
--- OUTSIDE RECORDS SUMMARY | 2025-10-29 18:34 | XMS_ITS | Clinical Summary ---
Author Organization [facility] Address [address] [place] [phone] Phone Care Team Providers Care Director Of Valuation Name Role Phone Mata Pan ARMATURE WINDER Primary Care Provider + Allergies No known [...] should follow-up with Dr. Guillen in the [place] office going forward who is his established general tonnage compilation clerk. Assessment & Plan (05/21/2025 12:11 PM EDT): [...] EDT): He is now being followed by [facility]. He should continue following with [facility]. I have asked him to continue following up with Dr. Gulilen for general cardiology needs in the [place] office. Dr. Guillen can always refer him back to see Dr. Cortez from the vascular standpoint if needed. I think that any intervention at this point however is going to be done through [facility] as he needs surgery not PCI. [...] Description 09/02/2025 1:00 PM EDT Office Visit [facility] [address], [address] [place] [address] Carina Galindo CNP Peripheral arterial disease (Primary [...] DO IMG US ABDOMEN Final R esult from Last 3 Months or Most Recently Relevant to Health Maintenance Insurance MEDICARE PART A & [place] [facility] [place] MEDICARE PART A & [place] B [facility] Care Teams Director Of Valuation Relationship Specialty Start Date End Date Mata Pan NP [address] [place] [address] PCP - General Nurse Practitioner 09/14/23 Additional Source Comments The information contained in this document represents components of the legal health record. It is not the complete legal health record.[facility]
--- OUTSIDE RECORDS SUMMARY | 2025-10-29 18:34 | XMS_ITS | Encounter Summary ---
Author Organization [facility] Address [address] [place] [phone] Phone Care Team Providers Care Clinical Application Specialist Name Role Phone Mata Pan NP Primary Care Provider + Encounter Details Date Type Department Care Team (Late st Contact Info) Description 09/14/2023 Procedure Pass [facility] [address] [place] [address] Social History Tobacco Use Types Packs/Day Years [...] on filedocumented in this encounter Care Teams Clinical Application Specialist Relationship Specialty Start Date End Date Mata Pan NP [address] [facility] [place] [place] [address] PCP - General Nurse Practitioner 09/14/23 documented as of this encounter Additional Source Comments The information contained in this document represents components of the legal health record. It is not the complete legal health record.[facility]
== END 2025-10-29 15:11 | disposition home or self-care (01) ==
LOC: HO.HVS 14:19
PROVIDERS: PCP Nurse Practitioner Family; Visit Provider Surgery Vascular Surgery
DX: I73.9 Peripheral vascular disease, unspecified (principal); I65.23 Occlusion and stenosis of bilateral carotid arteries
CPT/HCPCS: 99204

== ENCOUNTER → 2025-10-29 14:18 | Outpatient (BNVA) | payer MEDICARE, MEDICAID, SELFPAY | PROVIDERS: PCP Nurse Practitioner Family; Visit Provider Surgery Vascular Surgery | DX: I73.9 Peripheral vascular disease, unspecified (principal); I65.23 Occlusion and stenosis of bilateral carotid arteries; F17.210 Nicotine dependence, cigarettes, uncomplicated | CPT/HCPCS: 99202 ==

== ENCOUNTER 2025-11-08 22:18 | Emergency (ER) | payer MEDICARE, MEDICAID, SELFPAY ==
[2025-11-08 22:20] VITALS: BP 135/84; PULSE 105; RESP 22; TEMP 36.2; O2SAT 95; BMI 22.2
--- NOTE | 2025-11-08 22:23 | ED_ITS ---
HPI - SOB/Dyspnea General Chief Complaint: Dyspnea Stated Complaint: Dyspnea Time Seen by Provider: 11/08/25 22:25 Source: patient Mode of arrival: ambulatory Limitations: no limitations History of Present Illness ED Provider: Lucy Jules APRN HPI Narrative: 70-year-old male with history of COPD presents the ER with complaints of shortness of breath after cleaning snow off his car in the parking lot of the emergency room. Patient was here with his who is being seen for a COPD exacerbation and they were discharge. While he was cleaning the snow off his car he felt very short of breath which prompted him to come into the ER for evaluation. While sitting in triage he reports he is feeling much improved with some rest and declines all additional treatment. Related Data Home Medications ?Medication ?Instructions ?Recorded ?Confirmed tamsulosin 0.4 mg capsule 0.4 mg PO BEDTIME 08/25/20 1 12/18/24 aspirin 81 mg tablet,delayed 81 mg PO DAILY 01/07/22 1 12/18/24 release (Adult Aspirin Regimen) nebulizers (Sidestream misc) #1 ea 09/23/22 10/17/25 cilostazol 100 mg tablet 100 mg PO BID 11/08/2410/17 clopidogrel 75 mg tablet 75 mg PO DAILY 11/08/2403/08 simethicone 80 mg chewable tablet 80 mg PO TID PRN Abd ominal 11/08/24 10/17/25 (Gas Relief (simethicone)) Distention Previous Rx's ?Medication ?Instructions ?Recorded albuterol sulfate 90 mcg/actuation 2 puff PO Q4-6H PRN for wheezing 02/08/25 aerosol inhaler (Ventolin HFA) #18 grams cholecalciferol (vitamin D3) 50 50 mcg PO DAILY 90 day s #90 tabs 05/22/25 mcg (2,000 unit) tablet diclofenac sodium 3 % topical gel 1 appl topical BID # 100 grams 05/22/25 naproxen 500 mg tablet 500 mg PO Q12H PRN pain 7 da ys #20 05/22/25 tabs losartan 25 mg tablet 25 mg PO DAILY #90 tabs 02/05 budesonide 0.5 mg/2 mL suspension 0.5 mg (2 mL) inhala tion BID 07/08/25 for nebulization COPD/BRONCHITIS #120 mL ipratropium 0.5 mg-albuterol 3 mg 3 ml inhalation QID 07/08/25 (2.5 mg base)/3 mL nebulization COPD/BRONCHITIS 30 day s #360 mL soln pantoprazole 20 mg tablet,delayed 20 mg PO DAILY #90 t abs 07/10/25 release diltiazem HCl 120 mg tablet 120 mg PO DAILY #90 tabs 0 08/12/25 atorvastatin 40 mg tablet 40 mg PO BEDTIME 90 days #90 tabs 08/20/25 cyclobenzaprine 5 mg tablet 5 mg PO Q8H PRN Muscle Spa sm #20 08/22/25 tabs dextromethorphan-guaifenesin 10 10 ml PO Q4-6H PRN cou gh 30 days 08/27/25 mg-100 mg/5 mL oral liquid #500 mL (Guaifenesin-DM) budesonide 0.5 mg/2 mL suspension 0.5 mg (2 mL) inhala tion BID copd 09/10/25 for nebulization 30 days #120 mL prednisone 5 mg tablet 5 mg PO DAILY COPD 30 days # 30 tabs 09/10/25 Allergies Allergy/AdvReac Type Severity Reaction Status Date / Time No Known Allergies Allergy Verified 11/08/25 22:25 Review of Systems Review of Systems: Yes all other systems are reviewed and are negative Constitutional: Constitutional: Reports no additional constitutional complaints, Denies body ache(s), Denies chills, Denies fever(s), Denies headache(s) and Denies weakness Eyes: Eyes: Reports no additional eye complaints and Denies change in vision ENT: Reports system reviewed and no additional complaints, except as documented, Denies dizziness, Denies headache(s), Denies nasal congestion, Denies nasal discharge and Denies neck pain Cardiovascular: Cardiovascular: Reports no additional cardiovascular complaints, Denies chest pain, Denies leg edema and Reports dyspnea Respiratory: Respiratory: Reports no additional respiratory complaints, Denies cough and Reports dyspnea Gastrointestinal: Gastrointestinal: Reports no additional gastrointestinal co mplaints, Denies abdominal pain, Denies diarrhea, Denies nausea and Denies vomiting Genitourinary: Genitourinary: Denies urinary incontinence Musculoskeletal: Musculoskeletal: Reports no additional musculoskeletal complaints, Denies back pain, Denies arthralgias, Denies joint swelling, Denies neck pain, Denies numbness and Denies tingling Integumentary/Breasts: Skin/Breast: Reports system reviewed and no additional complaints, except as docu and Denies rash Neurologic: Reports system reviewed and no additional complaints, except as documented, Denies Abnormal speech present, Denies dizziness, Denies h eadache(s), Denies numbness, Denies tingling and Denies weakness PMFSH Past Medical History Attestation statement: The following information was validated with the patient. Source: old records reviewed and nursing notes reviewed Medical History Bronchitis Osteoarthritis of wrist COPD (chronic obstructive pulmonary disease) Claudication Occlusion of right femoral artery PVD (peripheral vascular disease) with claudication History of osteomyelitis HTN (hypertension) Pulmonary nodule Onychomycosis Chronic right hip pain Nicotine dependence, cigarettes, uncomplicated Surgical History History of cataract surgery (~2015) Status post reconstruction procedure (~1977) History of fracture of clavicle (~2010) Thumb laceration Thumb fracture History of femur fracture Family History Family History Father Lung cancer Smoker Mother Myocardial infarction CVD (cardiovascular disease) Maternal Grandfather No problems noted. Maternal Grandmother No problems noted. Paternal Grandfather No problems noted. Paternal Grandmother No problems noted. Brother HTN (hypertension) Sister No problems noted. 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 Cognitive needs: No Hearing needs: No Vision needs: Yes Physical Exam Vital Signs: Vital Signs: Last Vital Signs Temp 97.2 F 11/08/25 22:32 Pulse 105 H 11/08/25 22:32 Resp 22 H 11/08/25 22:32 BP 135/84 11/08/25 22:32 Pulse Ox 95 11/08/25 22:32 O2 Del Method Room Air 11/08/25 22:32 BMI result Body Mass Index 22.2 Const: General: cooperative, healthy appearing, comfortable and no acute distress Orientation/consciousness: patient oriented x3 Limitations: no limitations HEENT: Head: Yes normal to inspection Ears: hearing grossly normal bilaterally General nose exam: Normal external nose present Face and sinus: Yes normal facial exam Mouth: Normal oral and palatal mucosa present Throat: Yes posterior oropharynx normal Eyes: General: appearance normal, both eyes and all related structures Pupils: Equal, round and reactive pupils present Neck: Neck: Yes normal visual inspection Chest: Chest palpation & inspection: normal inspection of the chest Resp: Effort & Inspection: normal respiratory effort Auscultation: wheezes expiratory wheezes Cardio: Rate: regular rate Rhythm: regular rhythm Peripheral pulses: Peripheral pulses 2+ throughout GI: Inspection: Yes normal to inspection Palpation (GI): Soft to palpation and nontender Auscultation: normal bowel sounds Back/Spine/Pelvis: Thoracic/Lumbar Spine: thoracic and lumbar spine normal to inspection Skin: General skin exam: no rashes or lesions noted Neuro: General: patient oriented x3, no focal motor deficits and normal sensation to monofilament Cranial nerves: Yes Equal, round and reactive pupils present Cognition (Neuro): normal cognition Speech: No Abnormal speech present Gait exam (Neuro): Normal gait present Motor exam (neuro): 5/5 motor strength present throughout Extrem: General: Yes normal to inspection Course Course Course Narrative: This is rapid medical exam. Deferred additional HPI, ROS, PE to [facility]. Medical Decision Making Medical Decision Making [facility] Narrative: 70-year-old male with history of COPD presents the ER with complaints of shortness of breath after cleaning snow off his car in the parking lot of the emergency room. Patient was here with his who is being seen for a COPD exacerbation and they were discharge. While he was cleaning the snow off his car he felt very short of breath which prompted him to come into the ER for evaluation. While sitting in triage he reports he is feeling much improved with some rest and declines all additional treatment. Patient has expiratory wheezing in triage. His oxygen saturation is normal. I did offer further evaluation with a nebulizer, EKG, CXR, labs and viral testing. Khalif declined all additional treatment and plans to go home to continue his home nebulizers. He is welcome to return at any time Differential Diagnosis Differential Diagnoses: The differential diagnosis associated with the presentation includes COPD exacerbation Admission/Observation Consideration of admission/observation: Escalation of care including admission/observation considered See above Tests considered The following testing was considered but not selected: See above Chronic Conditions Patient?s care impacted by: Other (COPD ) Discharge Plan Discharge Clinical Impression: COPD (chronic obstructive pulmonary disease) Patient Disposition: Home, Self-Care Instructions: COPD (Chronic Obstructive Pulmonary Disease) (ED) Additional Instructions: Continue your home medications Follow-up with your outpatient providers. Prescriptions: No Action albuterol sulfate [Ventolin HFA] 90 mcg/actuation HFA aerosol inhaler 2 puff PO Q4-6H PRN (Reason: for wheezing) Qty: 18 0RF cholecalciferol (vitamin D3) 50 mcg (2,000 unit) tablet 50 mcg PO DAILY 90 Days Qty: 90 1RF losartan 25 mg tablet 25 mg PO DAILY Qty: 90 1RF pantoprazole 20 mg tablet,delayed release (DR/EC) 20 mg PO DAILY Qty: 90 1RF diltiazem HCl 120 mg tablet 120 mg PO DAILY Qty: 90 1RF atorvastatin 40 mg tablet 40 mg PO BEDTIME 90 Days Qty: 90 1RF cilostazol 100 mg tablet 100 mg PO BID clopidogrel 75 mg tablet 75 mg PO DAILY simethicone [Gas Relief (simethicone)] 80 mg tablet,chewable 80 mg PO TID PRN (Reason: Abdominal Distention) tamsulosin 0.4 mg capsule 0.4 mg PO BEDTIME aspirin [Adult Aspirin Regimen] 81 mg tablet,delayed release (DR/EC) 81 mg PO DAILY (DME) nebulizers [Sidestream] Misc See Rx Instructions .ROUTE DIRECTED Qty: 1 Rx Instructions: As directed budesonide 0.5 mg/2 mL suspension for nebulization 0.5 mg inhalation BID Qty: 120 3RF ipratropium-albuterol 0.5 mg-3 mg(2.5 mg base)/3 mL solution for nebulization 3 ml inhalation QID 30 Days Qty: 360 4RF diclofenac sodium 3 % gel 1 appl topical BID Qty: 100 0RF naproxen 500 mg tablet 500 mg PO Q12H PRN (Reason: pain) 7 Days Qty: 20 0RF cyclobenzaprine 5 mg tablet 5 mg PO Q8H PRN (Reason: Muscle Spasm) Qty: 20 0RF dextromethorphan-guaifenesin [Guaifenesin-DM] 10-100 mg/5 mL liquid 10 ml PO Q4-6H PRN (Reason: cough) 30 Days Qty: 500 3RF prednisone 5 mg tablet 5 mg PO DAILY 30 Days Qty: 30 3RF budesonide 0.5 mg/2 mL suspension for nebulization 0.5 mg inhalation BID 30 Days Qty: 120 2RF Referrals: Physician,Unknown J [Primary Care Provider, Medical] Interventions: ED Discharge Assessment Last Done: 11/08/25 22:32 Discharge Date/Time: 11/08/25 22:33 Print Language: Upper Sorbian
[2025-11-08 22:32] VITALS: BP 135/84; PULSE 105; RESP 22; TEMP 36.2; O2SAT 95
--- OUTSIDE RECORDS SUMMARY | 2025-11-08 22:34 | XMS_ITS | Encounter Summary ---
Author Organization [facility] Address [address] [place] [phone] Phone Care Team Providers Care Hostler Helper Name Role Phone Mata Pan NP Primary Care Provider + Encounter Details Date Type Department Care Team (Late st Contact Info) Description 09/14/2023 Procedure Pass [facility] [address] [place] [address] Social History Tobacco Use Types Packs/Day Years [...] on filedocumented in this encounter Care Teams Hostler Helper Relationship Specialty Start Date End Date Mata Pan NP [address] [place] [address] PCP - General Nurse Practitioner 09/14/23 documented as of this encounter Additional Source Comments The information contained in this document represents components of the legal health record. It is not the complete legal health record.[facility]
--- OUTSIDE RECORDS SUMMARY | 2025-11-08 22:34 | XMS_ITS | Encounter Summary ---
Author Organization [facility] Address [address] [place] [phone] Phone Care Team Providers Care Tire Maker Name Role Phone Mata Pan SUPPLY CRIB ATTENDANT Primary Care Provider + Encounter Details Date Type Department Care Team (Late st Contact Info) Description 05/21/2025 Procedure Pass [facility] [address] [place] [address] Social History Tobacco Use Types Packs/Day Years [...] on filedocumented in this encounter Care Teams Tire Maker Relationship Specialty Start Date End Date Mata Pan NP [facility] [place] [address] PCP - General Nurse Practitioner 09/14/23 documented as of this encounter Additional Source Comments The information contained in this document represents components of the legal health record. It is not the complete legal health record.[facility]
--- OUTSIDE RECORDS SUMMARY | 2025-11-08 22:34 | XMS_ITS | Clinical Summary ---
Author Organization [facility] Address [address] [place] [phone] Phone Care Team Providers Care Food Prep Worker Name Role Phone Mata Pan INDUSTRIAL CAFETERIA MANAGER Primary Care Provider + Allergies No known [...] should follow-up with Dr. Guillen in the [place] office going forward who is his established general regional engagement consultant. Assessment & Plan (05/21/2025 12:11 PM EDT): [...] EDT): He is now being followed by [facility]. He should continue following with [facility]. I have asked him to continue following up with Dr. Guillen for general cardiology needs in the [place] office. Dr. Guillen can always refer him back to see Dr. Cortez from the vascular standpoint if needed. I think that any intervention at this point however is going to be done through [facility] as he needs surgery not PCI. [...] Description 09/02/2025 1:00 PM EDT Office Visit [facility] [address], [address] [place] [address] Carina Galindo CNP Peripheral arterial disease (Primary [...] B [place] [facility] B Member Subscriber Plan / Payer (Ef fective 2021-Present) Name:Jose Lima Member ID:[id number] Relation to Subscriber:Self Name:Jose Lima Subscriber ID:[id number] Payer ID:[id number] Group ID:Not on file Type:Medicare Address: [employer] [address] [place] [id number] [place] A & B HEALTH MEDICARE PART A & B [place] B [facility] Care Teams Food Prep Worker Relationship Specialty Start Date End Date Mata Pan NP [address] [place] [address] PCP - General Nurse Practitioner 09/14/23 Additional Source Comments The information contained in this document represents components of the legal health record. It is not the complete legal health record.[facility]
--- OUTSIDE RECORDS SUMMARY | 2025-11-08 22:34 | XMS_ITS | Encounter Summary ---
Author Organization [facility] Address [address] [place] [phone] Phone Care Team Providers Care Fish Fryer Name Role Phone Mata Pna SPOTTER Primary Care Provider + Encounter Details Date Type Department Care Team (Late st Contact Info) Description 05/09/2024 Procedure Pass [facility] [address] [place] [address] Social History Tobacco Use Types Packs/Day Years [...] on filedocumented in this encounter Care Teams Fish Fryer Relationship Specialty Start Date End Date Mata Pan NP [address] [place] [address] PCP - General Nurse Practitioner 09/14/23 documented as of this encounter Additional Source Comments The information contained in this document represents components of the legal health record. It is not the complete legal health record.[facility]
--- OUTSIDE RECORDS SUMMARY | 2025-11-08 22:34 | XMS_ITS | Encounter Summary ---
Author Organization [facility] Address [address] [place] [address] Phone Care Team Providers Care Tile Trimmer Name Role Phone Mata Pan NP Primary Care Provider + Reason for Referral * - Closed Specialty Diagnoses / Procedures Referred By Contac t Referred To Contact Radiology Diagnoses Iliac artery stenosis, bilateral Procedures US Aorta Duplex Complete John Cortez DO Phone: tel: fax: mailto:[email or web address] Referral ID Status Reason Start Date Expiration Date Visits Re quested Visits Authorized [id number] Closed 04/03/2024 04/03/2025 1 1 * - Closed Specialty Diagnoses / Procedures Referred By Contac t Referred To Contact Radiology Diagnoses Shortness of breath Procedures US Lower Extremity Arteries (CHERYL) Physio Complete Bilat John Cortez DO Phone: tel: fax: mailto: Referral ID Status Reason Start Date Expiration Date Visits Re quested Visits Authorized [id number] Closed 04/03/2024 04/03/2025 1 1 Encounter Details Date Type Department Care Team (Latest Contact Info) Description 04/03/2024 Ancillary Orders [facility] [address] [facility] [address]rd [address], [address] [place] [address] John Cortez, DO [address] [place] [address] [email or web address] Shortness of breath (Primary Dx); [...] breath Iliac artery stenosis, bilateral Atherosclerosis of [place] arteries of the extremities, unspecified Shortness of breath- Primary Iliac artery stenosis, bilateral Atherosclerosis of [place] arteries of the extremities, unspecified documented in this encounter Care Teams Tile Trimmer Relationship Specialty Start Date End Date Mata Pan NP [facility] [place] [address] PCP - General Nurse Practitioner 09/14/23 documented as of this encounter Additional Source Comments The information contained in this document represents components of the legal health record. It is not the complete legal health record.[facility]
== END 2025-11-08 22:33 | disposition home or self-care (01) ==
LOC: HO.ED 22:31
PROVIDERS: Emergency Provider Emergency Medicine
DX: J44.9 Chronic obstructive pulmonary disease, unspecified (principal); R06.00 Dyspnea, unspecified; I10 Essential (primary) hypertension; F17.200 Nicotine dependence, unspecified, uncomplicated; Z71.6 Tobacco abuse counseling
CPT/HCPCS: 99282